=== PATIENT | male | born 1945 ===

== ENCOUNTER 2021-06-03 17:28 | Inpatient (IN) | payer OTHER, MEDICARE ==
[2021-06-03] MEDS ORDERED: dexAMETHasone 4 MG/ML VIAL IV ONE (17:34)
--- NOTE | 2021-06-03 17:35 | Event Note ---
ED Screening Note ED Screening Note: COVID + 3-4 days ago states received two doses of vaccine SOB two weeks no fever +diarrhea no n/v +CP +cough PMhx DM increased work of breathing 80% on RA placed on non rebreater and satting 94% discussed with Dr. Delong and denia pt needs room JETHRO charge nurse eugenia advised This initial assessment/diagnostic orders/clinical plan/treatment(s) is/are subject to change based on patients health status, clinical progression and re- assessment by fellow clinical providers in the ED. Further treatment and workup at subsequent clinical providers discretion. Patient/guardian urged not to elope from the ED as their condition may be serious if not clinically assessed and managed. Initial orders include: labs, xr, ekg, non rebreather MAIN ED NOW for MD fitzgerald
--- NOTE | 2021-06-03 18:34 | XRay Report ---
XR chest 1V ap INDICATION / CLINICAL INFORMATION: SOB. COMPARISON: None available. FINDINGS: SUPPORT DEVICES: None. HEART /PULMONARY VASCULATURE: The heart is accentuated by low lung volumes. Mild pulmonary vasculatur e congestion is present. LUNGS / PLEURA: Mild interstitial opacities are present within the mid and lower lungs bilaterally. N o focal airspace consolidation. No sizable pleural effusion. No pneumothorax. ADDITIONAL FINDINGS: No significant additional findings. IMPRESSION: Findings suggestive of mild CHF with interstitial edema. Signer Name: Jim Babin MD Signed: 06/03/2021 6:30 PM Workstation Name: [id number]
[2021-06-03 18:57] LABS: Basophils % (Auto) 0.3 % (0.0-1.8); Hematocrit 54.7 % (35.5-45.6); Lymphocytes # (Auto) 0.5 K/mm3 (1.2-5.4); Lymphocytes % (Auto) 8.4 % (13.4-35.0); Mean Corpuscular HGB Conc 31 % (32-34); Mean Corpuscular Volume 74 fl (84-94); Monocytes # (Auto) 0.7 K/mm3 (0.0-0.8); Monocytes % (Auto) 12.6 % (0.0-7.3); Platelet Count 225 K/mm3 (140-440); Red Blood Count 7.38 M/mm3 (3.65-5.03); Red Cell Distribution Width 15.9 % (13.2-15.2)
[2021-06-03 19:14] LABS: Albumin 3.1 g/dL (3.9-5); C-Reactive Protein 6.2 mg/dL (0.00-1.30); Calcium 8.6 mg/dL (8.4-10.2)
--- NOTE | 2021-06-03 20:34 | Emergency Department Report ---
<VIRGEN WHITFIELD - Last Filed: 06/03/21 20:30> ED Shortness of Breath HPI - General Chief Complaint: Dyspnea/Respdistress Stated Complaint: DYSPNEA/COVID + Time Seen by Provider: 06/03/21 17:33 Source: patient, family Mode of arrival: Wheelchair Limitations: No Limitations - History of Present Illness Initial Comments: cough shortness of breath , fever vince for the last few days MD Complaint: shortness of breath, cough -: days(s) Improves With: oxygen Worsens With: exertion - Related Data Home Medications Medication Instructions Recorded Confirmed Last Taken atenoloL [Tenormin] 50 mg PO DAILY 06/03/21 06/03/21 Unknown metFORMIN [Glucophage] 500 mg PO DAILY 06/03/21 06/03/21 Unknown Allergies Allergy/AdvReac Type Severity Reaction Status Date / Time shellfish derived AdvReac Hives Verified 06/03/21 18:34 ED Review of Systems Constitutional: denies: chills, fever Eyes: denies: eye pain, eye discharge, vision change ENT: denies: ear pain, throat pain Respiratory: denies: cough, shortness of breath, wheezing Cardiovascular: denies: chest pain, palpitations Endocrine: no symptoms reported Gastrointestinal: denies: abdominal pain, nausea, diarrhea Genitourinary: denies: urgency, dysuria Musculoskeletal: denies: back pain, joint swelling, arthralgia Skin: denies: rash, lesions Neurological: denies: headache, weakness, paresthesias Psychiatric: denies: anxiety, depression Hematological/Lymphatic: denies: easy bleeding, easy bruising ED Past Medical Hx - Past Medical History Hx Hypertension: Yes Hx Diabetes: Yes - Surgical History Past Surgical History?: No - Social History Smoking Status: Never Smoker Substance Use Type: None - Medications Home Medications: Home Medications Medication Instructions Recorded Confirmed Last Taken Type atenoloL [Tenormin] 50 mg PO DAILY 06/03/21 06/03/21 Unknown History metFORMIN [Glucophage] 500 mg PO DAILY 06/03/21 06/03/21 Unknown History ED Physical Exam - General Limitations: No Limitations General appearance: alert - Head Head exam: Present: atraumatic, normocephalic - Eye Eye exam: Present: normal appearance - ENT ENT exam: Present: mucous membranes moist - Neck Neck exam: Present: normal inspection - Respiratory Respiratory exam: Present: normal lung sounds bilaterally. Absent: respiratory distress - Cardiovascular Cardiovascular Exam: Present: regular rate, normal rhythm. Absent: systolic murmur, diastolic murmur, rubs, gallop - GI/Abdominal GI/Abdominal exam: Present: soft, normal bowel sounds - Rectal Rectal exam: Present: deferred - Extremities Exam Extremities exam: Present: normal inspection - Back Exam Back exam: Present: normal inspection - Neurological Exam Neurological exam: Present: alert, oriented X3 - Psychiatric Psychiatric exam: Present: normal affect, normal mood - Skin Skin exam: Present: warm, dry, intact, normal color. Absent: rash ED Medical Decision Making - Lab Data Result diagrams: 06/03/21 18:37 06/03/21 18:37 ED Disposition Clinical Impression: Acute respiratory failure with hypoxia, Bilateral pneumonia, Suspected COVID-19 virus infection Disposition: 09 ADMITTED INPATIENT Is pt being admited?: Yes Does the pt Need Aspirin: No Condition: Stable Instructions: Bacterial Pneumonia (ED) Referrals: PRIMARY CARE, [Primary Care Provider] - 3-5 Days <FERCHO MCKAY - Last Filed: 06/03/21 21:26> ED Review of Systems ROS: Stated complaint: DYSPNEA/COVID + Other details as noted in HPI ED Course Vital Signs 06/03/21 06/03/21 17:30 18:37 Pulse Rate 117 H 105 H Respiratory 30 H 24 Rate Blood Pressure 114/76 122/88 [Left] O2 Sat by Pulse 83 L 97 Oximetry - Consultations Consultation #1: 06/03/21 21:22 I discussed the patient with Dr. Armendariz, he agreed to admit the patient to medical service for further management. ED Medical Decision Making - Lab Data Result diagrams: 06/03/21 18:37 06/03/21 18:37 - Radiology Data Radiology results: report reviewed - Medical Decision Making Patient is 75 years old female with recent diagnosis of COVID-19. Patient signed out to me by my colleague Dr. Whitfield, patient presented to the ER complaining of shortness of breath, cough and fever. Patient found to be hypoxic with an oxygen saturation of 80% on room air improved to 95% on 3 L. Chest x-ray showed bilateral lower infiltrate. Patient received Decadron and Levaquin. I discussed the patient with Dr. Nabi, he agreed to admit the patient to medical service for further management. Critical Care Time: Yes Critical care time in (mins) excluding proc time.: 35 Critical care attestation.: If time is entered above; I have spent that time in minutes in the direct care of this critically ill patient, excluding procedure time.
[2021-06-03] MEDS ORDERED: ACETAMINOPHEN 325 MG TAB PO PRN (21:46)
[2021-06-03] MEDS ORDERED: ONDANSETRON 4 MG/2 ML INJ IV PRN (21:46)
[2021-06-03] MEDS ORDERED: ALBUTEROL 2.5 MG/3 ML NEBU IH PRN (21:46)
[2021-06-03] MEDS ORDERED: DEXTROSE 50% IN WATER (25GM) 50 ML SYRINGE IV PRN (21:46)
[2021-06-03] MEDS ORDERED: hydrALAZINE 20 MG/1 ML INJ IV PRN (21:50)
--- NOTE | 2021-06-03 21:55 | History and Physical Report ---
History of Present Illness Date of examination: 06/03/21 Date of admission: 06/03/21 21:26 Chief complaint: Shortness of breath and cough History of present illness: 75 years old male with history of diabetes. Received 2 doses of COVID-vaccine was brought to the hospital because patient complained of shortness of breath for the 2 weeks associated with cough patient also complained of chest pain no nausea vomiting complain of diarrhea patient was positive for COVID 3 to 4 days ago subsequently patient is brought to the emergency room. In the ER patient is found to have increased work of breathing. O2 sat 80% on room air subsequently patient was put on nonrebreather and satting 94%. In the emergency room chest x-ray shows mild CHF with interstitial edema. Surgery to admit the patient with a diagnosis of acute respiratory failure suspected COVID-pneumonia. We will consult infectious disease for evaluation Past History Past Medical History: diabetes, hypertension Medications and Allergies Allergies Allergy/AdvReac Type Severity Reaction Status Date / Time shellfish derived AdvReac Hives Verified 06/03/21 18:34 Home Medications Medication Instructions Recorded Confirmed Last Taken Type atenoloL [Tenormin] 50 mg PO DAILY 06/03/21 06/03/21 Unknown History metFORMIN [Glucophage] 500 mg PO DAILY 06/03/21 06/03/21 Unknown History Active Meds: Active Medications Levofloxacin/Dextrose (Levaquin 500mg/100ml) 500 mg in 100 mls @ 100 mls/hr IV ONCE ONE; Protocol Stop: 06/03/21 22:23 Review of Systems All systems: negative Cardiovascular: chest pain, shortness of breath, dyspnea on exertion Respiratory: cough, shortness of breath, dyspnea on exertion Gastrointestinal: diarrhea Exam - Constitutional Vitals: Temp Pulse Resp BP Pulse Ox 105 H 24 122/88 97 06/03/21 18:37 06/03/21 18:37 06/03/21 18:37 06/03/21 18:37 General appearance: Present: no acute distress, well-nourished - EENT Eyes: Present: PERRL ENT: hearing intact, clear oral mucosa - Neck Neck: Present: supple, normal ROM - Respiratory Respiratory effort: normal Respiratory: bilateral: diminished - Cardiovascular Heart Sounds: Present: S1 & S2. Absent: rub, click - Extremities Extremities: pulses symmetrical, No edema Peripheral Pulses: within normal limits - Abdominal General gastrointestinal: Present: soft, non-tender, non-distended, normal bowel sounds Male genitourinary: Present: normal - Integumentary Integumentary: Present: clear, warm, dry - Musculoskeletal Musculoskeletal: gait normal, strength equal bilaterally - Psychiatric Psychiatric: appropriate mood/affect, intact judgment & insight - Neurologic Neurologic: CNII-XII intact, moves all extremities Results - Labs CBC & Chem 7: 06/03/21 18:37 06/03/21 18:37 Labs: Laboratory Last Values WBC 5.4 K/mm3 (4.5-11.0) 06/03/21 18:37 RBC 7.38 M/mm3 (3.65-5.03) H 06/03/21 18:37 Hgb 17.0 gm/dl (11.8-15.2) H 06/03/21 18:37 Hct 54.7 % (35.5-45.6) H 06/03/21 18:37 MCV 74 fl (84-94) L 06/03/21 18:37 MCH 23 pg (28-32) L 06/03/21 18:37 MCHC 31 % (32-34) L 06/03/21 18:37 RDW 15.9 % (13.2-15.2) H 06/03/21 18:37 Plt Count 225 K/mm3 (140-440) 06/03/21 18:37 Lymph % (Auto) 8.4 % (13.4-35.0) L 06/03/21 18:37 Eaton % (Auto) 12.6 % (0.0-7.3) H 06/03/21 18:37 Eos % (Auto) 0.0 % (0.0-4.3) 06/03/21 18:37 Baso % (Auto) 0.3 % (0.0-1.8) 06/03/21 18:37 Lymph # (Auto) 0.5 K/mm3 (1.2-5.4) L 06/03/21 18:37 Eaton # (Auto) 0.7 K/mm3 (0.0-0.8) 06/03/21 18:37 Eos # (Auto) 0.0 K/mm3 (0.0-0.4) 06/03/21 18:37 Baso # (Auto) 0.0 K/mm3 (0.0-0.1) 06/03/21 18:37 Seg Neutrophils % 78.7 % (40.0-70.0) H 06/03/21 18:37 Seg Neutrophils # 4.3 K/mm3 (1.8-7.7) 06/03/21 18:37 D-Dimer 634.36 ng/mlDDU (0-234) H 06/03/21 18:37 Sodium 138 mmol/L (137-145) 06/03/21 18:37 Potassium 5.4 mmol/L (3.6-5.0) H 06/03/21 18:37 Chloride 103.1 mmol/L (98-107) 06/03/21 18:37 Carbon Dioxide 19 mmol/L (22-30) L 06/03/21 18:37 Anion Gap 21 mmol/L 06/03/21 18:37 BUN 40 mg/dL (9-20) H 06/03/21 18:37 Creatinine 2.6 mg/dL (0.8-1.3) H 06/03/21 18:37 Estimated GFR 24 ml/min 06/03/21 18:37 BUN/Creatinine Ratio 15 % 06/03/21 18:37 Glucose 179 mg/dL (75-100) H 06/03/21 18:37 Lactic Acid 1.60 mmol/L (0.7-2.0) 06/03/21 20:37 Calcium 8.6 mg/dL (8.4-10.2) 06/03/21 18:37 Ferritin 823.7 ng/mL (30.0-300.0) H 06/03/21 18:37 Total Bilirubin 0.50 mg/dL (0.1-1.2) 06/03/21 18:37 AST 28 units/L (5-40) 06/03/21 18:37 ALT 22 units/L (7-56) 06/03/21 18:37 Alkaline Phosphatase 71 units/L (35-129) 06/03/21 18:37 Lactate Dehydrogenase 308 units/L (91-180) H 06/03/21 18:37 C-Reactive Protein 6.20 mg/dL (0.00-1.30) H 06/03/21 18:37 NT-Pro-B Natriuret Pep 246.5 pg/mL (0-900) 06/03/21 20:48 Total Protein 6.5 g/dL (6.3-8.2) 06/03/21 18:37 Albumin 3.1 g/dL (3.9-5) L 06/03/21 18:37 Albumin/Globulin Ratio 0.9 % 06/03/21 18:37 - Imaging and Cardiology Chest x-ray: report reviewed Assessment and Plan VTE prophylaxis?: Chemical Plan of care discussed with patient/family: Yes - Patient Problems (1) Acute respiratory failure with hypoxia Current Visit: Yes Status: Acute Plan to address problem: Admit the patient to the medical floor. Patient is on nonrebreather. DuoNeb nebulizer every 4 hours. Rocephin 1 g IV daily. Zithromax 500 mg IV daily. De cadron 6 mg IV daily. We will do the blood cultures and sputum culture. We will send a COVID PCR. Follow COVID inflammatory marker. Infectious disease as well as pulmonary evaluation (2) Bilateral pneumonia Current Visit: Yes Status: Acute Plan to address problem: Patient is on nonrebreather. DuoNeb nebulizer every 4 hours. Rocephin 1 g IV daily. Zithromax 500 mg IV daily. We will do the blood cultures and sputum culture. (3) Suspected COVID-19 virus infection Current Visit: Yes Status: Acute Plan to address problem: Patient is on nonrebreather. DuoNeb nebulizer every 4 hours. Rocephin 1 g IV daily. Zithromax 500 mg IV daily. Decadron 6 mg IV daily. We will do the blood cultures and sputum culture. We will send a COVID PCR. Follow COVID inflammatory marker. Infectious disease as well as pulmonary evaluation (4) Diabetes Current Visit: Yes Status: Acute Plan to address problem: 1800 kcal ADA diet. Humalog sliding scale with moderate dose coverage Accu-Chek before meals and at bedtime. Metformin 500 mg p.o. daily. Diabetic education (5) Hypertension Current Visit: Yes Status: Acute Plan to address problem: Atenolol 50 mg p.o. daily. Hydralazine 10 mg IV every 6 hours as needed (6) Acute kidney injury superimposed on CKD Current Visit: Yes Status: Acute Plan to address problem: Avoid nephrotoxic drugs. Renally dose medication. Reconsult nephrology for evaluation. Recheck BMP in the morning (7) DVT prophylaxis Current Visit: Yes Status: Acute Plan to address problem: Heparin 5000 units subcu every 8 hours for DVT prophylaxis. Pepcid 20 mg p.o. twice daily for GI prophylaxis. Patient is a full code
[2021-06-03] MEDS ORDERED: AZITHROMYCIN/NS 500 MG/250 ML 500 MG/250 ML BAG IV SCH (22:00)
[2021-06-03] MEDS ORDERED: cefTRIAXone/NS 2 GM/100 ML 2 GM/100 ML BAG IV SCH (22:00)
[2021-06-03] MEDS: HEPARIN 5,000 UNIT/1 ML VIAL SUB-Q SCH (23:18)
[2021-06-04] MEDS: FAMOTIDINE 20 MG TAB PO SCH ×2 (00:21→11:04)
[2021-06-04] MEDS: INSULIN LISPRO 100 UNIT/ML SUB-Q SCH ×5 (00:34→23:21)
[2021-06-04] MEDS ORDERED: SODIUM POLYSTYRENE 15 GM/60 ML ORAL LIQD PO ONE (01:17)
[2021-06-04] MEDS: IPRATROPIUM/ALBUTEROL SULFATE 3 ML AMPUL.NEB IH SCH ×2 (05:24→17:04)
[2021-06-04] MEDS: HEPARIN 5,000 UNIT/1 ML VIAL SUB-Q SCH ×3 (06:57→23:21)
[2021-06-04 06:59] LABS: Basophils % (Auto) 0.4 % (0.0-1.8); Eosinophils % (Auto) 0.2 % (0.0-4.3); Hematocrit 50.7 % (35.5-45.6); Hemoglobin 15.9 gm/dl (11.8-15.2); Lymphocytes # (Auto) 0.8 K/mm3 (1.2-5.4); Lymphocytes % (Auto) 17.7 % (13.4-35.0); Mean Corpuscular HGB Conc 31 % (32-34); Mean Corpuscular Volume 74 fl (84-94); Monocytes # (Auto) 0.7 K/mm3 (0.0-0.8); Monocytes % (Auto) 15.6 % (0.0-7.3); Platelet Count 220 K/mm3 (140-440); Red Blood Count 6.82 M/mm3 (3.65-5.03); Red Cell Distribution Width 16.1 % (13.2-15.2)
[2021-06-04] MEDS ORDERED: metFORMIN 500 MG TAB PO SCH (08:00)
--- NOTE | 2021-06-04 10:41 | Consultation ---
History of Present Illness - Reason for Consult Consult date: 06/04/21 acute renal failure - History of Present Illness HPI: 75 year old M admitted with Cough and SHOB along with some chest pain. Pt was recently dx with Covid outpatient. He was found to have hypoxia in the ER along with renal failure and hyperkalemia. He N/V,diarrhea. CXR was somewhat congested. ROS: As in HPI otherwise 12 point review of systems -ve Past History Past Medical History: diabetes, hypertension Medications and Allergies Allergies Allergy/AdvReac Type Severity Reaction Status Date / Time shellfish derived AdvReac Hives Verified 06/03/21 18:34 Home Medications Medication Instructions Recorded Confirmed Last Taken Type atenoloL [Tenormin] 50 mg PO DAILY 06/03/21 06/03/21 Unknown History metFORMIN [Glucophage] 500 mg PO DAILY 06/03/21 06/03/21 Unknown History Active Meds: Active Medications Acetaminophen (Acetaminophen 325 Mg Tab) 650 mg PO Q4H PRN PRN Reason: Pain MILD(1-3)/Fever >100.5/LISA Albuterol (Albuterol 2.5 Mg/3 Ml Nebu) 2.5 mg IH Q4HRT PRN PRN Reason: Shortness Of Breath Albuterol/Ipratropium (Ipratropium/Albuterol Sulfate 3 Ml Ampul.Neb) 1 ampul IH Q6HRT [facility] Last Admin: 06/04/21 05:24 Dose: Not Given Atenolol (Atenolol 50 Mg Tab) 50 mg PO DAILY [facility] Azithromycin (Azithromycin 250 Mg Tab) 500 mg PO QHS [facility] Stop: 06/07/21 22:01 Dexamethasone (Dexamethasone 4 Mg/Ml Vial) 6 mg IV DAILY [facility] Stop: 06/13/21 10:01 Dextrose (Dextrose 50% In Water (25gm) 50 Ml Syringe) 0 ml IV Q30MIN PRN; Protocol PRN Reason: Hypoglycemia Famotidine (Famotidine 20 Mg Tab) 20 mg PO QAM [facility] Last Admin: 06/04/21 00:21 Dose: Not Given Heparin Sodium (Porcine) (Heparin 5,000 Unit/1 Ml Vial) 5,000 unit SUB-Q Q8HR [facility] Last Admin: 06/04/21 06:57 Dose: 5,000 unit Hydralazine HCl (Hydralazine 20 Mg/1 Ml Inj) 10 mg IV Q6H PRN PRN Reason: Blood Pressure Hydromorphone HCl (Hydromorphone 1 Mg/1 Ml Inj) 0.5 mg IV Q3H PRN PRN Reason: Pain , Severe (7-10) Ceftriaxone Sodium (Rocephin/Ns 2 Gm/100 Ml) 2 gm in 100 mls @ 200 mls/hr IV Q24H [facility]; Protocol Stop: 06/07/21 22:29 Last Admin: 06/04/21 00:22 Dose: 200 mls/hr Insulin Human Lispro (Insulin Lispro 100 Unit/Ml) 0 unit SUB-Q ACHS [facility]; Protocol Last Admin: 06/04/21 00:34 Dose: Not Given Morphine Sulfate (Morphine 2 Mg/1 Ml Inj) 2 mg IV Q4H PRN PRN Reason: Pain, Moderate (4-6) Ondansetron HCl (Ondansetron 4 Mg/2 Ml Inj) 4 mg IV Q8H PRN PRN Reason: Nausea And Vomiting Sodium Chloride (Sodium Chloride 0.9% 10 Ml Flush Syringe) 10 ml IV BID [facility] Last Admin: 06/03/21 23:33 Dose: 10 ml Sodium Chloride (Sodium Chloride 0.9% 10 Ml Flush Syringe) 10 ml IV PRN PRN PRN Reason: LINE FLUSH Exam - Vital Signs Vital signs: Vital Signs Pulse Resp BP Pulse Ox 117 H 30 H 114/76 83 L 06/03/21 17:30 06/03/21 17:30 06/03/21 17:30 06/03/21 17:30 - Physical Exam Narrative exam: General appearance: Present: no acute distress, well-nourished - EENT Eyes: Present: PERRL ENT: hearing intact, clear oral mucosa - Neck Neck: Present: supple, normal ROM - Respiratory Respiratory effort: normal Respiratory: bilateral: diminished - Cardiovascular Heart Sounds: Present: S1 & S2. Absent: rub, click - Extremities Extremities: pulses symmetrical, No edema Peripheral Pulses: within normal limits - Abdominal General gastrointestinal: Present: soft, non-tender, non-distended, normal bowel sounds Male genitourinary: Present: normal - Integumentary Integumentary: Present: clear, warm, dry - Musculoskeletal Musculoskeletal: gait normal, strength equal bilaterally - Psychiatric Psychiatric: appropriate mood/affect, intact judgment & insight - Neurologic Neurologic: CNII-XII intact, moves all extremities Results - Lab Results 06/04/21 05:40 06/04/21 05:40 Most recent lab results Calcium 8.0 mg/dL (8.4-10.2) L 06/04/21 05:40 Assessment and Plan Acute Kidney injury, Possible CKD: Covid 19 Pneumonia: Acute Hypoxic respiratory failure: Hyperkalemia: Metabolic acidosis: DM2: HTN: -Check Urine studies, CK level -K improving after Kayxelate, Low K diet -Monitor acidosis -Check Renal US -CXR congested, start lasix 40 mg BID IV, check TTE for CHF. -Renally dose all meds -Avoid Nephrotoxic meds -Strict I/Os Go Moreau MD [phone]
[2021-06-04] MEDS: dexAMETHasone 4 MG/ML VIAL IV SCH (11:04)
[2021-06-04] MEDS: FUROSEMIDE 40 MG/4 ML INJ IV SCH ×2 (12:05→17:59)
[2021-06-04] MEDS ORDERED: REMDESIVIR 200 MG in SODIUM CHLORIDE 0.9% 250ML 250 ML IV ONE (14:26)
--- NOTE | 2021-06-04 14:26 | Consultation ---
History of Present Illness - Reason for Consult Consult date: 06/04/21 COVID-19 Requesting physician: REJI GEORGES - History of Present Illness The patient is a 73-year-old male with diabetes, hypertension admitted to the hospital with worsening shortness of breath over the last 2 weeks. Patient tested positive for COVID-19 as an outpatient. Upon evaluation in the ER, noted to be hypoxic on room air. Chest x-ray showed mild CHF and interstitial edema. Afebrile on admission. Oxygen has been weaned to aerosol mask. Labs showed mild leukopenia of 4.3, D-dimer 634, proBNP 246, ferritin 823, CRP 6.2, procalcitonin 0.12 Review of Systems: reviewed in the chart, unable to obtain, minimize risk of transmission Past History Past Medical History: diabetes, hypertension Medications and Allergies Allergies Allergy/AdvReac Type Severity Reaction Status Date / Time shellfish derived AdvReac Hives Verified 06/03/21 18:34 Home Medications Medication Instructions Recorded Confirmed Last Taken Type atenoloL [Tenormin] 50 mg PO DAILY 06/03/21 06/03/21 Unknown History metFORMIN [Glucophage] 500 mg PO DAILY 06/03/21 06/03/21 Unknown History Active Meds: Active Medications Acetaminophen (Acetaminophen 325 Mg Tab) 650 mg PO Q4H PRN PRN Reason: Pain MILD(1-3)/Fever >100.5/LISA Albuterol (Albuterol 2.5 Mg/3 Ml Nebu) 2.5 mg IH Q4HRT PRN PRN Reason: Shortness Of Breath Albuterol/Ipratropium (Ipratropium/Albuterol Sulfate 3 Ml Ampul.Neb) 1 ampul IH Q6HRT [facility] Last Admin: 06/04/21 05:24 Dose: Not Given Atenolol (Atenolol 50 Mg Tab) 50 mg PO DAILY [facility] Dexamethasone (Dexamethasone 4 Mg/Ml Vial) 6 mg IV DAILY [facility] Stop: 06/13/21 10:01 Dextrose (Dextrose 50% In Water (25gm) 50 Ml Syringe) 0 ml IV Q30MIN PRN; Protocol PRN Reason: Hypoglycemia Famotidine (Famotidine 20 Mg Tab) 20 mg PO QAM [facility] Last Admin: 06/04/21 00:21 Dose: Not Given Furosemide (Furosemide 40 Mg/4 Ml Inj) 40 mg IV 0600,1800 [facility] Heparin Sodium (Porcine) (Heparin 5,000 Unit/1 Ml Vial) 5,000 unit SUB-Q Q8HR [facility] Last Admin: 06/04/21 06:57 Dose: 5,000 unit Hydralazine HCl (Hydralazine 20 Mg/1 Ml Inj) 10 mg IV Q6H PRN PRN Reason: Blood Pressure Hydromorphone HCl (Hydromorphone 1 Mg/1 Ml Inj) 0.5 mg IV Q3H PRN PRN Reason: Pain , Severe (7-10) Insulin Human Lispro (Insulin Lispro 100 Unit/Ml) 0 unit SUB-Q ACHS [facility]; Protocol Last Admin: 06/04/21 00:34 Dose: Not Given Morphine Sulfate (Morphine 2 Mg/1 Ml Inj) 2 mg IV Q4H PRN PRN Reason: Pain, Moderate (4-6) Ondansetron HCl (Ondansetron 4 Mg/2 Ml Inj) 4 mg IV Q8H PRN PRN Reason: Nausea And Vomiting Sodium Chloride (Sodium Chloride 0.9% 10 Ml Flush Syringe) 10 ml IV BID [facility] Last Admin: 06/03/21 23:33 Dose: 10 ml Sodium Chloride (Sodium Chloride 0.9% 10 Ml Flush Syringe) 10 ml IV PRN PRN PRN Reason: LINE FLUSH Physical Examination - Physical Exam Narrative exam: Physical Exam (reviewed in chart to minimize risk of transmission) Constitutional: deferred Head, Ears, Nose: deferred Eyes: deferred Neck: deferred Oral: deferred Cardiovascular: deferred Respiratory: deferred GI: deferred Musculoskeletal: deferred Skin: deferred Hem/Lymphatic: deferred Psych: deferred Neurological: deferred - Constitutional Vitals: Vital Signs Temp Pulse Resp BP Pulse Ox 98.5 F 73 24 114/80 95 06/04/21 01:53 06/04/21 09:22 06/04/21 09:22 06/04/21 09:22 06/04/21 09:22 Temperature -Last 24 Hours Temperature 98.5 F Temperature 98.2 F Results - Labs CBC & Chem 7: 06/04/21 05:40 06/04/21 05:40 Labs: Abnormal lab results 06/03/21 06/03/21 06/03/21 Range/Units 18:37 18:37 18:37 WBC (4.5-11.0) K/mm3 RBC 7.38 H (3.65-5.03) M/mm3 Hgb 17.0 H (11.8-15.2) gm/dl Hct 54.7 H (35.5-45.6) % MCV 74 L (84-94) fl MCH 23 L (28-32) pg MCHC 31 L (32-34) % RDW 15.9 H (13.2-15.2) % Lymph % (Auto) 8.4 L (13.4-35.0) % [place] % (Auto) 12.6 H (0.0-7.3) % Lymph # (Auto) 0.5 L (1.2-5.4) K/mm3 Seg Neutrophils % 78.7 H (40.0-70.0) % D-Dimer (0-234) ng/mlDDU Potassium 5.4 H (3.6-5.0) mmol/L Carbon Dioxide 19 L (22-30) mmol/L BUN 40 H (9-20) mg/dL Creatinine 2.6 H (0.8-1.3) mg/dL Glucose 179 H (75-100) mg/dL POC Glucose (70-105) mg/dL Lactic Acid 2.40 H* (0.7-2.0) mmol/L Calcium (8.4-10.2) mg/dL Ferritin (30.0-300.0) ng/mL Lactate Dehydrogenase 308 H (91-180) units/L C-Reactive Protein 6.20 H (0.00-1.30) mg/dL Albumin 3.1 L (3.9-5) g/dL 06/03/21 06/03/21 06/04/21 Range/Units 18:37 18:37 00:30 WBC (4.5-11.0) K/mm3 RBC (3.65-5.03) M/mm3 Hgb (11.8-15.2) gm/dl Hct (35.5-45.6) % MCV (84-94) fl MCH (28-32) pg MCHC (32-34) % RDW (13.2-15.2) % Lymph % (Auto) (13.4-35.0) % [place] % (Auto) (0.0-7.3) % Lymph # (Auto) (1.2-5.4) K/mm3 Seg Neutrophils % (40.0-70.0) % D-Dimer 634.36 H (0-234) ng/mlDDU Potassium (3.6-5.0) mmol/L Carbon Dioxide (22-30) mmol/L BUN (9-20) mg/dL Creatinine (0.8-1.3) mg/dL Glucose (75-100) mg/dL POC Glucose 115 H (70-105) mg/dL Lactic Acid (0.7-2.0) mmol/L Calcium (8.4-10.2) mg/dL Ferritin 823.7 H (30.0-300.0) ng/mL Lactate Dehydrogenase (91-180) units/L C-Reactive Protein (0.00-1.30) mg/dL Albumin (3.9-5) g/dL 06/04/21 06/04/21 Range/Units 05:40 05:40 WBC 4.3 L (4.5-11.0) K/mm3 RBC 6.82 H (3.65-5.03) M/mm3 Hgb 15.9 H (11.8-15.2) gm/dl Hct 50.7 H (35.5-45.6) % MCV 74 L (84-94) fl MCH 23 L (28-32) pg MCHC 31 L (32-34) % RDW 16.1 H (13.2-15.2) % Lymph % (Auto) (13.4-35.0) % [place] % (Auto) 15.6 H (0.0-7.3) % Lymph # (Auto) 0.8 L (1.2-5.4) K/mm3 Seg Neutrophils % (40.0-70.0) % D-Dimer (0-234) ng/mlDDU Potassium (3.6-5.0) mmol/L Carbon Dioxide 21 L (22-30) mmol/L BUN 46 H (9-20) mg/dL Creatinine 2.2 H (0.8-1.3) mg/dL Glucose 101 H (75-100) mg/dL POC Glucose (70-105) mg/dL Lactic Acid (0.7-2.0) mmol/L Calcium 8.0 L (8.4-10.2) mg/dL Ferritin (30.0-300.0) ng/mL Lactate Dehydrogenase (91-180) units/L C-Reactive Protein (0.00-1.30) mg/dL Albumin (3.9-5) g/dL - Imaging and Cardiology Chest x-ray: report reviewed, image reviewed (mild b/l pna) Assessment and Plan Cultures: SARS CoV2 PCR: Positive as outpatient 06/03/2021 blood culture: In process A/P: 73-year-old male with diabetes, hypertension admitted to the hospital with worsening shortness of breath. Patient tested positive for COVID-19 as an outpatient: #Bilateral pneumonia: Secondary to COVID-19. Hypoxic, elevated inflammatory markers. Procalcitonin 0.12. #Acute hypoxic respiratory failure: Secondary to above #ANGIE: Renally adjust antibiotic #Leukopenia: Likely related to viral illness Recs: -IV/PO Dexamethasone x 10 days -Creatinine improving, GFR is borderline, considering risk and benefit, would start IV remdesivir x 5 days -prophylactic anticoagulation based on d-dimer per hospital protocol -procalcitonin is low, abx not needed -trend ferritin, d-dimer, CRP every 2-3 days Tiffanie Rene MD, FACP, [facility] ([facility] O: [phone] F: [phone]
--- NOTE | 2021-06-04 14:51 | Progress Note ---
Assessment and Plan Assessment and plan: Patient is a 75-year-old male with past medical history of [id number] type 2 diabetes and hypertension who presented with 2 weeks of worsening shortness of breath with productive cough. The patient was found to be hypoxic to 80% on room air in the ED requiring supplemental oxygen. #Acute hypoxic respiratory failure #Possible community-acquired pneumonia #Possible COVID-19 pneumonia - etiology: Infectious (community-acquired pneumonia or COVID-19) versus CHF exacerbation - baseline oxygen requirements: None - supplemental oxygen: Nonrebreather on 7 L Continue Rocephin 1 g daily and azithromycin 500 mg daily. Starting IV Decadron 6 mg daily. Pending coronavirus PCR, sputum cultures, and blood cultures. If coronavirus PCR is positive, antibiotics can be discontinued. Infectious disease consulted; appreciate recs. - Continue protocol: continue pulse oximetry, wean oxygen as tolerated, ordered incentive spirometry and educated patient on how to use it and its importance. - continue to monitor #Possible CHF exacerbation Pending TTE to evaluate EF. Starting IV Lasix 40 mg daily (per nephrology). Based on TTE, patient can be placed on fluid restriction with strict I's and O's. Continue to monitor. #Non-insulin dependent type II diabetes mellitus - hemoglobin A1c: Pending - home regimen: Metformin - current regimen: Moderate SSI. Holding metformin; can be restarted prior to discharge. - blood glucose goal 140-180 while inpatient - continue to monitor #ANGIE on CKD (stage unknown) Current creatinine 2.4 (baseline 1.3) Nephrology consulted; appreciate recs Renally dose medications and avoid nephrotoxic meds. Pending renal ultrasound. Continue to monitor. #Advanced care planning -Disease education conducted, care plan discussed, diagnoses discussed, prognosis discussed, and patient acknowledges understanding with care plan -Time: +30 min Disposition Plan: Continue medical management Total Time Spent with Patient (Minutes): 45 minutes History Interval history: No acute events overnight. Hospitalist Physical - Constitutional Vitals: Temp Pulse Resp BP Pulse Ox 98.5 F 73 24 114/80 95 06/04/21 01:53 06/04/21 09:22 06/04/21 09:22 06/04/21 09:22 06/04/21 09:22 General appearance: Present: no acute distress, well-nourished - EENT Eyes: Present: PERRL, EOM intact ENT: hearing intact, clear oral mucosa - Neck Neck: Present: supple, normal ROM - Respiratory Respiratory effort: labored Respiratory: bilateral: diminished (On 7 L nonrebreather) - Cardiovascular Rhythm: regular Heart Sounds: Present: S1 & S2 - Extremities Extremities: no ischemia, pulses intact, pulses symmetrical, No edema, normal temperature, normal color, Full ROM Peripheral Pulses: within normal limits - Abdominal General gastrointestinal: soft, non-tender, non-distended, normal bowel sounds - Integumentary Integumentary: Present: clear, warm, dry - Psychiatric Psychiatric: appropriate mood/affect, cooperative - Neurologic Neurologic: CNII-XII intact, moves all extremities - Allied Health Allied health notes reviewed: nursing Results - Labs CBC & Chem 7: 06/04/21 05:40 06/04/21 05:40 Labs: Laboratory Last Values WBC 4.3 K/mm3 (4.5-11.0) L 06/04/21 05:40 RBC 6.82 M/mm3 (3.65-5.03) H 06/04/21 05:40 Hgb 15.9 gm/dl (11.8-15.2) H 06/04/21 05:40 Hct 50.7 % (35.5-45.6) H 06/04/21 05:40 MCV 74 fl (84-94) L 06/04/21 05:40 MCH 23 pg (28-32) L 06/04/21 05:40 MCHC 31 % (32-34) L 06/04/21 05:40 RDW 16.1 % (13.2-15.2) H 06/04/21 05:40 Plt Count 220 K/mm3 (140-440) 06/04/21 05:40 Lymph % (Auto) 17.7 % (13.4-35.0) 06/04/21 05:40 [facility] % (Auto) 15.6 % (0.0-7.3) H 06/04/21 05:40 Eos % (Auto) 0.2 % (0.0-4.3) 06/04/21 05:40 Baso % (Auto) 0.4 % (0.0-1.8) 06/04/21 05:40 Lymph # (Auto) 0.8 K/mm3 (1.2-5.4) L 06/04/21 05:40 [facility] # (Auto) 0.7 K/mm3 (0.0-0.8) 06/04/21 05:40 Eos # (Auto) 0.0 K/mm3 (0.0-0.4) 06/04/21 05:40 Baso # (Auto) 0.0 K/mm3 (0.0-0.1) 06/04/21 05:40 Seg Neutrophils % 66.1 % (40.0-70.0) 06/04/21 05:40 Seg Neutrophils # 2.9 K/mm3 (1.8-7.7) 06/04/21 05:40 D-Dimer 634.36 ng/mlDDU (0-234) H 06/03/21 18:37 Sodium 142 mmol/L (137-145) 06/04/21 05:40 Potassium 4.8 mmol/L (3.6-5.0) 06/04/21 05:40 Chloride 105.6 mmol/L (98-107) 06/04/21 05:40 Carbon Dioxide 21 mmol/L (22-30) L 06/04/21 05:40 Anion Gap 20 mmol/L 06/04/21 05:40 BUN 46 mg/dL (9-20) H 06/04/21 05:40 Creatinine 2.2 mg/dL (0.8-1.3) H 06/04/21 05:40 Estimated GFR 29 ml/min 06/04/21 05:40 BUN/Creatinine Ratio 21 % 06/04/21 05:40 Glucose 101 mg/dL (75-100) H 06/04/21 05:40 POC Glucose 115 mg/dL (70-105) H 06/04/21 00:30 Lactic Acid 1.60 mmol/L (0.7-2.0) 06/03/21 20:37 Calcium 8.0 mg/dL (8.4-10.2) L 06/04/21 05:40 Ferritin 823.7 ng/mL (30.0-300.0) H 06/03/21 18:37 Total Bilirubin 0.50 mg/dL (0.1-1.2) 06/03/21 18:37 AST 28 units/L (5-40) 06/03/21 18:37 ALT 22 units/L (7-56) 06/03/21 18:37 Alkaline Phosphatase 71 units/L (35-129) 06/03/21 18:37 Lactate Dehydrogenase 308 units/L (91-180) H 06/03/21 18:37 Total Creatine Kinase 67 units/L (55-170) 06/04/21 05:40 C-Reactive Protein 6.20 mg/dL (0.00-1.30) H 06/03/21 18:37 NT-Pro-B Natriuret Pep 246.5 pg/mL (0-900) 06/03/21 20:48 Total Protein 6.5 g/dL (6.3-8.2) 06/03/21 18:37 Albumin 3.1 g/dL (3.9-5) L 06/03/21 18:37 Albumin/Globulin Ratio 0.9 % 06/03/21 18:37 Procalcitonin 0.12 ng/mL (<0.15) 06/03/21 18:37 Microbiology: Microbiology 06/03/21 21:30 Peripheral/Venous Blood Culture - Preliminary Culture in Progress 06/03/21 21:40 Peripheral/Venous Blood Culture - Preliminary Culture in Progress Active Medications - Current Medications Current Medications: Generic Name Dose Route Start Last Admin Trade Name Freq PRN Reason Stop Dose Admin Acetaminophen 650 mg 06/03/21 21:46 Acetaminophen 325 Mg Tab PO Q4H PRN Pain MILD(1-3)/Fever >100.5/LISA Albuterol 2.5 mg 06/03/21 21:46 Albuterol 2.5 Mg/3 Ml Nebu IH Q4HRT PRN Shortness Of Breath Albuterol/Ipratropium 1 ampul 06/04/21 02:00 06/04/21 05:24 Ipratropium/Albuterol Sulfate 3 Ml Ampul.Neb IH Not Given Q6HRT [facility] Atenolol 50 mg 06/04/21 10:00 Atenolol 50 Mg Tab PO DAILY [facility] Dexamethasone 6 mg 06/04/21 10:00 Dexamethasone 4 Mg/Ml Vial IV 06/13/21 10:01 DAILY [facility] Dextrose 0 ml 06/03/21 21:46 Dextrose 50% In Water (25gm) 50 Ml Syringe IV Q30MIN PRN Hypoglycemia Protocol Famotidine 20 mg 06/03/21 22:00 06/04/21 00:21 Famotidine 20 Mg Tab PO Not Given QAM [facility] Furosemide 40 mg 06/04/21 11:30 Furosemide 40 Mg/4 Ml Inj IV 0600,1800 [facility] Heparin Sodium (Porcine) 5,000 unit 06/03/21 22:00 06/04/21 06:57 Heparin 5,000 Unit/1 Ml Vial SUB-Q 5,000 unit Q8HR [facility] Administration Hydralazine HCl 10 mg 06/03/21 21:50 Hydralazine 20 Mg/1 Ml Inj IV Q6H PRN Blood Pressure Hydromorphone HCl 0.5 mg 06/03/21 21:46 Hydromorphone 1 Mg/1 Ml Inj IV Q3H PRN Pain , Severe (7-10) REMDESIVIR 200 mg/ Sodium 250 mls @ 500 mls/hr 06/04/21 14:26 Chloride IV 06/04/21 14:55 ONCE ONE REMDESIVIR 100 mg/ Sodium 250 mls @ 500 mls/hr 06/05/21 21:00 Chloride IV 06/08/21 21:29 Q24HR@2100 [facility] Insulin Human Lispro 0 unit 06/03/21 22:00 06/04/21 00:34 Insulin Lispro 100 Unit/Ml SUB-Q Not Given ACHS [facility] Protocol Morphine Sulfate 2 mg 06/03/21 21:46 Morphine 2 Mg/1 Ml Inj IV Q4H PRN Pain, Moderate (4-6) Ondansetron HCl 4 mg 06/03/21 21:46 Ondansetron 4 Mg/2 Ml Inj IV Q8H PRN Nausea And Vomiting Sodium Chloride 10 ml 06/03/21 22:00 06/03/21 23:33 Sodium Chloride 0.9% 10 Ml Flush Syringe IV 10 ml BID [facility] Administration Sodium Chloride 10 ml 06/03/21 21:46 Sodium Chloride 0.9% 10 Ml Flush Syringe IV PRN PRN LINE FLUSH Sodium Chloride 50 ml 06/04/21 21:00 Sodium Chloride 0.9% 50 Ml Ivpb IV 06/08/21 21:01 Q24HR@2100 [facility] Nutrition/Malnutrition Assess - Dietary Evaluation Nutrition/Malnutrition Findings: Nutrition Notes Start: 06/04/21 10:44 Freq: Status: Active Protocol: Document 06/04/21 10:44 DENISE (Rec: 06/04/21 10:48 DENISE [id number]) Nutrition Notes Need for Assessment generated from: MD Order,Education Initial or Follow up Brief Note Current Diet Cardiac/Consistent Carbohydrates (since B 06/03). Height 5 ft 8 in Weight 84.623 kg [place] Body Weight (kg) 70.00 BMI 28.3 Weight change and time frame None reported at admission. Weight Status Overweight Subjective/Other Information RD consulrt for Nutrition Education. Pt still on ED, not a candidate for Nutrition Education at the time, will assess feasibility on F/U. No report available on PO intake of meals at the time. Percent of energy/protein needs met: Prescribed Cardiac/Consistent Carbohydrates Diet provides for energy/protein needs (1, 977 Kcal/86 g) during LOS. Nutrition Intervention Follow-Up By: 06/11/21 Additional Comments Nutrition education will be provided on F/U if feasible. Continue monitoring food tolerance, %PO intake of meals , and BM.
[2021-06-04 15:39] LABS: Albumin 3.4 g/dL (3.9-5); Calcium 8.9 mg/dL (8.4-10.2)
[2021-06-04] MEDS: atenoloL 50 MG TAB PO SCH (17:58)
--- NOTE | 2021-06-04 18:43 | Event Note ---
Date: 06/04/21 Cardiology: Echocardiogram done on the patient today reviewed, shows a possible small valvular vegetation associated with the anterior leaflet of the mitral valve. Patient is admitted with sepsis and pneumonia, currently on intravenous levofloxacin. I will report the findings to the infectious disease contact center consultant, and if clinically indicated, consideration should be given to [facility] imaging for optimal visualization of the mitral valve apparatus.
[2021-06-04] MEDS ORDERED: AZITHROMYCIN 250 MG TAB PO SCH (22:00)
[2021-06-05] MEDS: IPRATROPIUM/ALBUTEROL SULFATE 3 ML AMPUL.NEB IH SCH ×5 (00:10→20:20)
[2021-06-05 06:15] LABS: Basophils % (Auto) 0.2 % (0.0-1.8); Lymphocytes # (Auto) 0.4 K/mm3 (1.2-5.4); Lymphocytes % (Auto) 11.1 % (13.4-35.0); Mean Corpuscular HGB Conc 31 % (32-34); Mean Corpuscular Volume 74 fl (84-94); Monocytes # (Auto) 0.5 K/mm3 (0.0-0.8); Monocytes % (Auto) 15.4 % (0.0-7.3); Platelet Count 303 K/mm3 (140-440); Red Blood Count 7.39 M/mm3 (3.65-5.03); Red Cell Distribution Width 16.2 % (13.2-15.2)
[2021-06-05 06:23] LABS: Hematocrit 54.9 % (35.5-45.6); Hemoglobin 17.2 gm/dl (11.8-15.2)
[2021-06-05 06:37] LABS: Albumin 3.2 g/dL (3.9-5); Calcium 8.4 mg/dL (8.4-10.2)
[2021-06-05] MEDS: FUROSEMIDE 40 MG/4 ML INJ IV SCH ×2 (06:42→17:32)
[2021-06-05] MEDS: HEPARIN 5,000 UNIT/1 ML VIAL SUB-Q SCH ×3 (06:42→23:30)
[2021-06-05] MEDS ORDERED: VANCOMYCIN 1,250 MG in SODIUM CHLORIDE 0.9% 500 ML 500 ML IV ONE (07:53)
[2021-06-05] MEDS ORDERED: VANCOMYCIN PHARMACY TO DOSE IV SCH (08:00)
[2021-06-05] MEDS ORDERED: CEFEPIME/NS 1 GM/100 ML 1 GM/100 ML BAG IV SCH ×2 (08:00→09:00)
--- NOTE | 2021-06-05 08:25 | Progress Note ---
Assessment and Plan Acute Kidney injury, Possible CKD: Covid 19 Pneumonia: Acute Hypoxic respiratory failure: Hyperkalemia: Metabolic acidosis: DM2: HTN: -Stable Cr, BUN is rising, no UOP recorded -will start sodium bicarb tabs 1300 mg TIOD -Check Renal US-pending -CXR congested, on lasix 40 mg BID IV -Renally dose all meds -Avoid Nephrotoxic meds -Strict I/Os Subjective Date of service: 06/05/21 Principal diagnosis: ANGIE Interval history: On isolation for COVID-19. Echocardiogram done on the patient today reviewed, shows a possible small valvular vegetation associated with the anterior leaflet of the mitral valve. Objective - Vital Signs Vital signs: Vital Signs - 12hr 06/04/21 06/05/21 06/05/21 23:17 01:54 06:56 Pulse Rate 74 82 80 Respiratory 21 31 H 29 H Rate Blood Pressure 113/85 102/70 140/95 [Left] O2 Sat by Pulse 9 L 94 95 Oximetry - Lab 06/05/21 05:54 06/05/21 05:54 Most recent lab results Calcium 8.4 mg/dL (8.4-10.2) 06/05/21 05:54 Medications & Allergies - Medications Allergies/Adverse Reactions: Allergies shellfish derived Adverse Reaction (Verified 06/03/21 18:34) Hives Home Medications: Home Medications Medication Instructions Recorded Confirmed Last Taken Type atenoloL [Tenormin] 50 mg PO DAILY 06/03/21 06/03/21 Unknown History metFORMIN [Glucophage] 500 mg PO DAILY 06/03/21 06/03/21 Unknown History Active Medications: Generic Name Dose Route Start Last Admin Trade Name Mohinder PRN Reason Stop Dose Admin Acetaminophen 650 mg 06/03/21 21:46 Acetaminophen 325 Mg Tab PO Q4H PRN Pain MILD(1-3)/Fever >100.5/LISA Albuterol 2.5 mg 06/03/21 21:46 Albuterol 2.5 Mg/3 Ml Nebu IH Q4HRT PRN Shortness Of Breath Albuterol/Ipratropium 1 ampul 06/04/21 02:00 06/05/21 03:46 Ipratropium/Albuterol Sulfate 3 Ml Ampul.Neb IH Not Given Q6HRT [facility] Atenolol 50 mg 06/04/21 10:00 06/04/21 17:58 Atenolol 50 Mg Tab PO Not Given DAILY [facility] Dexamethasone 6 mg 06/04/21 10:00 06/04/21 11:04 Dexamethasone 4 Mg/Ml Vial IV 06/13/21 10:01 6 mg DAILY [facility] Administration Dextrose 0 ml 06/03/21 21:46 Dextrose 50% In Water (25gm) 50 Ml Syringe IV Q30MIN PRN Hypoglycemia Protocol Famotidine 20 mg 06/03/21 22:00 06/04/21 11:04 Famotidine 20 Mg Tab PO 20 mg QAM [facility] Administration Furosemide 40 mg 06/04/21 11:30 06/05/21 06:42 Furosemide 40 Mg/4 Ml Inj IV 40 mg 0600,1800 [facility] Administration Heparin Sodium (Porcine) 5,000 unit 06/03/21 22:00 06/05/21 06:42 Heparin 5,000 Unit/1 Ml Vial SUB-Q 5,000 unit Q8HR [facility] Administration Hydralazine HCl 10 mg 06/03/21 21:50 Hydralazine 20 Mg/1 Ml Inj IV Q6H PRN Blood Pressure Hydromorphone HCl 0.5 mg 06/03/21 21:46 Hydromorphone 1 Mg/1 Ml Inj IV Q3H PRN Pain , Severe (7-10) REMDESIVIR 100 mg/ Sodium 250 mls @ 500 mls/hr 06/05/21 21:00 Chloride IV 06/08/21 21:29 Q24HR@2100 [facility] Vancomycin HCl 1,500 mg/ 530 mls @ 333.333 mls/hr 06/05/21 09:00 Sodium Chloride IV 06/05/21 10:35 ONCE ONE Vancomycin HCl 1,250 mg/ 275 mls @ 166.667 mls/hr 06/06/21 10:00 Sodium Chloride IV Q24H [facility] Cefepime HCl 1 gm in 100 mls @ 200 mls/hr 06/05/21 09:00 Cefepime/Ns 1 Gm/100 Ml IV Q24H [facility] Insulin Human Lispro 0 unit 06/03/21 22:00 06/04/21 23:21 Insulin Lispro 100 Unit/Ml SUB-Q Not Given ACHS [facility] Protocol Morphine Sulfate 2 mg 06/03/21 21:46 Morphine 2 Mg/1 Ml Inj IV Q4H PRN Pain, Moderate (4-6) Ondansetron HCl 4 mg 06/03/21 21:46 Ondansetron 4 Mg/2 Ml Inj IV Q8H PRN Nausea And Vomiting Sodium Chloride 10 ml 06/03/21 22:00 06/04/21 23:21 Sodium Chloride 0.9% 10 Ml Flush Syringe IV 10 ml BID [facility] Administration Sodium Chloride 10 ml 06/03/21 21:46 Sodium Chloride 0.9% 10 Ml Flush Syringe IV PRN PRN LINE FLUSH Sodium Chloride 50 ml 06/04/21 21:00 Sodium Chloride 0.9% 50 Ml Ivpb IV 06/08/21 21:01 Q24HR@2100 [facility]
[2021-06-05] MEDS: INSULIN LISPRO 100 UNIT/ML SUB-Q SCH ×4 (08:31→23:31)
[2021-06-05] MEDS ORDERED: VANCOMYCIN 1,500 MG in SODIUM CHLORIDE 0.9% 500 ML 500 ML IV ONE (09:00)
[2021-06-05] MEDS: dexAMETHasone 4 MG/ML VIAL IV SCH (10:11)
[2021-06-05] MEDS: FAMOTIDINE 20 MG TAB PO SCH (10:11)
[2021-06-05] MEDS: atenoloL 50 MG TAB PO SCH (10:35)
--- NOTE | 2021-06-05 11:29 | Event Note ---
Date: 06/05/21 Due to the patient's active COVID status, and negative blood cultures, the [facility] imaging service recommends holding off on CARRILLO at this time. Recommend repeat blood cultures, and if positive or other clinical indicators of endocarditis, you may reconsult for reassessment of CARRILLO indication.
--- NOTE | 2021-06-05 13:57 | Progress Note ---
Assessment and Plan Cultures: SARS CoV2 PCR: Positive as outpatient and here 06/03/2021 blood culture: no growth. A/P: 73-year-old male with diabetes, hypertension admitted to the hospital with worsening shortness of breath. Patient tested positive for COVID-19 as an outpatient: #Bilateral pneumonia: Secondary to COVID-19. Hypoxic, elevated inflammatory markers. Procalcitonin 0.12. #Acute hypoxic respiratory failure: Secondary to above. #?Endocarditis/NBTE in the setting of COVID-19: Incidental finding of possible small valvular vegetation on mitral valve anterior leaflet. No fever, no leucocytosis. Pre-test probability for endocarditis was low to begin with. Very low suspicion for acute infective endocarditis. We will follow-up blood culture results. Currently not a candidate for CARRILLO due to COVID-19 and hypoxia per cardiology. Hold off on abx. #ANGIE: Renally adjust antibiotic #Leukopenia: Likely related to viral illness Recs: -IV/PO Dexamethasone x 10 days -Creatinine improving, GFR is borderline, considering risk and benefit, would continue IV remdesivir x 5 days -prophylactic anticoagulation based on d-dimer per hospital protocol -procalcitonin is low, abx not needed -trend ferritin, d-dimer, CRP every 2-3 days -?Endocarditis/NBTE in the setting of COVID-19: Incidental finding of possible small valvular vegetation on mitral valve anterior leaflet. No fever, no leucocytosis. Pre-test probability for endocarditis was low to begin with. Very low suspicion for acute infective endocarditis. We will follow-up blood culture results. Currently not a candidate for CARRILLO due to COVID-19 and hypoxia per cardiology. Antibiotics discontinued. Start ceftriaxone + vancomycin if blood cultures turn positive. Tiffanie Rene MD, FACP, [facility] O: [phone] F: [phone] Subjective Date of service: 06/05/21 Principal diagnosis: ANGIE Interval history: No fever, remains on nonrebreather mask. CRP 6.2, procalcitonin 0.12. Objective - Exam Narrative Exam: Physical Exam (reviewed in chart to minimize risk of transmission) Constitutional: deferred Head, Ears, Nose: deferred Eyes: deferred Neck: deferred Oral: deferred Cardiovascular: deferred Respiratory: deferred GI: deferred Musculoskeletal: deferred Skin: deferred Hem/Lymphatic: deferred Psych: deferred Neurological: deferred - Constitutional Vitals: Vital Signs Temp Pulse Resp BP Pulse Ox 98.5 F 80 29 H 140/95 95 06/04/21 01:53 06/05/21 06:56 06/05/21 06:56 06/05/21 06:56 06/05/21 06:56 - Labs CBC & Chem 7: 06/05/21 05:54 06/05/21 05:54 Labs: Abnormal lab results 06/04/21 06/04/21 06/05/21 Range/Units 14:51 Unknown 05:54 WBC (4.5-11.0) K/mm3 RBC (3.65-5.03) M/mm3 Hgb (11.8-15.2) gm/dl Hct (35.5-45.6) % MCV (84-94) fl MCH (28-32) pg MCHC (32-34) % RDW (13.2-15.2) % Lymph % (Auto) (13.4-35.0) % [place] % (Auto) (0.0-7.3) % Lymph # (Auto) (1.2-5.4) K/mm3 Seg Neutrophils % (40.0-70.0) % Carbon Dioxide 19 L 17 L (22-30) mmol/L BUN 49 H 61 H (9-20) mg/dL Creatinine 2.5 H 2.5 H (0.8-1.3) mg/dL Glucose 131 H 150 H (75-100) mg/dL POC Glucose (70-105) mg/dL Albumin 3.4 L 3.2 L (3.9-5) g/dL Coronavirus (PCR) Positive A (Negative) 06/05/21 06/05/21 06/05/21 Range/Units 05:54 08:23 12:30 WBC 3.6 L (4.5-11.0) K/mm3 RBC 7.39 H (3.65-5.03) M/mm3 Hgb 17.2 H (11.8-15.2) gm/dl Hct 54.9 H (35.5-45.6) % MCV 74 L (84-94) fl MCH 23 L (28-32) pg MCHC 31 L (32-34) % RDW 16.2 H (13.2-15.2) % Lymph % (Auto) 11.1 L (13.4-35.0) % [place] % (Auto) 15.4 H (0.0-7.3) % Lymph # (Auto) 0.4 L (1.2-5.4) K/mm3 Seg Neutrophils % 73.3 H (40.0-70.0) % Carbon Dioxide (22-30) mmol/L BUN (9-20) mg/dL Creatinine (0.8-1.3) mg/dL Glucose (75-100) mg/dL POC Glucose 163 H 146 H (70-105) mg/dL Albumin (3.9-5) g/dL Coronavirus (PCR) (Negative)
[2021-06-05] MEDS: SODIUM BICARBONATE 650 MG TAB PO SCH ×2 (14:21→23:30)
--- NOTE | 2021-06-05 16:01 | Progress Note ---
Assessment and Plan Assessment and plan: Patient is a 75-year-old male with past medical history of [id number] type 2 diabetes and hypertension who presented with 2 weeks of worsening shortness of breath with productive cough. The patient was found to be hypoxic to 80% on room air in the ED requiring supplemental oxygen. #Acute hypoxic respiratory failure #COVID-19 pneumonia - etiology: Infectious (community-acquired pneumonia or COVID-19) versus CHF exacerbation - baseline oxygen requirements: None - supplemental oxygen: Nonrebreather on 15 L Discontinue Rocephin 1 g daily and azithromycin 500 mg daily. Continue Decadron x10 days and Remdesivir x5 days. Infectious disease consulted; appreciate recs. - Continue protocol: continue pulse oximetry, wean oxygen as tolerated, ordered incentive spirometry and educated patient on how to use it and its importance. - continue to monitor #Possible CHF exacerbation TTE revealing EF 50-55% with vegetation. Continue IV Lasix 40 mg daily (per nephrology). Holding on antibiotics in the setting of patient being afebrile, normal WBC, and vitals wnl. Pending repeat blood culture. Continue to monitor. #Non-insulin dependent type II diabetes mellitus - hemoglobin A1c: Pending - home regimen: Metformin - current regimen: Moderate SSI. Holding metformin; can be restarted prior to discharge. - blood glucose goal 140-180 while inpatient - continue to monitor #ANGIE on CKD (stage unknown) Current creatinine 2.4 (baseline 1.3) Nephrology consulted; appreciate recs Renally dose medications and avoid nephrotoxic meds. Pending renal ultrasound. Continue to monitor. #Advanced care planning -Disease education conducted, care plan discussed, diagnoses discussed, prognosis discussed, and patient acknowledges understanding with care plan -Time: +30 min Disposition Plan: Continue medical management Total Time Spent with Patient (Minutes): 45 min History Interval history: No overnight events. Hospitalist Physical - Constitutional Vitals: Temp Pulse Resp BP Pulse Ox 98.5 F 80 29 H 140/95 92 06/04/21 01:53 06/05/21 06:56 06/05/21 06:56 06/05/21 06:56 06/05/21 15:30 General appearance: Present: no acute distress, well-nourished - EENT Eyes: Present: PERRL, EOM intact ENT: hearing intact, clear oral mucosa, dentition normal - Neck Neck: Present: supple, normal ROM - Respiratory Respiratory effort: normal Respiratory: bilateral: diminished (on nonrebreather 15L) - Cardiovascular Rhythm: regular Heart Sounds: Present: S1 & S2 - Extremities Extremities: no ischemia, pulses intact, pulses symmetrical, No edema, normal temperature, normal color, Full ROM Peripheral Pulses: within normal limits - Abdominal General gastrointestinal: soft, non-tender, non-distended, normal bowel sounds - Integumentary Integumentary: Present: clear, warm, dry - Psychiatric Psychiatric: appropriate mood/affect, cooperative - Neurologic Neurologic: CNII-XII intact, moves all extremities - Allied Health Allied health notes reviewed: nursing Results - Labs CBC & Chem 7: 06/05/21 05:54 06/05/21 05:54 Labs: Laboratory Last Values WBC 3.6 K/mm3 (4.5-11.0) L 06/05/21 05:54 RBC 7.39 M/mm3 (3.65-5.03) H 06/05/21 05:54 Hgb 17.2 gm/dl (11.8-15.2) H 06/05/21 05:54 Hct 54.9 % (35.5-45.6) H 06/05/21 05:54 MCV 74 fl (84-94) L 06/05/21 05:54 MCH 23 pg (28-32) L 06/05/21 05:54 MCHC 31 % (32-34) L 06/05/21 05:54 RDW 16.2 % (13.2-15.2) H 06/05/21 05:54 Plt Count 303 K/mm3 (140-440) 06/05/21 05:54 Lymph % (Auto) 11.1 % (13.4-35.0) L 06/05/21 05:54 [place] % (Auto) 15.4 % (0.0-7.3) H 06/05/21 05:54 Eos % (Auto) 0.0 % (0.0-4.3) 06/05/21 05:54 Baso % (Auto) 0.2 % (0.0-1.8) 06/05/21 05:54 Lymph # (Auto) 0.4 K/mm3 (1.2-5.4) L 06/05/21 05:54 [place] # (Auto) 0.5 K/mm3 (0.0-0.8) 06/05/21 05:54 Eos # (Auto) 0.0 K/mm3 (0.0-0.4) 06/05/21 05:54 Baso # (Auto) 0.0 K/mm3 (0.0-0.1) 06/05/21 05:54 Seg Neutrophils % 73.3 % (40.0-70.0) H 06/05/21 05:54 Seg Neutrophils # 2.6 K/mm3 (1.8-7.7) 06/05/21 05:54 D-Dimer 634.36 ng/mlDDU (0-234) H 06/03/21 18:37 Sodium 144 mmol/L (137-145) 06/05/21 05:54 Potassium 4.9 mmol/L (3.6-5.0) 06/05/21 05:54 Chloride 105.8 mmol/L (98-107) 06/05/21 05:54 Carbon Dioxide 17 mmol/L (22-30) L 06/05/21 05:54 Anion Gap 26 mmol/L 06/05/21 05:54 BUN 61 mg/dL (9-20) H 06/05/21 05:54 Creatinine 2.5 mg/dL (0.8-1.3) H 06/05/21 05:54 Estimated GFR 25 ml/min 06/05/21 05:54 BUN/Creatinine Ratio 24 % 06/05/21 05:54 Glucose 150 mg/dL (75-100) H 06/05/21 05:54 POC Glucose 146 mg/dL (70-105) H 06/05/21 12:30 Lactic Acid 1.60 mmol/L (0.7-2.0) 06/03/21 20:37 Calcium 8.4 mg/dL (8.4-10.2) 06/05/21 05:54 Ferritin 823.7 ng/mL (30.0-300.0) H 06/03/21 18:37 Total Bilirubin 0.30 mg/dL (0.1-1.2) 06/05/21 05:54 AST 26 units/L (5-40) 06/05/21 05:54 ALT 19 units/L (7-56) 06/05/21 05:54 Alkaline Phosphatase 80 units/L (35-129) 06/05/21 05:54 Lactate Dehydrogenase 308 units/L (91-180) H 06/03/21 18:37 Total Creatine Kinase 67 units/L (55-170) 06/04/21 05:40 C-Reactive Protein 6.20 mg/dL (0.00-1.30) H 06/03/21 18:37 NT-Pro-B Natriuret Pep 246.5 pg/mL (0-900) 06/03/21 20:48 Total Protein 7.1 g/dL (6.3-8.2) 06/05/21 05:54 Albumin 3.2 g/dL (3.9-5) L 06/05/21 05:54 Albumin/Globulin Ratio 0.8 % 06/05/21 05:54 Procalcitonin 0.12 ng/mL (<0.15) 06/03/21 18:37 Coronavirus (PCR) Positive (Negative) A 06/04/21 Unknown Microbiology: Microbiology 06/03/21 21:40 Peripheral/Venous Blood Culture - Preliminary NO GROWTH AFTER 24 HOURS 06/03/21 21:30 Peripheral/Venous Blood Culture - Preliminary NO GROWTH AFTER 24 HOURS Active Medications - Current Medications Current Medications: Generic Name Dose Route Start Last Admin Trade Name Freq PRN Reason Stop Dose Admin Acetaminophen 650 mg 06/03/21 21:46 Acetaminophen 325 Mg Tab PO Q4H PRN Pain MILD(1-3)/Fever >100.5/LISA Albuterol 2.5 mg 06/03/21 21:46 Albuterol 2.5 Mg/3 Ml Nebu IH Q4HRT PRN Shortness Of Breath Albuterol/Ipratropium 1 ampul 06/04/21 02:00 06/05/21 15:29 Ipratropium/Albuterol Sulfate 3 Ml Ampul.Neb IH Not Given Q6HRT COOPER Atenolol 50 mg 06/04/21 10:00 06/05/21 10:35 Atenolol 50 Mg Tab PO 50 mg DAILY [facility]OPER Administration Dexamethasone 6 mg 06/04/21 10:00 06/05/21 10:11 Dexamethasone 4 Mg/Ml Vial IV 06/13/21 10:01 6 mg DAILY [facility]OPER Administration Dextrose 0 ml 06/03/21 21:46 Dextrose 50% In Water (25gm) 50 Ml Syringe IV Q30MIN PRN Hypoglycemia Protocol Famotidine 20 mg 06/03/21 22:00 06/05/21 10:11 Famotidine 20 Mg Tab PO 20 mg QAM [facility] Administration Furosemide 40 mg 06/04/21 11:30 06/05/21 06:42 Furosemide 40 Mg/4 Ml Inj IV 40 mg 0600,1800 [facility] Administration Heparin Sodium (Porcine) 5,000 unit 06/03/21 22:00 06/05/21 15:36 Heparin 5,000 Unit/1 Ml Vial SUB-Q 5,000 unit Q8HR COOPER Administration Hydralazine HCl 10 mg 06/03/21 21:50 Hydralazine 20 Mg/1 Ml Inj IV Q6H PRN Blood Pressure Hydromorphone HCl 0.5 mg 06/03/21 21:46 Hydromorphone 1 Mg/1 Ml Inj IV Q3H PRN Pain , Severe (7-10) REMDESIVIR 100 mg/ Sodium 250 mls @ 500 mls/hr 06/05/21 21:00 Chloride IV 06/08/21 21:29 Q24HR@2100 [facility] Insulin Human Lispro 0 unit 06/03/21 22:00 06/05/21 12:31 Insulin Lispro 100 Unit/Ml SUB-Q Not Given ACHS [facility] Protocol Morphine Sulfate 2 mg 06/03/21 21:46 Morphine 2 Mg/1 Ml Inj IV Q4H PRN Pain, Moderate (4-6) Ondansetron HCl 4 mg 06/03/21 21:46 Ondansetron 4 Mg/2 Ml Inj IV Q8H PRN Nausea And Vomiting Sodium Bicarbonate 1,300 mg 06/05/21 14:00 06/05/21 14:21 Sodium Bicarbonate 650 Mg Tab PO 1,300 mg TID [facility] Administration Sodium Chloride 10 ml 06/03/21 22:00 06/05/21 10:11 Sodium Chloride 0.9% 10 Ml Flush Syringe IV 10 ml BID [facility] Administration Sodium Chloride 10 ml 06/03/21 21:46 Sodium Chloride 0.9% 10 Ml Flush Syringe IV PRN PRN LINE FLUSH Sodium Chloride 50 ml 06/04/21 21:00 Sodium Chloride 0.9% 50 Ml Ivpb IV 06/08/21 21:01 Q24HR@2100 [facility] Nutrition/Malnutrition Assess - Dietary Evaluation Nutrition/Malnutrition Findings: Nutrition Notes Start: 06/04/21 10:44 Freq: Status: Active Protocol: Document 06/04/21 10:44 DENISE (Rec: 06/04/21 10:48 DENISE [id number]) Nutrition Notes Need for Assessment generated from: MD Order,Education Initial or Follow up Brief Note Current Diet Cardiac/Consistent Carbohydrates (since B 06/03). Height 5 ft 8 in Weight 84.623 kg [place] Body Weight (kg) 70.00 BMI 28.3 Weight change and time frame None reported at admission. Weight Status Overweight Subjective/Other Information RD consulrt for Nutrition Education. Pt still on ED, not a candidate for Nutrition Education at the time, will assess feasibility on F/U. No report available on PO intake of meals at the time. Percent of energy/protein needs met: Prescribed Cardiac/Consistent Carbohydrates Diet provides for energy/protein needs (1, 977 Kcal/86 g) during LOS. Nutrition Intervention Follow-Up By: 06/11/21 Additional Comments Nutrition education will be provided on F/U if feasible. Continue monitoring food tolerance, %PO intake of meals , and BM.
[2021-06-05] MEDS: SODIUM CHLORIDE 0.9% 50 ML IVPB IV SCH ×2 (23:22→23:30)
[2021-06-05] MEDS: REMDESIVIR 100 MG in SODIUM CHLORIDE 0.9% 250ML 250 ML IV SCH (23:31)
[2021-06-06 04:20] LABS: Creatinine,Urine 117.6 mg/dL (0.1-20.0)
[2021-06-06 04:22] LABS: Bilirubin,Urine NEG (Negative); Blood,Urine MOD (Negative); Color,Urine Yellow (Yellow); Mucus,Urine FEW /HPF; Urobilinogen,Urine < 2.0 mg/dL (<2.0)
[2021-06-06] MEDS: FUROSEMIDE 40 MG/4 ML INJ IV SCH (05:06)
[2021-06-06] MEDS: HEPARIN 5,000 UNIT/1 ML VIAL SUB-Q SCH ×3 (05:06→23:33)
[2021-06-06 06:37] LABS: Basophils % (Auto) 0.3 % (0.0-1.8); Hematocrit 53.7 % (35.5-45.6); Hemoglobin 16.9 gm/dl (11.8-15.2); Lymphocytes # (Auto) 0.5 K/mm3 (1.2-5.4); Lymphocytes % (Auto) 6.3 % (13.4-35.0); Mean Corpuscular HGB Conc 32 % (32-34); Mean Corpuscular Volume 75 fl (84-94); Monocytes # (Auto) 1.1 K/mm3 (0.0-0.8); Monocytes % (Auto) 13.1 % (0.0-7.3); Platelet Count 352 K/mm3 (140-440); Red Cell Distribution Width 16.3 % (13.2-15.2)
[2021-06-06 07:00] LABS: Albumin 3.3 g/dL (3.9-5); Calcium 8.8 mg/dL (8.4-10.2)
[2021-06-06] MEDS ORDERED: ALBUTEROL 8.5 GM MDI INHALATION IH PRN (07:53)
[2021-06-06] MEDS ORDERED: IPRATROPIUM/ALBUTEROL SULFATE 3 ML AMPUL.NEB IH SCH (08:00)
--- NOTE | 2021-06-06 09:04 | Ultrasound Report ---
ULTRASOUND RENAL INDICATION / CLINICAL INFORMATION: bello. COMPARISON: None available. FINDINGS: RIGHT KIDNEY: Length = 10.9 cm. [normal > 9 cm] - Parenchymal Thickness = 1.2 cm. [normal > 1.5 cm] - Echogenicity: Slightly increased - Hydronephrosis: None. - Cyst or mass: No significant abnormality. - Stones: None seen. LEFT KIDNEY: Length = 11.8 cm. [normal > 9 cm] - Parenchymal Thickness = 1.3 cm. [normal > 1.5 cm] - Echogenicity: Slightly increased - Hydronephrosis: Mild pyelocaliectasis is suggested in the left renal sinus. - Cyst or mass: No significant abnormality. - Stones: 7 mm stone is suggested near mid pole URINARY BLADDER: No significant abnormality. FREE FLUID: None. ADDITIONAL FINDINGS: None. IMPRESSION: Slightly echogenic kidneys consistent with medical renal disease. 7 mm stone is suggested in the mid left kidney. Mild left hydronephrosis is also appreciated. Conside r further evaluation with CT stone protocol. Signer Name: Nawaf Hathaway Jr, MD Signed: 06/06/2021 9:00 AM Workstation Name: [id number]
--- NOTE | 2021-06-06 09:18 | Progress Note ---
Assessment and Plan Acute Kidney injury, Possible CKD: Covid 19 Pneumonia: Acute Hypoxic respiratory failure: Hyperkalemia: Metabolic acidosis: DM2: HTN: -Stable Cr,BUN cont to rise, will hold lasix and check CXR -cont sodium bicarb tabs 1300 mg TID -Check Renal US-noted mild L hydro, urology consult requested -CXR congested, on lasix 40 mg BID IV -Renally dose all meds -Avoid Nephrotoxic meds -Strict I/Os Subjective Date of service: 06/06/21 Principal diagnosis: ANGIE Interval history: On isolation for COVID-19. no overnight events Objective - Vital Signs Vital signs: Vital Signs - 12hr 06/05/21 06/05/21 06/05/21 22:43 22:50 23:03 Temperature 97.3 F L 97.3 F L Pulse Rate 60 60 Pulse Rate [ 63 Apical] Respiratory 22 22 22 Rate Blood Pressure Blood Pressure 127/80 127/80 [Left] O2 Sat by Pulse 93 93 93 Oximetry 06/06/21 06/06/21 05:10 08:56 Temperature 98.1 F Pulse Rate 60 Pulse Rate [ Apical] Respiratory 22 Rate Blood Pressure 129/58 Blood Pressure [Left] O2 Sat by Pulse 94 93 Oximetry - Lab 06/06/21 06:09 06/06/21 06:09 Most recent lab results Calcium 8.8 mg/dL (8.4-10.2) 06/06/21 06:09 Urine Creatinine 117.6 mg/dL (0.1-20.0) H 06/06/21 03:30 Urine Sodium 41 mmol/L 06/06/21 03:30 Medications & Allergies - Medications Allergies/Adverse Reactions: Allergies shellfish derived Adverse Reaction (Verified 06/03/21 18:34) Hives Home Medications: Home Medications Medication Instructions Recorded Confirmed Last Taken Type atenoloL [Tenormin] 50 mg PO DAILY 06/03/21 06/03/21 Unknown History metFORMIN [Glucophage] 500 mg PO DAILY 06/03/21 06/03/21 Unknown History Active Medications: Generic Name Dose Route Start Last Admin Trade Name Freq PRN Reason Stop Dose Admin Acetaminophen 650 mg 06/03/21 21:46 Acetaminophen 325 Mg Tab PO Q4H PRN Pain MILD(1-3)/Fever >100.5/LISA Albuterol 2 puff 06/06/21 07:53 Albuterol 8.5 Gm Mdi Inhalation IH Q6HRT PRN Shortness Of Breath Atenolol 50 mg 06/04/21 10:00 06/05/21 10:35 Atenolol 50 Mg Tab PO 50 mg DAILY [facility] Administration Dexamethasone 6 mg 06/04/21 10:00 06/05/21 10:11 Dexamethasone 4 Mg/Ml Vial IV 06/13/21 10:01 6 mg DAILY [facility] Administration Dextrose 0 ml 06/03/21 21:46 Dextrose 50% In Water (25gm) 50 Ml Syringe IV Q30MIN PRN Hypoglycemia Protocol Famotidine 20 mg 06/03/21 22:00 06/05/21 10:11 Famotidine 20 Mg Tab PO 20 mg QAM [facility] Administration Heparin Sodium (Porcine) 5,000 unit 06/03/21 22:00 06/06/21 05:06 Heparin 5,000 Unit/1 Ml Vial SUB-Q 5,000 unit Q8HR [facility] Administration Hydralazine HCl 10 mg 06/03/21 21:50 Hydralazine 20 Mg/1 Ml Inj IV Q6H PRN Blood Pressure Hydromorphone HCl 0.5 mg 06/03/21 21:46 Hydromorphone 1 Mg/1 Ml Inj IV Q3H PRN Pain , Severe (7-10) REMDESIVIR 100 mg/ Sodium 250 mls @ 500 mls/hr 06/05/21 21:00 06/05/21 23:31 Chloride IV 06/08/21 21:29 500 mls/hr Q24HR@2100 [facility] Administration Insulin Human Lispro 0 unit 06/03/21 22:00 06/05/21 23:31 Insulin Lispro 100 Unit/Ml SUB-Q 3 unit ACHS [facility] Administration Protocol Morphine Sulfate 2 mg 06/03/21 21:46 Morphine 2 Mg/1 Ml Inj IV Q4H PRN Pain, Moderate (4-6) Ondansetron HCl 4 mg 06/03/21 21:46 Ondansetron 4 Mg/2 Ml Inj IV Q8H PRN Nausea And Vomiting Sodium Bicarbonate 1,300 mg 06/05/21 14:00 06/05/21 23:30 Sodium Bicarbonate 650 Mg Tab PO 1,300 mg TID [facility] Administration Sodium Chloride 10 ml 06/03/21 22:00 06/05/21 23:41 Sodium Chloride 0.9% 10 Ml Flush Syringe IV 10 ml BID [facility] Administration Sodium Chloride 10 ml 06/03/21 21:46 Sodium Chloride 0.9% 10 Ml Flush Syringe IV PRN PRN LINE FLUSH Sodium Chloride 50 ml 06/04/21 21:00 06/05/21 23:30 Sodium Chloride 0.9% 50 Ml Ivpb IV 06/08/21 21:01 50 ml Q24HR@2100 [facility] Administration
--- NOTE | 2021-06-06 09:46 | XRay Report ---
CHEST 1 VIEW 06/06/2021 8:37 AM INDICATION / CLINICAL INFORMATION: SOB. COMPARISON: June 03, 2021 FINDINGS: SUPPORT DEVICES: None. HEART / MEDIASTINUM: No significant abnormality. LUNGS / PLEURA: Suboptimal inspiration with mild increased interstitial prominence in the lungs No pn eumothorax. Signer Name: Thuan Boone MD Signed: 06/06/2021 9:41 AM Workstation Name: [id number]
[2021-06-06] MEDS: INSULIN LISPRO 100 UNIT/ML SUB-Q SCH ×5 (09:49→23:35)
[2021-06-06] MEDS: dexAMETHasone 4 MG/ML VIAL IV SCH (10:00)
[2021-06-06] MEDS: FAMOTIDINE 20 MG TAB PO SCH (10:00)
[2021-06-06] MEDS: SODIUM BICARBONATE 650 MG TAB PO SCH ×3 (10:00→23:36)
[2021-06-06] MEDS ORDERED: VANCOMYCIN 1,250 MG in SODIUM CHLORIDE 0.9% 250ML 250 ML IV SCH (10:00)
[2021-06-06] MEDS: atenoloL 50 MG TAB PO SCH (10:01)
[2021-06-06 14:50] LABS: ABG Base Excess -4.3 mmol/L (-2.0-3.0); ABG HCO3 19.7 mmol/L (20.0-26.0); ABG Methemoglobin 0.6 % (0.0-1.5); ABG PCO2 33.9 mm Hg; ABG PH 7.382 pH Units (7.350-7.450); ABG PO2 81.4 mm Hg (80.0-90.0)
--- NOTE | 2021-06-06 15:26 | Progress Note ---
Assessment and Plan Cultures: SARS CoV2 PCR: Positive as outpatient and here 06/03/2021 blood culture: no growth 06/05/2021 blood culture: In process 06/06/2021 blood culture: In process A/P: 73-year-old male with diabetes, hypertension admitted to the hospital with worsening shortness of breath. Patient tested positive for COVID-19 as an outpatient: #Bilateral pneumonia: Secondary to COVID-19. Hypoxic, elevated inflammatory m arkers. Procalcitonin 0.12. #Acute hypoxic respiratory failure: Secondary to above. #?Endocarditis/NBTE in the setting of COVID-19: Incidental finding of possible small valvular vegetation on mitral valve anterior leaflet. No fever, no leucocytosis. Pre-test probability for endocarditis was low to begin with. Very low suspicion for acute infective endocarditis. We will follow-up blood culture results. Currently not a candidate for CARRILLO due to COVID-19 and hypoxia per cardiology. Hold off on abx. #ANGIE: Renally adjust antibiotics #Leukopenia: Likely related to viral illness Recs: -IV/PO Dexamethasone x 10 days -Creatinine improving, GFR is borderline, considering risk and benefit, would continue IV remdesivir x 5 days -prophylactic anticoagulation based on d-dimer per hospital protocol -trend ferritin, d-dimer, CRP every 2-3 days -?Endocarditis/NBTE in the setting of COVID-19: Incidental finding of possible small valvular vegetation on mitral valve anterior leaflet. No fever, no leucocytosis. Pre-test probability for endocarditis was low to begin with. Very low suspicion for acute infective endocarditis. Blood culture negative so far. Currently not a candidate for CARRILLO due to COVID-19 and hypoxia per cardiology. Monitor off abx for now. Start ceftriaxone + vancomycin if blood cultures turn positive. Tiffanie Rene MD, FACP, [facility] O: [phone] F: [phone] Subjective Date of service: 06/06/21 Principal diagnosis: ANGIE Interval history: No fever. On Venturi mask at 15 L/min. Objective - Exam Narrative Exam: Physical Exam (reviewed in chart to minimize risk of transmission) Constitutional: deferred Head, Ears, Nose: deferred Eyes: deferred Neck: deferred Oral: deferred Cardiovascular: deferred Respiratory: deferred GI: deferred Musculoskeletal: deferred Skin: deferred Hem/Lymphatic: deferred Psych: deferred Neurological: deferred - Constitutional Vitals: Vital Signs Temp Pulse Resp BP Pulse Ox 98.3 F 61 24 103/54 95 06/06/21 12:48 06/06/21 12:48 06/06/21 12:48 06/06/21 12:48 06/06/21 12:48 Temperature -Last 24 Hours Temperature 98.3 F Temperature 98.1 F Temperature 97.3 F Temperature 97.3 F - Labs CBC & Chem 7: 06/06/21 06:09 06/06/21 06:09 Labs: Abnormal lab results 06/04/21 06/05/21 06/05/21 Range/Units 22:06 16:04 20:49 RBC (3.65-5.03) M/mm3 Hgb (11.8-15.2) gm/dl Hct (35.5-45.6) % MCV (84-94) fl MCH (28-32) pg RDW (13.2-15.2) % Lymph % (Auto) (13.4-35.0) % [place] % (Auto) (0.0-7.3) % Lymph # (Auto) (1.2-5.4) K/mm3 [place] # (Auto) (0.0-0.8) K/mm3 Seg Neutrophils % (40.0-70.0) % ABG HCO3 (20.0-26.0) mmol/L ABG Base Excess (-2.0-3.0) mmol/L Oxyhemoglobin (95.0-99.0) % Carbon Dioxide (22-30) mmol/L BUN (9-20) mg/dL Creatinine (0.8-1.3) mg/dL Glucose (75-100) mg/dL POC Glucose 134 H 140 H 208 H (70-105) mg/dL Albumin (3.9-5) g/dL Urine Creatinine (0.1-20.0) mg/dL 06/06/21 06/06/21 06/06/21 Range/Units 03:30 06:09 06:09 RBC 7.20 H (3.65-5.03) M/mm3 Hgb 16.9 H (11.8-15.2) gm/dl Hct 53.7 H (35.5-45.6) % MCV 75 L (84-94) fl MCH 24 L (28-32) pg RDW 16.3 H (13.2-15.2) % Lymph % (Auto) 6.3 L (13.4-35.0) % [place] % (Auto) 13.1 H (0.0-7.3) % Lymph # (Auto) 0.5 L (1.2-5.4) K/mm3 [place] # (Auto) 1.1 H (0.0-0.8) K/mm3 Seg Neutrophils % 80.3 H (40.0-70.0) % ABG HCO3 (20.0-26.0) mmol/L ABG Base Excess (-2.0-3.0) mmol/L Oxyhemoglobin (95.0-99.0) % Carbon Dioxide 18 L (22-30) mmol/L BUN 73 H (9-20) mg/dL Creatinine 2.5 H (0.8-1.3) mg/dL Glucose 152 H (75-100) mg/dL POC Glucose (70-105) mg/dL Albumin 3.3 L (3.9-5) g/dL Urine Creatinine 117.6 H (0.1-20.0) mg/dL 06/06/21 06/06/21 06/06/21 Range/Units 08:16 12:45 14:13 RBC (3.65-5.03) M/mm3 Hgb (11.8-15.2) gm/dl Hct (35.5-45.6) % MCV (84-94) fl MCH (28-32) pg RDW (13.2-15.2) % Lymph % (Auto) (13.4-35.0) % [place] % (Auto) (0.0-7.3) % Lymph # (Auto) (1.2-5.4) K/mm3 [place] # (Auto) (0.0-0.8) K/mm3 Seg Neutrophils % (40.0-70.0) % ABG HCO3 19.7 L (20.0-26.0) mmol/L ABG Base Excess -4.3 L (-2.0-3.0) mmol/L Oxyhemoglobin 94.6 L (95.0-99.0) % Carbon Dioxide (22-30) mmol/L BUN (9-20) mg/dL Creatinine (0.8-1.3) mg/dL Glucose (75-100) mg/dL POC Glucose 146 H 225 H (70-105) mg/dL Albumin (3.9-5) g/dL Urine Creatinine (0.1-20.0) mg/dL
--- NOTE | 2021-06-06 16:21 | Progress Note ---
Assessment and Plan Assessment and plan: Patient is a 75-year-old male with past medical history of ncp-gqttzfe-pltebyfys type 2 diabetes and hypertension who presented with 2 weeks of worsening shortness of breath with productive cough. The patient was found to be hypoxic to 80% on room air in the ED requiring supplemental oxygen. #Acute hypoxic respiratory failure #COVID-19 pneumonia - etiology: Infectious (community-acquired pneumonia or COVID-19) versus CHF exacerbation - baseline oxygen requirements: None - supplemental oxygen: Nonrebreather on 15 L Continue steroids x10 days and Remdesivir x5 days. Infectious disease consulted; appreciate recs. - Continue protocol: continue pulse oximetry, wean oxygen as tolerated, ordered incentive spirometry and educated patient on how to use it and its importance. - continue to monitor #Possible CHF exacerbation TTE revealing EF 50-55% with vegetation. Continue IV Lasix 40 mg daily (per nephrology). Holding on antibiotics in the setting of patient being afebrile, normal WBC, and vitals wnl. Pending repeat blood culture. Continue to monitor. #Non-insulin dependent type II diabetes mellitus - hemoglobin A1c: Pending - home regimen: Metformin - current regimen: Moderate SSI. Holding metformin; can be restarted prior to discharge. - blood glucose goal 140-180 while inpatient - continue to monitor #ANGIE on CKD (stage unknown) Current creatinine 2.4 (baseline 1.3) Nephrology consulted; appreciate recs Renally dose medications and avoid nephrotoxic meds. Pending renal ultrasound. Continue to monitor. #Advanced care planning -Disease education conducted, care plan discussed, diagnoses discussed, prognosis discussed, and patient acknowledges understanding with care plan -Time: +30 min Disposition Plan: Continue medical management Total Time Spent with Patient (Minutes): 45 min History Interval history: No overnight events. Hospitalist Physical - Constitutional Vitals: Temp Pulse Resp BP Pulse Ox 98.3 F 61 24 103/54 95 06/06/21 12:48 06/06/21 12:48 06/06/21 12:48 06/06/21 12:48 06/06/21 12:48 General appearance: Present: no acute distress, well-nourished - EENT Eyes: Present: PERRL, EOM intact ENT: hearing intact, clear oral mucosa, dentition normal - Neck Neck: Present: supple, normal ROM - Respiratory Respiratory effort: labored Respiratory: bilateral: diminished (on nonrebreather 15L) - Cardiovascular Rhythm: regular Heart Sounds: Present: S1 & S2 - Extremities Extremities: no ischemia, pulses intact, pulses symmetrical, No edema, normal temperature, normal color, Full ROM Peripheral Pulses: within normal limits - Abdominal General gastrointestinal: soft, non-tender, non-distended, normal bowel sounds - Integumentary Integumentary: Present: clear, warm, dry - Psychiatric Psychiatric: appropriate mood/affect, cooperative - Neurologic Neurologic: CNII-XII intact, moves all extremities - Allied Health Allied health notes reviewed: nursing Results - Labs CBC & Chem 7: 06/06/21 06:09 06/06/21 06:09 Labs: Laboratory Last Values WBC 8.2 K/mm3 (4.5-11.0) 06/06/21 06:09 RBC 7.20 M/mm3 (3.65-5.03) H 06/06/21 06:09 Hgb 16.9 gm/dl (11.8-15.2) H 06/06/21 06:09 Hct 53.7 % (35.5-45.6) H 06/06/21 06:09 MCV 75 fl (84-94) L 06/06/21 06:09 MCH 24 pg (28-32) L 06/06/21 06:09 MCHC 32 % (32-34) 06/06/21 06:09 RDW 16.3 % (13.2-15.2) H 06/06/21 06:09 Plt Count 352 K/mm3 (140-440) 06/06/21 06:09 Lymph % (Auto) 6.3 % (13.4-35.0) L 06/06/21 06:09 [place] % (Auto) 13.1 % (0.0-7.3) H 06/06/21 06:09 Eos % (Auto) 0.0 % (0.0-4.3) 06/06/21 06:09 Baso % (Auto) 0.3 % (0.0-1.8) 06/06/21 06:09 Lymph # (Auto) 0.5 K/mm3 (1.2-5.4) L 06/06/21 06:09 [place] # (Auto) 1.1 K/mm3 (0.0-0.8) H 06/06/21 06:09 Eos # (Auto) 0.0 K/mm3 (0.0-0.4) 06/06/21 06:09 Baso # (Auto) 0.0 K/mm3 (0.0-0.1) 06/06/21 06:09 Seg Neutrophils % 80.3 % (40.0-70.0) H 06/06/21 06:09 Seg Neutrophils # 6.6 K/mm3 (1.8-7.7) 06/06/21 06:09 D-Dimer 634.36 ng/mlDDU (0-234) H 06/03/21 18:37 ABG pH 7.382 pH Units (7.350-7.450) 06/06/21 14:13 ABG pCO2 33.9 mm Hg 06/06/21 14:13 ABG pO2 81.4 mm Hg (80.0-90.0) 06/06/21 14:13 ABG HCO3 19.7 mmol/L (20.0-26.0) L 06/06/21 14:13 ABG O2 Saturation 96.0 % (95.0-99.0) 06/06/21 14:13 ABG O2 Content 22.7 (0.0-44) 06/06/21 14:13 ABG Base Excess -4.3 mmol/L (-2.0-3.0) L 06/06/21 14:13 ABG Hemoglobin 17.1 gm/dl (14.0-18.0) 06/06/21 14:13 ABG Carboxyhemoglobin 0.8 % (0.0-5.0) 06/06/21 14:13 ABG Methemoglobin 0.6 % (0.0-1.5) 06/06/21 14:13 Oxyhemoglobin 94.6 % (95.0-99.0) L 06/06/21 14:13 FiO2 50 % 06/06/21 14:13 Sodium 142 mmol/L (137-145) 06/06/21 06:09 Potassium 4.7 mmol/L (3.6-5.0) 06/06/21 06:09 Chloride 105.3 mmol/L (98-107) 06/06/21 06:09 Carbon Dioxide 18 mmol/L (22-30) L 06/06/21 06:09 Anion Gap 23 mmol/L 06/06/21 06:09 BUN 73 mg/dL (9-20) H 06/06/21 06:09 Creatinine 2.5 mg/dL (0.8-1.3) H 06/06/21 06:09 Estimated GFR 25 ml/min 06/06/21 06:09 BUN/Creatinine Ratio 29 % 06/06/21 06:09 Glucose 152 mg/dL (75-100) H 06/06/21 06:09 POC Glucose 225 mg/dL (70-105) H 06/06/21 12:45 Lactic Acid 1.60 mmol/L (0.7-2.0) 06/03/21 20:37 Calcium 8.8 mg/dL (8.4-10.2) 06/06/21 06:09 Ferritin 823.7 ng/mL (30.0-300.0) H 06/03/21 18:37 Total Bilirubin 0.30 mg/dL (0.1-1.2) 06/06/21 06:09 AST 20 units/L (5-40) 06/06/21 06:09 ALT 17 units/L (7-56) 06/06/21 06:09 Alkaline Phosphatase 72 units/L (35-129) 06/06/21 06:09 Lactate Dehydrogenase 308 units/L (91-180) H 06/03/21 18:37 Total Creatine Kinase 67 units/L (55-170) 06/04/21 05:40 C-Reactive Protein 6.20 mg/dL (0.00-1.30) H 06/03/21 18:37 NT-Pro-B Natriuret Pep 246.5 pg/mL (0-900) 06/03/21 20:48 Total Protein 6.4 g/dL (6.3-8.2) 06/06/21 06:09 Albumin 3.3 g/dL (3.9-5) L 06/06/21 06:09 Albumin/Globulin Ratio 1.1 % 06/06/21 06:09 Procalcitonin 0.12 ng/mL (<0.15) 06/03/21 18:37 Urine Color Yellow (Yellow) 06/06/21 03:30 Urine Turbidity Clear (Clear) 06/06/21 03:30 Urine pH 5.0 (5.0-7.0) 06/06/21 03:30 Ur Specific [place] 1.014 (1.003-1.030) 06/06/21 03:30 Urine Protein 30 mg/dl mg/dL (Negative) 06/06/21 03:30 Urine Glucose (UA) Neg mg/dL (Negative) 06/06/21 03:30 Urine Ketones Neg mg/dL (Negative) 06/06/21 03:30 Urine Blood Mod (Negative) 06/06/21 03:30 Urine Nitrite Neg (Negative) 06/06/21 03:30 Urine Bilirubin Neg (Negative) 06/06/21 03:30 Urine Urobilinogen < 2.0 mg/dL (<2.0) 06/06/21 03:30 Ur Leukocyte Esterase Neg (Negative) 06/06/21 03:30 Urine WBC (Auto) 1.0 /HPF (0.0-6.0) 06/06/21 03:30 Urine RBC (Auto) 36.0 /HPF (0.0-6.0) 06/06/21 03:30 U Epithel Cells (Auto) 1.0 /HPF (0-13.0) 06/06/21 03:30 Urine Mucus Few /HPF 06/06/21 03:30 Urine Yeast (Budding) Few /HPF 06/06/21 03:30 Urine Eosinophils Rare (None Seen) 06/06/21 03:30 Urine Creatinine 117.6 mg/dL (0.1-20.0) H 06/06/21 03:30 Urine Sodium 41 mmol/L 06/06/21 03:30 Coronavirus (PCR) Positive (Negative) A 06/04/21 Unknown Microbiology: Microbiology 06/06/21 06:09 Peripheral/Venous Blood Culture - Preliminary Culture in Progress 06/03/21 21:30 Peripheral/Venous Blood Culture - Preliminary NO GROWTH AFTER 48 HOURS 06/03/21 21:40 Peripheral/Venous Blood Culture - Preliminary NO GROWTH AFTER 48 HOURS 06/05/21 18:11 Peripheral/Venous Blood Culture - Preliminary Culture in Progress Byrd/IV: Voiding Method Urinal Active Medications - Current Medications Current Medications: Generic Name Dose Route Start Last Admin Trade Name Freq PRN Reason Stop Dose Admin Acetaminophen 650 mg 06/03/21 21:46 Acetaminophen 325 Mg Tab PO Q4H PRN Pain MILD(1-3)/Fever >100.5/LISA Albuterol 2 puff 06/06/21 07:53 Albuterol 8.5 Gm Mdi Inhalation IH Q6HRT PRN Shortness Of Breath Atenolol 50 mg 06/04/21 10:00 06/06/21 10:01 Atenolol 50 Mg Tab PO 50 mg DAILY COOPER Administration Dexamethasone 6 mg 06/04/21 10:00 06/06/21 10:00 Dexamethasone 4 Mg/Ml Vial IV 06/13/21 10:01 6 mg DAILY COOPER Administration Dextrose 0 ml 06/03/21 21:46 Dextrose 50% In Water (25gm) 50 Ml Syringe IV Q30MIN PRN Hypoglycemia Protocol Famotidine 20 mg 06/03/21 22:00 06/06/21 10:00 Famotidine 20 Mg Tab PO 20 mg QAM COOPER Administration Heparin Sodium (Porcine) 5,000 unit 06/03/21 22:00 06/06/21 13:18 Heparin 5,000 Unit/1 Ml Vial SUB-Q 5,000 unit Q8HR COOPER Administration Hydralazine HCl 10 mg 06/03/21 21:50 Hydralazine 20 Mg/1 Ml Inj IV Q6H PRN Blood Pressure Hydromorphone HCl 0.5 mg 06/03/21 21:46 Hydromorphone 1 Mg/1 Ml Inj IV Q3H PRN Pain , Severe (7-10) REMDESIVIR 100 mg/ Sodium 250 mls @ 500 mls/hr 06/05/21 21:00 06/05/21 23:31 Chloride IV 06/08/21 21:29 500 mls/hr Q24HR@2100 [facility] Administration Insulin Human Lispro 0 unit 06/03/21 22:00 06/06/21 13:36 Insulin Lispro 100 Unit/Ml SUB-Q Not Given ACHS [facility] Protocol Morphine Sulfate 2 mg 06/03/21 21:46 Morphine 2 Mg/1 Ml Inj IV Q4H PRN Pain, Moderate (4-6) Ondansetron HCl 4 mg 06/03/21 21:46 Ondansetron 4 Mg/2 Ml Inj IV Q8H PRN Nausea And Vomiting Sodium Bicarbonate 1,300 mg 06/05/21 14:00 06/06/21 13:18 Sodium Bicarbonate 650 Mg Tab PO 1,300 mg TID COOPER Administration Sodium Chloride 10 ml 06/03/21 22:00 06/06/21 10:00 Sodium Chloride 0.9% 10 Ml Flush Syringe IV 10 ml BID COOPER Administration Sodium Chloride 10 ml 06/03/21 21:46 Sodium Chloride 0.9% 10 Ml Flush Syringe IV PRN PRN LINE FLUSH Sodium Chloride 50 ml 06/04/21 21:00 06/05/21 23:30 Sodium Chloride 0.9% 50 Ml Ivpb IV 06/08/21 21:01 50 ml Q24HR@2100 COOPER Administration Nutrition/Malnutrition Assess - Dietary Evaluation Nutrition/Malnutrition Findings: Nutrition Notes Start: 06/04/21 10:44 Freq: Status: Active Protocol: Document 06/06/21 11:07 MICHELE (Rec: 06/06/21 11:15 MICHELE [id number]) Nutrition Notes Need for Assessment generated from: MD Order,strike operations officer,MST Initial or Follow up Assessment Current Diagnosis Acute Kidney Injury,Diabetes, Heart Failure,Respiratory Failure Other Pertinent Diagnosis COVID-19 pneu Current Diet Cardiac/Consistent CHO, Low K + Ensure Enlive (per MD order) Labs/Tests BUN 73 Cr 2.5 BG 152 Pertinent Medications Decadron Height 5 ft 8 in Weight 86.6 kg [place] Body Weight (kg) 70.00 BMI 29.0 Weight Status Overweight Subjective/Other Information RD consulted for ONS; pt also screened for skin risk (Darius score: 17) and malnutrition risk (poor appetite). Burn Absent Trauma Absent Skin Integrity/Comment No skin breakdown reported Minimum of two criteria No #1 Nutrition Diagnosis Predicted suboptimal energy intake Etiology advanced age, COVID-19 As Evidenced by Signs and Symptoms pt slightly confused upon admission, MD ordered ONS, pt screened for poor appetite upon admission Is patient on ventilator? No Is Patient Ambulatory and/or Out of Bed Yes REE-([place] Jeor-ambulatory/OOB) [ 2053.650 [id number]] Calculation [facility] Additional Notes Pro needs 0.8-1.2g/k-104g /day Fluid needs per MD. Nutrition Intervention Change Diet Order: Continue current diet order Add Supplement/Snack (indicate name/kcal Change ONS to Nepro once daily /protein ) Provides kCal: 425 Provides Protein (gm) 19 Goal #1 PO intake of meals plus ONS to meet at least 75% energy and pro needs Anticipated Discharge Needs: None identified at this time Follow-Up By: 06/09/21 Additional Comments F/U: intakes (meals, ONS)
[2021-06-06] MEDS: SODIUM CHLORIDE 0.9% 50 ML IVPB IV SCH (23:33)
[2021-06-06] MEDS: REMDESIVIR 100 MG in SODIUM CHLORIDE 0.9% 250ML 250 ML IV SCH (23:33)
[2021-06-07] MEDS: HEPARIN 5,000 UNIT/1 ML VIAL SUB-Q SCH ×3 (05:02→23:03)
[2021-06-07] MEDS: MORPHINE 2 MG/1 ML INJ IV PRN ×3 (05:02→18:15)
[2021-06-07 06:52] LABS: Albumin 3.3 g/dL (3.9-5); Calcium 8.9 mg/dL (8.4-10.2)
[2021-06-07] MEDS: atenoloL 50 MG TAB PO SCH (11:02)
[2021-06-07] MEDS: SODIUM BICARBONATE 650 MG TAB PO SCH ×3 (11:02→23:04)
[2021-06-07] MEDS: INSULIN LISPRO 100 UNIT/ML SUB-Q SCH ×4 (11:03→23:48)
[2021-06-07] MEDS: FAMOTIDINE 20 MG TAB PO SCH (11:03)
[2021-06-07] MEDS: dexAMETHasone 4 MG/ML VIAL IV SCH (11:03)
--- NOTE | 2021-06-07 11:47 | Progress Note ---
Assessment and Plan Assessment and plan: Patient is a 75-year-old male with past medical history of nkr-qcjncpr-lomhzzhat type 2 diabetes and hypertension who presented with 2 weeks of worsening shortness of breath with productive cough. The patient was found to be hypoxic to 80% on room air in the ED requiring supplemental oxygen. #Acute hypoxic respiratory failure #COVID-19 pneumonia - etiology: Infectious (community-acquired pneumonia or COVID-19) versus CHF exacerbation - baseline oxygen requirements: None - supplemental oxygen: Nonrebreather on 15 L Continue Remdesivir x5 days. Switched from Decadron 6 g daily to IV methylprednisolone 40 mg every 12 hours Infectious disease consulted; appreciate recs. - Continue protocol: continue pulse oximetry, wean oxygen as tolerated, ordered incentive spirometry and educated patient on how to use it and its importance. - continue to monitor #Possible CHF exacerbation TTE revealing EF 50-55% with vegetation. Continue IV Lasix 40 mg daily (per nephrology). Holding on antibiotics in the setting of patient being afebrile, normal WBC, and vitals wnl. Pending repeat blood culture. Continue to monitor. #Non-insulin dependent type II diabetes mellitus - hemoglobin A1c: Pending - home regimen: Metformin - current regimen: Moderate SSI. Holding metformin; can be restarted prior to discharge. - blood glucose goal 140-180 while inpatient - continue to monitor #ANGIE on CKD (stage unknown) Current creatinine 2.4 (baseline 1.3) Nephrology consulted; appreciate recs Renally dose medications and avoid nephrotoxic meds. Pending renal ultrasound. Continue to monitor. #Advanced care planning -Disease education conducted, care plan discussed, diagnoses discussed, prognosis discussed, and patient acknowledges understanding with care plan -Time: +30 min Disposition Plan: Continue medical management Total Time Spent with Patient (Minutes): 45 minutes History Interval history: No acute events overnight. Hospitalist Physical - Constitutional Vitals: Temp Pulse Resp BP Pulse Ox 98.3 F 59 L 22 151/88 98 06/06/21 22:01 06/06/21 22:01 06/06/21 22:01 06/06/21 22:01 06/06/21 22:01 General appearance: Present: no acute distress, well-nourished, other (Delirious) - EENT Eyes: Present: PERRL, EOM intact ENT: hearing intact, clear oral mucosa - Neck Neck: Present: supple, normal ROM - Respiratory Respiratory effort: labored Respiratory: bilateral: diminished (On nonrebreather 15 L 100% FiO2) - Cardiovascular Rhythm: regular Heart Sounds: Present: S1 & S2 - Extremities Extremities: no ischemia, pulses intact, pulses symmetrical, No edema, normal t emperature, normal color, Full ROM Peripheral Pulses: within normal limits - Abdominal General gastrointestinal: soft, non-tender, non-distended, normal bowel sounds - Integumentary Integumentary: Present: clear, warm, dry - Psychiatric Psychiatric: cooperative, other (Actively delirious) - Neurologic Neurologic: CNII-XII intact, moves all extremities - Allied Health Allied health notes reviewed: nursing Results - Labs CBC & Chem 7: 06/06/21 06:09 06/07/21 06:16 Labs: Laboratory Last Values WBC 8.2 K/mm3 (4.5-11.0) 06/06/21 06:09 RBC 7.20 M/mm3 (3.65-5.03) H 06/06/21 06:09 Hgb 16.9 gm/dl (11.8-15.2) H 06/06/21 06:09 Hct 53.7 % (35.5-45.6) H 06/06/21 06:09 MCV 75 fl (84-94) L 06/06/21 06:09 MCH 24 pg (28-32) L 06/06/21 06:09 MCHC 32 % (32-34) 06/06/21 06:09 RDW 16.3 % (13.2-15.2) H 06/06/21 06:09 Plt Count 352 K/mm3 (140-440) 06/06/21 06:09 Lymph % (Auto) 6.3 % (13.4-35.0) L 06/06/21 06:09 [place] % (Auto) 13.1 % (0.0-7.3) H 06/06/21 06:09 Eos % (Auto) 0.0 % (0.0-4.3) 06/06/21 06:09 Baso % (Auto) 0.3 % (0.0-1.8) 06/06/21 06:09 Lymph # (Auto) 0.5 K/mm3 (1.2-5.4) L 06/06/21 06:09 [place] # (Auto) 1.1 K/mm3 (0.0-0.8) H 06/06/21 06:09 Eos # (Auto) 0.0 K/mm3 (0.0-0.4) 06/06/21 06:09 Baso # (Auto) 0.0 K/mm3 (0.0-0.1) 06/06/21 06:09 Seg Neutrophils % 80.3 % (40.0-70.0) H 06/06/21 06:09 Seg Neutrophils # 6.6 K/mm3 (1.8-7.7) 06/06/21 06:09 D-Dimer 634.36 ng/mlDDU (0-234) H 06/03/21 18:37 ABG pH 7.382 pH Units (7.350-7.450) 06/06/21 14:13 ABG pCO2 33.9 mm Hg 06/06/21 14:13 ABG pO2 81.4 mm Hg (80.0-90.0) 06/06/21 14:13 ABG HCO3 19.7 mmol/L (20.0-26.0) L 06/06/21 14:13 ABG O2 Saturation 96.0 % (95.0-99.0) 06/06/21 14:13 ABG O2 Content 22.7 (0.0-44) 06/06/21 14:13 ABG Base Excess -4.3 mmol/L (-2.0-3.0) L 06/06/21 14:13 ABG Hemoglobin 17.1 gm/dl (14.0-18.0) 06/06/21 14:13 ABG Carboxyhemoglobin 0.8 % (0.0-5.0) 06/06/21 14:13 ABG Methemoglobin 0.6 % (0.0-1.5) 06/06/21 14:13 Oxyhemoglobin 94.6 % (95.0-99.0) L 06/06/21 14:13 FiO2 50 % 06/06/21 14:13 Sodium 149 mmol/L (137-145) H 06/07/21 06:16 Potassium 4.4 mmol/L (3.6-5.0) 06/07/21 06:16 Chloride 114.2 mmol/L (98-107) H 06/07/21 06:16 Carbon Dioxide 21 mmol/L (22-30) L 06/07/21 06:16 Anion Gap 18 mmol/L 06/07/21 06:16 BUN 79 mg/dL (9-20) H 06/07/21 06:16 Creatinine 2.6 mg/dL (0.8-1.3) H 06/07/21 06:16 Estimated GFR 24 ml/min 06/07/21 06:16 BUN/Creatinine Ratio 30 % 06/07/21 06:16 Glucose 88 mg/dL (75-100) 06/07/21 06:16 POC Glucose 100 mg/dL (70-105) 06/07/21 10:44 Lactic Acid 1.60 mmol/L (0.7-2.0) 06/03/21 20:37 Calcium 8.9 mg/dL (8.4-10.2) 06/07/21 06:16 Ferritin 823.7 ng/mL (30.0-300.0) H 06/03/21 18:37 Total Bilirubin 0.30 mg/dL (0.1-1.2) 06/07/21 06:16 AST 20 units/L (5-40) 06/07/21 06:16 ALT 18 units/L (7-56) 06/07/21 06:16 Alkaline Phosphatase 69 units/L (35-129) 06/07/21 06:16 Lactate Dehydrogenase 308 units/L (91-180) H 06/03/21 18:37 Total Creatine Kinase 67 units/L (55-170) 06/04/21 05:40 C-Reactive Protein 6.20 mg/dL (0.00-1.30) H 06/03/21 18:37 NT-Pro-B Natriuret Pep 246.5 pg/mL (0-900) 06/03/21 20:48 Total Protein 5.9 g/dL (6.3-8.2) L 06/07/21 06:16 Albumin 3.3 g/dL (3.9-5) L 06/07/21 06:16 Albumin/Globulin Ratio 1.3 % 06/07/21 06:16 Procalcitonin 0.12 ng/mL (<0.15) 06/03/21 18:37 Urine Color Yellow (Yellow) 06/06/21 03:30 Urine Turbidity Clear (Clear) 06/06/21 03:30 Urine pH 5.0 (5.0-7.0) 06/06/21 03:30 Ur Specific [place] 1.014 (1.003-1.030) 06/06/21 03:30 Urine Protein 30 mg/dl mg/dL (Negative) 06/06/21 03:30 Urine Glucose (UA) Neg mg/dL (Negative) 06/06/21 03:30 Urine Ketones Neg mg/dL (Negative) 06/06/21 03:30 Urine Blood Mod (Negative) 06/06/21 03:30 Urine Nitrite Neg (Negative) 06/06/21 03:30 Urine Bilirubin Neg (Negative) 06/06/21 03:30 Urine Urobilinogen < 2.0 mg/dL (<2.0) 06/06/21 03:30 Ur Leukocyte Esterase Neg (Negative) 06/06/21 03:30 Urine WBC (Auto) 1.0 /HPF (0.0-6.0) 06/06/21 03:30 Urine RBC (Auto) 36.0 /HPF (0.0-6.0) 06/06/21 03:30 U Epithel Cells (Auto) 1.0 /HPF (0-13.0) 06/06/21 03:30 Urine Mucus Few /HPF 06/06/21 03:30 Urine Yeast (Budding) Few /HPF 06/06/21 03:30 Urine Eosinophils Rare (None Seen) 06/06/21 03:30 Urine Creatinine 117.6 mg/dL (0.1-20.0) H 06/06/21 03:30 Urine Sodium 41 mmol/L 06/06/21 03:30 Coronavirus (PCR) Positive (Negative) A 06/04/21 Unknown Microbiology: Microbiology 06/06/21 06:09 Peripheral/Venous Blood Culture - Preliminary NO GROWTH AFTER 24 HOURS 06/03/21 21:40 Peripheral/Venous Blood Culture - Preliminary NO GROWTH AFTER 72 HOURS 06/03/21 21:30 Peripheral/Venous Blood Culture - Preliminary NO GROWTH AFTER 72 HOURS 06/05/21 18:11 Peripheral/Venous Blood Culture - Preliminary NO GROWTH AFTER 24 HOURS Byrd/IV: Voiding Method Urinal Active Medications - Current Medications Current Medications: Generic Name Dose Route Start Last Admin Trade Name Freq PRN Reason Stop Dose Admin Acetaminophen 650 mg 06/03/21 21:46 Acetaminophen 325 Mg Tab PO Q4H PRN Pain MILD(1-3)/Fever >100.5/LISA Albuterol 2 puff 06/06/21 07:53 06/06/21 17:20 Albuterol 8.5 Gm Mdi Inhalation IH 2 puff Q6HRT PRN Administration Shortness Of Breath Atenolol 50 mg 06/04/21 10:00 06/07/21 11:02 Atenolol 50 Mg Tab PO 50 mg DAILY COOPER Administration Dextrose 0 ml 06/03/21 21:46 Dextrose 50% In Water (25gm) 50 Ml Syringe IV Q30MIN PRN Hypoglycemia Protocol Famotidine 20 mg 06/03/21 22:00 06/07/21 11:03 Famotidine 20 Mg Tab PO 20 mg QAM COOPER Administration Heparin Sodium (Porcine) 5,000 unit 06/03/21 22:00 06/07/21 05:02 Heparin 5,000 Unit/1 Ml Vial SUB-Q 5,000 unit Q8HR COOPER Administration Hydralazine HCl 10 mg 06/03/21 21:50 Hydralazine 20 Mg/1 Ml Inj IV Q6H PRN Blood Pressure Hydromorphone HCl 0.5 mg 06/03/21 21:46 Hydromorphone 1 Mg/1 Ml Inj IV Q3H PRN Pain , Severe (7-10) REMDESIVIR 100 mg/ Sodium 250 mls @ 500 mls/hr 06/05/21 21:00 06/06/21 23:33 Chloride IV 06/08/21 21:29 500 mls/hr Q24HR@2100 [facility] Administration Insulin Human Lispro 0 unit 06/03/21 22:00 06/07/21 11:03 Insulin Lispro 100 Unit/Ml SUB-Q Not Given ACHS [facility] Protocol Methylprednisolone Sodium Succinate 40 mg 06/07/21 22:00 Methylprednisolone Sod Succinate 40 Mg/1 Ml Inj IV Q12HR [facility] Morphine Sulfate 2 mg 06/03/21 21:46 06/07/21 11:18 Morphine 2 Mg/1 Ml Inj IV 2 mg Q4H PRN Administration Pain, Moderate (4-6) Ondansetron HCl 4 mg 06/03/21 21:46 Ondansetron 4 Mg/2 Ml Inj IV Q8H PRN Nausea And Vomiting Sodium Bicarbonate 1,300 mg 06/05/21 14:00 06/07/21 11:02 Sodium Bicarbonate 650 Mg Tab PO 1,300 mg TID COOPER Administration Sodium Chloride 10 ml 06/03/21 22:00 06/07/21 11:04 Sodium Chloride 0.9% 10 Ml Flush Syringe IV 10 ml BID COOPER Administration Sodium Chloride 10 ml 06/03/21 21:46 Sodium Chloride 0.9% 10 Ml Flush Syringe IV PRN PRN LINE FLUSH Sodium Chloride 50 ml 06/04/21 21:00 06/06/21 23:33 Sodium Chloride 0.9% 50 Ml Ivpb IV 06/08/21 21:01 50 ml Q24HR@2100 CO[facility] Administration Nutrition/Malnutrition Assess - Dietary Evaluation Nutrition/Malnutrition Findings: Nutrition Notes Start: 06/04/21 10:44 Freq: Status: Active Protocol: Document 06/06/21 11:07 [facility] (Rec: 06/06/21 11:15 [facility] [id number]) Nutrition Notes Need for Assessment generated from: MD Order,dextrine mixer,MST Initial or Follow up Assessment Current Diagnosis Acute Kidney Injury,Diabetes, Heart Failure,Respiratory Failure Other Pertinent Diagnosis COVID-19 pneu Current Diet Cardiac/Consistent CHO, Low K + Ensure Enlive (per MD order) Labs/Tests BUN 73 Cr 2.5 BG 152 Pertinent Medications Decadron Height 5 ft 8 in Weight 86.6 kg [place] Body Weight (kg) 70.00 BMI 29.0 Weight Status Overweight Subjective/Other Information RD consulted for ONS; pt also screened for skin risk (Darius score: 17) and malnutrition risk (poor appetite). Burn Absent Trauma Absent Skin Integrity/Comment No skin breakdown reported Minimum of two criteria No #1 Nutrition Diagnosis Predicted suboptimal energy intake Etiology advanced age, COVID-19 As Evidenced by Signs and Symptoms pt slightly confused upon admission, MD ordered ONS, pt screened for poor appetite upon admission Is patient on ventilator? No Is Patient Ambulatory and/or Out of Bed Yes REE-([place]-St. Jeor-ambulatory/OOB) [ [id number]] Calculation Used for Recommendations [place]-St Jeor Additional Notes Pro needs 0.8-1.2g/k-104g /day Fluid needs per MD. Nutrition Intervention Change Diet Order: Continue current diet order Add Supplement/Snack (indicate name/kcal Change ONS to Nepro once daily /protein ) Provides kCal: 425 Provides Protein (gm) 19 Goal #1 PO intake of meals plus ONS to meet at least 75% energy and pro needs Anticipated Discharge Needs: None identified at this time Follow-Up By: 06/09/21 Additional Comments F/U: intakes (meals, ONS)
--- NOTE | 2021-06-07 12:07 | Progress Note ---
Assessment and Plan Acute Kidney injury, Possible CKD: Covid 19 Pneumonia: Acute Hypoxic respiratory failure: Hyperkalemia: Metabolic acidosis: DM2: HTN: -good UOP, Cr is stable, but with slowly rising BUN, Lasix remains on hold -will start D5W 50 cc/h for slowly rising Na (D5W should not cause significant increased intravascular volume) -cont sodium bicarb tabs 1300 mg TID -Renal US-noted mild L hydro, urology consult requested, recs are pending -Renally dose all meds -Avoid Nephrotoxic meds -Strict I/Os Subjective Date of service: 06/07/21 Principal diagnosis: ANGIE Interval history: no overnight events, remains on the NRB Objective - Vital Signs Vital signs: Vital Signs - 12hr 06/07/21 11:35 Temperature 98.9 F Pulse Rate 68 Respiratory 20 Rate Blood Pressure 122/89 O2 Sat by Pulse 95 Oximetry - Lab 06/06/21 06:09 06/07/21 06:16 Most recent lab results ABG pH 7.382 pH Units (7.350-7.450) 06/06/21 14:13 ABG pCO2 33.9 mm Hg 06/06/21 14:13 ABG pO2 81.4 mm Hg (80.0-90.0) 06/06/21 14:13 ABG HCO3 19.7 mmol/L (20.0-26.0) L 06/06/21 14:13 ABG O2 Saturation 96.0 % (95.0-99.0) 06/06/21 14:13 Calcium 8.9 mg/dL (8.4-10.2) 06/07/21 06:16 Urine Creatinine 117.6 mg/dL (0.1-20.0) H 06/06/21 03:30 Urine Sodium 41 mmol/L 06/06/21 03:30 Medications & Allergies - Medications Allergies/Adverse Reactions: Allergies shellfish derived Adverse Reaction (Verified 06/03/21 18:34) Hives Home Medications: Home Medications Medication Instructions Recorded Confirmed Last Taken Type atenoloL [Tenormin] 50 mg PO DAILY 06/03/21 06/03/21 Unknown History metFORMIN [Glucophage] 500 mg PO DAILY 06/03/21 06/03/21 Unknown History Active Medications: Generic Name Dose Route Start Last Admin Trade Name Freq PRN Reason Stop Dose Admin Acetaminophen 650 mg 06/03/21 21:46 Acetaminophen 325 Mg Tab PO Q4H PRN Pain MILD(1-3)/Fever >100.5/LISA Albuterol 2 puff 06/06/21 07:53 06/06/21 17:20 Albuterol 8.5 Gm Mdi Inhalation IH 2 puff Q6HRT PRN Administration Shortness Of Breath Atenolol 50 mg 06/04/21 10:00 06/07/21 11:02 Atenolol 50 Mg Tab PO 50 mg DAILY [facility] Administration Dextrose 0 ml 06/03/21 21:46 Dextrose 50% In Water (25gm) 50 Ml Syringe IV Q30MIN PRN Hypoglycemia Protocol Famotidine 20 mg 06/03/21 22:00 06/07/21 11:03 Famotidine 20 Mg Tab PO 20 mg QAM [facility] Administration Heparin Sodium (Porcine) 5,000 unit 06/03/21 22:00 06/07/21 05:02 Heparin 5,000 Unit/1 Ml Vial SUB-Q 5,000 unit Q8HR [facility] Administration Hydralazine HCl 10 mg 06/03/21 21:50 Hydralazine 20 Mg/1 Ml Inj IV Q6H PRN Blood Pressure Hydromorphone HCl 0.5 mg 06/03/21 21:46 Hydromorphone 1 Mg/1 Ml Inj IV Q3H PRN Pain , Severe (7-10) REMDESIVIR 100 mg/ Sodium 250 mls @ 500 mls/hr 06/05/21 21:00 06/06/21 23:33 Chloride IV 06/08/21 21:29 500 mls/hr Q24HR@2100 [facility] Administration Insulin Human Lispro 0 unit 06/03/21 22:00 06/07/21 11:03 Insulin Lispro 100 Unit/Ml SUB-Q Not Given ACHS [facility] Protocol Methylprednisolone Sodium Succinate 40 mg 06/07/21 22:00 Methylprednisolone Sod Succinate 40 Mg/1 Ml Inj IV Q12HR [facility] Morphine Sulfate 2 mg 06/03/21 21:46 06/07/21 11:18 Morphine 2 Mg/1 Ml Inj IV 2 mg Q4H PRN Administration Pain, Moderate (4-6) Ondansetron HCl 4 mg 06/03/21 21:46 Ondansetron 4 Mg/2 Ml Inj IV Q8H PRN Nausea And Vomiting Sodium Bicarbonate 1,300 mg 06/05/21 14:00 06/07/21 11:02 Sodium Bicarbonate 650 Mg Tab PO 1,300 mg TID [facility] Administration Sodium Chloride 10 ml 06/03/21 22:00 06/07/21 11:04 Sodium Chloride 0.9% 10 Ml Flush Syringe IV 10 ml BID [facility] Administration Sodium Chloride 10 ml 06/03/21 21:46 Sodium Chloride 0.9% 10 Ml Flush Syringe IV PRN PRN LINE FLUSH Sodium Chloride 50 ml 06/04/21 21:00 06/06/21 23:33 Sodium Chloride 0.9% 50 Ml Ivpb IV 06/08/21 21:01 50 ml Q24HR@2100 [facility] Administration
[2021-06-07] MEDS: HYDROmorphone 1 MG/1 ML INJ IV PRN (15:20)
[2021-06-07] MEDS ORDERED: HALOPERIDOL LACTATE 5 MG/1 ML INJ IM ONE (15:59)
[2021-06-07] MEDS ORDERED: QUEtiapine 25 MG TAB PO SCH (22:00)
[2021-06-07] MEDS: methylPREDNISolone Sod Succinate 40 MG/1 ML INJ IV SCH (23:03)
[2021-06-07] MEDS: SODIUM CHLORIDE 0.9% 50 ML IVPB IV SCH (23:05)
[2021-06-07] MEDS: REMDESIVIR 100 MG in SODIUM CHLORIDE 0.9% 250ML 250 ML IV SCH (23:05)
[2021-06-08] MEDS: HYDROmorphone 1 MG/1 ML INJ IV PRN (01:08)
[2021-06-08] MEDS: HEPARIN 5,000 UNIT/1 ML VIAL SUB-Q SCH ×3 (05:36→21:25)
[2021-06-08] MEDS: MORPHINE 2 MG/1 ML INJ IV PRN ×2 (06:59→13:34)
[2021-06-08] MEDS ORDERED: DEXTROSE 5% IN WATER 1,000 ML IV SCH (07:00)
[2021-06-08] MEDS: methylPREDNISolone Sod Succinate 40 MG/1 ML INJ IV SCH ×3 (08:32→21:25)
[2021-06-08] MEDS: atenoloL 50 MG TAB PO SCH ×2 (08:34→10:00)
[2021-06-08] MEDS: FAMOTIDINE 20 MG TAB PO SCH ×2 (08:34→10:00)
[2021-06-08] MEDS: SODIUM BICARBONATE 650 MG TAB PO SCH (08:34)
[2021-06-08] MEDS: INSULIN LISPRO 100 UNIT/ML SUB-Q SCH ×4 (08:35→22:48)
[2021-06-08 08:46] LABS: Calcium 9.5 mg/dL (8.4-10.2)
--- NOTE | 2021-06-08 09:30 | Progress Note ---
Assessment and Plan Acute Kidney injury, Possible CKD: Covid 19 Pneumonia: Acute Hypoxic respiratory failure: Hyperkalemia: Metabolic acidosis: DM2: HTN: -stable Cr and BUN from yesterday -will change sodium bicarb to bicitra 30 CC TID for worsening acidosis -D5W was increased to 150 cc/h for worsening hypernatremia by IMS -Renal US-noted mild L hydro, urology consult requested, recs are pending -Renally dose all meds -Avoid Nephrotoxic meds -Strict I/Os Subjective Date of service: 06/08/21 Principal diagnosis: ANGIE Interval history: no overnight events, chart reviewed Objective - Vital Signs Vital signs: Vital Signs - 12hr 06/07/21 06/07/21 06/08/21 21:36 22:00 05:12 Temperature 98.0 F Respiratory 20 Rate Blood Pressure 156/90 O2 Sat by Pulse 90 93 Oximetry - Lab 06/06/21 06:09 06/08/21 07:42 Most recent lab results ABG pH 7.382 pH Units (7.350-7.450) 06/06/21 14:13 ABG pCO2 33.9 mm Hg 06/06/21 14:13 ABG pO2 81.4 mm Hg (80.0-90.0) 06/06/21 14:13 ABG HCO3 19.7 mmol/L (20.0-26.0) L 06/06/21 14:13 ABG O2 Saturation 96.0 % (95.0-99.0) 06/06/21 14:13 Calcium 9.5 mg/dL (8.4-10.2) 06/08/21 07:42 Urine Creatinine 117.6 mg/dL (0.1-20.0) H 06/06/21 03:30 Urine Sodium 41 mmol/L 06/06/21 03:30 Medications & Allergies - Medications Allergies/Adverse Reactions: Allergies shellfish derived Adverse Reaction (Verified 06/03/21 18:34) Hives Home Medications: Home Medications Medication Instructions Recorded Confirmed Last Taken Type atenoloL [Tenormin] 50 mg PO DAILY 06/03/21 06/03/21 Unknown History metFORMIN [Glucophage] 500 mg PO DAILY 06/03/21 06/03/21 Unknown History Active Medications: Generic Name Dose Route Start Last Admin Trade Name Freq PRN Reason Stop Dose Admin Acetaminophen 650 mg 06/03/21 21:46 Acetaminophen 325 Mg Tab PO Q4H PRN Pain MILD(1-3)/Fever >100.5/LISA Albuterol 2 puff 06/06/21 07:53 06/06/21 17:20 Albuterol 8.5 Gm Mdi Inhalation IH 2 puff Q6HRT PRN Administration Shortness Of Breath Atenolol 50 mg 06/04/21 10:00 06/08/21 08:34 Atenolol 50 Mg Tab PO 50 mg DAILY [facility] Administration Dextrose 0 ml 06/03/21 21:46 Dextrose 50% In Water (25gm) 50 Ml Syringe IV Q30MIN PRN Hypoglycemia Protocol Famotidine 20 mg 06/03/21 22:00 06/08/21 08:34 Famotidine 20 Mg Tab PO 20 mg QAM [facility] Administration Heparin Sodium (Porcine) 5,000 unit 06/03/21 22:00 06/08/21 05:36 Heparin 5,000 Unit/1 Ml Vial SUB-Q 5,000 unit Q8HR [facility] Administration Hydralazine HCl 10 mg 06/03/21 21:50 Hydralazine 20 Mg/1 Ml Inj IV Q6H PRN Blood Pressure Hydromorphone HCl 0.5 mg 06/03/21 21:46 06/08/21 01:08 Hydromorphone 1 Mg/1 Ml Inj IV 0.5 mg Q3H PRN Administration Pain , Severe (7-10) REMDESIVIR 100 mg/ Sodium 250 mls @ 500 mls/hr 06/05/21 21:00 06/07/21 23:05 Chloride IV 06/08/21 21:29 500 mls/hr Q24HR@2100 [facility] Administration Dextrose 1,000 mls @ 150 mls/hr 06/08/21 07:00 06/08/21 08:25 D5w IV 06/08/21 13:39 150 mls/hr DIRECT [facility] Administration Insulin Human Lispro 0 unit 06/03/21 22:00 06/07/21 23:48 Insulin Lispro 100 Unit/Ml SUB-Q 2 unit ACHS [facility] Administration Protocol Methylprednisolone Sodium Succinate 40 mg 06/07/21 22:00 06/08/21 08:32 Methylprednisolone Sod Succinate 40 Mg/1 Ml Inj IV 40 mg Q12HR [facility] Administration Morphine Sulfate 2 mg 06/03/21 21:46 06/08/21 06:59 Morphine 2 Mg/1 Ml Inj IV 2 mg Q4H PRN Administration Pain, Moderate (4-6) Ondansetron HCl 4 mg 06/03/21 21:46 Ondansetron 4 Mg/2 Ml Inj IV Q8H PRN Nausea And Vomiting Quetiapine Fumarate 25 mg 06/08/21 10:00 Quetiapine 25 Mg Tab PO BID [facility] Sodium Chloride 10 ml 06/03/21 22:00 06/07/21 23:05 Sodium Chloride 0.9% 10 Ml Flush Syringe IV 10 ml BID [facility] Administration Sodium Chloride 10 ml 06/03/21 21:46 Sodium Chloride 0.9% 10 Ml Flush Syringe IV PRN PRN LINE FLUSH Sodium Chloride 50 ml 06/04/21 21:00 06/07/21 23:05 Sodium Chloride 0.9% 50 Ml Ivpb IV 06/08/21 21:01 50 ml Q24HR@2100 [facility] Administration
[2021-06-08] MEDS ORDERED: HALOPERIDOL LACTATE 5 MG/1 ML INJ IM ONE ×2 (10:06→13:00)
--- NOTE | 2021-06-08 10:14 | Progress Note ---
Assessment and Plan Assessment and plan: Patient is a 75-year-old male with past medical history of [id number] type 2 diabetes and hypertension who presented with 2 weeks of worsening shortness of breath with productive cough. The patient was found to be hypoxic to 80% on room air in the ED requiring supplemental oxygen. #Acute hypoxic respiratory failure #COVID-19 pneumonia - etiology: Infectious (community-acquired pneumonia or COVID-19) versus CHF exacerbation - baseline oxygen requirements: None - supplemental oxygen: Nonrebreather on 15 L Continue Remdesivir x5 days. Continue IV methylprednisolone 40 mg every 12 hours Infectious disease consulted; appreciate recs. Pulmonology consulted; pending recs - Continue protocol: continue pulse oximetry, wean oxygen as tolerated, ordered incentive spirometry and educated patient on how to use it and its importance. - continue to monitor #Hyponatremia #Hyperkalemia Sodium 154, potassium 5.1 Likely secondary to decreased p.o. intake in the setting of acute delirium. Starting D5W at 125 cc/hour. Monitor with repeat BMP. #Acute metabolic encephalopathy #Acute delirium Likely secondary to COVID-19 pneumonia. Low clinical suspicion for IV antibiotics due to the patient being afebrile, not having tachycardia, and negative blood cultures. Pending urinalysis to rule out UTI. Pending CT head noncontrast Scheduling Seroquel 25 mg twice daily. Encourage constant redirection, keep blinds open, keep TV off after 10 PM, and reorient patient to diminish other sources of acute delirium. Continue to monitor #Possible CHF exacerbation TTE revealing EF 50-55% with vegetation. Continue IV Lasix 40 mg daily (per nephrology). Holding on antibiotics in the setting of patient being afebrile, normal WBC, and vitals wnl. Pending repeat blood culture. Continue to monitor. #Non-insulin dependent type II diabetes mellitus - hemoglobin A1c: Pending - home regimen: Metformin - current regimen: Moderate SSI. Holding metformin; can be restarted prior to discharge. - blood glucose goal 140-180 while inpatient - continue to monitor #ANGIE on CKD (stage unknown) Current creatinine 2.4 (baseline 1.3) Nephrology consulted; appreciate recs Renally dose medications and avoid nephrotoxic meds. Pending renal ultrasound. Continue to monitor. #Advanced care planning -Disease education conducted, care plan discussed, diagnoses discussed, prognosis discussed, and patient acknowledges understanding with care plan -Time: +30 min Disposition Plan: Continue medical management Total Time Spent with Patient (Minutes): 45 minutes History Interval history: No acute events overnight. Hospitalist Physical - Constitutional Vitals: Temp Pulse Resp BP Pulse Ox 98.0 F 68 20 156/90 93 06/08/21 05:12 06/07/21 21:27 06/08/21 05:12 06/08/21 05:12 06/08/21 09:31 General appearance: Present: no acute distress, well-nourished, other (Actively delirious) - EENT Eyes: Present: PERRL, EOM intact ENT: hearing intact, clear oral mucosa - Neck Neck: Present: supple, normal ROM - Respiratory Respiratory effort: labored Respiratory: bilateral: diminished (Nonrebreather 15 L) - Cardiovascular Rhythm: regular Heart Sounds: Present: S1 & S2 - Extremities Extremities: no ischemia, pulses intact, pulses symmetrical, No edema, normal temperature, normal color, Full ROM Peripheral Pulses: within normal limits - Abdominal General gastrointestinal: soft, non-tender, non-distended, normal bowel sounds - Integumentary Integumentary: Present: clear, warm, dry - Psychiatric Psychiatric: agitated, other (Actively delirious) - Neurologic Neurologic: CNII-XII intact, moves all extremities - Allied Health Allied health notes reviewed: nursing Results - Labs CBC & Chem 7: 06/06/21 06:09 06/08/21 07:42 Labs: Laboratory Last Values WBC 8.2 K/mm3 (4.5-11.0) 06/06/21 06:09 RBC 7.20 M/mm3 (3.65-5.03) H 06/06/21 06:09 Hgb 16.9 gm/dl (11.8-15.2) H 06/06/21 06:09 Hct 53.7 % (35.5-45.6) H 06/06/21 06:09 MCV 75 fl (84-94) L 06/06/21 06:09 MCH 24 pg (28-32) L 06/06/21 06:09 MCHC 32 % (32-34) 06/06/21 06:09 RDW 16.3 % (13.2-15.2) H 06/06/21 06:09 Plt Count 352 K/mm3 (140-440) 06/06/21 06:09 Lymph % (Auto) 6.3 % (13.4-35.0) L 06/06/21 06:09 [place] % (Auto) 13.1 % (0.0-7.3) H 06/06/21 06:09 Eos % (Auto) 0.0 % (0.0-4.3) 06/06/21 06:09 Baso % (Auto) 0.3 % (0.0-1.8) 06/06/21 06:09 Lymph # (Auto) 0.5 K/mm3 (1.2-5.4) L 06/06/21 06:09 [place] # (Auto) 1.1 K/mm3 (0.0-0.8) H 06/06/21 06:09 Eos # (Auto) 0.0 K/mm3 (0.0-0.4) 06/06/21 06:09 Baso # (Auto) 0.0 K/mm3 (0.0-0.1) 06/06/21 06:09 Seg Neutrophils % 80.3 % (40.0-70.0) H 06/06/21 06:09 Seg Neutrophils # 6.6 K/mm3 (1.8-7.7) 06/06/21 06:09 D-Dimer 634.36 ng/mlDDU (0-234) H 06/03/21 18:37 ABG pH 7.382 pH Units (7.350-7.450) 06/06/21 14:13 ABG pCO2 33.9 mm Hg 06/06/21 14:13 ABG pO2 81.4 mm Hg (80.0-90.0) 06/06/21 14:13 ABG HCO3 19.7 mmol/L (20.0-26.0) L 06/06/21 14:13 ABG O2 Saturation 96.0 % (95.0-99.0) 06/06/21 14:13 ABG O2 Content 22.7 (0.0-44) 06/06/21 14:13 ABG Base Excess -4.3 mmol/L (-2.0-3.0) L 06/06/21 14:13 ABG Hemoglobin 17.1 gm/dl (14.0-18.0) 06/06/21 14:13 ABG Carboxyhemoglobin 0.8 % (0.0-5.0) 06/06/21 14:13 ABG Methemoglobin 0.6 % (0.0-1.5) 06/06/21 14:13 Oxyhemoglobin 94.6 % (95.0-99.0) L 06/06/21 14:13 FiO2 50 % 06/06/21 14:13 Sodium 154 mmol/L (137-145) H 06/08/21 07:42 Potassium 5.1 mmol/L (3.6-5.0) H 06/08/21 07:42 Chloride 117.3 mmol/L (98-107) H 06/08/21 07:42 Carbon Dioxide 17 mmol/L (22-30) L 06/08/21 07:42 Anion Gap 25 mmol/L 06/08/21 07:42 BUN 76 mg/dL (9-20) H 06/08/21 07:42 Creatinine 2.5 mg/dL (0.8-1.3) H 06/08/21 07:42 Estimated GFR 25 ml/min 06/08/21 07:42 BUN/Creatinine Ratio 30 % 06/08/21 07:42 Glucose 180 mg/dL (75-100) H 06/08/21 07:42 POC Glucose 186 mg/dL (70-105) H 06/08/21 07:33 Lactic Acid 1.60 mmol/L (0.7-2.0) 06/03/21 20:37 Calcium 9.5 mg/dL (8.4-10.2) 06/08/21 07:42 Ferritin 823.7 ng/mL (30.0-300.0) H 06/03/21 18:37 Total Bilirubin 0.30 mg/dL (0.1-1.2) 06/07/21 06:16 AST 20 units/L (5-40) 06/07/21 06:16 ALT 18 units/L (7-56) 06/07/21 06:16 Alkaline Phosphatase 69 units/L (35-129) 06/07/21 06:16 Lactate Dehydrogenase 308 units/L (91-180) H 06/03/21 18:37 Total Creatine Kinase 67 units/L (55-170) 06/04/21 05:40 C-Reactive Protein 6.20 mg/dL (0.00-1.30) H 06/03/21 18:37 NT-Pro-B Natriuret Pep 246.5 pg/mL (0-900) 06/03/21 20:48 Total Protein 5.9 g/dL (6.3-8.2) L 06/07/21 06:16 Albumin 3.3 g/dL (3.9-5) L 06/07/21 06:16 Albumin/Globulin Ratio 1.3 % 06/07/21 06:16 Procalcitonin 0.12 ng/mL (<0.15) 06/03/21 18:37 Urine Color Yellow (Yellow) 06/06/21 03:30 Urine Turbidity Clear (Clear) 06/06/21 03:30 Urine pH 5.0 (5.0-7.0) 06/06/21 03:30 Ur Specific [place] 1.014 (1.003-1.030) 06/06/21 03:30 Urine Protein 30 mg/dl mg/dL (Negative) 06/06/21 03:30 Urine Glucose (UA) Neg mg/dL (Negative) 06/06/21 03:30 Urine Ketones Neg mg/dL (Negative) 06/06/21 03:30 Urine Blood Mod (Negative) 06/06/21 03:30 Urine Nitrite Neg (Negative) 06/06/21 03:30 Urine Bilirubin Neg (Negative) 06/06/21 03:30 Urine Urobilinogen < 2.0 mg/dL (<2.0) 06/06/21 03:30 Ur Leukocyte Esterase Neg (Negative) 06/06/21 03:30 Urine WBC (Auto) 1.0 /HPF (0.0-6.0) 06/06/21 03:30 Urine RBC (Auto) 36.0 /HPF (0.0-6.0) 06/06/21 03:30 U Epithel Cells (Auto) 1.0 /HPF (0-13.0) 06/06/21 03:30 Urine Mucus Few /HPF 06/06/21 03:30 Urine Yeast (Budding) Few /HPF 06/06/21 03:30 Urine Eosinophils Rare (None Seen) 06/06/21 03:30 Urine Creatinine 117.6 mg/dL (0.1-20.0) H 06/06/21 03:30 Urine Sodium 41 mmol/L 06/06/21 03:30 Coronavirus (PCR) Positive (Negative) A 06/04/21 Unknown Microbiology: Microbiology 06/06/21 06:09 Peripheral/Venous Blood Culture - Preliminary NO GROWTH AFTER 48 HOURS 06/03/21 21:30 Peripheral/Venous Blood Culture - Preliminary NO GROWTH AFTER 4 DAYS 06/03/21 21:40 Peripheral/Venous Blood Culture - Preliminary NO GROWTH AFTER 4 DAYS 06/05/21 18:11 Peripheral/Venous Blood Culture - Preliminary NO GROWTH AFTER 48 HOURS Byrd/IV: Voiding Method Condom Catheter Active Medications - Current Medications Current Medications: Generic Name Dose Route Start Last Admin Trade Name Freq PRN Reason Stop Dose Admin Acetaminophen 650 mg 06/03/21 21:46 Acetaminophen 325 Mg Tab PO Q4H PRN Pain MILD(1-3)/Fever >100.5/LISA Albuterol 2 puff 06/06/21 07:53 06/06/21 17:20 Albuterol 8.5 Gm Mdi Inhalation IH 2 puff Q6HRT PRN Administration Shortness Of Breath Atenolol 50 mg 06/04/21 10:00 06/08/21 08:34 Atenolol 50 Mg Tab PO 50 mg DAILY [facility] Administration Citric Acid/Sodium Citrate 30 ml 06/08/21 14:00 Bicitra Oral Liqd 30ml PO TID [facility] Dextrose 0 ml 06/03/21 21:46 Dextrose 50% In Water (25gm) 50 Ml Syringe IV Q30MIN PRN Hypoglycemia Protocol Famotidine 20 mg 06/03/21 22:00 06/08/21 08:34 Famotidine 20 Mg Tab PO 20 mg QAM [facility] Administration Haloperidol Lactate 5 mg 06/08/21 10:06 Haloperidol Lactate 5 Mg/1 Ml Inj IM 06/08/21 10:07 ONCE ONE Heparin Sodium (Porcine) 5,000 unit 06/03/21 22:00 06/08/21 05:36 Heparin 5,000 Unit/1 Ml Vial SUB-Q 5,000 unit Q8HR [facility] Administration Hydralazine HCl 10 mg 06/03/21 21:50 Hydralazine 20 Mg/1 Ml Inj IV Q6H PRN Blood Pressure Hydromorphone HCl 0.5 mg 06/03/21 21:46 06/08/21 01:08 Hydromorphone 1 Mg/1 Ml Inj IV 0.5 mg Q3H PRN Administration Pain , Severe (7-10) REMDESIVIR 100 mg/ Sodium 250 mls @ 500 mls/hr 06/05/21 21:00 06/07/21 23:05 Chloride IV 06/08/21 21:29 500 mls/hr Q24HR@2100 [facility] Administration Dextrose 1,000 mls @ 150 mls/hr 06/08/21 07:00 06/08/21 08:25 D5w IV 06/08/21 13:39 150 mls/hr DIRECT [facility] Administration Insulin Human Lispro 0 unit 06/03/21 22:00 06/08/21 08:35 Insulin Lispro 100 Unit/Ml SUB-Q 2 unit ACHS [facility] Administration Protocol Methylprednisolone Sodium Succinate 40 mg 06/07/21 22:00 06/08/21 08:32 Methylprednisolone Sod Succinate 40 Mg/1 Ml Inj IV 40 mg Q12HR [facility] Administration Morphine Sulfate 2 mg 06/03/21 21:46 06/08/21 06:59 Morphine 2 Mg/1 Ml Inj IV 2 mg Q4H PRN Administration Pain, Moderate (4-6) Ondansetron HCl 4 mg 06/03/21 21:46 Ondansetron 4 Mg/2 Ml Inj IV Q8H PRN Nausea And Vomiting Quetiapine Fumarate 25 mg 06/08/21 10:00 Quetiapine 25 Mg Tab PO BID [facility] Sodium Chloride 10 ml 06/03/21 22:00 06/07/21 23:05 Sodium Chloride 0.9% 10 Ml Flush Syringe IV 10 ml BID [facility] Administration Sodium Chloride 10 ml 06/03/21 21:46 Sodium Chloride 0.9% 10 Ml Flush Syringe IV PRN PRN LINE FLUSH Sodium Chloride 50 ml 06/04/21 21:00 06/07/21 23:05 Sodium Chloride 0.9% 50 Ml Ivpb IV 06/08/21 21:01 50 ml Q24HR@2100 [facility] Administration Nutrition/Malnutrition Assess - Dietary Evaluation Nutrition/Malnutrition Findings: Nutrition Notes Start: 06/04/21 10:44 Freq: Status: Active Protocol: Document 06/06/21 11:07 MICHELE (Rec: 06/06/21 11:15 MICHELE [id number]) Nutrition Notes Need for Assessment generated from: MD Order,supervisor bridges and buildings,MST Initial or Follow up Assessment Current Diagnosis Acute Kidney Injury,Diabetes, Heart Failure,Respiratory Failure Other Pertinent Diagnosis COVID-19 pneu Current Diet Cardiac/Consistent CHO, Low K + Ensure Enlive (per MD order) Labs/Tests BUN 73 Cr 2.5 BG 152 Pertinent Medications Decadron Height 5 ft 8 in Weight 86.6 kg [place] Body Weight (kg) 70.00 BMI 29.0 Weight Status Overweight Subjective/Other Information RD consulted for ONS; pt also screened for skin risk (Darius score: 17) and malnutrition risk (poor appetite). Burn Absent Trauma Absent Skin Integrity/Comment No skin breakdown reported Minimum of two criteria No #1 Nutrition Diagnosis Predicted suboptimal energy intake Etiology advanced age, COVID-19 As Evidenced by Signs and Symptoms pt slightly confused upon admission, MD ordered ONS, pt screened for poor appetite upon admission Is patient on ventilator? No Is Patient Ambulatory and/or Out of Bed Yes REE-([place]-ambulatory/OOB) [ 2053.650 [id number]] Calculation [facility] for [facility]ations [facility] Additional Notes Pro needs 0.8-1.2g/k-104g /day Fluid needs per MD. Nutrition Intervention Change Diet Order: Continue current diet order Add Supplement/Snack (indicate name/kcal Change ONS to Nepro once daily /protein ) Provides kCal: 425 Provides Protein (gm) 19 Goal #1 PO intake of meals plus ONS to meet at least 75% energy and pro needs Anticipated Discharge Needs: None identified at this time Follow-Up By: 06/09/21 Additional Comments F/U: intakes (meals, ONS)
--- NOTE | 2021-06-08 10:55 | Consultation ---
History of Present Illness Consult date: 06/08/21 Requesting physician: RANJANA BENZ Reason for consult: hypoxemia, other (COVID) History of present illness: 75 y/o male with acute respiratory failure secondary to COVID 19 and renal failure. Oxygen requirement has increased over the last several days and pulmonary consulted for this. Currently on venturi mask at 15 and 50% with marginal sats. On steroids. Finished Remdesivir. Renal function has remained stable but Na is worse. Past History Past Medical History: diabetes, hypertension Medications and Allergies Allergies Allergy/AdvReac Type Severity Reaction Status Date / Time shellfish derived AdvReac Hives Verified 06/03/21 18:34 Home Medications Medication Instructions Recorded Confirmed Last Taken Type atenoloL [Tenormin] 50 mg PO DAILY 06/03/21 06/03/21 Unknown History metFORMIN [Glucophage] 500 mg PO DAILY 06/03/21 06/03/21 Unknown History Active Meds: Active Medications Acetaminophen (Acetaminophen 325 Mg Tab) 650 mg PO Q4H PRN PRN Reason: Pain MILD(1-3)/Fever >100.5/LISA Albuterol (Albuterol 8.5 Gm Mdi Inhalation) 2 puff IH Q6HRT PRN PRN Reason: Shortness Of Breath Last Admin: 06/06/21 17:20 Dose: 2 puff Atenolol (Atenolol 50 Mg Tab) 50 mg PO DAILY [facility] Last Admin: 06/08/21 08:34 Dose: 50 mg Citric Acid/Sodium Citrate (Bicitra Oral Liqd 30ml) 30 ml PO TID [facility] Dextrose (Dextrose 50% In Water (25gm) 50 Ml Syringe) 0 ml IV Q30MIN PRN; Protocol PRN Reason: Hypoglycemia Famotidine (Famotidine 20 Mg Tab) 20 mg PO QAM [facility] Last Admin: 06/08/21 08:34 Dose: 20 mg Furosemide (Furosemide 40 Mg/4 Ml Inj) 40 mg IV ONCE ONE Stop: 06/08/21 10:56 Heparin Sodium (Porcine) (Heparin 5,000 Unit/1 Ml Vial) 5,000 unit SUB-Q Q8HR [facility] Last Admin: 06/08/21 05:36 Dose: 5,000 unit Hydralazine HCl (Hydralazine 20 Mg/1 Ml Inj) 10 mg IV Q6H PRN PRN Reason: Blood Pressure Hydromorphone HCl (Hydromorphone 1 Mg/1 Ml Inj) 0.5 mg IV Q3H PRN PRN Reason: Pain , Severe (7-10) Last Admin: 06/08/21 01:08 Dose: 0.5 mg REMDESIVIR 100 mg/ Sodium (Chloride) 250 mls @ 500 mls/hr IV Q24HR@2100 [facility] Stop: 06/08/21 21:29 Last Admin: 06/07/21 23:05 Dose: 500 mls/hr Dextrose (D5w) 1,000 mls @ 150 mls/hr IV DIRECT [facility] Stop: 06/08/21 13:39 Last Admin: 06/08/21 08:25 Dose: 150 mls/hr Insulin Human Lispro (Insulin Lispro 100 Unit/Ml) 0 unit SUB-Q ACHS [facility]; Protocol Last Admin: 06/08/21 08:35 Dose: 2 unit Methylprednisolone Sodium Succinate (Methylprednisolone Sod Succinate 40 Mg/1 Ml Inj) 40 mg IV Q12HR [facility] Last Admin: 06/08/21 08:32 Dose: 40 mg Morphine Sulfate (Morphine 2 Mg/1 Ml Inj) 2 mg IV Q4H PRN PRN Reason: Pain, Moderate (4-6) Last Admin: 06/08/21 06:59 Dose: 2 mg Ondansetron HCl (Ondansetron 4 Mg/2 Ml Inj) 4 mg IV Q8H PRN PRN Reason: Nausea And Vomiting Quetiapine Fumarate (Quetiapine 25 Mg Tab) 25 mg PO BID [facility] Sodium Chloride (Sodium Chloride 0.9% 10 Ml Flush Syringe) 10 ml IV BID [facility] Last Admin: 06/07/21 23:05 Dose: 10 ml Sodium Chloride (Sodium Chloride 0.9% 10 Ml Flush Syringe) 10 ml IV PRN PRN PRN Reason: LINE FLUSH Sodium Chloride (Sodium Chloride 0.9% 50 Ml Ivpb) 50 ml IV Q24HR@2100 [facility] Stop: 06/08/21 21:01 Last Admin: 06/07/21 23:05 Dose: 50 ml Physical Examination Vital signs: Vital Signs Pulse Resp BP Pulse Ox 117 H 30 H 114/76 83 L 06/03/21 17:30 06/03/21 17:30 06/03/21 17:30 06/03/21 17:30 Results - Laboratory Findings CBC and BMP: 06/09/21 09:08 06/09/21 09:08 ABG ABG pH 7.382 pH Units (7.350-7.450) 06/06/21 14:13 ABG pCO2 33.9 mm Hg 06/06/21 14:13 ABG pO2 81.4 mm Hg (80.0-90.0) 06/06/21 14:13 ABG O2 Saturation 96.0 % (95.0-99.0) 06/06/21 14:13 PT/INR, D-dimer D-Dimer 634.36 ng/mlDDU (0-234) H 06/03/21 18:37 Abnormal lab findings: Abnormal Labs 06/03/21 06/03/21 06/03/21 18:37 18:37 18:37 WBC RBC 7.38 H Hgb 17.0 H Hct 54.7 H MCV 74 L MCH 23 L MCHC 31 L RDW 15.9 H Lymph % (Auto) 8.[address] [place] % (Auto) 12.6 H Lymph # (Auto) 0.[address] [place] # (Auto) Seg Neutrophils % 78.7 H D-Dimer ABG HCO3 ABG Base Excess Oxyhemoglobin Sodium Potassium 5.4 H Chloride Carbon Dioxide 19 L BUN 40 H Creatinine 2.6 H Glucose 179 H POC Glucose Lactic Acid 2.40 H* Calcium Ferritin Lactate Dehydrogenase 308 H C-Reactive Protein 6.20 H Total Protein Albumin 3.1 L Urine Creatinine Coronavirus (PCR) 06/03/21 06/03/21 06/04/21 18:37 18:37 00:30 WBC RBC Hgb Hct MCV MCH MCHC RDW Lymph % (Auto) [place] % (Auto) Lymph # (Auto) [place] # (Auto) Seg Neutrophils % D-Dimer 634.36 H ABG HCO3 ABG Base Excess Oxyhemoglobin Sodium Potassium Chloride Carbon Dioxide BUN Creatinine Glucose POC Glucose 115 H Lactic Acid Calcium Ferritin 823.7 H Lactate Dehydrogenase C-Reactive Protein Total Protein Albumin Urine Creatinine Coronavirus (PCR) 06/04/21 06/04/21 06/04/21 05:40 05:40 14:51 WBC 4.3 L RBC 6.82 H Hgb 15.9 H Hct 50.7 H MCV 74 L MCH 23 L MCHC 31 L RDW 16.1 H Lymph % (Auto) [place] % (Auto) 15.6 H Lymph # (Auto) 0.[address] [place] # (Auto) Seg Neutrophils % D-Dimer ABG HCO3 ABG Base Excess Oxyhemoglobin Sodium Potassium Chloride Carbon Dioxide 21 L 19 L BUN 46 H 49 H Creatinine 2.2 H 2.5 H Glucose 101 H 131 H POC Glucose Lactic Acid Calcium 8.0 L Ferritin Lactate Dehydrogenase C-Reactive Protein Total Protein Albumin 3.4 L Urine Creatinine Coronavirus (PCR) 06/04/21 06/04/21 06/05/21 22:06 Unknown 05:54 WBC RBC Hgb Hct MCV MCH MCHC RDW Lymph % (Auto) [place] % (Auto) Lymph # (Auto) [place] # (Auto) Seg Neutrophils % D-Dimer ABG HCO3 ABG Base Excess Oxyhemoglobin Sodium Potassium Chloride Carbon Dioxide 17 L BUN 61 H Creatinine 2.5 H Glucose 150 H POC Glucose 134 H Lactic Acid Calcium Ferritin Lactate Dehydrogenase C-Reactive Protein Total Protein Albumin 3.2 L Urine Creatinine Coronavirus (PCR) Positive A 06/05/21 06/05/21 06/05/21 05:54 08:23 12:30 WBC 3.6 L RBC 7.39 H Hgb 17.2 H Hct 54.9 H MCV 74 L MCH 23 L MCHC 31 L RDW 16.2 H Lymph % (Auto) 11.[address] [place] % (Auto) 15.4 H Lymph # (Auto) 0.[address] [place] # (Auto) Seg Neutrophils % 73.3 H D-Dimer ABG HCO3 ABG Base Excess Oxyhemoglobin Sodium Potassium Chloride Carbon Dioxide BUN Creatinine Glucose POC Glucose 163 H 146 H Lactic Acid Calcium Ferritin Lactate Dehydrogenase C-Reactive Protein Total Protein Albumin Urine Creatinine Coronavirus (PCR) 06/05/21 06/05/21 06/06/21 16:04 20:49 03:30 WBC RBC Hgb Hct MCV MCH MCHC RDW Lymph % (Auto) [place] % (Auto) Lymph # (Auto) [place] # (Auto) Seg Neutrophils % D-Dimer ABG HCO3 ABG Base Excess Oxyhemoglobin Sodium Potassium Chloride Carbon Dioxide BUN Creatinine Glucose POC Glucose 140 H 208 H Lactic Acid Calcium Ferritin Lactate Dehydrogenase C-Reactive Protein Total Protein Albumin Urine Creatinine 117.6 H Coronavirus (PCR) 06/06/21 06/06/21 06/06/21 06:09 06:09 08:16 WBC RBC 7.20 H Hgb 16.9 H Hct 53.7 H MCV 75 L MCH 24 L MCHC RDW 16.3 H Lymph % (Auto) 6.[address] [place] % (Auto) 13.1 H Lymph # (Auto) 0.[address] [place] # (Auto) 1.1 H Seg Neutrophils % 80.3 H D-Dimer ABG HCO3 ABG Base Excess Oxyhemoglobin Sodium Potassium Chloride Carbon Dioxide 18 L BUN 73 H Creatinine 2.5 H Glucose 152 H POC Glucose 146 H Lactic Acid Calcium Ferritin Lactate Dehydrogenase C-Reactive Protein Total Protein Albumin 3.3 L Urine Creatinine Coronavirus (PCR) 06/06/21 06/06/21 06/06/21 12:45 14:13 17:39 WBC RBC Hgb Hct MCV MCH MCHC RDW Lymph % (Auto) [place] % (Auto) Lymph # (Auto) [place] # (Auto) Seg Neutrophils % D-Dimer ABG HCO3 19.7 L ABG Base Excess -4.3 L Oxyhemoglobin 94.6 L Sodium Potassium Chloride Carbon Dioxide BUN Creatinine Glucose POC Glucose 225 H 154 H Lactic Acid Calcium Ferritin Lactate Dehydrogenase C-Reactive Protein Total Protein Albumin Urine Creatinine Coronavirus (PCR) 06/06/21 06/07/21 06/07/21 21:46 06:16 15:54 WBC RBC Hgb Hct MCV MCH MCHC RDW Lymph % (Auto) [place] % (Auto) Lymph # (Auto) [place] # (Auto) Seg Neutrophils % D-Dimer ABG HCO3 ABG Base Excess Oxyhemoglobin Sodium 149 H Potassium Chloride 114.2 H Carbon Dioxide 21 L BUN 79 H Creatinine 2.6 H Glucose POC Glucose 187 H 195 H Lactic Acid Calcium Ferritin Lactate Dehydrogenase C-Reactive Protein Total Protein 5.9 L Albumin 3.3 L Urine Creatinine Coronavirus (PCR) 06/07/21 06/08/21 06/08/21 21:27 07:33 07:42 WBC RBC Hgb Hct MCV MCH MCHC RDW Lymph % (Auto) [place] % (Auto) Lymph # (Auto) [place] # (Auto) Seg Neutrophils % D-Dimer ABG HCO3 ABG Base Excess Oxyhemoglobin Sodium 154 H Potassium 5.1 H Chloride 117.3 H Carbon Dioxide 17 L BUN 76 H Creatinine 2.5 H Glucose 180 H POC Glucose 190 H 186 H Lactic Acid Calcium Ferritin Lactate Dehydrogenase C-Reactive Protein Total Protein Albumin Urine Creatinine Coronavirus (PCR) - Diagnostic Findings Chest x-ray: image reviewed (low lung volumes with atelectasis. Not a good film) Assessment and Plan 75 y/o with acute respiratory failure secondary to COVID 19, renal failure (acute vs chronic) 1. Steroids, ordered at q12 dosing, assuming secondary to diabetes and renal function. If using solumedrol, would consider changing to at least q8 2. Prone if able 3. Follow up renal recs, does not appear to be a candidate for diuresis 4. Wean FiO2 for sats > 88%
[2021-06-08] MEDS ORDERED: FUROSEMIDE 40 MG/4 ML INJ IV ONE (12:00)
[2021-06-08] MEDS: QUEtiapine 25 MG TAB PO SCH ×2 (12:32→21:24)
[2021-06-08] MEDS: BICITRA ORAL LIQD 30ML PO SCH ×3 (16:02→22:45)
[2021-06-08 16:59] LABS: Bilirubin,Urine NEG (Negative); Blood,Urine MOD (Negative); Color,Urine Yellow (Yellow); Mucus,Urine FEW /HPF; Urobilinogen,Urine < 2.0 mg/dL (<2.0)
[2021-06-08] MEDS: HALOPERIDOL LACTATE 5 MG/1 ML INJ IM PRN (20:00)
[2021-06-08] MEDS: REMDESIVIR 100 MG in SODIUM CHLORIDE 0.9% 250ML 250 ML IV SCH (21:24)
[2021-06-08] MEDS: SODIUM CHLORIDE 0.9% 50 ML IVPB IV SCH (21:25)
[2021-06-09] MEDS: HALOPERIDOL LACTATE 5 MG/1 ML INJ IM PRN ×4 (04:02→21:55)
[2021-06-09] MEDS ORDERED: cloNIDine 0.1 MG TAB PO ONE (05:20)
[2021-06-09] MEDS: HEPARIN 5,000 UNIT/1 ML VIAL SUB-Q SCH ×3 (05:55→21:55)
[2021-06-09 09:37] LABS: Hematocrit 56.8 % (35.5-45.6); Lymphocytes # (Auto) 0.4 K/mm3 (1.2-5.4); Lymphocytes % (Auto) 2.9 % (13.4-35.0); Mean Corpuscular HGB Conc 32 % (32-34); Mean Corpuscular Volume 74 fl (84-94); Monocytes # (Auto) 1.6 K/mm3 (0.0-0.8); Monocytes % (Auto) 12.8 % (0.0-7.3); Platelet Count 423 K/mm3 (140-440); Red Blood Count 7.64 M/mm3 (3.65-5.03); Red Cell Distribution Width 16.2 % (13.2-15.2)
[2021-06-09 09:51] LABS: Calcium 9.9 mg/dL (8.4-10.2)
[2021-06-09 09:58] LABS: Albumin 3.5 g/dL (3.9-5); Bilirubin,Direct 0.3 mg/dL (0-0.2)
[2021-06-09] MEDS: INSULIN LISPRO 100 UNIT/ML SUB-Q SCH ×4 (10:04→23:46)
[2021-06-09] MEDS: methylPREDNISolone Sod Succinate 40 MG/1 ML INJ IV SCH ×2 (10:05→21:55)
[2021-06-09 10:30] LABS: ABG Base Excess -3.7 mmol/L (-2.0-3.0); ABG HCO3 18.8 mmol/L (20.0-26.0); ABG Methemoglobin 0.6 % (0.0-1.5); ABG PCO2 28.9 mm Hg; ABG PH 7.43 pH Units (7.350-7.450)
--- NOTE | 2021-06-09 11:53 | Progress Note ---
Assessment and Plan Acute Kidney injury, Possible CKD: Covid 19 Pneumonia: Acute Hypoxic respiratory failure: Hyperkalemia: Metabolic acidosis: DM2: HTN: -stable Cr and BUN from yesterday -cont sodium bicarb to bicitra 30 CC TID for worsening acidosis -remains to have worsening sodium even after was started on D5W 150 cc/h but it is the patient was receiving becuase it was not charted, I discussed wit treating RN. will cont D5W and check BMP Q12H and adjust -Renal US-noted mild L hydro, urology consult was requested. -Renally dose all meds -Avoid Nephrotoxic meds -Strict I/Os Subjective Date of service: 06/09/21 Principal diagnosis: ANGIE Interval history: required Haldol this AM because he was combative Objective - Vital Signs Vital signs: Vital Signs - 12hr 06/09/21 06/09/21 06/09/21 03:49 05:54 10:00 Temperature 99.0 F Pulse Rate 88 88 Respiratory 28 H Rate Blood Pressure 184/116 184/116 O2 Sat by Pulse 86 92 Oximetry 06/09/21 10:45 Temperature Pulse Rate Respiratory Rate Blood Pressure O2 Sat by Pulse 93 Oximetry - Lab 06/09/21 09:08 06/09/21 09:08 Most recent lab results ABG pH 7.430 pH Units (7.350-7.450) 06/09/21 10:15 ABG pCO2 28.9 mm Hg 06/09/21 10:15 ABG pO2 57.0 mm Hg (80.0-90.0) L 06/09/21 10:15 ABG HCO3 18.8 mmol/L (20.0-26.0) L 06/09/21 10:15 ABG O2 Saturation 90.0 % (95.0-99.0) L 06/09/21 10:15 Calcium 9.9 mg/dL (8.4-10.2) 06/09/21 09:08 Urine Creatinine 117.6 mg/dL (0.1-20.0) H 06/06/21 03:30 Urine Sodium 41 mmol/L 06/06/21 03:30 Medications & Allergies - Medications Allergies/Adverse Reactions: Allergies shellfish derived Adverse Reaction (Verified 06/03/21 18:34) Hives Home Medications: Home Medications Medication Instructions Recorded Confirmed Last Taken Type atenoloL [Tenormin] 50 mg PO DAILY 06/03/21 06/03/21 Unknown History metFORMIN [Glucophage] 500 mg PO DAILY 06/03/21 06/03/21 Unknown History Active Medications: Generic Name Dose Route Start Last Admin Trade Name Freq PRN Reason Stop Dose Admin Acetaminophen 650 mg 06/03/21 21:46 Acetaminophen 325 Mg Tab PO Q4H PRN Pain MILD(1-3)/Fever >100.5/LISA Albuterol 2 puff 06/06/21 07:53 06/06/21 17:20 Albuterol 8.5 Gm Mdi Inhalation IH 2 puff Q6HRT PRN Administration Shortness Of Breath Atenolol 50 mg 06/04/21 10:00 06/08/21 10:00 Atenolol 50 Mg Tab PO Not Given DAILY [facility] Citric Acid/Sodium Citrate 30 ml 06/08/21 14:00 06/08/21 22:45 Bicitra Oral Liqd 30ml PO 30 ml TID [facility] Administration Dextrose 0 ml 06/03/21 21:46 Dextrose 50% In Water (25gm) 50 Ml Syringe IV Q30MIN PRN Hypoglycemia Protocol Famotidine 20 mg 06/03/21 22:00 06/08/21 10:00 Famotidine 20 Mg Tab PO Not Given QAM [facility] Haloperidol Lactate 5 mg 06/08/21 14:00 06/09/21 10:05 Haloperidol Lactate 5 Mg/1 Ml Inj IM 5 mg Q6H PRN Administration Agitation Heparin Sodium (Porcine) 5,000 unit 06/03/21 22:00 06/09/21 05:55 Heparin 5,000 Unit/1 Ml Vial SUB-Q 5,000 unit Q8HR [facility] Administration Hydralazine HCl 10 mg 06/03/21 21:50 Hydralazine 20 Mg/1 Ml Inj IV Q6H PRN Blood Pressure Hydromorphone HCl 0.5 mg 06/03/21 21:46 06/08/21 01:08 Hydromorphone 1 Mg/1 Ml Inj IV 0.5 mg Q3H PRN Administration Pain , Severe (7-10) Dextrose 1,000 mls @ 150 mls/hr 06/09/21 12:00 D5w IV DIRECT [facility] Insulin Human Lispro 0 unit 06/03/21 22:00 06/09/21 10:04 Insulin Lispro 100 Unit/Ml SUB-Q Not Given ACHS [facility] Protocol Methylprednisolone Sodium Succinate 40 mg 06/07/21 22:00 06/09/21 10:05 Methylprednisolone Sod Succinate 40 Mg/1 Ml Inj IV 40 mg Q12HR [facility] Administration Morphine Sulfate 2 mg 06/03/21 21:46 06/08/21 13:34 Morphine 2 Mg/1 Ml Inj IV 2 mg Q4H PRN Administration Pain, Moderate (4-6) Ondansetron HCl 4 mg 06/03/21 21:46 Ondansetron 4 Mg/2 Ml Inj IV Q8H PRN Nausea And Vomiting Quetiapine Fumarate 25 mg 06/08/21 10:00 06/08/21 21:24 Quetiapine 25 Mg Tab PO 25 mg BID [facility] Administration Sodium Chloride 10 ml 06/03/21 22:00 06/08/21 21:27 Sodium Chloride 0.9% 10 Ml Flush Syringe IV 10 ml BID [facility] Administration Sodium Chloride 10 ml 06/03/21 21:46 Sodium Chloride 0.9% 10 Ml Flush Syringe IV PRN PRN LINE FLUSH
[2021-06-09] MEDS: DEXTROSE 5% IN WATER 1,000 ML IV SCH ×2 (12:00→18:30)
--- NOTE | 2021-06-09 12:38 | Progress Note ---
Assessment and Plan 75 y/o with acute respiratory failure secondary to COVID 19, renal failure (acute vs chronic) 06/09/21: Steroids, prone if able. Will repeat CXR. ABG is consistent with respiratory alkalosis with hypoxemia, compensated as patient has a metabolic acidosis as well. Most likely low CO2 is a reaction to metabolic acidosis. On bicarb drip. Worsening oxygenation could be from volume. Follow up film 1. Steroids, ordered at q12 dosing, assuming secondary to diabetes and renal function. If using solumedrol, would consider changing to at least q8 2. Prone if able 3. Follow up renal recs, does not appear to be a candidate for diuresis 4. Wean FiO2 for sats > 88% Subjective Date of service: 06/09/21 Principal diagnosis: ANGIE Interval history: Worsening oxygenation today. No HFNC with NRB. Last sat documented at 93 Objective Vital Signs - 12hr 06/09/21 06/09/21 06/09/21 03:49 05:54 10:00 Temperature 99.0 F Pulse Rate 88 88 Respiratory 28 H Rate Blood Pressure 184/116 184/116 O2 Sat by Pulse 86 92 Oximetry 06/09/21 10:45 Temperature Pulse Rate Respiratory Rate Blood Pressure O2 Sat by Pulse 93 Oximetry CBC and BMP: 06/09/21 09:08 06/09/21 09:08 ABG, PT/INR, D-dimer: ABG ABG pH 7.430 pH Units (7.350-7.450) 06/09/21 10:15 ABG pCO2 28.9 mm Hg 06/09/21 10:15 ABG pO2 57.0 mm Hg (80.0-90.0) L 06/09/21 10:15 ABG O2 Saturation 90.0 % (95.0-99.0) L 06/09/21 10:15 PT/INR, D-dimer D-Dimer 634.36 ng/mlDDU (0-234) H 06/03/21 18:37 Abnormal lab findings: Abnormal Labs 06/03/21 06/03/21 06/03/21 18:37 18:37 18:37 WBC RBC 7.38 H Hgb 17.0 H Hct 54.7 H MCV 74 L MCH 23 L MCHC 31 L RDW 15.9 H Lymph % (Auto) 8.4 L [place] % (Auto) 12.6 H Lymph # (Auto) 0.5 L [place] # (Auto) Seg Neutrophils % 78.7 H Seg Neutrophils # D-Dimer ABG pO2 ABG HCO3 ABG O2 Saturation ABG Base Excess ABG Hemoglobin Oxyhemoglobin Sodium Potassium 5.4 H Chloride Carbon Dioxide 19 L BUN 40 H Creatinine 2.6 H Glucose 179 H POC Glucose Lactic Acid 2.40 H* Calcium Ferritin Direct Bilirubin AST Lactate Dehydrogenase 308 H C-Reactive Protein 6.20 H Total Protein Albumin 3.1 L Urine Creatinine Coronavirus (PCR) 06/03/21 06/03/21 06/04/21 18:37 18:37 00:30 WBC RBC Hgb Hct MCV MCH MCHC RDW Lymph % (Auto) [place] % (Auto) Lymph # (Auto) [place] # (Auto) Seg Neutrophils % Seg Neutrophils # D-Dimer 634.36 H ABG pO2 ABG HCO3 ABG O2 Saturation ABG Base Excess ABG Hemoglobin Oxyhemoglobin Sodium Potassium Chloride Carbon Dioxide BUN Creatinine Glucose POC Glucose 115 H Lactic Acid Calcium Ferritin 823.7 H Direct Bilirubin AST Lactate Dehydrogenase C-Reactive Protein Total Protein Albumin Urine Creatinine Coronavirus (PCR) 06/04/21 06/04/21 06/04/21 05:40 05:40 14:51 WBC 4.3 L RBC 6.82 H Hgb 15.9 H Hct 50.7 H MCV 74 L MCH 23 L MCHC 31 L RDW 16.1 H Lymph % (Auto) [place] % (Auto) 15.6 H Lymph # (Auto) 0.8 L [place] # (Auto) Seg Neutrophils % Seg Neutrophils # D-Dimer ABG pO2 ABG HCO3 ABG O2 Saturation ABG Base Excess ABG Hemoglobin Oxyhemoglobin Sodium Potassium Chloride Carbon Dioxide 21 L 19 L BUN 46 H 49 H Creatinine 2.2 H 2.5 H Glucose 101 H 131 H POC Glucose Lactic Acid Calcium 8.0 L Ferritin Direct Bilirubin AST Lactate Dehydrogenase C-Reactive Protein Total Protein Albumin 3.4 L Urine Creatinine Coronavirus (PCR) 06/04/21 06/04/21 06/05/21 22:06 Unknown 05:54 WBC RBC Hgb Hct MCV MCH MCHC RDW Lymph % (Auto) [place] % (Auto) Lymph # (Auto) [place] # (Auto) Seg Neutrophils % Seg Neutrophils # D-Dimer ABG pO2 ABG HCO3 ABG O2 Saturation ABG Base Excess ABG Hemoglobin Oxyhemoglobin Sodium Potassium Chloride Carbon Dioxide 17 L BUN 61 H Creatinine 2.5 H Glucose 150 H POC Glucose 134 H Lactic Acid Calcium Ferritin Direct Bilirubin AST Lactate Dehydrogenase C-Reactive Protein Total Protein Albumin 3.2 L Urine Creatinine Coronavirus (PCR) Positive A 06/05/21 06/05/21 06/05/21 05:54 08:23 12:30 WBC 3.6 L RBC 7.39 H Hgb 17.2 H Hct 54.9 H MCV 74 L MCH 23 L MCHC 31 L RDW 16.2 H Lymph % (Auto) 11.1 L [place] % (Auto) 15.4 H Lymph # (Auto) 0.4 L [place] # (Auto) Seg Neutrophils % 73.3 H Seg Neutrophils # D-Dimer ABG pO2 ABG HCO3 ABG O2 Saturation ABG Base Excess ABG Hemoglobin Oxyhemoglobin Sodium Potassium Chloride Carbon Dioxide BUN Creatinine Glucose POC Glucose 163 H 146 H Lactic Acid Calcium Ferritin Direct Bilirubin AST Lactate Dehydrogenase C-Reactive Protein Total Protein Albumin Urine Creatinine Coronavirus (PCR) 06/05/21 06/05/21 06/06/21 16:04 20:49 03:30 WBC RBC Hgb Hct MCV MCH MCHC RDW Lymph % (Auto) [place] % (Auto) Lymph # (Auto) [place] # (Auto) Seg Neutrophils % Seg Neutrophils # D-Dimer ABG pO2 ABG HCO3 ABG O2 Saturation ABG Base Excess ABG Hemoglobin Oxyhemoglobin Sodium Potassium Chloride Carbon Dioxide BUN Creatinine Glucose POC Glucose 140 H 208 H Lactic Acid Calcium Ferritin Direct Bilirubin AST Lactate Dehydrogenase C-Reactive Protein Total Protein Albumin Urine Creatinine 117.6 H Coronavirus (PCR) 06/06/21 06/06/21 06/06/21 06:09 06:09 08:16 WBC RBC 7.20 H Hgb 16.9 H Hct 53.7 H MCV 75 L MCH 24 L MCHC RDW 16.3 H Lymph % (Auto) 6.3 L [place] % (Auto) 13.1 H Lymph # (Auto) 0.5 L [place] # (Auto) 1.1 H Seg Neutrophils % 80.3 H Seg Neutrophils # D-Dimer ABG pO2 ABG HCO3 ABG O2 Saturation ABG Base Excess ABG Hemoglobin Oxyhemoglobin Sodium Potassium Chloride Carbon Dioxide 18 L BUN 73 H Creatinine 2.5 H Glucose 152 H POC Glucose 146 H Lactic Acid Calcium Ferritin Direct Bilirubin AST Lactate Dehydrogenase C-Reactive Protein Total Protein Albumin 3.3 L Urine Creatinine Coronavirus (PCR) 06/06/21 06/06/21 06/06/21 12:45 14:13 17:39 WBC RBC Hgb Hct MCV MCH MCHC RDW Lymph % (Auto) [place] % (Auto) Lymph # (Auto) [place] # (Auto) Seg Neutrophils % Seg Neutrophils # D-Dimer ABG pO2 ABG HCO3 19.7 L ABG O2 Saturation ABG Base Excess -4.3 L ABG Hemoglobin Oxyhemoglobin 94.6 L Sodium Potassium Chloride Carbon Dioxide BUN Creatinine Glucose POC Glucose 225 H 154 H Lactic Acid Calcium Ferritin Direct Bilirubin AST Lactate Dehydrogenase C-Reactive Protein Total Protein Albumin Urine Creatinine Coronavirus (PCR) 06/06/21 06/07/21 06/07/21 21:46 06:16 15:54 WBC RBC Hgb Hct MCV MCH MCHC RDW Lymph % (Auto) [place] % (Auto) Lymph # (Auto) [place] # (Auto) Seg Neutrophils % Seg Neutrophils # D-Dimer ABG pO2 ABG HCO3 ABG O2 Saturation ABG Base Excess ABG Hemoglobin Oxyhemoglobin Sodium 149 H Potassium Chloride 114.2 H Carbon Dioxide 21 L BUN 79 H Creatinine 2.6 H Glucose POC Glucose 187 H 195 H Lactic Acid Calcium Ferritin Direct Bilirubin AST Lactate Dehydrogenase C-Reactive Protein Total Protein 5.9 L Albumin 3.3 L Urine Creatinine Coronavirus (PCR) 06/07/21 06/08/21 06/08/21 21:27 07:33 07:42 WBC RBC Hgb Hct MCV MCH MCHC RDW Lymph % (Auto) [place] % (Auto) Lymph # (Auto) [place] # (Auto) Seg Neutrophils % Seg Neutrophils # D-Dimer ABG pO2 ABG HCO3 ABG O2 Saturation ABG Base Excess ABG Hemoglobin Oxyhemoglobin Sodium 154 H Potassium 5.1 H Chloride 117.3 H Carbon Dioxide 17 L BUN 76 H Creatinine 2.5 H Glucose 180 H POC Glucose 190 H 186 H Lactic Acid Calcium Ferritin Direct Bilirubin AST Lactate Dehydrogenase C-Reactive Protein Total Protein Albumin Urine Creatinine Coronavirus (PCR) 06/08/21 06/08/21 06/08/21 10:56 15:42 22:34 WBC RBC Hgb Hct MCV MCH MCHC RDW Lymph % (Auto) [place] % (Auto) Lymph # (Auto) [place] # (Auto) Seg Neutrophils % Seg Neutrophils # D-Dimer ABG pO2 ABG HCO3 ABG O2 Saturation ABG Base Excess ABG Hemoglobin Oxyhemoglobin Sodium Potassium Chloride Carbon Dioxide BUN Creatinine Glucose POC Glucose 206 H 175 H 146 H Lactic Acid Calcium Ferritin Direct Bilirubin AST Lactate Dehydrogenase C-Reactive Protein Total Protein Albumin Urine Creatinine Coronavirus (PCR) 06/09/21 06/09/21 06/09/21 07:39 09:08 09:08 WBC 12.6 H RBC 7.64 H Hgb 18.0 H Hct 56.8 H MCV 74 L MCH 24 L MCHC RDW 16.2 H Lymph % (Auto) 2.9 L [place] % (Auto) 12.8 H Lymph # (Auto) 0.4 L [place] # (Auto) 1.6 H Seg Neutrophils % 84.3 H Seg Neutrophils # 10.6 H D-Dimer ABG pO2 ABG HCO3 ABG O2 Saturation ABG Base Excess ABG Hemoglobin Oxyhemoglobin Sodium 159 H Potassium 5.2 H Chloride 120.0 H Carbon Dioxide 17 L BUN 81 H Creatinine 2.7 H Glucose 161 H POC Glucose 154 H Lactic Acid Calcium Ferritin Direct Bilirubin AST Lactate Dehydrogenase C-Reactive Protein Total Protein Albumin Urine Creatinine Coronavirus (PCR) 06/09/21 06/09/21 06/09/21 09:08 10:15 11:07 WBC RBC Hgb Hct MCV MCH MCHC RDW Lymph % (Auto) [place] % (Auto) Lymph # (Auto) [place] # (Auto) Seg Neutrophils % Seg Neutrophils # D-Dimer ABG pO2 57.0 L ABG HCO3 18.8 L ABG O2 Saturation 90.0 L ABG Base Excess -3.7 L ABG Hemoglobin 18.5 H Oxyhemoglobin 88.6 L Sodium Potassium Chloride Carbon Dioxide BUN Creatinine Glucose POC Glucose 149 H Lactic Acid Calcium Ferritin Direct Bilirubin 0.3 H AST 56 H Lactate Dehydrogenase C-Reactive Protein Total Protein Albumin 3.5 L Urine Creatinine Coronavirus (PCR)
--- NOTE | 2021-06-09 12:41 | Progress Note ---
Assessment and Plan Assessment and plan: Patient is a 75-year-old male with past medical history of [id number] type 2 diabetes and hypertension who presented with 2 weeks of worsening shortness of breath with productive cough. The patient was found to be hypoxic to 80% on room air in the ED requiring supplemental oxygen. #Acute hypoxic respiratory failureworsening #COVID-19 pneumonia - etiology: COVID-19 infection - baseline oxygen requirements: None - supplemental oxygen: High flow nasal cannula 40 L / 100% FiO2 + nonrebreather. Continue Remdesivir x5 days. Continue IV methylprednisolone 40 mg every 12 hours Infectious disease consulted; appreciate recs. Pulmonology consulted; appreciate recs - Continue protocol: continue pulse oximetry, wean oxygen as tolerated, ordered incentive spirometry and educated patient on how to use it and its importance. - continue to monitor #Hyponatremia #Hyperkalemia Sodium 159, potassium 5.2 Likely secondary to decreased p.o. intake in the setting of acute delirium. Starting D5W at 125 cc/hour. Monitor with repeat BMP. #Acute metabolic encephalopathy #Acute delirium Likely secondary to COVID-19 pneumonia. Low clinical suspicion for IV antibiotics due to the patient being afebrile, not having tachycardia, and negative blood cultures. Urinalysis negative for infection. Pending CT head noncontrast but unable to be performed due to patient being so agitated/uncooperative Continue Seroquel 25 mg twice daily. Encourage constant redirection, keep blinds open, keep TV off after 10 PM, and reorient patient to diminish other sources of acute delirium. Continue to monitor #Possible CHF exacerbation TTE revealing EF 50-55% with vegetation. Discontinue IV Lasix 40 mg daily (per nephrology). Holding on antibiotics in the setting of patient being afebrile, normal WBC, and vitals wnl. Pending repeat blood culture. Continue to monitor. #Non-insulin dependent type II diabetes mellitus - hemoglobin A1c: Pending - home regimen: Metformin - current regimen: Moderate SSI. Holding metformin; can be restarted prior to discharge. - blood glucose goal 140-180 while inpatient - continue to monitor #ANGIE on CKD (stage unknown) Current creatinine 2.7 (baseline 1.3) Nephrology consulted; appreciate recs Renally dose medications and avoid nephrotoxic meds. Pending renal ultrasound. Continue to monitor. #Advanced care planning -Disease education conducted, care plan discussed, diagnoses discussed, prognosis discussed, and patient acknowledges understanding with care plan -Time: +30 min Disposition Plan: Continue medical management Total Time Spent with Patient (Minutes): 60 minutes History Interval history: No acute events overnight. Hospitalist Physical - Constitutional Vitals: Temp Pulse Resp BP Pulse Ox 99.0 F 88 28 H 184/116 93 06/09/21 03:49 06/09/21 05:54 06/09/21 03:49 06/09/21 05:54 06/09/21 10:45 General appearance: Present: mild distress, well-nourished, other (Encephalopathic and confused) - EENT Eyes: Present: PERRL, EOM intact ENT: hearing intact, clear oral mucosa - Neck Neck: Present: supple, normal ROM - Respiratory Respiratory effort: labored Respiratory: bilateral: diminished (On high flow nasal cannula 40 L / 100% FiO2 + nonrebreather) - Cardiovascular Rhythm: regular Heart Sounds: Present: S1 & S2 - Extremities Extremities: no ischemia, pulses intact, pulses symmetrical, No edema, normal temperature, normal color, Full ROM Peripheral Pulses: within normal limits - Abdominal General gastrointestinal: soft, non-tender, non-distended, normal bowel sounds - Integumentary Integumentary: Present: clear, warm, dry - Psychiatric Psychiatric: agitated, other (Uncooperative; nonsensical) - Neurologic Neurologic: CNII-XII intact, moves all extremities, other (Alert and oriented x0) - Allied Health Allied health notes reviewed: nursing Results - Labs CBC & Chem 7: 06/09/21 09:08 06/09/21 09:08 Labs: Laboratory Last Values WBC 12.6 K/mm3 (4.5-11.0) H 06/09/21 09:08 RBC 7.64 M/mm3 (3.65-5.03) H 06/09/21 09:08 Hgb 18.0 gm/dl (11.8-15.2) H 06/09/21 09:08 Hct 56.8 % (35.5-45.6) H 06/09/21 09:08 MCV 74 fl (84-94) L 06/09/21 09:08 MCH 24 pg (28-32) L 06/09/21 09:08 MCHC 32 % (32-34) 06/09/21 09:08 RDW 16.2 % (13.2-15.2) H 06/09/21 09:08 Plt Count 423 K/mm3 (140-440) 06/09/21 09:08 Lymph % (Auto) 2.9 % (13.4-35.0) L 06/09/21 09:08 [place] % (Auto) 12.8 % (0.0-7.3) H 06/09/21 09:08 Eos % (Auto) 0.0 % (0.0-4.3) 06/09/21 09:08 Baso % (Auto) 0.0 % (0.0-1.8) 06/09/21 09:08 Lymph # (Auto) 0.4 K/mm3 (1.2-5.4) L 06/09/21 09:08 [place] # (Auto) 1.6 K/mm3 (0.0-0.8) H 06/09/21 09:08 Eos # (Auto) 0.0 K/mm3 (0.0-0.4) 06/09/21 09:08 Baso # (Auto) 0.0 K/mm3 (0.0-0.1) 06/09/21 09:08 Seg Neutrophils % 84.3 % (40.0-70.0) H 06/09/21 09:08 Seg Neutrophils # 10.6 K/mm3 (1.8-7.7) H 06/09/21 09:08 D-Dimer 634.36 ng/mlDDU (0-234) H 06/03/21 18:37 ABG pH 7.430 pH Units (7.350-7.450) 06/09/21 10:15 ABG pCO2 28.9 mm Hg 06/09/21 10:15 ABG pO2 57.0 mm Hg (80.0-90.0) L 06/09/21 10:15 ABG HCO3 18.8 mmol/L (20.0-26.0) L 06/09/21 10:15 ABG O2 Saturation 90.0 % (95.0-99.0) L 06/09/21 10:15 ABG O2 Content 22.9 (0.0-44) 06/09/21 10:15 ABG Base Excess -3.7 mmol/L (-2.0-3.0) L 06/09/21 10:15 ABG Hemoglobin 18.5 gm/dl (14.0-18.0) H 06/09/21 10:15 ABG Carboxyhemoglobin 0.9 % (0.0-5.0) 06/09/21 10:15 ABG Methemoglobin 0.6 % (0.0-1.5) 06/09/21 10:15 Oxyhemoglobin 88.6 % (95.0-99.0) L 06/09/21 10:15 FiO2 100 % 06/09/21 10:15 Sodium 159 mmol/L (137-145) H 06/09/21 09:08 Potassium 5.2 mmol/L (3.6-5.0) H 06/09/21 09:08 Chloride 120.0 mmol/L (98-107) H 06/09/21 09:08 Carbon Dioxide 17 mmol/L (22-30) L 06/09/21 09:08 Anion Gap 27 mmol/L 06/09/21 09:08 BUN 81 mg/dL (9-20) H 06/09/21 09:08 Creatinine 2.7 mg/dL (0.8-1.3) H 06/09/21 09:08 Estimated GFR 23 ml/min 06/09/21 09:08 BUN/Creatinine Ratio 30 % 06/09/21 09:08 Glucose 161 mg/dL (75-100) H 06/09/21 09:08 POC Glucose 149 mg/dL (70-105) H 06/09/21 11:07 Lactic Acid 1.60 mmol/L (0.7-2.0) 06/03/21 20:37 Calcium 9.9 mg/dL (8.4-10.2) 06/09/21 09:08 Ferritin 823.7 ng/mL (30.0-300.0) H 06/03/21 18:37 Total Bilirubin 0.70 mg/dL (0.1-1.2) 06/09/21 09:08 Direct Bilirubin 0.3 mg/dL (0-0.2) H 06/09/21 09:08 Indirect Bilirubin 0.4 mg/dL 06/09/21 09:08 AST 56 units/L (5-40) H 06/09/21 09:08 ALT 34 units/L (7-56) 06/09/21 09:08 Alkaline Phosphatase 75 units/L (35-129) 06/09/21 09:08 Lactate Dehydrogenase 308 units/L (91-180) H 06/03/21 18:37 Total Creatine Kinase 67 units/L (55-170) 06/04/21 05:40 C-Reactive Protein 6.20 mg/dL (0.00-1.30) H 06/03/21 18:37 NT-Pro-B Natriuret Pep 246.5 pg/mL (0-900) 06/03/21 20:48 Total Protein 6.7 g/dL (6.3-8.2) 06/09/21 09:08 Albumin 3.5 g/dL (3.9-5) L 06/09/21 09:08 Albumin/Globulin Ratio 1.1 % 06/09/21 09:08 Procalcitonin 0.12 ng/mL (<0.15) 06/03/21 18:37 Urine Color Yellow (Yellow) 06/08/21 16:00 Urine Turbidity Clear (Clear) 06/08/21 16:00 Urine pH 5.0 (5.0-7.0) 06/08/21 16:00 Ur Specific [place] 1.016 (1.003-1.030) 06/08/21 16:00 Urine Protein 100 mg/dl mg/dL (Negative) 06/08/21 16:00 Urine Glucose (UA) Neg mg/dL (Negative) 06/08/21 16:00 Urine Ketones Neg mg/dL (Negative) 06/08/21 16:00 Urine Blood Mod (Negative) 06/08/21 16:00 Urine Nitrite Neg (Negative) 06/08/21 16:00 Urine Bilirubin Neg (Negative) 06/08/21 16:00 Urine Urobilinogen < 2.0 mg/dL (<2.0) 06/08/21 16:00 Ur Leukocyte Esterase Neg (Negative) 06/08/21 16:00 Urine WBC (Auto) 1.0 /HPF (0.0-6.0) 06/08/21 16:00 Urine RBC (Auto) 2.0 /HPF (0.0-6.0) 06/08/21 16:00 U Epithel Cells (Auto) 1.0 /HPF (0-13.0) 06/08/21 16:00 Urine Mucus Few /HPF 06/08/21 16:00 Urine Yeast (Budding) Few /HPF 06/06/21 03:30 Urine Eosinophils Rare (None Seen) 06/06/21 03:30 Urine Creatinine 117.6 mg/dL (0.1-20.0) H 06/06/21 03:30 Urine Sodium 41 mmol/L 06/06/21 03:30 Coronavirus (PCR) Positive (Negative) A 06/04/21 Unknown Microbiology: Microbiology 06/06/21 06:09 Peripheral/Venous Blood Culture - Preliminary NO GROWTH AFTER 72 HOURS 06/03/21 21:30 Peripheral/Venous Blood Culture - Final NO GROWTH AFTER 5 DAYS 06/03/21 21:40 Peripheral/Venous Blood Culture - Final NO GROWTH AFTER 5 DAYS 06/05/21 18:11 Peripheral/Venous Blood Culture - Preliminary NO GROWTH AFTER 72 HOURS Byrd/IV: Voiding Method Incontinent Active Medications - Current Medications Current Medications: Generic Name Dose Route Start Last Admin Trade Name Freq PRN Reason Stop Dose Admin Acetaminophen 650 mg 06/03/21 21:46 Acetaminophen 325 Mg Tab PO Q4H PRN Pain MILD(1-3)/Fever >100.5/LISA Albuterol 2 puff 06/06/21 07:53 06/06/21 17:20 Albuterol 8.5 Gm Mdi Inhalation IH 2 puff Q6HRT PRN Administration Shortness Of Breath Atenolol 50 mg 06/04/21 10:00 06/08/21 10:00 Atenolol 50 Mg Tab PO Not Given DAILY COOPER Citric Acid/Sodium Citrate 30 ml 06/08/21 14:00 06/08/21 22:45 Bicitra Oral Liqd 30ml PO 30 ml TID COOPER Administration Dextrose 0 ml 06/03/21 21:46 Dextrose 50% In Water (25gm) 50 Ml Syringe IV Q30MIN PRN Hypoglycemia Protocol Famotidine 20 mg 06/03/21 22:00 06/08/21 10:00 Famotidine 20 Mg Tab PO Not Given QAM COOPER Haloperidol Lactate 5 mg 06/08/21 14:00 06/09/21 10:05 Haloperidol Lactate 5 Mg/1 Ml Inj IM 5 mg Q6H PRN Administration Agitation Heparin Sodium (Porcine) 5,000 unit 06/03/21 22:00 06/09/21 05:55 Heparin 5,000 Unit/1 Ml Vial SUB-Q 5,000 unit Q8HR COOPER Administration Hydralazine HCl 10 mg 06/03/21 21:50 Hydralazine 20 Mg/1 Ml Inj IV Q6H PRN Blood Pressure Hydromorphone HCl 0.5 mg 06/03/21 21:46 06/08/21 01:08 Hydromorphone 1 Mg/1 Ml Inj IV 0.5 mg Q3H PRN Administration Pain , Severe (7-10) Dextrose 1,000 mls @ 150 mls/hr 06/09/21 12:00 06/09/21 12:00 D5w IV 150 mls/hr DIRECT COOPER Administration Insulin Human Lispro 0 unit 06/03/21 22:00 06/09/21 10:04 Insulin Lispro 100 Unit/Ml SUB-Q Not Given ACHS [facility] Protocol Methylprednisolone Sodium Succinate 40 mg 06/07/21 22:00 06/09/21 10:05 Methylprednisolone Sod Succinate 40 Mg/1 Ml Inj IV 40 mg Q12HR COOPER Administration Morphine Sulfate 2 mg 06/03/21 21:46 06/08/21 13:34 Morphine 2 Mg/1 Ml Inj IV 2 mg Q4H PRN Administration Pain, Moderate (4-6) Ondansetron HCl 4 mg 06/03/21 21:46 Ondansetron 4 Mg/2 Ml Inj IV Q8H PRN Nausea And Vomiting Quetiapine Fumarate 25 mg 06/08/21 10:00 06/08/21 21:24 Quetiapine 25 Mg Tab PO 25 mg BID COOPER Administration Sodium Chloride 10 ml 06/03/21 22:00 06/08/21 21:27 Sodium Chloride 0.9% 10 Ml Flush Syringe IV 10 ml BID COOPER Administration Sodium Chloride 10 ml 06/03/21 21:46 Sodium Chloride 0.9% 10 Ml Flush Syringe IV PRN PRN LINE FLUSH Nutrition/Malnutrition Assess - Dietary Evaluation Nutrition/Malnutrition Findings: Nutrition Notes Start: 06/04/21 10:44 Freq: Status: Active Protocol: Document 06/09/21 10:42 DENISE (Rec: 06/09/21 10:57 DENISE [id number]) Nutrition Notes Initial or Follow up Brief Note Current Diet Cardiac/Consistent Carbohydrates Diet, Low K + Nepro (since B 06/07) Height 5 ft 8 in Weight 86.5 kg [place] Body Weight (kg) 70.00 BMI 29.0 Weight change and time frame 0.1 Kg body weight change in 3 days reported. Weight Status Overweight Subjective/Other Information RD consult for routinr F/U on Dietary intake assessment. Pt's PO intake of meals has been Good (100%), according to ADL notes. Pt has COVID-19, not a candidate for Nutrition Education. Percent of energy/protein needs met: Prescribed Cardiac/Consistent Carbohydrates Diet provides for energy/protein needs (1, 977 Kcal/86 g) during LOS; additionally, Dietary Supplements will compensate for possible Poor PO intake of meals with 425 Kcal and 19 g of protein. Current % PO Good (75-100%) Minimum of two criteria No #1 Nutrition Diagnosis Predicted suboptimal energy intake Comments: Pt's PO intake of meals has been Good (100%), according to ADL notes. Diagnosis Progress(for reassessment Improved documentation) Is patient on ventilator? No Is Patient Ambulatory and/or Out of Bed Yes REE-([place]. Jeor-ambulatory/OOB) [ 2052.350 [id number]] Kcal/Kg value to use for calculation 20 Approximate Energy Requirements Using 1730 kcal/Kg Additional Notes 15-20 Kcal/Kg ABW (70-80% of EEN). Protein: 1.2-2 g/Kg; 104-174 g /day. Fluids: 1 ml/Kcal, or as per MD. Nutrition Intervention Change Diet Order: Continue Cardiac/Consistent Carbohydrates Diet. Add Supplement/Snack (indicate name/kcal Continue 8fl oz Nepro w/ /protein ) CARBSTEADY; Once daily. Provides kCal: 425 Provides Protein (gm) 19 Goal #1 Provide at least 75% of energy /protein needs through Enteral Feeding during LOS. Goal #2 Compensate, through dietary supplementation, for possible poor or insufficient PO intake of meals during LOS. Follow-Up By: 06/16/21 Additional Comments Continue monitoring food tolerance, %PO intake of meals , and BM.
--- NOTE | 2021-06-09 13:43 | XRay Report ---
CHEST 1 VIEW INDICATION / CLINICAL INFORMATION: Worsening hypoxemia, COVID. COMPARISON: 06/06/2021 FINDINGS: SUPPORT DEVICES: None. HEART / MEDIASTINUM: Stable. LUNGS / PLEURA: Peripheral pulmonary opacities are seen in the right mid and lower lung, slightly mor e prominent than on the prior exam. The left lung base is difficult to evaluate due to the enlarged c ardiac silhouette/left ventricle, and I suspect are similar pulmonary opacities in the left lower juan ramon g. No pneumothorax. ADDITIONAL FINDINGS: No significant additional findings. IMPRESSION: 1. Bilateral pulmonary opacities which appear slightly worse compared with 06/06/2021. The appearance is most suggestive for Covid pneumonia. Signer Name: Karen Craig MD Signed: 06/09/2021 1:38 PM Workstation Name: [id number]
[2021-06-09] MEDS: HYDROmorphone 1 MG/1 ML INJ IV PRN (13:48)
--- NOTE | 2021-06-09 14:05 | Progress Note ---
Assessment and Plan Cultures: SARS CoV2 PCR: Positive as outpatient and here 06/03/2021 blood culture: no growth 06/05/2021 blood culture: no growth 06/06/2021 blood culture: no growth A/P: 73-year-old male with diabetes, hypertension admitted to the hospital with worsening shortness of breath. Patient tested positive for COVID-19 as an outpatient: #Bilateral pneumonia: Secondary to COVID-19. Hypoxic, elevated inflammatory mar kers. Procalcitonin 0.12. #Acute hypoxic respiratory failure: Secondary to above. on NRB/HFNC. #?Endocarditis/NBTE in the setting of COVID-19: Incidental finding of possible small valvular vegetation on mitral valve anterior leaflet. No fever, no leucocytosis. Pre-test probability for endocarditis was low to begin with. Very low suspicion for acute infective endocarditis. Multiple blood cultures negative. Currently not a candidate for CARRILLO due to COVID-19 and hypoxia per cardiology. Hold off on abx. #ANGIE: Renally adjust antibiotics #Leukopenia: Likely related to viral illness Recs: -continue steroids per pulm -completed remdesivir -prophylactic anticoagulation based on d-dimer per hospital protocol -consideration for CARRILLO in the future, once hypoxia better -guarded prognosis Tiffanie Rene MD, FACP, [facility] O: [phone] F: [phone] Subjective Date of service: 06/09/21 Principal diagnosis: ANGIE Interval history: No fever. Hypoxia worsened to HFNC/NRB. Objective - Exam Narrative Exam: Physical Exam (reviewed in chart to minimize risk of transmission) Constitutional: deferred Head, Ears, Nose: deferred Eyes: deferred Neck: deferred Oral: deferred Cardiovascular: deferred Respiratory: deferred GI: deferred Musculoskeletal: deferred Skin: deferred Hem/Lymphatic: deferred Psych: deferred Neurological: deferred - Constitutional Vitals: Vital Signs Temp Pulse Resp BP Pulse Ox 99.0 F 88 28 H 184/116 93 06/09/21 03:49 06/09/21 05:54 06/09/21 03:49 06/09/21 05:54 06/09/21 10:45 Temperature -Last 24 Hours Temperature 99.0 F Temperature 98.2 F Temperature 99.3 F - Labs CBC & Chem 7: 06/09/21 09:08 06/09/21 09:08 Labs: Abnormal lab results 06/08/21 06/08/21 06/09/21 Range/Units 15:42 22:34 07:39 WBC (4.5-11.0) K/mm3 RBC (3.65-5.03) M/mm3 Hgb (11.8-15.2) gm/dl Hct (35.5-45.6) % MCV (84-94) fl MCH (28-32) pg RDW (13.2-15.2) % Lymph % (Auto) (13.4-35.0) % [place] % (Auto) (0.0-7.3) % Lymph # (Auto) (1.2-5.4) K/mm3 [place] # (Auto) (0.0-0.8) K/mm3 Seg Neutrophils % (40.0-70.0) % Seg Neutrophils # (1.8-7.7) K/mm3 ABG pO2 (80.0-90.0) mm Hg ABG HCO3 (20.0-26.0) mmol/L ABG O2 Saturation (95.0-99.0) % ABG Base Excess (-2.0-3.0) mmol/L ABG Hemoglobin (14.0-18.0) gm/dl Oxyhemoglobin (95.0-99.0) % Sodium (137-145) mmol/L Potassium (3.6-5.0) mmol/L Chloride (98-107) mmol/L Carbon Dioxide (22-30) mmol/L BUN (9-20) mg/dL Creatinine (0.8-1.3) mg/dL Glucose (75-100) mg/dL POC Glucose 175 H 146 H 154 H (70-105) mg/dL Direct Bilirubin (0-0.2) mg/dL AST (5-40) units/L Albumin (3.9-5) g/dL 06/09/21 06/09/21 06/09/21 Range/Units 09:08 09:08 09:08 WBC 12.6 H (4.5-11.0) K/mm3 RBC 7.64 H (3.65-5.03) M/mm3 Hgb 18.0 H (11.8-15.2) gm/dl Hct 56.8 H (35.5-45.6) % MCV 74 L (84-94) fl MCH 24 L (28-32) pg RDW 16.2 H (13.2-15.2) % Lymph % (Auto) 2.9 L (13.4-35.0) % [place] % (Auto) 12.8 H (0.0-7.3) % Lymph # (Auto) 0.4 L (1.2-5.4) K/mm3 [place] # (Auto) 1.6 H (0.0-0.8) K/mm3 Seg Neutrophils % 84.3 H (40.0-70.0) % Seg Neutrophils # 10.6 H (1.8-7.7) K/mm3 ABG pO2 (80.0-90.0) mm Hg ABG HCO3 (20.0-26.0) mmol/L ABG O2 Saturation (95.0-99.0) % ABG Base Excess (-2.0-3.0) mmol/L ABG Hemoglobin (14.0-18.0) gm/dl Oxyhemoglobin (95.0-99.0) % Sodium 159 H (137-145) mmol/L Potassium 5.2 H (3.6-5.0) mmol/L Chloride 120.0 H (98-107) mmol/L Carbon Dioxide 17 L (22-30) mmol/L BUN 81 H (9-20) mg/dL Creatinine 2.7 H (0.8-1.3) mg/dL Glucose 161 H (75-100) mg/dL POC Glucose (70-105) mg/dL Direct Bilirubin 0.3 H (0-0.2) mg/dL AST 56 H (5-40) units/L Albumin 3.5 L (3.9-5) g/dL 06/09/21 06/09/21 Range/Units 10:15 11:07 WBC (4.5-11.0) K/mm3 RBC (3.65-5.03) M/mm3 Hgb (11.8-15.2) gm/dl Hct (35.5-45.6) % MCV (84-94) fl MCH (28-32) pg RDW (13.2-15.2) % Lymph % (Auto) (13.4-35.0) % [place] % (Auto) (0.0-7.3) % Lymph # (Auto) (1.2-5.4) K/mm3 [place] # (Auto) (0.0-0.8) K/mm3 Seg Neutrophils % (40.0-70.0) % Seg Neutrophils # (1.8-7.7) K/mm3 ABG pO2 57.0 L (80.0-90.0) mm Hg ABG HCO3 18.8 L (20.0-26.0) mmol/L ABG O2 Saturation 90.0 L (95.0-99.0) % ABG Base Excess -3.7 L (-2.0-3.0) mmol/L ABG Hemoglobin 18.5 H (14.0-18.0) gm/dl Oxyhemoglobin 88.6 L (95.0-99.0) % Sodium (137-145) mmol/L Potassium (3.6-5.0) mmol/L Chloride (98-107) mmol/L Carbon Dioxide (22-30) mmol/L BUN (9-20) mg/dL Creatinine (0.8-1.3) mg/dL Glucose (75-100) mg/dL POC Glucose 149 H (70-105) mg/dL Direct Bilirubin (0-0.2) mg/dL AST (5-40) units/L Albumin (3.9-5) g/dL
--- NOTE | 2021-06-09 14:25 | XRay Report ---
ABDOMEN 1 VIEW(S) INDICATION / CLINICAL INFORMATION: verify NGT FOR FEEDING. COMPARISON: None available. FINDINGS: TUBES / LINES: NG tube tip is in the distal stomach. BOWEL GAS PATTERN: No significant abnormality. FREE AIR / EXTRALUMINAL GAS: None seen. ADDITIONAL FINDINGS: No significant additional findings. IMPRESSION: 1. NG tube tip is in the distal stomach. Signer Name: Lukasz Caceres MD Signed: 06/09/2021 2:20 PM [facility]station Name: [email or web address]
[2021-06-09 14:49] LABS: Calcium 9.7 mg/dL (8.4-10.2)
[2021-06-09] MEDS: BICITRA ORAL LIQD 30ML PO SCH ×3 (15:15→21:55)
[2021-06-09] MEDS: QUEtiapine 25 MG TAB PO SCH ×2 (15:16→21:54)
[2021-06-09] MEDS: FAMOTIDINE 20 MG TAB PO SCH (15:16)
[2021-06-09] MEDS: atenoloL 50 MG TAB PO SCH (15:17)
[2021-06-09] MEDS: MORPHINE 2 MG/1 ML INJ IV PRN (18:30)
[2021-06-10 00:26] LABS: Calcium 8.9 mg/dL (8.4-10.2)
[2021-06-10] MEDS: HEPARIN 5,000 UNIT/1 ML VIAL SUB-Q SCH ×3 (05:35→23:35)
[2021-06-10] MEDS: INSULIN LISPRO 100 UNIT/ML SUB-Q SCH ×4 (06:43→23:35)
[2021-06-10 06:48] LABS: C-Reactive Protein 2.2 mg/dL (0.00-1.30); Calcium 9.5 mg/dL (8.4-10.2)
--- NOTE | 2021-06-10 08:37 | Progress Note ---
Assessment and Plan Assessment and plan: #Acute hypoxic respiratory failure #COVID-19 pneumonia -PCR +06/04 -Currently on high flow nasal cannula 40/100% FiO2 + nonrebreather -s/p remdesivir -Continue steroids -Infectious Disease and Pulmonology following, assistance appreciated #ANGIE on CKD-improved -Creatinine 2.2 -Renal ultrasound shows medical renal disease and mild left hydronephrosis with 7mm stone in mid left kidney -Urology consulted for hydronephrosis -Renally dose medications and avoid nephrotoxic agents #Hypernatremia #Hyperkalemia -D5W infusion -will continue to monitor #Acute metabolic encephalopathy -improved, likely secondary to COVID-pneumonia -CT head not performed due to agitation -Continue Seroquel, delirium precautions #Noninsulin-dependent type 2 diabetes -Continue sliding scale insulin, will monitor for need to add basal insulin #Mitral valve vegetation -Seen on echocardiogram, less than 1 cm -CARRILLO held due to patient's respiratory status at this time -Blood cultures 06/03, 06/05, 06/06 no growth to date x5 days -Patient afebrile, currently low clinical suspicion for endocarditis #Hyperviscosity -Patient with elevated hemoglobin hematocrit -will monitor at this time #Advance care planning -Disease education, care plan, diagnosis, prognosis discussed with caregiver. She understands and acknowledges current plan. -Time: +30 minutes Disposition Plan: Continue medical management History Interval history: Patient opens eyes to name. Denies discomfort at this time. Hospitalist Physical - Physical exam Narrative exam: GENERAL: Well-developed well-nourished. Lying in bed, in no acute distress. HEENT: High flow nasal cannula in place with nonrebreather CHEST/LUNGS: Coarse breath sounds bilaterally. HEART/CARDIOVASCULAR: RRR. No murmur, rubs or gallops appreciated. ABDOMEN: +BS. NT/ND. NEURO: No focal motor deficit. MUSCULOSKELETAL: No joint effusion EXTREMITIES: No cyanosis, clubbing or edema. PSYCH: Alert to person. - Constitutional Vitals: Temp Pulse Resp BP Pulse Ox 97.2 F L 81 18 132/92 91 06/09/21 23:18 06/09/21 23:18 06/09/21 23:18 06/09/21 23:18 06/09/21 23:18 General appearance: Present: mild distress, well-nourished, other (Encephalopathic and confused) Results - Labs CBC & Chem 7: 06/09/21 09:08 06/12/21 05:31 Labs: Laboratory Last Values WBC 12.6 K/mm3 (4.5-11.0) H 06/09/21 09:08 RBC 7.64 M/mm3 (3.65-5.03) H 06/09/21 09:08 Hgb 18.0 gm/dl (11.8-15.2) H 06/09/21 09:08 Hct 56.8 % (35.5-45.6) H 06/09/21 09:08 MCV 74 fl (84-94) L 06/09/21 09:08 MCH 24 pg (28-32) L 06/09/21 09:08 MCHC 32 % (32-34) 06/09/21 09:08 RDW 16.2 % (13.2-15.2) H 06/09/21 09:08 Plt Count 423 K/mm3 (140-440) 06/09/21 09:08 Lymph % (Auto) 2.9 % (13.4-35.0) L 06/09/21 09:08 Williamson % (Auto) 12.8 % (0.0-7.3) H 06/09/21 09:08 Eos % (Auto) 0.0 % (0.0-4.3) 06/09/21 09:08 Baso % (Auto) 0.0 % (0.0-1.8) 06/09/21 09:08 Lymph # (Auto) 0.4 K/mm3 (1.2-5.4) L 06/09/21 09:08 Williamson # (Auto) 1.6 K/mm3 (0.0-0.8) H 06/09/21 09:08 Eos # (Auto) 0.0 K/mm3 (0.0-0.4) 06/09/21 09:08 Baso # (Auto) 0.0 K/mm3 (0.0-0.1) 06/09/21 09:08 Seg Neutrophils % 84.3 % (40.0-70.0) H 06/09/21 09:08 Seg Neutrophils # 10.6 K/mm3 (1.8-7.7) H 06/09/21 09:08 D-Dimer 526.33 ng/mlDDU (0-234) H 06/10/21 05:38 ABG pH 7.430 pH Units (7.350-7.450) 06/09/21 10:15 ABG pCO2 28.9 mm Hg 06/09/21 10:15 ABG pO2 57.0 mm Hg (80.0-90.0) L 06/09/21 10:15 ABG HCO3 18.8 mmol/L (20.0-26.0) L 06/09/21 10:15 ABG O2 Saturation 90.0 % (95.0-99.0) L 06/09/21 10:15 ABG O2 Content 22.9 (0.0-44) 06/09/21 10:15 ABG Base Excess -3.7 mmol/L (-2.0-3.0) L 06/09/21 10:15 ABG Hemoglobin 18.5 gm/dl (14.0-18.0) H 06/09/21 10:15 ABG Carboxyhemoglobin 0.9 % (0.0-5.0) 06/09/21 10:15 ABG Methemoglobin 0.6 % (0.0-1.5) 06/09/21 10:15 Oxyhemoglobin 88.6 % (95.0-99.0) L 06/09/21 10:15 FiO2 100 % 06/09/21 10:15 Sodium 153 mmol/L (137-145) H 06/10/21 05:38 Potassium 5.3 mmol/L (3.6-5.0) H 06/10/21 05:38 Chloride 112.6 mmol/L (98-107) H 06/10/21 05:38 Carbon Dioxide 25 mmol/L (22-30) 06/10/21 05:38 Anion Gap 21 mmol/L 06/10/21 05:38 BUN 82 mg/dL (9-20) H 06/10/21 05:38 Creatinine 2.5 mg/dL (0.8-1.3) H 06/10/21 05:38 Estimated GFR 25 ml/min 06/10/21 05:38 BUN/Creatinine Ratio 33 % 06/10/21 05:38 Glucose 297 mg/dL (75-100) H 06/10/21 05:38 POC Glucose 256 mg/dL (70-105) H 06/10/21 08:09 Lactic Acid 1.60 mmol/L (0.7-2.0) 06/03/21 20:37 Calcium 9.5 mg/dL (8.4-10.2) 06/10/21 05:38 Ferritin 823.7 ng/mL (30.0-300.0) H 06/03/21 18:37 Total Bilirubin 0.70 mg/dL (0.1-1.2) 06/09/21 09:08 Direct Bilirubin 0.3 mg/dL (0-0.2) H 06/09/21 09:08 Indirect Bilirubin 0.4 mg/dL 06/09/21 09:08 AST 56 units/L (5-40) H 06/09/21 09:08 ALT 34 units/L (7-56) 06/09/21 09:08 Alkaline Phosphatase 75 units/L (35-129) 06/09/21 09:08 Lactate Dehydrogenase 308 units/L (91-180) H 06/03/21 18:37 Total Creatine Kinase 67 units/L (55-170) 06/04/21 05:40 C-Reactive Protein 2.20 mg/dL (0.00-1.30) H 06/10/21 05:38 NT-Pro-B Natriuret Pep 246.5 pg/mL (0-900) 06/03/21 20:48 Total Protein 6.7 g/dL (6.3-8.2) 06/09/21 09:08 Albumin 3.5 g/dL (3.9-5) L 06/09/21 09:08 Albumin/Globulin Ratio 1.1 % 06/09/21 09:08 Procalcitonin 0.12 ng/mL (<0.15) 06/03/21 18:37 Urine Color Yellow (Yellow) 06/08/21 16:00 Urine Turbidity Clear (Clear) 06/08/21 16:00 Urine pH 5.0 (5.0-7.0) 06/08/21 16:00 Ur Specific Robert Lee 1.016 (1.003-1.030) 06/08/21 16:00 Urine Protein 100 mg/dl mg/dL (Negative) 06/08/21 16:00 Urine Glucose (UA) Neg mg/dL (Negative) 06/08/21 16:00 Urine Ketones Neg mg/dL (Negative) 06/08/21 16:00 Urine Blood Mod (Negative) 06/08/21 16:00 Urine Nitrite Neg (Negative) 06/08/21 16:00 Urine Bilirubin Neg (Negative) 06/08/21 16:00 Urine Urobilinogen < 2.0 mg/dL (<2.0) 06/08/21 16:00 Ur Leukocyte Esterase Neg (Negative) 06/08/21 16:00 Urine WBC (Auto) 1.0 /HPF (0.0-6.0) 06/08/21 16:00 Urine RBC (Auto) 2.0 /HPF (0.0-6.0) 06/08/21 16:00 U Epithel Cells (Auto) 1.0 /HPF (0-13.0) 06/08/21 16:00 Urine Mucus Few /HPF 06/08/21 16:00 Urine Yeast (Budding) Few /HPF 06/06/21 03:30 Urine Eosinophils Rare (None Seen) 06/06/21 03:30 Urine Creatinine 117.6 mg/dL (0.1-20.0) H 06/06/21 03:30 Urine Sodium 41 mmol/L 06/06/21 03:30 Coronavirus (PCR) Positive (Negative) A 06/04/21 Unknown Microbiology: Microbiology 06/05/21 18:11 Peripheral/Venous Blood Culture - Preliminary NO GROWTH AFTER 4 DAYS 06/06/21 06:09 Peripheral/Venous Blood Culture - Preliminary NO GROWTH AFTER 72 HOURS Byrd/IV: Voiding Method Indwelling Catheter Active Medications - Current Medications Current Medications: Generic Name Dose Route Start Last Admin Trade Name Freq PRN Reason Stop Dose Admin Acetaminophen 650 mg 06/03/21 21:46 Acetaminophen 325 Mg Tab PO Q4H PRN Pain MILD(1-3)/Fever >100.5/LISA Albuterol 2 puff 06/06/21 07:53 06/06/21 17:20 Albuterol 8.5 Gm Mdi Inhalation IH 2 puff Q6HRT PRN Administration Shortness Of Breath Atenolol 50 mg 06/04/21 10:00 06/09/21 15:17 Atenolol 50 Mg Tab PO 50 mg DAILY COOPER Administration Citric Acid/Sodium Citrate 30 ml 01/16/22 14:00 06/09/21 21:55 Bicitra Oral Liqd 30ml PO 30 ml TID COOPER Administration Dextrose 0 ml 06/03/21 21:46 Dextrose 50% In Water (25gm) 50 Ml Syringe IV Q30MIN PRN Hypoglycemia Protocol Famotidine 20 mg 06/03/21 22:00 06/09/21 15:16 Famotidine 20 Mg Tab PO 20 mg QAM COOPER Administration Haloperidol Lactate 5 mg 06/08/21 14:00 06/09/21 21:55 Haloperidol Lactate 5 Mg/1 Ml Inj IM 5 mg Q6H PRN Administration Agitation Heparin Sodium (Porcine) 5,000 unit 06/03/21 22:00 06/10/21 05:35 Heparin 5,000 Unit/1 Ml Vial SUB-Q 5,000 unit Q8HR COOPER Administration Hydralazine HCl 10 mg 06/03/21 21:50 Hydralazine 20 Mg/1 Ml Inj IV Q6H PRN Blood Pressure Hydromorphone HCl 0.5 mg 06/03/21 21:46 06/09/21 13:48 Hydromorphone 1 Mg/1 Ml Inj IV 0.5 mg Q3H PRN Administration Pain , Severe (7-10) Dextrose 1,000 mls @ 150 mls/hr 06/09/21 12:00 06/09/21 18:30 D5w IV 150 mls/hr DIRECT COOPER Administration Insulin Human Lispro 0 unit 06/09/21 18:00 06/10/21 06:43 Insulin Lispro 100 Unit/Ml SUB-Q 2 unit Q6HR COOPER Administration Protocol Methylprednisolone Sodium Succinate 40 mg 06/07/21 22:00 06/09/21 21:55 Methylprednisolone Sod Succinate 40 Mg/1 Ml Inj IV 40 mg Q12HR COOPER Administration Morphine Sulfate 2 mg 06/03/21 21:46 06/09/21 18:30 Morphine 2 Mg/1 Ml Inj IV 2 mg Q4H PRN Administration Pain, Moderate (4-6) Ondansetron HCl 4 mg 06/03/21 21:46 Ondansetron 4 Mg/2 Ml Inj IV Q8H PRN Nausea And Vomiting Quetiapine Fumarate 25 mg 06/08/21 10:00 06/09/21 21:54 Quetiapine 25 Mg Tab PO 25 mg BID COOPER Administration Sodium Chloride 10 ml 06/03/21 22:00 06/09/21 21:55 Sodium Chloride 0.9% 10 Ml Flush Syringe IV 10 ml BID COOPER Administration Sodium Chloride 10 ml 06/03/21 21:46 Sodium Chloride 0.9% 10 Ml Flush Syringe IV PRN PRN LINE FLUSH Nutrition/Malnutrition Assess - Dietary Evaluation Nutrition/Malnutrition Findings: Nutrition Notes Start: 06/04/21 10:44 Freq: Status: Active Protocol: Document 06/09/21 18:01 DENISE (Rec: 06/09/21 18:36 DENISE [id number]) Nutrition Notes Initial or Follow up Reassessment Current Diagnosis Acute Kidney Injury,Diabetes, Heart Failure,Respiratory Failure Other Pertinent Diagnosis COVID-19, Bilateral pneumonia, Endocarditis/NBTE, Leukopenia . Current Diet TF-Nepro w/CARBSTEADY @ 32 ml/ hr (since D 06/09). Labs/Tests 06/09: Na 157, K 5.2, Cl 117.4 , CO2 18, BUN 86, Crea 2.9, Glu 228. Pertinent Medications 06/09: D5w 1000 ml @ 150 ml/hr , others nutritionally unremarkable. Height 5 ft 8 in Weight 86.5 kg [place] Body Weight (kg) 70.00 BMI 29.0 Weight Status Overweight Subjective/Other Information RD consult for MD request write/manage TF. NGT was placed on 06/09. Pt overall condition is suddenly worsening. Hyponatremia and hyperkalemia possibly associated to Poor PO intake of meals, as per MD on Progress notes; this statement contradicts ADL notes. TF ordered. Percent of energy/protein needs met: Prescribed Nepro w/CARBSTEADY @ 32 ml/hr provides for energy /protein needs (1,384 Kcal/62 g) during LOS; 80% Kcal; 60% AA. Burn Absent Trauma Absent GI Symptoms None Food Allergy Yes Skin Integrity/Comment Clear, warm, dry. Current % PO Other Minimum of two criteria No #1 Nutrition Diagnosis Inadequate oral intake Comments: CHANGED NGT was placed on 06/09. MD request write/manage TF. Pt overall condition is suddenly worsening. As Evidenced by Signs and Symptoms PT currently on NPO. Diagnosis Progress(for reassessment Worsened documentation) Is patient on ventilator? No Is Patient Ambulatory and/or Out of Bed Yes [facility] [ 2053.350 [id number]] Kcal/Kg value to use for calculation 20 Approximate Energy Requirements Using 1730 kcal/Kg Calculation Used for Recommendations Kcal/kg Additional Notes 15-20 Kcal/Kg ABW (70-80% of EEN). Protein: 1.2-2 g/Kg; 104-174 g /day. Fluids: 1 ml/Kcal, or as per MD. Nutrition Intervention Change Diet Order: d/c. Nutrition Support: Start Nepro w/CARBSTEADY @ 32 ml/hr. Flush 200 ml water Q 4 hr, or as per MD. Kcal 1,384 Protein (gm) 62 Carbohydrates (gm) 124 Fat (gm) 74 Fluid (mL) 559 Fiber (gm) 10 % RDI: 80% Kcal; 60% AA. Add Supplement/Snack (indicate name/kcal d/c. /protein ) Goal #1 Provide at least 75% of energy /protein needs through Enteral Feeding during LOS. Follow-Up By: 06/12/21 Additional Comments Continue monitoring TF tolerance and BM.
[2021-06-10] MEDS: DEXTROSE 5% IN WATER 1,000 ML IV SCH ×2 (08:52→18:33)
[2021-06-10] MEDS: BICITRA ORAL LIQD 30ML PO SCH ×3 (08:53→23:35)
[2021-06-10] MEDS: atenoloL 50 MG TAB PO SCH (08:59)
[2021-06-10] MEDS: methylPREDNISolone Sod Succinate 40 MG/1 ML INJ IV SCH ×2 (08:59→18:05)
[2021-06-10] MEDS: QUEtiapine 25 MG TAB PO SCH ×2 (08:59→23:34)
[2021-06-10] MEDS: FAMOTIDINE 20 MG TAB PO SCH (09:03)
--- NOTE | 2021-06-10 09:05 | Progress Note ---
Assessment and Plan Acute Kidney injury, Possible CKD: Covid 19 Pneumonia: Acute Hypoxic respiratory failure: Hyperkalemia: Metabolic acidosis: DM2: HTN: -stable kidney function -cont sodium bicarb to bicitra 30 CC TID for worsening acidosis -imporving Na. will cont D5W and check BMP Q12H and adjust -Renal US-noted mild L hydro, urology consult was requested. -Renally dose all meds -Avoid Nephrotoxic meds -Strict I/Os Subjective Date of service: 06/10/21 Principal diagnosis: ANGIE Interval history: tolerating TF Objective - Vital Signs Vital signs: Vital Signs - 12hr 06/09/21 06/09/21 06/09/21 21:30 22:00 23:18 Temperature 97.2 F L Pulse Rate 81 Respiratory 18 Rate Blood Pressure 132/92 O2 Sat by Pulse 92 93 91 Oximetry 06/10/21 06/10/21 06:03 08:59 Temperature 98.2 F Pulse Rate 68 68 Respiratory 18 Rate Blood Pressure 146/96 146/96 O2 Sat by Pulse 86 Oximetry - Lab 06/09/21 09:08 06/10/21 05:38 Most recent lab results ABG pH 7.430 pH Units (7.350-7.450) 06/09/21 10:15 ABG pCO2 28.9 mm Hg 06/09/21 10:15 ABG pO2 57.0 mm Hg (80.0-90.0) L 06/09/21 10:15 ABG HCO3 18.8 mmol/L (20.0-26.0) L 06/09/21 10:15 ABG O2 Saturation 90.0 % (95.0-99.0) L 06/09/21 10:15 Calcium 9.5 mg/dL (8.4-10.2) 06/10/21 05:38 Urine Creatinine 117.6 mg/dL (0.1-20.0) H 06/06/21 03:30 Urine Sodium 41 mmol/L 06/06/21 03:30 Medications & Allergies - Medications Allergies/Adverse Reactions: Allergies shellfish derived Adverse Reaction (Verified 06/03/21 18:34) Hives Home Medications: Home Medications Medication Instructions Recorded Confirmed Last Taken Type atenoloL [Tenormin] 50 mg PO DAILY 06/03/21 06/03/21 Unknown History metFORMIN [Glucophage] 500 mg PO DAILY 06/03/21 06/03/21 Unknown History Active Medications: Generic Name Dose Route Start Last Admin Trade Name Freq PRN Reason Stop Dose Admin Acetaminophen 650 mg 06/03/21 21:46 Acetaminophen 325 Mg Tab PO Q4H PRN Pain MILD(1-3)/Fever >100.5/LISA Albuterol 2 puff 06/06/21 07:53 06/06/21 17:20 Albuterol 8.5 Gm Mdi Inhalation IH 2 puff Q6HRT PRN Administration Shortness Of Breath Atenolol 50 mg 06/04/21 10:00 06/10/21 08:59 Atenolol 50 Mg Tab PO 50 mg DAILY COOPER Administration Citric Acid/Sodium Citrate 30 ml 06/08/21 14:00 06/10/21 08:53 Bicitra Oral Liqd 30ml PO 30 ml TID COOPER Administration Dextrose 0 ml 06/03/21 21:46 Dextrose 50% In Water (25gm) 50 Ml Syringe IV Q30MIN PRN Hypoglycemia Protocol Famotidine 20 mg 06/03/21 22:00 06/10/21 09:03 Famotidine 20 Mg Tab PO 20 mg QAM COOPER Administration Haloperidol Lactate 5 mg 06/08/21 14:00 06/09/21 21:55 Haloperidol Lactate 5 Mg/1 Ml Inj IM 5 mg Q6H PRN Administration Agitation Heparin Sodium (Porcine) 5,000 unit 06/03/21 22:00 06/10/21 05:35 Heparin 5,000 Unit/1 Ml Vial SUB-Q 5,000 unit Q8HR COOPER Administration Hydralazine HCl 10 mg 06/03/21 21:50 Hydralazine 20 Mg/1 Ml Inj IV Q6H PRN Blood Pressure Hydromorphone HCl 0.5 mg 06/03/21 21:46 06/09/21 13:48 Hydromorphone 1 Mg/1 Ml Inj IV 0.5 mg Q3H PRN Administration Pain , Severe (7-10) Dextrose 1,000 mls @ 150 mls/hr 06/09/21 12:00 06/10/21 08:52 D5w IV 150 mls/hr DIRECT COOPER Administration Insulin Human Lispro 0 unit 06/09/21 18:00 06/10/21 06:43 Insulin Lispro 100 Unit/Ml SUB-Q 2 unit Q6HR COOPER Administration Protocol Methylprednisolone Sodium Succinate 40 mg 06/07/21 22:00 06/10/21 08:59 Methylprednisolone Sod Succinate 40 Mg/1 Ml Inj IV 40 mg Q12HR COOPER Administration Morphine Sulfate 2 mg 06/03/21 21:46 06/09/21 18:30 Morphine 2 Mg/1 Ml Inj IV 2 mg Q4H PRN Administration Pain, Moderate (4-6) Ondansetron HCl 4 mg 06/03/21 21:46 Ondansetron 4 Mg/2 Ml Inj IV Q8H PRN Nausea And Vomiting Quetiapine Fumarate 25 mg 06/08/21 10:00 06/10/21 08:59 Quetiapine 25 Mg Tab PO 25 mg BID COOPER Administration Sodium Chloride 10 ml 06/03/21 22:00 06/10/21 09:00 Sodium Chloride 0.9% 10 Ml Flush Syringe IV 10 ml BID COOPER Administration Sodium Chloride 10 ml 06/03/21 21:46 Sodium Chloride 0.9% 10 Ml Flush Syringe IV PRN PRN LINE FLUSH
[2021-06-10 15:30] LABS: Calcium 9.1 mg/dL (8.4-10.2)
--- NOTE | 2021-06-10 15:47 | Progress Note ---
Assessment and Plan Cultures: SARS CoV2 PCR: Positive as outpatient and here 06/03/2021 blood culture: no growth 06/05/2021 blood culture: no growth 06/06/2021 blood culture: no growth A/P: 73-year-old male with diabetes, hypertension admitted to the hospital with worsening shortness of breath. Patient tested positive for COVID-19 as an outpatient: #Bilateral pneumonia: Secondary to COVID-19. Hypoxic, elevated inflammatory mar kers. Procalcitonin 0.12. #Acute hypoxic respiratory failure: Secondary to above. on NRB/HFNC. #?Endocarditis/NBTE in the setting of COVID-19: Incidental finding of possible small valvular vegetation on mitral valve anterior leaflet. No fever, no leucocytosis. Pre-test probability for endocarditis was low to begin with. Very low suspicion for acute infective endocarditis. Multiple blood cultures negative. Currently not a candidate for CARRILLO due to COVID-19 and hypoxia per cardiology. Hold off on abx. #ANGIE: Renally adjust antibiotics #Leukopenia: Likely related to viral illness, resolved. Recs: -continue steroids per pulm -completed remdesivir -prophylactic anticoagulation based on d-dimer per hospital protocol -consideration for CARRILLO in the future, once hypoxia better -CRP 2.2, D-dimer 526 -guarded prognosis Tiffanie Rene MD, FACP, [facility] O: [phone] F: [phone] Subjective Date of service: 06/10/21 Principal diagnosis: ANGIE Interval history: No fever. Remains on HFNC. CRP 2.2, D-dimer 526. Objective - Exam Narrative Exam: Physical Exam (reviewed in chart to minimize risk of transmission) Constitutional: deferred Head, Ears, Nose: deferred Eyes: deferred Neck: deferred Oral: deferred Cardiovascular: deferred Respiratory: deferred GI: deferred Musculoskeletal: deferred Skin: deferred Hem/Lymphatic: deferred Psych: deferred Neurological: deferred - Constitutional Vitals: Vital Signs Temp Pulse Resp BP Pulse Ox 98.2 F 68 18 146/96 92 06/10/21 06:03 06/10/21 08:59 06/10/21 06:03 06/10/21 08:59 06/10/21 15:20 Temperature -Last 24 Hours Temperature 98.2 F Temperature 97.2 F Temperature 97.9 F - Labs CBC & Chem 7: 06/09/21 09:08 06/10/21 14:10 Labs: Abnormal lab results 06/09/21 06/09/21 06/10/21 Range/Units 23:15 23:45 05:38 D-Dimer (0-234) ng/mlDDU Sodium 153 H 153 H (137-145) mmol/L Potassium 5.3 H (3.6-5.0) mmol/L Chloride 117.1 H 112.6 H (98-107) mmol/L Carbon Dioxide 21 L (22-30) mmol/L BUN 86 H 82 H (9-20) mg/dL Creatinine 2.6 H 2.5 H (0.8-1.3) mg/dL Glucose 239 H 297 H (75-100) mg/dL POC Glucose 221 H (70-105) mg/dL C-Reactive Protein 2.20 H (0.00-1.30) mg/dL 06/10/21 06/10/21 06/10/21 Range/Units 05:38 08:09 12:08 D-Dimer 526.33 H (0-234) ng/mlDDU Sodium (137-145) mmol/L Potassium (3.6-5.0) mmol/L Chloride (98-107) mmol/L Carbon Dioxide (22-30) mmol/L BUN (9-20) mg/dL Creatinine (0.8-1.3) mg/dL Glucose (75-100) mg/dL POC Glucose 256 H 245 H (70-105) mg/dL C-Reactive Protein (0.00-1.30) mg/dL 06/10/21 Range/Units 14:10 D-Dimer (0-234) ng/mlDDU Sodium 152 H (137-145) mmol/L Potassium (3.6-5.0) mmol/L Chloride 112.9 H (98-107) mmol/L Carbon Dioxide (22-30) mmol/L BUN 81 H (9-20) mg/dL Creatinine 2.4 H (0.8-1.3) mg/dL Glucose 321 H (75-100) mg/dL POC Glucose (70-105) mg/dL C-Reactive Protein (0.00-1.30) mg/dL
--- NOTE | 2021-06-10 17:18 | Progress Note ---
Assessment and Plan 75 y/o with acute respiratory failure secondary to COVID 19, renal failure (acute vs chronic) 06/10/21: Will ask renal if diuresis is possible given CXR results. Continue supplemental oxygen but may progress to bipap therapy. Will increase steroids to TID. Guarded prognosis. 06/09/21: Steroids, prone if able. Will repeat CXR. ABG is consistent with respiratory alkalosis with hypoxemia, compensated as patient has a metabolic acidosis as well. Most likely low CO2 is a reaction to metabolic acidosis. On bicarb drip. Worsening oxygenation could be from volume. Follow up film 1. Steroids, ordered at q12 dosing, assuming secondary to diabetes and renal function. If using solumedrol, would consider changing to at least q8 2. Prone if able 3. Follow up renal recs, does not appear to be a candidate for diuresis 4. Wean FiO2 for sats > 88% Subjective Date of service: 06/10/21 Principal diagnosis: ANGIE Interval history: CXR shows worsening of infiltrates compared to before. Positive fluid status since admit. Objective Vital Signs - 12hr 06/10/21 06/10/21 06/10/21 06:03 08:59 09:46 Temperature 98.2 F Pulse Rate 68 68 Respiratory 18 Rate Blood Pressure 146/96 146/96 O2 Sat by Pulse 86 90 Oximetry 06/10/21 15:20 Temperature Pulse Rate Respiratory Rate Blood Pressure O2 Sat by Pulse 92 Oximetry CBC and BMP: 06/09/21 09:08 06/10/21 14:10 ABG, PT/INR, D-dimer: ABG ABG pH 7.430 pH Units (7.350-7.450) 06/09/21 10:15 ABG pCO2 28.9 mm Hg 06/09/21 10:15 ABG pO2 57.0 mm Hg (80.0-90.0) L 06/09/21 10:15 ABG O2 Saturation 90.0 % (95.0-99.0) L 06/09/21 10:15 PT/INR, D-dimer D-Dimer 526.33 ng/mlDDU (0-234) H 06/10/21 05:38 Abnormal lab findings: Abnormal Labs 06/03/21 06/03/21 06/03/21 18:37 18:37 18:37 WBC RBC 7.38 H Hgb 17.0 H Hct 54.7 H MCV 74 L MCH 23 L MCHC 31 L RDW 15.9 H Lymph % (Auto) 8.4 L Colbert % (Auto) 12.6 H Lymph # (Auto) 0.5 L Colbert # (Auto) Seg Neutrophils % 78.7 H Seg Neutrophils # D-Dimer ABG pO2 ABG HCO3 ABG O2 Saturation ABG Base Excess ABG Hemoglobin Oxyhemoglobin Sodium Potassium 5.4 H Chloride Carbon Dioxide 19 L BUN 40 H Creatinine 2.6 H Glucose 179 H POC Glucose Lactic Acid 2.40 H* Calcium Ferritin Direct Bilirubin AST Lactate Dehydrogenase 308 H C-Reactive Protein 6.20 H Total Protein Albumin 3.1 L Urine Creatinine Coronavirus (PCR) 06/03/21 06/03/21 06/04/21 18:37 18:37 00:30 WBC RBC Hgb Hct MCV MCH MCHC RDW Lymph % (Auto) Colbert % (Auto) Lymph # (Auto) Colbert # (Auto) Seg Neutrophils % Seg Neutrophils # D-Dimer 634.36 H ABG pO2 ABG HCO3 ABG O2 Saturation ABG Base Excess ABG Hemoglobin Oxyhemoglobin Sodium Potassium Chloride Carbon Dioxide BUN Creatinine Glucose POC Glucose 115 H Lactic Acid Calcium Ferritin 823.7 H Direct Bilirubin AST Lactate Dehydrogenase C-Reactive Protein Total Protein Albumin Urine Creatinine Coronavirus (PCR) 06/04/21 06/04/21 06/04/21 05:40 05:40 14:51 WBC 4.3 L RBC 6.82 H Hgb 15.9 H Hct 50.7 H MCV 74 L MCH 23 L MCHC 31 L RDW 16.1 H Lymph % (Auto) Colbert % (Auto) 15.6 H Lymph # (Auto) 0.8 L Colbert # (Auto) Seg Neutrophils % Seg Neutrophils # D-Dimer ABG pO2 ABG HCO3 ABG O2 Saturation ABG Base Excess ABG Hemoglobin Oxyhemoglobin Sodium Potassium Chloride Carbon Dioxide 21 L 19 L BUN 46 H 49 H Creatinine 2.2 H 2.5 H Glucose 101 H 131 H POC Glucose Lactic Acid Calcium 8.0 L Ferritin Direct Bilirubin AST Lactate Dehydrogenase C-Reactive Protein Total Protein Albumin 3.4 L Urine Creatinine Coronavirus (PCR) 06/04/21 06/04/21 06/05/21 22:06 Unknown 05:54 WBC RBC Hgb Hct MCV MCH MCHC RDW Lymph % (Auto) Colbert % (Auto) Lymph # (Auto) Colbert # (Auto) Seg Neutrophils % Seg Neutrophils # D-Dimer ABG pO2 ABG HCO3 ABG O2 Saturation ABG Base Excess ABG Hemoglobin Oxyhemoglobin Sodium Potassium Chloride Carbon Dioxide 17 L BUN 61 H Creatinine 2.5 H Glucose 150 H POC Glucose 134 H Lactic Acid Calcium Ferritin Direct Bilirubin AST Lactate Dehydrogenase C-Reactive Protein Total Protein Albumin 3.2 L Urine Creatinine Coronavirus (PCR) Positive A 06/05/21 06/05/21 06/05/21 05:54 08:23 12:30 WBC 3.6 L RBC 7.39 H Hgb 17.2 H Hct 54.9 H MCV 74 L MCH 23 L MCHC 31 L RDW 16.2 H Lymph % (Auto) 11.1 L Colbert % (Auto) 15.4 H Lymph # (Auto) 0.4 L Colbert # (Auto) Seg Neutrophils % 73.3 H Seg Neutrophils # D-Dimer ABG pO2 ABG HCO3 ABG O2 Saturation ABG Base Excess ABG Hemoglobin Oxyhemoglobin Sodium Potassium Chloride Carbon Dioxide BUN Creatinine Glucose POC Glucose 163 H 146 H Lactic Acid Calcium Ferritin Direct Bilirubin AST Lactate Dehydrogenase C-Reactive Protein Total Protein Albumin Urine Creatinine Coronavirus (PCR) 06/05/21 06/05/21 06/06/21 16:04 20:49 03:30 WBC RBC Hgb Hct MCV MCH MCHC RDW Lymph % (Auto) Colbert % (Auto) Lymph # (Auto) Colbert # (Auto) Seg Neutrophils % Seg Neutrophils # D-Dimer ABG pO2 ABG HCO3 ABG O2 Saturation ABG Base Excess ABG Hemoglobin Oxyhemoglobin Sodium Potassium Chloride Carbon Dioxide BUN Creatinine Glucose POC Glucose 140 H 208 H Lactic Acid Calcium Ferritin Direct Bilirubin AST Lactate Dehydrogenase C-Reactive Protein Total Protein Albumin Urine Creatinine 117.6 H Coronavirus (PCR) 06/06/21 06/06/21 06/06/21 06:09 06:09 08:16 WBC RBC 7.20 H Hgb 16.9 H Hct 53.7 H MCV 75 L MCH 24 L MCHC RDW 16.3 H Lymph % (Auto) 6.3 L Colbert % (Auto) 13.1 H Lymph # (Auto) 0.5 L Colbert # (Auto) 1.1 H Seg Neutrophils % 80.3 H Seg Neutrophils # D-Dimer ABG pO2 ABG HCO3 ABG O2 Saturation ABG Base Excess ABG Hemoglobin Oxyhemoglobin Sodium Potassium Chloride Carbon Dioxide 18 L BUN 73 H Creatinine 2.5 H Glucose 152 H POC Glucose 146 H Lactic Acid Calcium Ferritin Direct Bilirubin AST Lactate Dehydrogenase C-Reactive Protein Total Protein Albumin 3.3 L Urine Creatinine Coronavirus (PCR) 06/06/21 06/06/21 06/06/21 12:45 14:13 17:39 WBC RBC Hgb Hct MCV MCH MCHC RDW Lymph % (Auto) Colbert % (Auto) Lymph # (Auto) Colbert # (Auto) Seg Neutrophils % Seg Neutrophils # D-Dimer ABG pO2 ABG HCO3 19.7 L ABG O2 Saturation ABG Base Excess -4.3 L ABG Hemoglobin Oxyhemoglobin 94.6 L Sodium Potassium Chloride Carbon Dioxide BUN Creatinine Glucose POC Glucose 225 H 154 H Lactic Acid Calcium Ferritin Direct Bilirubin AST Lactate Dehydrogenase C-Reactive Protein Total Protein Albumin Urine Creatinine Coronavirus (PCR) 06/06/21 06/07/21 06/07/21 21:46 06:16 15:54 WBC RBC Hgb Hct MCV MCH MCHC RDW Lymph % (Auto) Colbert % (Auto) Lymph # (Auto) Colbert # (Auto) Seg Neutrophils % Seg Neutrophils # D-Dimer ABG pO2 ABG HCO3 ABG O2 Saturation ABG Base Excess ABG Hemoglobin Oxyhemoglobin Sodium 149 H Potassium Chloride 114.2 H Carbon Dioxide 21 L BUN 79 H Creatinine 2.6 H Glucose POC Glucose 187 H 195 H Lactic Acid Calcium Ferritin Direct Bilirubin AST Lactate Dehydrogenase C-Reactive Protein Total Protein 5.9 L Albumin 3.3 L Urine Creatinine Coronavirus (PCR) 06/07/21 06/08/21 06/08/21 21:27 07:33 07:42 WBC RBC Hgb Hct MCV MCH MCHC RDW Lymph % (Auto) Colbert % (Auto) Lymph # (Auto) Colbert # (Auto) Seg Neutrophils % Seg Neutrophils # D-Dimer ABG pO2 ABG HCO3 ABG O2 Saturation ABG Base Excess ABG Hemoglobin Oxyhemoglobin Sodium 154 H Potassium 5.1 H Chloride 117.3 H Carbon Dioxide 17 L BUN 76 H Creatinine 2.5 H Glucose 180 H POC Glucose 190 H 186 H Lactic Acid Calcium Ferritin Direct Bilirubin AST Lactate Dehydrogenase C-Reactive Protein Total Protein Albumin Urine Creatinine Coronavirus (PCR) 06/08/21 06/08/21 06/08/21 10:56 15:42 22:34 WBC RBC Hgb Hct MCV MCH MCHC RDW Lymph % (Auto) Colbert % (Auto) Lymph # (Auto) Colbert # (Auto) Seg Neutrophils % Seg Neutrophils # D-Dimer ABG pO2 ABG HCO3 ABG O2 Saturation ABG Base Excess ABG Hemoglobin Oxyhemoglobin Sodium Potassium Chloride Carbon Dioxide BUN Creatinine Glucose POC Glucose 206 H 175 H 146 H Lactic Acid Calcium Ferritin Direct Bilirubin AST Lactate Dehydrogenase C-Reactive Protein Total Protein Albumin Urine Creatinine Coronavirus (PCR) 06/09/21 06/09/21 06/09/21 07:39 09:08 09:08 WBC 12.6 H RBC 7.64 H Hgb 18.0 H Hct 56.8 H MCV 74 L MCH 24 L MCHC RDW 16.2 H Lymph % (Auto) 2.9 L Colbert % (Auto) 12.8 H Lymph # (Auto) 0.4 L Colbert # (Auto) 1.6 H Seg Neutrophils % 84.3 H Seg Neutrophils # 10.6 H D-Dimer ABG pO2 ABG HCO3 ABG O2 Saturation ABG Base Excess ABG Hemoglobin Oxyhemoglobin Sodium 159 H Potassium 5.2 H Chloride 120.0 H Carbon Dioxide 17 L BUN 81 H Creatinine 2.7 H Glucose 161 H POC Glucose 154 H Lactic Acid Calcium Ferritin Direct Bilirubin AST Lactate Dehydrogenase C-Reactive Protein Total Protein Albumin Urine Creatinine Coronavirus (PCR) 06/09/21 06/09/21 06/09/21 09:08 10:15 11:07 WBC RBC Hgb Hct MCV MCH MCHC RDW Lymph % (Auto) Colbert % (Auto) Lymph # (Auto) [place]bert # (Auto) Seg Neutrophils % Seg Neutrophils # D-Dimer ABG pO2 57.0 L ABG HCO3 18.8 L ABG O2 Saturation 90.0 L ABG Base Excess -3.7 L ABG Hemoglobin 18.5 H Oxyhemoglobin 88.6 L Sodium Potassium Chloride Carbon Dioxide BUN Creatinine Glucose POC Glucose 149 H Lactic Acid Calcium Ferritin Direct Bilirubin 0.3 H AST 56 H Lactate Dehydrogenase C-Reactive Protein Total Protein Albumin 3.5 L Urine Creatinine Coronavirus (PCR) 06/09/21 06/09/21 06/09/21 14:08 15:30 23:15 WBC RBC Hgb Hct MCV MCH MCHC RDW Lymph % (Auto) Colbert % (Auto) Lymph # (Auto) Colbert # (Auto) Seg Neutrophils % Seg Neutrophils # D-Dimer ABG pO2 ABG HCO3 ABG O2 Saturation ABG Base Excess ABG Hemoglobin Oxyhemoglobin Sodium 157 H Potassium 5.2 H Chloride 117.4 H Carbon Dioxide 18 L BUN 86 H Creatinine 2.9 H Glucose 228 H POC Glucose 237 H 221 H Lactic Acid Calcium Ferritin Direct Bilirubin AST Lactate Dehydrogenase C-Reactive Protein Total Protein Albumin Urine Creatinine Coronavirus (PCR) 06/09/21 06/10/21 06/10/21 23:45 05:38 05:38 WBC RBC Hgb Hct MCV MCH MCHC RDW Lymph % (Auto) Colbert % (Auto) Lymph # (Auto) Colbert # (Auto) Seg Neutrophils % Seg Neutrophils # D-Dimer 526.33 H ABG pO2 ABG HCO3 ABG O2 Saturation ABG Base Excess ABG Hemoglobin Oxyhemoglobin Sodium 153 H 153 H Potassium 5.3 H Chloride 117.1 H 112.6 H Carbon Dioxide 21 L BUN 86 H 82 H Creatinine 2.6 H 2.5 H Glucose 239 H 297 H POC Glucose Lactic Acid Calcium Ferritin Direct Bilirubin AST Lactate Dehydrogenase C-Reactive Protein 2.20 H Total Protein Albumin Urine Creatinine Coronavirus (PCR) 06/10/21 06/10/21 06/10/21 08:09 12:08 14:10 WBC RBC Hgb Hct MCV MCH MCHC RDW Lymph % (Auto) Colbert % (Auto) Lymph # (Auto) Colbert # (Auto) Seg Neutrophils % Seg Neutrophils # D-Dimer ABG pO2 ABG HCO3 ABG O2 Saturation ABG Base Excess ABG Hemoglobin Oxyhemoglobin Sodium 152 H Potassium Chloride 112.9 H Carbon Dioxide BUN 81 H Creatinine 2.4 H Glucose 321 H POC Glucose 256 H 245 H Lactic Acid Calcium Ferritin Direct Bilirubin AST Lactate Dehydrogenase C-Reactive Protein Total Protein Albumin Urine Creatinine Coronavirus (PCR) 06/10/21 16:38 WBC RBC Hgb Hct MCV MCH MCHC RDW Lymph % (Auto) Colbert % (Auto) Lymph # (Auto) Colbert # (Auto) Seg Neutrophils % Seg Neutrophils # D-Dimer ABG pO2 ABG HCO3 ABG O2 Saturation ABG Base Excess ABG Hemoglobin Oxyhemoglobin Sodium Potassium Chloride Carbon Dioxide BUN Creatinine Glucose POC Glucose 232 H Lactic Acid Calcium Ferritin Direct Bilirubin AST Lactate Dehydrogenase C-Reactive Protein Total Protein Albumin Urine Creatinine Coronavirus (PCR)
[2021-06-11] MEDS: HYDROmorphone 1 MG/1 ML INJ IV PRN (00:42)
[2021-06-11] MEDS: methylPREDNISolone Sod Succinate 40 MG/1 ML INJ IV SCH ×2 (03:27→16:25)
[2021-06-11] MEDS: DEXTROSE 5% IN WATER 1,000 ML IV SCH ×2 (03:29→23:26)
[2021-06-11 03:40] LABS: Calcium 8.9 mg/dL (8.4-10.2)
[2021-06-11] MEDS: HEPARIN 5,000 UNIT/1 ML VIAL SUB-Q SCH ×3 (06:29→22:45)
[2021-06-11] MEDS: INSULIN LISPRO 100 UNIT/ML SUB-Q SCH ×4 (06:30→23:13)
--- NOTE | 2021-06-11 08:59 | Progress Note ---
Assessment and Plan Assessment and plan: #Acute hypoxic respiratory failure #COVID-19 pneumonia -PCR +06/04 -Currently on high flow nasal cannula 40/100% FiO2 + nonrebreather -s/p remdesivir -Continue steroids -Infectious Disease and Pulmonology following, assistance appreciated #ANGIE on CKD-improved -Creatinine stable at 2.2 -Renal ultrasound shows medical renal disease and mild left hydronephrosis with 7mm stone in mid left kidney -Urology consulted for hydronephrosis; CT of pelvis ordered -Renally dose medications and avoid nephrotoxic agents #Hypernatremia #Hyperkalemia -D5W infusion -will continue to monitor #Acute metabolic encephalopathy -improved, likely secondary to COVID-pneumonia -CT head not performed due to agitation -Continue Seroquel, delirium precautions #Noninsulin-dependent type 2 diabetes -Continue sliding scale insulin, will monitor for need to add basal insulin #Mitral valve vegetation -Seen on echocardiogram, less than 1 cm -CARRILLO held due to patient's respiratory status at this time -Blood cultures 06/03, 06/05, 06/06 no growth to date x5 days -Patient afebrile, currently low clinical suspicion for endocarditis #Hyperviscosity -Patient with elevated hemoglobin hematocrit -will monitor at this time #Advance care planning -Disease education, discussed updated care plan, diagnosis, prognosis discussed with caregiver. She understands and acknowledges current plan. -Time: +30 minutes Disposition Plan: Continue medical management History Interval history: Patient opens eyes to name. Denies chest pain and discomfort. No complaints at this time. Hospitalist Physical - Physical exam Narrative exam: GENERAL: Well-developed well-nourished. Lying in bed, in no acute distress. HEENT: High flow nasal cannula in place with nonrebreather CHEST/LUNGS: Coarse breath sounds bilaterally. HEART/CARDIOVASCULAR: RRR. No murmur, rubs or gallops appreciated. ABDOMEN: +BS. NT/ND. NEURO: No focal motor deficit. MUSCULOSKELETAL: No joint effusion EXTREMITIES: No cyanosis, clubbing or edema. PSYCH: Alert to person. - Constitutional Vitals: Temp Pulse Resp BP Pulse Ox 98.2 F 72 18 112/79 88 06/11/21 05:15 06/11/21 05:15 06/11/21 05:15 06/11/21 05:15 06/11/21 05:15 General appearance: Present: mild distress, well-nourished, other (Encephalopathic and confused) Results - Labs CBC & Chem 7: 06/09/21 09:08 06/12/21 05:31 Labs: Laboratory Last Values WBC 12.6 K/mm3 (4.5-11.0) H 06/09/21 09:08 RBC 7.64 M/mm3 (3.65-5.03) H 06/09/21 09:08 Hgb 18.0 gm/dl (11.8-15.2) H 06/09/21 09:08 Hct 56.8 % (35.5-45.6) H 06/09/21 09:08 MCV 74 fl (84-94) L 06/09/21 09:08 MCH 24 pg (28-32) L 06/09/21 09:08 MCHC 32 % (32-34) 06/09/21 09:08 RDW 16.2 % (13.2-15.2) H 06/09/21 09:08 Plt Count 423 K/mm3 (140-440) 06/09/21 09:08 Lymph % (Auto) 2.9 % (13.4-35.0) L 06/09/21 09:08 Norman % (Auto) 12.8 % (0.0-7.3) H 06/09/21 09:08 Eos % (Auto) 0.0 % (0.0-4.3) 06/09/21 09:08 Baso % (Auto) 0.0 % (0.0-1.8) 06/09/21 09:08 Lymph # (Auto) 0.4 K/mm3 (1.2-5.4) L 06/09/21 09:08 Norman # (Auto) 1.6 K/mm3 (0.0-0.8) H 06/09/21 09:08 Eos # (Auto) 0.0 K/mm3 (0.0-0.4) 06/09/21 09:08 Baso # (Auto) 0.0 K/mm3 (0.0-0.1) 06/09/21 09:08 Seg Neutrophils % 84.3 % (40.0-70.0) H 06/09/21 09:08 Seg Neutrophils # 10.6 K/mm3 (1.8-7.7) H 06/09/21 09:08 D-Dimer 526.33 ng/mlDDU (0-234) H 06/10/21 05:38 ABG pH 7.430 pH Units (7.350-7.450) 06/09/21 10:15 ABG pCO2 28.9 mm Hg 06/09/21 10:15 ABG pO2 57.0 mm Hg (80.0-90.0) L 06/09/21 10:15 ABG HCO3 18.8 mmol/L (20.0-26.0) L 06/09/21 10:15 ABG O2 Saturation 90.0 % (95.0-99.0) L 06/09/21 10:15 ABG O2 Content 22.9 (0.0-44) 06/09/21 10:15 ABG Base Excess -3.7 mmol/L (-2.0-3.0) L 06/09/21 10:15 ABG Hemoglobin 18.5 gm/dl (14.0-18.0) H 06/09/21 10:15 ABG Carboxyhemoglobin 0.9 % (0.0-5.0) 06/09/21 10:15 ABG Methemoglobin 0.6 % (0.0-1.5) 06/09/21 10:15 Oxyhemoglobin 88.6 % (95.0-99.0) L 06/09/21 10:15 FiO2 100 % 06/09/21 10:15 Sodium 149 mmol/L (137-145) H 06/11/21 02:34 Potassium 5.1 mmol/L (3.6-5.0) H 06/11/21 02:34 Chloride 111.5 mmol/L (98-107) H 06/11/21 02:34 Carbon Dioxide 25 mmol/L (22-30) 06/11/21 02:34 Anion Gap 18 mmol/L 06/11/21 02:34 BUN 78 mg/dL (9-20) H 06/11/21 02:34 Creatinine 2.3 mg/dL (0.8-1.3) H 06/11/21 02:34 Estimated GFR 28 ml/min 06/11/21 02:34 BUN/Creatinine Ratio 34 % 06/11/21 02:34 Glucose 308 mg/dL (75-100) H 06/11/21 02:34 POC Glucose 291 mg/dL (70-105) H 06/11/21 04:52 Lactic Acid 1.60 mmol/L (0.7-2.0) 06/03/21 20:37 Calcium 8.9 mg/dL (8.4-10.2) 06/11/21 02:34 Ferritin 823.7 ng/mL (30.0-300.0) H 06/03/21 18:37 Total Bilirubin 0.70 mg/dL (0.1-1.2) 06/09/21 09:08 Direct Bilirubin 0.3 mg/dL (0-0.2) H 06/09/21 09:08 Indirect Bilirubin 0.4 mg/dL 06/09/21 09:08 AST 56 units/L (5-40) H 06/09/21 09:08 ALT 34 units/L (7-56) 06/09/21 09:08 Alkaline Phosphatase 75 units/L (35-129) 06/09/21 09:08 Lactate Dehydrogenase 308 units/L (91-180) H 06/03/21 18:37 Total Creatine Kinase 67 units/L (55-170) 06/04/21 05:40 C-Reactive Protein 2.20 mg/dL (0.00-1.30) H 06/10/21 05:38 NT-Pro-B Natriuret Pep 246.5 pg/mL (0-900) 06/03/21 20:48 Total Protein 6.7 g/dL (6.3-8.2) 06/09/21 09:08 Albumin 3.5 g/dL (3.9-5) L 06/09/21 09:08 Albumin/Globulin Ratio 1.1 % 06/09/21 09:08 Procalcitonin 0.12 ng/mL (<0.15) 06/03/21 18:37 Urine Color Yellow (Yellow) 06/08/21 16:00 Urine Turbidity Clear (Clear) 06/08/21 16:00 Urine pH 5.0 (5.0-7.0) 06/08/21 16:00 Ur Specific [place] 1.016 (1.003-1.030) 06/08/21 16:00 Urine Protein 100 mg/dl mg/dL (Negative) 06/08/21 16:00 Urine Glucose (UA) Neg mg/dL (Negative) 06/08/21 16:00 Urine Ketones Neg mg/dL (Negative) 06/08/21 16:00 Urine Blood Mod (Negative) 06/08/21 16:00 Urine Nitrite Neg (Negative) 06/08/21 16:00 Urine Bilirubin Neg (Negative) 06/08/21 16:00 Urine Urobilinogen < 2.0 mg/dL (<2.0) 06/08/21 16:00 Ur Leukocyte Esterase Neg (Negative) 06/08/21 16:00 Urine WBC (Auto) 1.0 /HPF (0.0-6.0) 06/08/21 16:00 Urine RBC (Auto) 2.0 /HPF (0.0-6.0) 06/08/21 16:00 U Epithel Cells (Auto) 1.0 /HPF (0-13.0) 06/08/21 16:00 Urine Mucus Few /HPF 06/08/21 16:00 Urine Yeast (Budding) Few /HPF 06/06/21 03:30 Urine Eosinophils Rare (None Seen) 06/06/21 03:30 Urine Creatinine 117.6 mg/dL (0.1-20.0) H 06/06/21 03:30 Urine Sodium 41 mmol/L 06/06/21 03:30 Coronavirus (PCR) Positive (Negative) A 06/04/21 Unknown Microbiology: Microbiology 06/06/21 06:09 Peripheral/Venous Blood Culture - Final NO GROWTH AFTER 5 DAYS 06/05/21 18:11 Peripheral/Venous Blood Culture - Final NO GROWTH AFTER 5 DAYS Byrd/IV: Voiding Method Indwelling Catheter Active Medications - Current Medications Current Medications: Generic Name Dose Route Start Last Admin Trade Name Freq PRN Reason Stop Dose Admin Acetaminophen 650 mg 06/03/21 21:46 Acetaminophen 325 Mg Tab PO Q4H PRN Pain MILD(1-3)/Fever >100.5/LISA Albuterol 2 puff 06/06/21 07:53 06/06/21 17:20 Albuterol 8.5 Gm Mdi Inhalation IH 2 puff Q6HRT PRN Administration Shortness Of Breath Atenolol 50 mg 06/04/21 10:00 06/10/21 08:59 Atenolol 50 Mg Tab PO 50 mg DAILY COOPER Administration Citric Acid/Sodium Citrate 30 ml 06/08/21 14:00 06/10/21 23:35 Bicitra Oral Liqd 30ml PO 30 ml TID COOPER Administration Dextrose 0 ml 06/03/21 21:46 Dextrose 50% In Water (25gm) 50 Ml Syringe IV Q30MIN PRN Hypoglycemia Protocol Famotidine 20 mg 06/03/21 22:00 06/10/21 09:03 Famotidine 20 Mg Tab PO 20 mg QAM COOPER Administration Haloperidol Lactate 5 mg 06/08/21 14:00 06/09/21 21:55 Haloperidol Lactate 5 Mg/1 Ml Inj IM 5 mg Q6H PRN Administration Agitation Heparin Sodium (Porcine) 5,000 unit 06/03/21 22:00 06/11/21 06:29 Heparin 5,000 Unit/1 Ml Vial SUB-Q 5,000 unit Q8HR COOPER Administration Hydralazine HCl 10 mg 06/03/21 21:50 Hydralazine 20 Mg/1 Ml Inj IV Q6H PRN Blood Pressure Hydromorphone HCl 0.5 mg 06/03/21 21:46 06/11/21 00:42 Hydromorphone 1 Mg/1 Ml Inj IV 0.5 mg Q3H PRN Administration Pain , Severe (7-10) Dextrose 1,000 mls @ 150 mls/hr 06/10/21 10:00 06/11/21 03:29 D5w IV 150 mls/hr DIRECT COOPER Administration Insulin Human Lispro 0 unit 06/09/21 18:00 06/11/21 06:30 Insulin Lispro 100 Unit/Ml SUB-Q 4 unit Q6HR COOPER Administration Protocol Methylprednisolone Sodium Succinate 40 mg 06/10/21 18:30 06/11/21 03:27 Methylprednisolone Sod Succinate 40 Mg/1 Ml Inj IV 40 mg Q8H OCOPER Administration Morphine Sulfate 2 mg 06/03/21 21:46 06/09/21 18:30 Morphine 2 Mg/1 Ml Inj IV 2 mg Q4H PRN Administration Pain, Moderate (4-6) Ondansetron HCl 4 mg 06/03/21 21:46 Ondansetron 4 Mg/2 Ml Inj IV Q8H PRN Nausea And Vomiting Quetiapine Fumarate 25 mg 06/08/21 10:00 06/10/21 23:34 Quetiapine 25 Mg Tab PO 25 mg BID COOPER Administration Sodium Chloride 10 ml 06/03/21 22:00 06/10/21 23:37 Sodium Chloride 0.9% 10 Ml Flush Syringe IV 10 ml BID COOPER Administration Sodium Chloride 10 ml 06/03/21 21:46 Sodium Chloride 0.9% 10 Ml Flush Syringe IV PRN PRN LINE FLUSH Nutrition/Malnutrition Assess - Dietary Evaluation Nutrition/Malnutrition Findings: Nutrition Notes Start: 06/04/21 10:44 Freq: Status: Active Protocol: Document 06/09/21 18:01 DENISE (Rec: 06/09/21 18:36 DENISE [id number]) Nutrition Notes Initial or Follow up Reassessment Current Diagnosis Acute Kidney Injury,Diabetes, Heart Failure,Respiratory Failure Other Pertinent Diagnosis COVID-19, Bilateral pneumonia, Endocarditis/NBTE, Leukopenia . Current Diet TF-Nepro w/CARBSTEADY @ 32 ml/ hr (since D 06/09). Labs/Tests 06/09: Na 157, K 5.2, Cl 117.4 , CO2 18, BUN 86, Crea 2.9, Glu 228. Pertinent Medications 06/09: D5w 1000 ml @ 150 ml/hr , others nutritionally unremarkable. Height 5 ft 8 in Weight 86.5 kg [place] Body Weight (kg) 70.00 BMI 29.0 Weight Status Overweight Subjective/Other Information RD consult for MD request write/manage TF. NGT was placed on 06/09. Pt overall condition is suddenly worsening. Hyponatremia and hyperkalemia possibly associated to Poor PO intake of meals, as per MD on Progress notes; this statement contradicts ADL notes. TF ordered. Percent of energy/protein needs met: Prescribed Nepro w/CARBSTEADY @ 32 ml/hr provides for energy /protein needs (1,384 Kcal/62 g) during LOS; 80% Kcal; 60% AA. Burn Absent Trauma Absent GI Symptoms None Food Allergy Yes Skin Integrity/Comment Clear, warm, dry. Current % PO Other Minimum of two criteria No #1 Nutrition Diagnosis Inadequate oral intake Comments: CHANGED NGT was placed on 06/09. MD request write/manage TF. Pt overall condition is suddenly worsening. As Evidenced by Signs and Symptoms PT currently on NPO. Diagnosis Progress(for reassessment Worsened documentation) Is patient on ventilator? No Is Patient Ambulatory and/or Out of Bed Yes REE-([place]-St. Jeor-ambulatory/OOB) [ 2052.350 [id number]] Kcal/Kg value to use for calculation 20 Approximate Energy Requirements Using 1730 kcal/Kg Calculation Used for Recommendations Kcal/kg Additional Notes 15-20 Kcal/Kg ABW (70-80% of EEN). Protein: 1.2-2 g/Kg; 104-174 g /day. Fluids: 1 ml/Kcal, or as per MD. Nutrition Intervention Change Diet Order: d/c. Nutrition Support: Start Nepro w/CARBSTEADY @ 32 ml/hr. Flush 200 ml water Q 4 hr, or as per MD. Kcal 1,384 Protein (gm) 62 Carbohydrates (gm) 124 Fat (gm) 74 Fluid (mL) 559 Fiber (gm) 10 % RDI: 80% Kcal; 60% AA. Add Supplement/Snack (indicate name/kcal d/c. /protein ) Goal #1 Provide at least 75% of energy /protein needs through Enteral Feeding during LOS. Follow-Up By: 06/12/21 Additional Comments Continue monitoring TF tolerance and BM.
--- NOTE | 2021-06-11 09:29 | Consultation ---
History of Present Illness - Reason for Consult Consult date: 06/11/21 - History of Present Illness + covid 75 years old male with history of diabetes. Received 2 doses of COVID-vaccine was brought to the hospital because patient complained of shortness of breath for the 2 weeks associated with cough patient also complained of chest pain no nausea vomiting complain of diarrhea patient was positive for COVID 3 to 4 days ago subsequently patient is brought to the emergency room. In the ER patient is found to have increased work of breathing. Renal US-- mild hydronephrosis abd soft arce -- clear urine A/P hydronephrosis continue arce as needed creatinine improving---2.7---now 2.3 recommend CTAP for better eval of gu tract Past History Past Medical History: diabetes, hypertension Medications and Allergies Allergies Allergy/AdvReac Type Severity Reaction Status Date / Time shellfish derived AdvReac Hives Verified 06/03/21 18:34 Home Medications Medication Instructions Recorded Confirmed Last Taken Type atenoloL [Tenormin] 50 mg PO DAILY 06/03/21 06/03/21 Unknown History metFORMIN [Glucophage] 500 mg PO DAILY 06/03/21 06/03/21 Unknown History Active Meds: Active Medications Acetaminophen (Acetaminophen 325 Mg Tab) 650 mg PO Q4H PRN PRN Reason: Pain MILD(1-3)/Fever >100.5/LISA Albuterol (Albuterol 8.5 Gm Mdi Inhalation) 2 puff IH Q6HRT PRN PRN Reason: Shortness Of Breath Last Admin: 06/06/21 17:20 Dose: 2 puff Atenolol (Atenolol 50 Mg Tab) 50 mg PO DAILY [facility] Last Admin: 06/10/21 08:59 Dose: 50 mg Citric Acid/Sodium Citrate (Bicitra Oral Liqd 30ml) 30 ml PO TID [facility] Last Admin: 06/10/21 23:35 Dose: 30 ml Dextrose (Dextrose 50% In Water (25gm) 50 Ml Syringe) 0 ml IV Q30MIN PRN; Prot ocol PRN Reason: Hypoglycemia Famotidine (Famotidine 20 Mg Tab) 20 mg PO QAM [facility] Last Admin: 06/10/21 09:03 Dose: 20 mg Haloperidol Lactate (Haloperidol Lactate 5 Mg/1 Ml Inj) 5 mg IM Q6H PRN PRN Reason: Agitation Last Admin: 06/09/21 21:55 Dose: 5 mg Heparin Sodium (Porcine) (Heparin 5,000 Unit/1 Ml Vial) 5,000 unit SUB-Q Q8HR [facility] Last Admin: 06/11/21 06:29 Dose: 5,000 unit Hydralazine HCl (Hydralazine 20 Mg/1 Ml Inj) 10 mg IV Q6H PRN PRN Reason: Blood Pressure Hydromorphone HCl (Hydromorphone 1 Mg/1 Ml Inj) 0.5 mg IV Q3H PRN PRN Reason: Pain , Severe (7-10) Last Admin: 06/11/21 00:42 Dose: 0.5 mg Dextrose (D5w) 1,000 mls @ 150 mls/hr IV DIRECT [facility] Last Admin: 06/11/21 03:29 Dose: 150 mls/hr Insulin Human Lispro (Insulin Lispro 100 Unit/Ml) 0 unit SUB-Q Q6HR [facility]; Protocol Last Admin: 06/11/21 06:30 Dose: 4 unit Methylprednisolone Sodium Succinate (Methylprednisolone Sod Succinate 40 Mg/1 Ml Inj) 40 mg IV Q8H [facility] Last Admin: 06/11/21 03:27 Dose: 40 mg Morphine Sulfate (Morphine 2 Mg/1 Ml Inj) 2 mg IV Q4H PRN PRN Reason: Pain, Moderate (4-6) Last Admin: 06/09/21 18:30 Dose: 2 mg Ondansetron HCl (Ondansetron 4 Mg/2 Ml Inj) 4 mg IV Q8H PRN PRN Reason: Nausea And Vomiting Quetiapine Fumarate (Quetiapine 25 Mg Tab) 25 mg PO BID [facility] Last Admin: 06/10/21 23:34 Dose: 25 mg Sodium Chloride (Sodium Chloride 0.9% 10 Ml Flush Syringe) 10 ml IV BID [facility] Last Admin: 06/10/21 23:37 Dose: 10 ml Sodium Chloride (Sodium Chloride 0.9% 10 Ml Flush Syringe) 10 ml IV PRN PRN PRN Reason: LINE FLUSH Exam - Constitutional Vitals: Temp Pulse Resp BP Pulse Ox 98.2 F 72 18 112/79 88 06/11/21 05:15 06/11/21 05:15 06/11/21 05:15 06/11/21 05:15 06/11/21 05:15 Results - Labs CBC & Chem 7: 06/09/21 09:08 06/11/21 09:24 Labs: Abnormal lab results 06/10/21 06/10/21 06/10/21 Range/Units 12:08 14:10 16:38 Sodium 152 H (137-145) mmol/L Potassium (3.6-5.0) mmol/L Chloride 112.9 H (98-107) mmol/L BUN 81 H (9-20) mg/dL Creatinine 2.4 H (0.8-1.3) mg/dL Glucose 321 H (75-100) mg/dL POC Glucose 245 H 232 H (70-105) mg/dL 06/10/21 06/11/21 06/11/21 Range/Units 23:19 02:34 04:52 Sodium 149 H (137-145) mmol/L Potassium 5.1 H (3.6-5.0) mmol/L Chloride 111.5 H (98-107) mmol/L BUN 78 H (9-20) mg/dL Creatinine 2.3 H (0.8-1.3) mg/dL Glucose 308 H (75-100) mg/dL POC Glucose 277 H 291 H (70-105) mg/dL
[2021-06-11] MEDS: BICITRA ORAL LIQD 30ML PO SCH ×3 (09:55→23:13)
[2021-06-11] MEDS: QUEtiapine 25 MG TAB PO SCH ×2 (09:55→22:45)
[2021-06-11] MEDS: FAMOTIDINE 20 MG TAB PO SCH (09:55)
[2021-06-11] MEDS: atenoloL 50 MG TAB PO SCH (09:56)
[2021-06-11 10:14] LABS: Calcium 9.8 mg/dL (8.4-10.2)
[2021-06-11] MEDS ORDERED: DEXTROSE 50% IN WATER (25GM) 50 ML SYRINGE IV ONE (12:30)
[2021-06-11] MEDS ORDERED: INSULIN REGULAR, HUMAN 100 UNITS/1 ML IV ONE (12:30)
[2021-06-11] MEDS ORDERED: CALCIUM GLUCONATE 1,000 MG in SODIUM CHLORIDE 0.9% 100 ML IV ONE (12:30)
--- NOTE | 2021-06-11 14:12 | Progress Note ---
Assessment and Plan Assessment: Acute Kidney injury, Possible CKD: Covid 19 Pneumonia: Acute Hypoxic respiratory failure: Hyperkalemia: Metabolic acidosis: DM2: Hypertension: Plan: -Renal labs reviewed. Serum creatinine 2.2 today, yesterday's was 2.4, UOP 1450 ml -Renal ultrasound showed-mild left hydronephrosis, Urology recommend arce as needed and ordered Ct of Abdomen and Pelvis without contrast -Hyperkalemia- received insulin/D50 and Calcium Gluconate -On Bicitra 30 ml po TID -Recent sodium level was 146, prior was 149 and 152-on D5W@ 150 ml/hr -Goal correction no more than 8-10 mmol in 24 hours -BMP every 12 hours -Renally dose all medications -Avoid Nephrotoxic agents -Strict I/O's daily -Obtain daily weights -Continue to monitor renal function and electrolytes -Plan of care reviewed by Dr. Colón Subjective Date of service: 06/11/21 Principal diagnosis: ANGIE Interval history: Patient has active COVID-19 infection, chart reviewed. Physical contact limited to reduce risk of exposure and or transmission of the disease Objective - Vital Signs Vital signs: Vital Signs - 12hr 06/11/21 06/11/21 06/11/21 02:45 05:15 09:56 Temperature 98.2 F Pulse Rate 72 70 Respiratory 18 Rate Blood Pressure 112/79 O2 Sat by Pulse 91 88 Oximetry 06/11/21 06/11/21 10:00 11:59 Temperature 98.8 F Pulse Rate 74 Respiratory 24 Rate Blood Pressure 148/122 O2 Sat by Pulse 91 83 L Oximetry - Lab 06/09/21 09:08 06/11/21 09:24 Most recent lab results ABG pH 7.430 pH Units (7.350-7.450) 06/09/21 10:15 ABG pCO2 28.9 mm Hg 06/09/21 10:15 ABG pO2 57.0 mm Hg (80.0-90.0) L 06/09/21 10:15 ABG HCO3 18.8 mmol/L (20.0-26.0) L 06/09/21 10:15 ABG O2 Saturation 90.0 % (95.0-99.0) L 06/09/21 10:15 Calcium 9.8 mg/dL (8.4-10.2) 06/11/21 09:24 Urine Creatinine 117.6 mg/dL (0.1-20.0) H 06/06/21 03:30 Urine Sodium 41 mmol/L 06/06/21 03:30 Medications & Allergies - Medications Allergies/Adverse Reactions: Allergies shellfish derived Adverse Reaction (Verified 06/03/21 18:34) Hives Home Medications: Home Medications Medication Instructions Recorded Confirmed Last Taken Type atenoloL [Tenormin] 50 mg PO DAILY 06/03/21 06/03/21 Unknown History metFORMIN [Glucophage] 500 mg PO DAILY 06/03/21 06/03/21 Unknown History Active Medications: Generic Name Dose Route Start Last Admin Trade Name Freq PRN Reason Stop Dose Admin Acetaminophen 650 mg 06/03/21 21:46 Acetaminophen 325 Mg Tab PO Q4H PRN Pain MILD(1-3)/Fever >100.5/LISA Albuterol 2 puff 06/06/21 07:53 06/06/21 17:20 Albuterol 8.5 Gm Mdi Inhalation IH 2 puff Q6HRT PRN Administration Shortness Of Breath Atenolol 50 mg 06/04/21 10:00 06/11/21 09:56 Atenolol 50 Mg Tab PO 50 mg DAILY [facility] Administration Citric Acid/Sodium Citrate 30 ml 06/08/21 14:00 06/11/21 13:50 Bicitra Oral Liqd 30ml PO 30 ml TID [facility] Administration Dextrose 0 ml 06/03/21 21:46 Dextrose 50% In Water (25gm) 50 Ml Syringe IV Q30MIN PRN Hypoglycemia Protocol Famotidine 20 mg 06/03/21 22:00 06/11/21 09:55 Famotidine 20 Mg Tab PO 20 mg QAM [facility] Administration Haloperidol Lactate 5 mg 06/08/21 14:00 06/09/21 21:55 Haloperidol Lactate 5 Mg/1 Ml Inj IM 5 mg Q6H PRN Administration Agitation Heparin Sodium (Porcine) 5,000 unit 06/03/21 22:00 06/11/21 06:29 Heparin 5,000 Unit/1 Ml Vial SUB-Q 5,000 unit Q8HR [facility] Administration Hydralazine HCl 10 mg 06/03/21 21:50 Hydralazine 20 Mg/1 Ml Inj IV Q6H PRN Blood Pressure Hydromorphone HCl 0.5 mg 06/03/21 21:46 06/11/21 00:42 Hydromorphone 1 Mg/1 Ml Inj IV 0.5 mg Q3H PRN Administration Pain , Severe (7-10) Dextrose 1,000 mls @ 150 mls/hr 06/10/21 10:00 06/11/21 03:29 D5w IV 150 mls/hr DIRECT [facility] Administration Insulin Human Lispro 0 unit 06/09/21 18:00 06/11/21 13:28 Insulin Lispro 100 Unit/Ml SUB-Q 4 unit Q6HR [facility] Administration Protocol Methylprednisolone Sodium Succinate 40 mg 06/10/21 18:30 06/11/21 03:27 Methylprednisolone Sod Succinate 40 Mg/1 Ml Inj IV 40 mg Q8H [facility] Administration Morphine Sulfate 2 mg 06/03/21 21:46 06/09/21 18:30 Morphine 2 Mg/1 Ml Inj IV 2 mg Q4H PRN Administration Pain, Moderate (4-6) Ondansetron HCl 4 mg 06/03/21 21:46 Ondansetron 4 Mg/2 Ml Inj IV Q8H PRN Nausea And Vomiting Quetiapine Fumarate 25 mg 06/08/21 10:00 06/11/21 09:55 Quetiapine 25 Mg Tab PO 25 mg BID [facility] Administration Sodium Chloride 10 ml 06/03/21 22:00 06/11/21 13:46 Sodium Chloride 0.9% 10 Ml Flush Syringe IV 10 ml BID [facility] Administration Sodium Chloride 10 ml 06/03/21 21:46 Sodium Chloride 0.9% 10 Ml Flush Syringe IV PRN PRN LINE FLUSH
--- NOTE | 2021-06-11 14:18 | Progress Note ---
Assessment and Plan Cultures: SARS CoV2 PCR: Positive as outpatient and here 06/03/2021 blood culture: no growth 06/05/2021 blood culture: no growth 06/06/2021 blood culture: no growth A/P: 73-year-old male with diabetes, hypertension admitted to the hospital with worsening shortness of breath. Patient tested positive for COVID-19 as an outpatient: #Bilateral pneumonia: Secondary to COVID-19. Hypoxic, elevated inflammatory mar kers. Procalcitonin 0.12. #Acute hypoxic respiratory failure: Secondary to above. on NRB/HFNC. #?Endocarditis/NBTE in the setting of COVID-19: Incidental finding of possible small valvular vegetation on mitral valve anterior leaflet. No fever, no leucocytosis. Pre-test probability for endocarditis was low to begin with. Very low suspicion for acute infective endocarditis. Multiple blood cultures negative. Currently not a candidate for CARRILLO due to COVID-19 and hypoxia per cardiology. Hold off on abx. #ANGIE: Renally adjust antibiotics #Leukopenia: Likely related to viral illness, resolved. #Mild hydronephrosis: urology evaluated Recs: -continue steroids per pulm -completed remdesivir -prophylactic anticoagulation based on d-dimer per hospital protocol -consideration for CARRILLO in the future, once hypoxia better -CRP 2.2, D-dimer 526 -guarded prognosis Tiffanie Rene MD, FACP, [facility] O: [phone] F: [phone] Subjective Date of service: 06/11/21 Principal diagnosis: ANGIE Interval history: No fever. Remains on HFNC. Objective - Exam Narrative Exam: Physical Exam (reviewed in chart to minimize risk of transmission) Constitutional: deferred Head, Ears, Nose: deferred Eyes: deferred Neck: deferred Oral: deferred Cardiovascular: deferred Respiratory: deferred GI: deferred Musculoskeletal: deferred Skin: deferred Hem/Lymphatic: deferred Psych: deferred Neurological: deferred - Constitutional Vitals: Vital Signs Temp Pulse Resp BP Pulse Ox 98.8 F 74 24 148/122 83 L 06/11/21 11:59 06/11/21 11:59 06/11/21 11:59 06/11/21 11:59 06/11/21 11:59 Temperature -Last 24 Hours Temperature 98.8 F Temperature 98.2 F Temperature 97.3 F Temperature 98.6 F - Labs CBC & Chem 7: 06/09/21 09:08 06/11/21 09:24 Labs: Abnormal lab results 06/10/21 06/10/21 06/10/21 Range/Units 14:10 16:38 23:19 Sodium 152 H (137-145) mmol/L Potassium (3.6-5.0) mmol/L Chloride 112.9 H (98-107) mmol/L BUN 81 H (9-20) mg/dL Creatinine 2.4 H (0.8-1.3) mg/dL Glucose 321 H (75-100) mg/dL POC Glucose 232 H 277 H (70-105) mg/dL 06/11/21 06/11/21 06/11/21 Range/Units 02:34 04:52 09:24 Sodium 149 H 146 H (137-145) mmol/L Potassium 5.1 H 5.4 H (3.6-5.0) mmol/L Chloride 111.5 H 112.8 H (98-107) mmol/L BUN 78 H 75 H (9-20) mg/dL Creatinine 2.3 H 2.2 H (0.8-1.3) mg/dL Glucose 308 H 267 H (75-100) mg/dL POC Glucose 291 H (70-105) mg/dL 06/11/21 Range/Units 11:58 Sodium (137-145) mmol/L Potassium (3.6-5.0) mmol/L Chloride (98-107) mmol/L BUN (9-20) mg/dL Creatinine (0.8-1.3) mg/dL Glucose (75-100) mg/dL POC Glucose 275 H (70-105) mg/dL
--- NOTE | 2021-06-11 14:40 | Progress Note ---
Assessment and Plan 75 y/o with acute respiratory failure secondary to COVID 19, renal failure (acute vs chronic) 06/11/21: REnal with no mention of diuresis. WIll ask again tomorrow. COntinue TID steroids. 06/10/21: Will ask renal if diuresis is possible given CXR results. Continue supplemental oxygen but may progress to bipap therapy. Will increase steroids to TID. Guarded prognosis. 06/09/21: Steroids, prone if able. Will repeat CXR. ABG is consistent with respiratory alkalosis with hypoxemia, compensated as patient has a metabolic acidosis as well. Most likely low CO2 is a reaction to metabolic acidosis. On bicarb drip. Worsening oxygenation could be from volume. Follow up film 1. Steroids, ordered at q12 dosing, assuming secondary to diabetes and renal function. If using solumedrol, would consider changing to at least q8 2. Prone if able 3. Follow up renal recs, does not appear to be a candidate for diuresis 4. Wean FiO2 for sats > 88% Subjective Date of service: 06/11/21 Principal diagnosis: ANGIE Interval history: Still on HFNC and NRB combo Objective Vital Signs - 12hr 06/11/21 06/11/21 06/11/21 02:45 05:15 09:56 Temperature 98.2 F Pulse Rate 72 70 Respiratory 18 Rate Blood Pressure 112/79 O2 Sat by Pulse 91 88 Oximetry 06/11/21 06/11/21 10:00 11:59 Temperature 98.8 F Pulse Rate 74 Respiratory 24 Rate Blood Pressure 148/122 O2 Sat by Pulse 91 83 L Oximetry CBC and BMP: 06/09/21 09:08 06/12/21 05:31 ABG, PT/INR, D-dimer: ABG ABG pH 7.430 pH Units (7.350-7.450) 06/09/21 10:15 ABG pCO2 28.9 mm Hg 06/09/21 10:15 ABG pO2 57.0 mm Hg (80.0-90.0) L 06/09/21 10:15 ABG O2 Saturation 90.0 % (95.0-99.0) L 06/09/21 10:15 PT/INR, D-dimer D-Dimer 526.33 ng/mlDDU (0-234) H 06/10/21 05:38 Abnormal lab findings: Abnormal Labs 06/03/21 06/03/21 06/03/21 18:37 18:37 18:37 WBC RBC 7.38 H Hgb 17.0 H Hct 54.7 H MCV 74 L MCH 23 L MCHC 31 L RDW 15.9 H Lymph % (Auto) 8.4 L Meade % (Auto) 12.6 H Lymph # (Auto) 0.5 L Meade # (Auto) Seg Neutrophils % 78.7 H Seg Neutrophils # D-Dimer ABG pO2 ABG HCO3 ABG O2 Saturation ABG Base Excess ABG Hemoglobin Oxyhemoglobin Sodium Potassium 5.4 H Chloride Carbon Dioxide 19 L BUN 40 H Creatinine 2.6 H Glucose 179 H POC Glucose Lactic Acid 2.40 H* Calcium Ferritin Direct Bilirubin AST Lactate Dehydrogenase 308 H C-Reactive Protein 6.20 H Total Protein Albumin 3.1 L Urine Creatinine Coronavirus (PCR) 06/03/21 06/03/21 06/04/21 18:37 18:37 00:30 WBC RBC Hgb Hct MCV MCH MCHC RDW Lymph % (Auto) Meade % (Auto) Lymph # (Auto) Meade # (Auto) Seg Neutrophils % Seg Neutrophils # D-Dimer 634.36 H ABG pO2 ABG HCO3 ABG O2 Saturation ABG Base Excess ABG Hemoglobin Oxyhemoglobin Sodium Potassium Chloride Carbon Dioxide BUN Creatinine Glucose POC Glucose 115 H Lactic Acid Calcium Ferritin 823.7 H Direct Bilirubin AST Lactate Dehydrogenase C-Reactive Protein Total Protein Albumin Urine Creatinine Coronavirus (PCR) 06/04/21 06/04/21 06/04/21 05:40 05:40 14:51 WBC 4.3 L RBC 6.82 H Hgb 15.9 H Hct 50.7 H MCV 74 L MCH 23 L MCHC 31 L RDW 16.1 H Lymph % (Auto) Meade % (Auto) 15.6 H Lymph # (Auto) 0.8 L Meade # (Auto) Seg Neutrophils % Seg Neutrophils # D-Dimer ABG pO2 ABG HCO3 ABG O2 Saturation ABG Base Excess ABG Hemoglobin Oxyhemoglobin Sodium Potassium Chloride Carbon Dioxide 21 L 19 L BUN 46 H 49 H Creatinine 2.2 H 2.5 H Glucose 101 H 131 H POC Glucose Lactic Acid Calcium 8.0 L Ferritin Direct Bilirubin AST Lactate Dehydrogenase C-Reactive Protein Total Protein Albumin 3.4 L Urine Creatinine Coronavirus (PCR) 06/04/21 06/04/21 06/05/21 22:06 Unknown 05:54 WBC RBC Hgb Hct MCV MCH MCHC RDW Lymph % (Auto) Meade % (Auto) Lymph # (Auto) Meade # (Auto) Seg Neutrophils % Seg Neutrophils # D-Dimer ABG pO2 ABG HCO3 ABG O2 Saturation ABG Base Excess ABG Hemoglobin Oxyhemoglobin Sodium Potassium Chloride Carbon Dioxide 17 L BUN 61 H Creatinine 2.5 H Glucose 150 H POC Glucose 134 H Lactic Acid Calcium Ferritin Direct Bilirubin AST Lactate Dehydrogenase C-Reactive Protein Total Protein Albumin 3.2 L Urine Creatinine Coronavirus (PCR) Positive A 06/05/21 06/05/21 06/05/21 05:54 08:23 12:30 WBC 3.6 L RBC 7.39 H Hgb 17.2 H Hct 54.9 H MCV 74 L MCH 23 L MCHC 31 L RDW 16.2 H Lymph % (Auto) 11.1 L Meade % (Auto) 15.4 H Lymph # (Auto) 0.4 L Meade # (Auto) Seg Neutrophils % 73.3 H Seg Neutrophils # D-Dimer ABG pO2 ABG HCO3 ABG O2 Saturation ABG Base Excess ABG Hemoglobin Oxyhemoglobin Sodium Potassium Chloride Carbon Dioxide BUN Creatinine Glucose POC Glucose 163 H 146 H Lactic Acid Calcium Ferritin Direct Bilirubin AST Lactate Dehydrogenase C-Reactive Protein Total Protein Albumin Urine Creatinine Coronavirus (PCR) 06/05/21 06/05/21 06/06/21 16:04 20:49 03:30 WBC RBC Hgb Hct MCV MCH MCHC RDW Lymph % (Auto) Meade % (Auto) Lymph # (Auto) Meade # (Auto) Seg Neutrophils % Seg Neutrophils # D-Dimer ABG pO2 ABG HCO3 ABG O2 Saturation ABG Base Excess ABG Hemoglobin Oxyhemoglobin Sodium Potassium Chloride Carbon Dioxide BUN Creatinine Glucose POC Glucose 140 H 208 H Lactic Acid Calcium Ferritin Direct Bilirubin AST Lactate Dehydrogenase C-Reactive Protein Total Protein Albumin Urine Creatinine 117.6 H Coronavirus (PCR) 06/06/21 06/06/21 06/06/21 06:09 06:09 08:16 WBC RBC 7.20 H Hgb 16.9 H Hct 53.7 H MCV 75 L MCH 24 L MCHC RDW 16.3 H Lymph % (Auto) 6.3 L Meade % (Auto) 13.1 H Lymph # (Auto) 0.5 L Meade # (Auto) 1.1 H Seg Neutrophils % 80.3 H Seg Neutrophils # D-Dimer ABG pO2 ABG HCO3 ABG O2 Saturation ABG Base Excess ABG Hemoglobin Oxyhemoglobin Sodium Potassium Chloride Carbon Dioxide 18 L BUN 73 H Creatinine 2.5 H Glucose 152 H POC Glucose 146 H Lactic Acid Calcium Ferritin Direct Bilirubin AST Lactate Dehydrogenase C-Reactive Protein Total Protein Albumin 3.3 L Urine Creatinine Coronavirus (PCR) 06/06/21 06/06/21 06/06/21 12:45 14:13 17:39 WBC RBC Hgb Hct MCV MCH MCHC RDW Lymph % (Auto) Meade % (Auto) Lymph # (Auto) Meade # (Auto) Seg Neutrophils % Seg Neutrophils # D-Dimer ABG pO2 ABG HCO3 19.7 L ABG O2 Saturation ABG Base Excess -4.3 L ABG Hemoglobin Oxyhemoglobin 94.6 L Sodium Potassium Chloride Carbon Dioxide BUN Creatinine Glucose POC Glucose 225 H 154 H Lactic Acid Calcium Ferritin Direct Bilirubin AST Lactate Dehydrogenase C-Reactive Protein Total Protein Albumin Urine Creatinine Coronavirus (PCR) 06/06/21 06/07/21 06/07/21 21:46 06:16 15:54 WBC RBC Hgb Hct MCV MCH MCHC RDW Lymph % (Auto) Meade % (Auto) Lymph # (Auto) Meade # (Auto) Seg Neutrophils % Seg Neutrophils # D-Dimer ABG pO2 ABG HCO3 ABG O2 Saturation ABG Base Excess ABG Hemoglobin Oxyhemoglobin Sodium 149 H Potassium Chloride 114.2 H Carbon Dioxide 21 L BUN 79 H Creatinine 2.6 H Glucose POC Glucose 187 H 195 H Lactic Acid Calcium Ferritin Direct Bilirubin AST Lactate Dehydrogenase C-Reactive Protein Total Protein 5.9 L Albumin 3.3 L Urine Creatinine Coronavirus (PCR) 06/07/21 06/08/21 06/08/21 21:27 07:33 07:42 WBC RBC Hgb Hct MCV MCH MCHC RDW Lymph % (Auto) Meade % (Auto) Lymph # (Auto) Meade # (Auto) Seg Neutrophils % Seg Neutrophils # D-Dimer ABG pO2 ABG HCO3 ABG O2 Saturation ABG Base Excess ABG Hemoglobin Oxyhemoglobin Sodium 154 H Potassium 5.1 H Chloride 117.3 H Carbon Dioxide 17 L BUN 76 H Creatinine 2.5 H Glucose 180 H POC Glucose 190 H 186 H Lactic Acid Calcium Ferritin Direct Bilirubin AST Lactate Dehydrogenase C-Reactive Protein Total Protein Albumin Urine Creatinine Coronavirus (PCR) 06/08/21 06/08/21 06/08/21 10:56 15:42 22:34 WBC RBC Hgb Hct MCV MCH MCHC RDW Lymph % (Auto) Meade % (Auto) Lymph # (Auto) Meade # (Auto) Seg Neutrophils % Seg Neutrophils # D-Dimer ABG pO2 ABG HCO3 ABG O2 Saturation ABG Base Excess ABG Hemoglobin Oxyhemoglobin Sodium Potassium Chloride Carbon Dioxide BUN Creatinine Glucose POC Glucose 206 H 175 H 146 H Lactic Acid Calcium Ferritin Direct Bilirubin AST Lactate Dehydrogenase C-Reactive Protein Total Protein Albumin Urine Creatinine Coronavirus (PCR) 06/09/21 06/09/21 06/09/21 07:39 09:08 09:08 WBC 12.6 H RBC 7.64 H Hgb 18.0 H Hct 56.8 H MCV 74 L MCH 24 L MCHC RDW 16.2 H Lymph % (Auto) 2.9 L Meade % (Auto) 12.8 H Lymph # (Auto) 0.4 L Meade # (Auto) 1.6 H Seg Neutrophils % 84.3 H Seg Neutrophils # 10.6 H D-Dimer ABG pO2 ABG HCO3 ABG O2 Saturation ABG Base Excess ABG Hemoglobin Oxyhemoglobin Sodium 159 H Potassium 5.2 H Chloride 120.0 H Carbon Dioxide 17 L BUN 81 H Creatinine 2.7 H Glucose 161 H POC Glucose 154 H Lactic Acid Calcium Ferritin Direct Bilirubin AST Lactate Dehydrogenase C-Reactive Protein Total Protein Albumin Urine Creatinine Coronavirus (PCR) 06/09/21 06/09/21 06/09/21 09:08 10:15 11:07 WBC RBC Hgb Hct MCV MCH MCHC RDW Lymph % (Auto) Meade % (Auto) Lymph # (Auto) Meade # (Auto) Seg Neutrophils % Seg Neutrophils # D-Dimer ABG pO2 57.0 L ABG HCO3 18.8 L ABG O2 Saturation 90.0 L ABG Base Excess -3.7 L ABG Hemoglobin 18.5 H Oxyhemoglobin 88.6 L Sodium Potassium Chloride Carbon Dioxide BUN Creatinine Glucose POC Glucose 149 H Lactic Acid Calcium Ferritin Direct Bilirubin 0.3 H AST 56 H Lactate Dehydrogenase C-Reactive Protein Total Protein Albumin 3.5 L Urine Creatinine Coronavirus (PCR) 06/09/21 06/09/21 06/09/21 14:08 15:30 23:15 WBC RBC Hgb Hct MCV MCH MCHC RDW Lymph % (Auto) Meade % (Auto) Lymph # (Auto) Meade # (Auto) Seg Neutrophils % Seg Neutrophils # D-Dimer ABG pO2 ABG HCO3 ABG O2 Saturation ABG Base Excess ABG Hemoglobin Oxyhemoglobin Sodium 157 H Potassium 5.2 H Chloride 117.4 H Carbon Dioxide 18 L BUN 86 H Creatinine 2.9 H Glucose 228 H POC Glucose 237 H 221 H Lactic Acid Calcium Ferritin Direct Bilirubin AST Lactate Dehydrogenase C-Reactive Protein Total Protein Albumin Urine Creatinine Coronavirus (PCR) 06/09/21 06/10/21 06/10/21 23:45 05:38 05:38 WBC RBC Hgb Hct MCV MCH MCHC RDW Lymph % (Auto) Meade % (Auto) Lymph # (Auto) Meade # (Auto) Seg Neutrophils % Seg Neutrophils # D-Dimer 526.33 H ABG pO2 ABG HCO3 ABG O2 Saturation ABG Base Excess ABG Hemoglobin Oxyhemoglobin Sodium 153 H 153 H Potassium 5.3 H Chloride 117.1 H 112.6 H Carbon Dioxide 21 L BUN 86 H 82 H Creatinine 2.6 H 2.5 H Glucose 239 H 297 H POC Glucose Lactic Acid Calcium Ferritin Direct Bilirubin AST Lactate Dehydrogenase C-Reactive Protein 2.20 H Total Protein Albumin Urine Creatinine Coronavirus (PCR) 06/10/21 06/10/21 06/10/21 08:09 12:08 14:10 WBC RBC Hgb Hct MCV MCH MCHC RDW Lymph % (Auto) Meade % (Auto) Lymph # (Auto) Meade # (Auto) Seg Neutrophils % Seg Neutrophils # D-Dimer ABG pO2 ABG HCO3 ABG O2 Saturation ABG Base Excess ABG Hemoglobin Oxyhemoglobin Sodium 152 H Potassium Chloride 112.9 H Carbon Dioxide BUN 81 H Creatinine 2.4 H Glucose 321 H POC Glucose 256 H 245 H Lactic Acid Calcium Ferritin Direct Bilirubin AST Lactate Dehydrogenase C-Reactive Protein Total Protein Albumin Urine Creatinine Coronavirus (PCR) 06/10/21 06/10/21 06/11/21 16:38 23:19 02:34 WBC RBC Hgb Hct MCV MCH MCHC RDW Lymph % (Auto) Meade % (Auto) Lymph # (Auto) Meade # (Auto) Seg Neutrophils % Seg Neutrophils # D-Dimer ABG pO2 ABG HCO3 ABG O2 Saturation ABG Base Excess ABG Hemoglobin Oxyhemoglobin Sodium 149 H Potassium 5.1 H Chloride 111.5 H Carbon Dioxide BUN 78 H Creatinine 2.3 H Glucose 308 H POC Glucose 232 H 277 H Lactic Acid Calcium Ferritin Direct Bilirubin AST Lactate Dehydrogenase C-Reactive Protein Total Protein Albumin Urine Creatinine Coronavirus (PCR) 06/11/21 06/11/21 06/11/21 04:52 09:24 11:58 WBC RBC Hgb Hct MCV MCH MCHC RDW Lymph % (Auto) Meade % (Auto) Lymph # (Auto) Meade # (Auto) Seg Neutrophils % Seg Neutrophils # D-Dimer ABG pO2 ABG HCO3 ABG O2 Saturation ABG Base Excess ABG Hemoglobin Oxyhemoglobin Sodium 146 H Potassium 5.4 H Chloride 112.8 H Carbon Dioxide BUN 75 H Creatinine 2.2 H Glucose 267 H POC Glucose 291 H 275 H Lactic Acid Calcium Ferritin Direct Bilirubin AST Lactate Dehydrogenase C-Reactive Protein Total Protein Albumin Urine Creatinine Coronavirus (PCR)
[2021-06-11 14:42] LABS: Calcium 9.6 mg/dL (8.4-10.2)
[2021-06-12 00:35] LABS: Calcium 9.5 mg/dL (8.4-10.2)
[2021-06-12] MEDS: methylPREDNISolone Sod Succinate 40 MG/1 ML INJ IV SCH ×4 (02:46→22:07)
[2021-06-12] MEDS: HEPARIN 5,000 UNIT/1 ML VIAL SUB-Q SCH ×3 (05:29→22:06)
[2021-06-12] MEDS: INSULIN LISPRO 100 UNIT/ML SUB-Q SCH ×2 (05:29→22:01)
[2021-06-12 07:57] LABS: Calcium 9.7 mg/dL (8.4-10.2)
[2021-06-12] MEDS: BICITRA ORAL LIQD 30ML PO SCH ×3 (11:21→22:06)
[2021-06-12] MEDS: FAMOTIDINE 20 MG TAB PO SCH (11:21)
--- NOTE | 2021-06-12 13:36 | Progress Note ---
Assessment and Plan 75 y/o with acute respiratory failure secondary to COVID 19, renal failure (acute vs chronic) 06/12/21: Prone if possible. Wean FiO2 for sats >88%. Awaiting CT abdomen Pelvis. Will ask renal about diuresis again after imaging and final urology recs. 06/11/21: REnal with no mention of diuresis. WIll ask again tomorrow. COntinue TID steroids. 06/10/21: Will ask renal if diuresis is possible given CXR results. Continue supplemental oxygen but may progress to bipap therapy. Will increase steroids to TID. Guarded prognosis. 06/09/21: Steroids, prone if able. Will repeat CXR. ABG is consistent with respiratory alkalosis with hypoxemia, compensated as patient has a metabolic acidosis as well. Most likely low CO2 is a reaction to metabolic acidosis. On bicarb drip. Worsening oxygenation could be from volume. Follow up film 1. Steroids, ordered at q12 dosing, assuming secondary to diabetes and renal function. If using solumedrol, would consider changing to at least q8 2. Prone if able 3. Follow up renal recs, does not appear to be a candidate for diuresis 4. Wean FiO2 for sats > 88% Subjective Date of service: 06/12/21 Principal diagnosis: ANGIE Interval history: No acute events. Same combo of oxygen therapy. Renal made no mention of diuresis. Objective Vital Signs - 12hr 06/12/21 06/12/21 06/12/21 02:20 03:46 03:47 Temperature Pulse Rate 81 73 Respiratory Rate Blood Pressure Blood Pressure [Left] O2 Sat by Pulse 91 89 92 Oximetry 06/12/21 06/12/21 06/12/21 04:00 10:30 10:56 Temperature 97.7 F 97.9 F Pulse Rate Respiratory 24 24 Rate Blood Pressure 119/87 Blood Pressure 155/84 [Left] O2 Sat by Pulse 92 90 Oximetry 06/12/21 11:01 Temperature 97.9 F Pulse Rate 59 L Respiratory 24 Rate Blood Pressure Blood Pressure 119/87 [Left] O2 Sat by Pulse 90 Oximetry CBC and BMP: 06/09/21 09:08 06/12/21 05:31 ABG, PT/INR, D-dimer: ABG ABG pH 7.430 pH Units (7.350-7.450) 06/09/21 10:15 ABG pCO2 28.9 mm Hg 06/09/21 10:15 ABG pO2 57.0 mm Hg (80.0-90.0) L 06/09/21 10:15 ABG O2 Saturation 90.0 % (95.0-99.0) L 06/09/21 10:15 PT/INR, D-dimer D-Dimer 526.33 ng/mlDDU (0-234) H 06/10/21 05:38 Abnormal lab findings: Abnormal Labs 06/03/21 06/03/21 06/03/21 18:37 18:37 18:37 WBC RBC 7.38 H Hgb 17.0 H Hct 54.7 H MCV 74 L MCH 23 L MCHC 31 L RDW 15.9 H Lymph % (Auto) 8.4 L [place] % (Auto) 12.6 H Lymph # (Auto) 0.5 L [place] # (Auto) Seg Neutrophils % 78.7 H Seg Neutrophils # D-Dimer ABG pO2 ABG HCO3 ABG O2 Saturation ABG Base Excess ABG Hemoglobin Oxyhemoglobin Sodium Potassium 5.4 H Chloride Carbon Dioxide 19 L BUN 40 H Creatinine 2.6 H Glucose 179 H POC Glucose Lactic Acid 2.40 H* Calcium Ferritin Direct Bilirubin AST Lactate Dehydrogenase 308 H C-Reactive Protein 6.20 H Total Protein Albumin 3.1 L Urine Creatinine Coronavirus (PCR) 06/03/21 06/03/21 06/04/21 18:37 18:37 00:30 WBC RBC Hgb Hct MCV MCH MCHC RDW Lymph % (Auto) [place] % (Auto) Lymph # (Auto) [place] # (Auto) Seg Neutrophils % Seg Neutrophils # D-Dimer 634.36 H ABG pO2 ABG HCO3 ABG O2 Saturation ABG Base Excess ABG Hemoglobin Oxyhemoglobin Sodium Potassium Chloride Carbon Dioxide BUN Creatinine Glucose POC Glucose 115 H Lactic Acid Calcium Ferritin 823.7 H Direct Bilirubin AST Lactate Dehydrogenase C-Reactive Protein Total Protein Albumin Urine Creatinine Coronavirus (PCR) 06/04/21 06/04/21 06/04/21 05:40 05:40 14:51 WBC 4.3 L RBC 6.82 H Hgb 15.9 H Hct 50.7 H MCV 74 L MCH 23 L MCHC 31 L RDW 16.1 H Lymph % (Auto) [place] % (Auto) 15.6 H Lymph # (Auto) 0.8 L [place] # (Auto) Seg Neutrophils % Seg Neutrophils # D-Dimer ABG pO2 ABG HCO3 ABG O2 Saturation ABG Base Excess ABG Hemoglobin Oxyhemoglobin Sodium Potassium Chloride Carbon Dioxide 21 L 19 L BUN 46 H 49 H Creatinine 2.2 H 2.5 H Glucose 101 H 131 H POC Glucose Lactic Acid Calcium 8.0 L Ferritin Direct Bilirubin AST Lactate Dehydrogenase C-Reactive Protein Total Protein Albumin 3.4 L Urine Creatinine Coronavirus (PCR) 06/04/21 06/04/21 06/05/21 22:06 Unknown 05:54 WBC RBC Hgb Hct MCV MCH MCHC RDW Lymph % (Auto) [place] % (Auto) Lymph # (Auto) [place] # (Auto) Seg Neutrophils % Seg Neutrophils # D-Dimer ABG pO2 ABG HCO3 ABG O2 Saturation ABG Base Excess ABG Hemoglobin Oxyhemoglobin Sodium Potassium Chloride Carbon Dioxide 17 L BUN 61 H Creatinine 2.5 H Glucose 150 H POC Glucose 134 H Lactic Acid Calcium Ferritin Direct Bilirubin AST Lactate Dehydrogenase C-Reactive Protein Total Protein Albumin 3.2 L Urine Creatinine Coronavirus (PCR) Positive A 06/05/21 06/05/21 06/05/21 05:54 08:23 12:30 WBC 3.6 L RBC 7.39 H Hgb 17.2 H Hct 54.9 H MCV 74 L MCH 23 L MCHC 31 L RDW 16.2 H Lymph % (Auto) 11.1 L [place] % (Auto) 15.4 H Lymph # (Auto) 0.4 L [place] # (Auto) Seg Neutrophils % 73.3 H Seg Neutrophils # D-Dimer ABG pO2 ABG HCO3 ABG O2 Saturation ABG Base Excess ABG Hemoglobin Oxyhemoglobin Sodium Potassium Chloride Carbon Dioxide BUN Creatinine Glucose POC Glucose 163 H 146 H Lactic Acid Calcium Ferritin Direct Bilirubin AST Lactate Dehydrogenase C-Reactive Protein Total Protein Albumin Urine Creatinine Coronavirus (PCR) 06/05/21 06/05/21 06/06/21 16:04 20:49 03:30 WBC RBC Hgb Hct MCV MCH MCHC RDW Lymph % (Auto) [place] % (Auto) Lymph # (Auto) [place] # (Auto) Seg Neutrophils % Seg Neutrophils # D-Dimer ABG pO2 ABG HCO3 ABG O2 Saturation ABG Base Excess ABG Hemoglobin Oxyhemoglobin Sodium Potassium Chloride Carbon Dioxide BUN Creatinine Glucose POC Glucose 140 H 208 H Lactic Acid Calcium Ferritin Direct Bilirubin AST Lactate Dehydrogenase C-Reactive Protein Total Protein Albumin Urine Creatinine 117.6 H Coronavirus (PCR) 06/06/21 06/06/21 06/06/21 06:09 06:09 08:16 WBC RBC 7.20 H Hgb 16.9 H Hct 53.7 H MCV 75 L MCH 24 L MCHC RDW 16.3 H Lymph % (Auto) 6.3 L [place] % (Auto) 13.1 H Lymph # (Auto) 0.5 L [place] # (Auto) 1.1 H Seg Neutrophils % 80.3 H Seg Neutrophils # D-Dimer ABG pO2 ABG HCO3 ABG O2 Saturation ABG Base Excess ABG Hemoglobin Oxyhemoglobin Sodium Potassium Chloride Carbon Dioxide 18 L BUN 73 H Creatinine 2.5 H Glucose 152 H POC Glucose 146 H Lactic Acid Calcium Ferritin Direct Bilirubin AST Lactate Dehydrogenase C-Reactive Protein Total Protein Albumin 3.3 L Urine Creatinine Coronavirus (PCR) 06/06/21 06/06/21 06/06/21 12:45 14:13 17:39 WBC RBC Hgb Hct MCV MCH MCHC RDW Lymph % (Auto) [place] % (Auto) Lymph # (Auto) [place] # (Auto) Seg Neutrophils % Seg Neutrophils # D-Dimer ABG pO2 ABG HCO3 19.7 L ABG O2 Saturation ABG Base Excess -4.3 L ABG Hemoglobin Oxyhemoglobin 94.6 L Sodium Potassium Chloride Carbon Dioxide BUN Creatinine Glucose POC Glucose 225 H 154 H Lactic Acid Calcium Ferritin Direct Bilirubin AST Lactate Dehydrogenase C-Reactive Protein Total Protein Albumin Urine Creatinine Coronavirus (PCR) 06/06/21 06/07/21 06/07/21 21:46 06:16 15:54 WBC RBC Hgb Hct MCV MCH MCHC RDW Lymph % (Auto) [place] % (Auto) Lymph # (Auto) [place] # (Auto) Seg Neutrophils % Seg Neutrophils # D-Dimer ABG pO2 ABG HCO3 ABG O2 Saturation ABG Base Excess ABG Hemoglobin Oxyhemoglobin Sodium 149 H Potassium Chloride 114.2 H Carbon Dioxide 21 L BUN 79 H Creatinine 2.6 H Glucose POC Glucose 187 H 195 H Lactic Acid Calcium Ferritin Direct Bilirubin AST Lactate Dehydrogenase C-Reactive Protein Total Protein 5.9 L Albumin 3.3 L Urine Creatinine Coronavirus (PCR) 06/07/21 06/08/21 06/08/21 21:27 07:33 07:42 WBC RBC Hgb Hct MCV MCH MCHC RDW Lymph % (Auto) [place] % (Auto) Lymph # (Auto) [place] # (Auto) Seg Neutrophils % Seg Neutrophils # D-Dimer ABG pO2 ABG HCO3 ABG O2 Saturation ABG Base Excess ABG Hemoglobin Oxyhemoglobin Sodium 154 H Potassium 5.1 H Chloride 117.3 H Carbon Dioxide 17 L BUN 76 H Creatinine 2.5 H Glucose 180 H POC Glucose 190 H 186 H Lactic Acid Calcium Ferritin Direct Bilirubin AST Lactate Dehydrogenase C-Reactive Protein Total Protein Albumin Urine Creatinine Coronavirus (PCR) 06/08/21 06/08/21 06/08/21 10:56 15:42 22:34 WBC RBC Hgb Hct MCV MCH MCHC RDW Lymph % (Auto) [place] % (Auto) Lymph # (Auto) [place] # (Auto) Seg Neutrophils % Seg Neutrophils # D-Dimer ABG pO2 ABG HCO3 ABG O2 Saturation ABG Base Excess ABG Hemoglobin Oxyhemoglobin Sodium Potassium Chloride Carbon Dioxide BUN Creatinine Glucose POC Glucose 206 H 175 H 146 H Lactic Acid Calcium Ferritin Direct Bilirubin AST Lactate Dehydrogenase C-Reactive Protein Total Protein Albumin Urine Creatinine Coronavirus (PCR) 06/09/21 06/09/21 06/09/21 07:39 09:08 09:08 WBC 12.6 H RBC 7.64 H Hgb 18.0 H Hct 56.8 H MCV 74 L MCH 24 L MCHC RDW 16.2 H Lymph % (Auto) 2.9 L [place] % (Auto) 12.8 H Lymph # (Auto) 0.4 L [place] # (Auto) 1.6 H Seg Neutrophils % 84.3 H Seg Neutrophils # 10.6 H D-Dimer ABG pO2 ABG HCO3 ABG O2 Saturation ABG Base Excess ABG Hemoglobin Oxyhemoglobin Sodium 159 H Potassium 5.2 H Chloride 120.0 H Carbon Dioxide 17 L BUN 81 H Creatinine 2.7 H Glucose 161 H POC Glucose 154 H Lactic Acid Calcium Ferritin Direct Bilirubin AST Lactate Dehydrogenase C-Reactive Protein Total Protein Albumin Urine Creatinine Coronavirus (PCR) 06/09/21 06/09/21 06/09/21 09:08 10:15 11:07 WBC RBC Hgb Hct MCV MCH MCHC RDW Lymph % (Auto) [place] % (Auto) Lymph # (Auto) [place] # (Auto) Seg Neutrophils % Seg Neutrophils # D-Dimer ABG pO2 57.0 L ABG HCO3 18.8 L ABG O2 Saturation 90.0 L ABG Base Excess -3.7 L ABG Hemoglobin 18.5 H Oxyhemoglobin 88.6 L Sodium Potassium Chloride Carbon Dioxide BUN Creatinine Glucose POC Glucose 149 H Lactic Acid Calcium Ferritin Direct Bilirubin 0.3 H AST 56 H Lactate Dehydrogenase C-Reactive Protein Total Protein Albumin 3.5 L Urine Creatinine Coronavirus (PCR) 06/09/21 06/09/21 06/09/21 14:08 15:30 23:15 WBC RBC Hgb Hct MCV MCH MCHC RDW Lymph % (Auto) [place] % (Auto) Lymph # (Auto) [place] # (Auto) Seg Neutrophils % Seg Neutrophils # D-Dimer ABG pO2 ABG HCO3 ABG O2 Saturation ABG Base Excess ABG Hemoglobin Oxyhemoglobin Sodium 157 H Potassium 5.2 H Chloride 117.4 H Carbon Dioxide 18 L BUN 86 H Creatinine 2.9 H Glucose 228 H POC Glucose 237 H 221 H Lactic Acid Calcium Ferritin Direct Bilirubin AST Lactate Dehydrogenase C-Reactive Protein Total Protein Albumin Urine Creatinine Coronavirus (PCR) 06/09/21 06/10/21 06/10/21 23:45 05:38 05:38 WBC RBC Hgb Hct MCV MCH MCHC RDW Lymph % (Auto) [place] % (Auto) Lymph # (Auto) [place] # (Auto) Seg Neutrophils % Seg Neutrophils # D-Dimer 526.33 H ABG pO2 ABG HCO3 ABG O2 Saturation ABG Base Excess ABG Hemoglobin Oxyhemoglobin Sodium 153 H 153 H Potassium 5.3 H Chloride 117.1 H 112.6 H Carbon Dioxide 21 L BUN 86 H 82 H Creatinine 2.6 H 2.5 H Glucose 239 H 297 H POC Glucose Lactic Acid Calcium Ferritin Direct Bilirubin AST Lactate Dehydrogenase C-Reactive Protein 2.20 H Total Protein Albumin Urine Creatinine Coronavirus (PCR) 06/10/21 06/10/21 06/10/21 08:09 12:08 14:10 WBC RBC Hgb Hct MCV MCH MCHC RDW Lymph % (Auto) [place] % (Auto) Lymph # (Auto) [place] # (Auto) Seg Neutrophils % Seg Neutrophils # D-Dimer ABG pO2 ABG HCO3 ABG O2 Saturation ABG Base Excess ABG Hemoglobin Oxyhemoglobin Sodium 152 H Potassium Chloride 112.9 H Carbon Dioxide BUN 81 H Creatinine 2.4 H Glucose 321 H POC Glucose 256 H 245 H Lactic Acid Calcium Ferritin Direct Bilirubin AST Lactate Dehydrogenase C-Reactive Protein Total Protein Albumin Urine Creatinine Coronavirus (PCR) 06/10/21 06/10/21 06/11/21 16:38 23:19 02:34 WBC RBC Hgb Hct MCV MCH MCHC RDW Lymph % (Auto) [place] % (Auto) Lymph # (Auto) [place] # (Auto) Seg Neutrophils % Seg Neutrophils # D-Dimer ABG pO2 ABG HCO3 ABG O2 Saturation ABG Base Excess ABG Hemoglobin Oxyhemoglobin Sodium 149 H Potassium 5.1 H Chloride 111.5 H Carbon Dioxide BUN 78 H Creatinine 2.3 H Glucose 308 H POC Glucose 232 H 277 H Lactic Acid Calcium Ferritin Direct Bilirubin AST Lactate Dehydrogenase C-Reactive Protein Total Protein Albumin Urine Creatinine Coronavirus (PCR) 06/11/21 06/11/21 06/11/21 04:52 09:24 11:58 WBC RBC Hgb Hct MCV MCH MCHC RDW Lymph % (Auto) [place] % (Auto) Lymph # (Auto) [place] # (Auto) Seg Neutrophils % Seg Neutrophils # D-Dimer ABG pO2 ABG HCO3 ABG O2 Saturation ABG Base Excess ABG Hemoglobin Oxyhemoglobin Sodium 146 H Potassium 5.4 H Chloride 112.8 H Carbon Dioxide BUN 75 H Creatinine 2.2 H Glucose 267 H POC Glucose 291 H 275 H Lactic Acid Calcium Ferritin Direct Bilirubin AST Lactate Dehydrogenase C-Reactive Protein Total Protein Albumin Urine Creatinine Coronavirus (PCR) 06/11/21 06/11/21 06/11/21 14:02 18:50 22:33 WBC RBC Hgb Hct MCV MCH MCHC RDW Lymph % (Auto) [place] % (Auto) Lymph # (Auto) [place] # (Auto) Seg Neutrophils % Seg Neutrophils # D-Dimer ABG pO2 ABG HCO3 ABG O2 Saturation ABG Base Excess ABG Hemoglobin Oxyhemoglobin Sodium 146 H Potassium Chloride 109.6 H Carbon Dioxide BUN 78 H Creatinine 2.2 H Glucose 377 H POC Glucose 171 H 213 H Lactic Acid Calcium Ferritin Direct Bilirubin AST Lactate Dehydrogenase C-Reactive Protein Total Protein Albumin Urine Creatinine Coronavirus (PCR) 06/11/21 06/12/21 06/12/21 23:37 05:23 05:31 WBC RBC Hgb Hct MCV MCH MCHC RDW Lymph % (Auto) [place] % (Auto) Lymph # (Auto) [place] # (Auto) Seg Neutrophils % Seg Neutrophils # D-Dimer ABG pO2 ABG HCO3 ABG O2 Saturation ABG Base Excess ABG Hemoglobin Oxyhemoglobin Sodium 146 H Potassium 5.1 H Chloride 110.8 H 108.2 H Carbon Dioxide 20 L BUN 73 H 69 H Creatinine 1.9 H 1.9 H Glucose 324 H 270 H POC Glucose 225 H Lactic Acid Calcium Ferritin Direct Bilirubin AST Lactate Dehydrogenase C-Reactive Protein Total Protein Albumin Urine Creatinine Coronavirus (PCR) 06/12/21 11:05 WBC RBC Hgb Hct MCV MCH MCHC RDW Lymph % (Auto) [place] % (Auto) Lymph # (Auto) [place] # (Auto) Seg Neutrophils % Seg Neutrophils # D-Dimer ABG pO2 ABG HCO3 ABG O2 Saturation ABG Base Excess ABG Hemoglobin Oxyhemoglobin Sodium Potassium Chloride Carbon Dioxide BUN Creatinine Glucose POC Glucose 237 H Lactic Acid Calcium Ferritin Direct Bilirubin AST Lactate Dehydrogenase C-Reactive Protein Total Protein Albumin Urine Creatinine Coronavirus (PCR)
--- NOTE | 2021-06-12 15:28 | Progress Note ---
Assessment and Plan Cultures: SARS CoV2 PCR: Positive as outpatient and here 06/03/2021 blood culture: no growth 06/05/2021 blood culture: no growth 06/06/2021 blood culture: no growth A/P: 73-year-old male with diabetes, hypertension admitted to the hospital with worsening shortness of breath. Patient tested positive for COVID-19 as an outpatient: #Bilateral pneumonia: Secondary to COVID-19. Hypoxic, elevated inflammatory mar kers. Procalcitonin 0.12. #Acute hypoxic respiratory failure: Secondary to above. on NRB/HFNC. #?Endocarditis/NBTE in the setting of COVID-19: Incidental finding of possible small valvular vegetation on mitral valve anterior leaflet. No fever, no leucocytosis. Pre-test probability for endocarditis was low to begin with. Very low suspicion for acute infective endocarditis. Multiple blood cultures negative. Currently not a candidate for CARRILLO due to COVID-19 and hypoxia per cardiology. Hold off on abx. #ANGIE: Renally adjust antibiotics #Leukopenia: Likely related to viral illness, resolved. #Mild hydronephrosis: urology evaluated Recs: -continue steroids per pulm -completed remdesivir -prophylactic anticoagulation based on d-dimer per hospital protocol -consideration for CARRILLO in the future, once hypoxia better -CRP 2.2, D-dimer 526 -guarded prognosis Tiffanie Rene MD, FACP, [facility] O: [phone] F: [phone] Subjective Date of service: 06/12/21 Principal diagnosis: ANGIE Interval history: No fever. Remains on HFNC. Objective - Exam Narrative Exam: Physical Exam (reviewed in chart to minimize risk of transmission) Constitutional: deferred Head, Ears, Nose: deferred Eyes: deferred Neck: deferred Oral: deferred Cardiovascular: deferred Respiratory: deferred GI: deferred Musculoskeletal: deferred Skin: deferred Hem/Lymphatic: deferred Psych: deferred Neurological: deferred - Constitutional Vitals: Vital Signs Temp Pulse Resp BP Pulse Ox 97.9 F 59 L 24 119/87 90 06/12/21 11:01 06/12/21 11:01 06/12/21 11:01 06/12/21 11:01 06/12/21 11:01 Temperature -Last 24 Hours Temperature 97.9 F Temperature 97.9 F Temperature 97.7 F Temperature 99.5 F - Labs CBC & Chem 7: 06/09/21 09:08 06/12/21 05:31 Labs: Abnormal lab results 06/11/21 06/11/21 06/11/21 Range/Units 18:50 22:33 23:37 Sodium (137-145) mmol/L Potassium 5.1 H (3.6-5.0) mmol/L Chloride 110.8 H (98-107) mmol/L Carbon Dioxide 20 L (22-30) mmol/L BUN 73 H (9-20) mg/dL Creatinine 1.9 H (0.8-1.3) mg/dL Glucose 324 H (75-100) mg/dL POC Glucose 171 H 213 H (70-105) mg/dL 06/12/21 06/12/21 06/12/21 Range/Units 05:23 05:31 11:05 Sodium 146 H (137-145) mmol/L Potassium (3.6-5.0) mmol/L Chloride 108.2 H (98-107) mmol/L Carbon Dioxide (22-30) mmol/L BUN 69 H (9-20) mg/dL Creatinine 1.9 H (0.8-1.3) mg/dL Glucose 270 H (75-100) mg/dL POC Glucose 225 H 237 H (70-105) mg/dL
[2021-06-12] MEDS: QUEtiapine 25 MG TAB PO SCH ×2 (15:59→22:06)
[2021-06-12] MEDS: atenoloL 50 MG TAB PO SCH (16:00)
--- NOTE | 2021-06-12 16:10 | Progress Note ---
Assessment and Plan Acute Kidney injury, Possible CKD: Covid 19 Pneumonia: Acute Hypoxic respiratory failure: Hyperkalemia: Metabolic acidosis: DM2: HTN: -stable kidney function -cont sodium bicarb to bicitra 30 CC TID -Hypernatremia is resolving -Renal US-noted mild L hydro, urology consult was requested. -Renally dose all meds -Avoid Nephrotoxic meds -Strict I/Os Subjective Date of service: 06/12/21 Principal diagnosis: ANGIE Interval history: remains to require HFNC Objective - Vital Signs Vital signs: Vital Signs - 12hr 06/12/21 06/12/21 06/12/21 10:30 10:56 11:01 Temperature 97.9 F 97.9 F Pulse Rate 59 L Respiratory 24 24 Rate Blood Pressure 119/87 Blood Pressure 119/87 [Left] O2 Sat by Pulse 90 90 Oximetry 06/12/21 06/12/21 15:46 15:48 Temperature 99 F Pulse Rate 75 74 Respiratory 24 Rate Blood Pressure Blood Pressure 132/87 [Left] O2 Sat by Pulse 88 90 Oximetry - Lab 06/09/21 09:08 06/12/21 05:31 Most recent lab results ABG pH 7.430 pH Units (7.350-7.450) 06/09/21 10:15 ABG pCO2 28.9 mm Hg 06/09/21 10:15 ABG pO2 57.0 mm Hg (80.0-90.0) L 06/09/21 10:15 ABG HCO3 18.8 mmol/L (20.0-26.0) L 06/09/21 10:15 ABG O2 Saturation 90.0 % (95.0-99.0) L 06/09/21 10:15 Calcium 9.7 mg/dL (8.4-10.2) 06/12/21 05:31 Urine Creatinine 117.6 mg/dL (0.1-20.0) H 06/06/21 03:30 Urine Sodium 41 mmol/L 06/06/21 03:30 Medications & Allergies - Medications Allergies/Adverse Reactions: Allergies shellfish derived Adverse Reaction (Verified 06/03/21 18:34) Hives Home Medications: Home Medications Medication Instructions Recorded Confirmed Last Taken Type atenoloL [Tenormin] 50 mg PO DAILY 06/03/21 06/03/21 Unknown History metFORMIN [Glucophage] 500 mg PO DAILY 06/03/21 06/03/21 Unknown History Active Medications: Generic Name Dose Route Start Last Admin Trade Name Freq PRN Reason Stop Dose Admin Acetaminophen 650 mg 06/03/21 21:46 Acetaminophen 325 Mg Tab PO Q4H PRN Pain MILD(1-3)/Fever >100.5/LISA Albuterol 2 puff 06/06/21 07:53 06/06/21 17:20 Albuterol 8.5 Gm Mdi Inhalation IH 2 puff Q6HRT PRN Administration Shortness Of Breath Atenolol 50 mg 06/04/21 10:00 06/12/21 16:00 Atenolol 50 Mg Tab PO 50 mg DAILY COOPER Administration Citric Acid/Sodium Citrate 30 ml 06/08/21 14:00 06/12/21 11:21 Bicitra Oral Liqd 30ml PO 30 ml TID COOPER Administration Dextrose 0 ml 06/03/21 21:46 Dextrose 50% In Water (25gm) 50 Ml Syringe IV Q30MIN PRN Hypoglycemia Protocol Famotidine 20 mg 06/03/21 22:00 06/12/21 11:21 Famotidine 20 Mg Tab PO 20 mg QAM COOPER Administration Haloperidol Lactate 5 mg 06/08/21 14:00 06/09/21 21:55 Haloperidol Lactate 5 Mg/1 Ml Inj IM 5 mg Q6H PRN Administration Agitation Heparin Sodium (Porcine) 5,000 unit 06/03/21 22:00 06/12/21 05:29 Heparin 5,000 Unit/1 Ml Vial SUB-Q 5,000 unit Q8HR COOPER Administration Hydralazine HCl 10 mg 06/03/21 21:50 Hydralazine 20 Mg/1 Ml Inj IV Q6H PRN Blood Pressure Hydromorphone HCl 0.5 mg 06/03/21 21:46 06/11/21 00:42 Hydromorphone 1 Mg/1 Ml Inj IV 0.5 mg Q3H PRN Administration Pain , Severe (7-10) Dextrose 1,000 mls @ 150 mls/hr 06/10/21 10:00 06/11/21 23:26 D5w IV 150 mls/hr DIRECT COOPER Administration Insulin Human Lispro 0 unit 06/09/21 18:00 06/12/21 05:29 Insulin Lispro 100 Unit/Ml SUB-Q 3 unit Q6HR COOPER Administration Protocol Methylprednisolone Sodium Succinate 40 mg 06/10/21 18:30 06/12/21 15:59 Methylprednisolone Sod Succinate 40 Mg/1 Ml Inj IV 40 mg Q8H COOPER Administration Morphine Sulfate 2 mg 06/03/21 21:46 06/09/21 18:30 Morphine 2 Mg/1 Ml Inj IV 2 mg Q4H PRN Administration Pain, Moderate (4-6) Ondansetron HCl 4 mg 06/03/21 21:46 Ondansetron 4 Mg/2 Ml Inj IV Q8H PRN Nausea And Vomiting Quetiapine Fumarate 25 mg 06/08/21 10:00 06/12/21 15:59 Quetiapine 25 Mg Tab PO 25 mg BID COOPER Administration Sodium Chloride 10 ml 06/03/21 22:00 06/11/21 22:45 Sodium Chloride 0.9% 10 Ml Flush Syringe IV 10 ml BID COOPER Administration Sodium Chloride 10 ml 06/03/21 21:46 Sodium Chloride 0.9% 10 Ml Flush Syringe IV PRN PRN LINE FLUSH
--- NOTE | 2021-06-12 17:14 | Progress Note ---
Assessment and Plan Assessment and plan: #Acute hypoxic respiratory failure #COVID-19 pneumonia -PCR +06/04 -Currently on high flow nasal cannula 40/100% FiO2 + nonrebreather -s/p remdesivir -Continue steroids -Infectious Disease and Pulmonology following, assistance appreciated #ANGIE on CKD-improved -Creatinine 1.9 today -Renal ultrasound shows medical renal disease and mild left hydronephrosis with 7mm stone in mid left kidney -Urology consulted for hydronephrosis; CT of pelvis ordered -Renally dose medications and avoid nephrotoxic agents #Hypernatremia #Hyperkalemia -D5W infusion -will continue to monitor #Acute metabolic encephalopathy -improved, likely secondary to COVID-pneumonia -CT head not performed due to agitation -Continue Seroquel, delirium precautions #Noninsulin-dependent type 2 diabetes -Continue sliding scale insulin, will monitor for need to add basal insulin #Mitral valve vegetation -Seen on echocardiogram, less than 1 cm -CARRILLO held due to patient's respiratory status at this time -Blood cultures 06/03, 06/05, 06/06 no growth to date x5 days -Patient afebrile, currently low clinical suspicion for endocarditis #Hyperviscosity -Patient with elevated hemoglobin hematocrit -will monitor at this time Disposition Plan: Continue medical management History Interval history: Patient sleeping. Denies chest pain and discomfort. No complaints at this time. Hospitalist Physical - Physical exam Narrative exam: GENERAL: Well-developed well-nourished. Lying in bed, in no acute distress. HEENT: High flow nasal cannula in place with nonrebreather CHEST/LUNGS: Coarse breath sounds bilaterally. HEART/CARDIOVASCULAR: RRR. No murmur, rubs or gallops appreciated. ABDOMEN: +BS. NT/ND. NEURO: No focal motor deficit. MUSCULOSKELETAL: No joint effusion EXTREMITIES: No cyanosis, clubbing or edema. PSYCH: Alert to person. - Constitutional Vitals: Temp Pulse Resp BP Pulse Ox 99 F 74 24 132/87 90 06/12/21 15:48 06/12/21 15:48 06/12/21 15:48 06/12/21 15:48 06/12/21 15:48 General appearance: Present: mild distress, well-nourished, other (Encephalopathic and confused) Results - Labs CBC & Chem 7: 06/09/21 09:08 06/12/21 05:31 Labs: Laboratory Last Values WBC 12.6 K/mm3 (4.5-11.0) H 06/09/21 09:08 RBC 7.64 M/mm3 (3.65-5.03) H 06/09/21 09:08 Hgb 18.0 gm/dl (11.8-15.2) H 06/09/21 09:08 Hct 56.8 % (35.5-45.6) H 06/09/21 09:08 MCV 74 fl (84-94) L 06/09/21 09:08 MCH 24 pg (28-32) L 06/09/21 09:08 MCHC 32 % (32-34) 06/09/21 09:08 RDW 16.2 % (13.2-15.2) H 06/09/21 09:08 Plt Count 423 K/mm3 (140-440) 06/09/21 09:08 Lymph % (Auto) 2.9 % (13.4-35.0) L 06/09/21 09:08 [place] % (Auto) 12.8 % (0.0-7.3) H 06/09/21 09:08 Eos % (Auto) 0.0 % (0.0-4.3) 06/09/21 09:08 Baso % (Auto) 0.0 % (0.0-1.8) 06/09/21 09:08 Lymph # (Auto) 0.4 K/mm3 (1.2-5.4) L 06/09/21 09:08 [place] # (Auto) 1.6 K/mm3 (0.0-0.8) H 06/09/21 09:08 Eos # (Auto) 0.0 K/mm3 (0.0-0.4) 06/09/21 09:08 Baso # (Auto) 0.0 K/mm3 (0.0-0.1) 06/09/21 09:08 Seg Neutrophils % 84.3 % (40.0-70.0) H 06/09/21 09:08 Seg Neutrophils # 10.6 K/mm3 (1.8-7.7) H 06/09/21 09:08 D-Dimer 526.33 ng/mlDDU (0-234) H 06/10/21 05:38 ABG pH 7.430 pH Units (7.350-7.450) 06/09/21 10:15 ABG pCO2 28.9 mm Hg 06/09/21 10:15 ABG pO2 57.0 mm Hg (80.0-90.0) L 06/09/21 10:15 ABG HCO3 18.8 mmol/L (20.0-26.0) L 06/09/21 10:15 ABG O2 Saturation 90.0 % (95.0-99.0) L 06/09/21 10:15 ABG O2 Content 22.9 (0.0-44) 06/09/21 10:15 ABG Base Excess -3.7 mmol/L (-2.0-3.0) L 06/09/21 10:15 ABG Hemoglobin 18.5 gm/dl (14.0-18.0) H 06/09/21 10:15 ABG Carboxyhemoglobin 0.9 % (0.0-5.0) 06/09/21 10:15 ABG Methemoglobin 0.6 % (0.0-1.5) 06/09/21 10:15 Oxyhemoglobin 88.6 % (95.0-99.0) L 06/09/21 10:15 FiO2 100 % 06/09/21 10:15 Sodium 146 mmol/L (137-145) H 06/12/21 05:31 Potassium 4.8 mmol/L (3.6-5.0) 06/12/21 05:31 Chloride 108.2 mmol/L (98-107) H 06/12/21 05:31 Carbon Dioxide 24 mmol/L (22-30) 06/12/21 05:31 Anion Gap 19 mmol/L 06/12/21 05:31 BUN 69 mg/dL (9-20) H 06/12/21 05:31 Creatinine 1.9 mg/dL (0.8-1.3) H 06/12/21 05:31 Estimated GFR 35 ml/min 06/12/21 05:31 BUN/Creatinine Ratio 36 % 06/12/21 05:31 Glucose 270 mg/dL (75-100) H 06/12/21 05:31 POC Glucose 237 mg/dL (70-105) H 06/12/21 11:05 Lactic Acid 1.60 mmol/L (0.7-2.0) 06/03/21 20:37 Calcium 9.7 mg/dL (8.4-10.2) 06/12/21 05:31 Ferritin 823.7 ng/mL (30.0-300.0) H 06/03/21 18:37 Total Bilirubin 0.70 mg/dL (0.1-1.2) 06/09/21 09:08 Direct Bilirubin 0.3 mg/dL (0-0.2) H 06/09/21 09:08 Indirect Bilirubin 0.4 mg/dL 06/09/21 09:08 AST 56 units/L (5-40) H 06/09/21 09:08 ALT 34 units/L (7-56) 06/09/21 09:08 Alkaline Phosphatase 75 units/L (35-129) 06/09/21 09:08 Lactate Dehydrogenase 308 units/L (91-180) H 06/03/21 18:37 Total Creatine Kinase 67 units/L (55-170) 06/04/21 05:40 C-Reactive Protein 2.20 mg/dL (0.00-1.30) H 06/10/21 05:38 NT-Pro-B Natriuret Pep 246.5 pg/mL (0-900) 06/03/21 20:48 Total Protein 6.7 g/dL (6.3-8.2) 06/09/21 09:08 Albumin 3.5 g/dL (3.9-5) L 06/09/21 09:08 Albumin/Globulin Ratio 1.1 % 06/09/21 09:08 Procalcitonin 0.12 ng/mL (<0.15) 06/03/21 18:37 Urine Color Yellow (Yellow) 06/08/21 16:00 Urine Turbidity Clear (Clear) 06/08/21 16:00 Urine pH 5.0 (5.0-7.0) 06/08/21 16:00 Ur Specific [place] 1.016 (1.003-1.030) 06/08/21 16:00 Urine Protein 100 mg/dl mg/dL (Negative) 06/08/21 16:00 Urine Glucose (UA) Neg mg/dL (Negative) 06/08/21 16:00 Urine Ketones Neg mg/dL (Negative) 06/08/21 16:00 Urine Blood Mod (Negative) 06/08/21 16:00 Urine Nitrite Neg (Negative) 06/08/21 16:00 Urine Bilirubin Neg (Negative) 06/08/21 16:00 Urine Urobilinogen < 2.0 mg/dL (<2.0) 06/08/21 16:00 Ur Leukocyte Esterase Neg (Negative) 06/08/21 16:00 Urine WBC (Auto) 1.0 /HPF (0.0-6.0) 06/08/21 16:00 Urine RBC (Auto) 2.0 /HPF (0.0-6.0) 06/08/21 16:00 U Epithel Cells (Auto) 1.0 /HPF (0-13.0) 06/08/21 16:00 Urine Mucus Few /HPF 06/08/21 16:00 Urine Yeast (Budding) Few /HPF 06/06/21 03:30 Urine Eosinophils Rare (None Seen) 06/06/21 03:30 Urine Creatinine 117.6 mg/dL (0.1-20.0) H 06/06/21 03:30 Urine Sodium 41 mmol/L 06/06/21 03:30 Coronavirus (PCR) Positive (Negative) A 06/04/21 Unknown Byrd/IV: Voiding Method Indwelling Catheter Active Medications - Current Medications Current Medications: Generic Name Dose Route Start Last Admin Trade Name Freq PRN Reason Stop Dose Admin Acetaminophen 650 mg 06/03/21 21:46 Acetaminophen 325 Mg Tab PO Q4H PRN Pain MILD(1-3)/Fever >100.5/LISA Albuterol 2 puff 06/06/21 07:53 06/06/21 17:20 Albuterol 8.5 Gm Mdi Inhalation IH 2 puff Q6HRT PRN Administration Shortness Of Breath Atenolol 50 mg 06/04/21 10:00 06/12/21 16:00 Atenolol 50 Mg Tab PO 50 mg DAILY COOPER Administration Citric Acid/Sodium Citrate 30 ml 06/08/21 14:00 06/12/21 11:21 Bicitra Oral Liqd 30ml PO 30 ml TID COOPER Administration Dextrose 0 ml 06/03/21 21:46 Dextrose 50% In Water (25gm) 50 Ml Syringe IV Q30MIN PRN Hypoglycemia Protocol Famotidine 20 mg 06/03/21 22:00 06/12/21 11:21 Famotidine 20 Mg Tab PO 20 mg QAM COOPER Administration Haloperidol Lactate 5 mg 06/08/21 14:00 06/09/21 21:55 Haloperidol Lactate 5 Mg/1 Ml Inj IM 5 mg Q6H PRN Administration Agitation Heparin Sodium (Porcine) 5,000 unit 06/03/21 22:00 06/12/21 16:01 Heparin 5,000 Unit/1 Ml Vial SUB-Q 5,000 unit Q8HR COOPER Administration Hydralazine HCl 10 mg 06/03/21 21:50 Hydralazine 20 Mg/1 Ml Inj IV Q6H PRN Blood Pressure Hydromorphone HCl 0.5 mg 06/03/21 21:46 06/11/21 00:42 Hydromorphone 1 Mg/1 Ml Inj IV 0.5 mg Q3H PRN Administration Pain , Severe (7-10) Dextrose 1,000 mls @ 150 mls/hr 06/10/21 10:00 06/11/21 23:26 D5w IV 150 mls/hr DIRECT COOPER Administration Insulin Human Lispro 0 unit 06/09/21 18:00 06/12/21 05:29 Insulin Lispro 100 Unit/Ml SUB-Q 3 unit Q6HR COOPER Administration Protocol Methylprednisolone Sodium Succinate 40 mg 06/10/21 18:30 06/12/21 15:59 Methylprednisolone Sod Succinate 40 Mg/1 Ml Inj IV 40 mg Q8H COOPER Administration Morphine Sulfate 2 mg 06/03/21 21:46 06/09/21 18:30 Morphine 2 Mg/1 Ml Inj IV 2 mg Q4H PRN Administration Pain, Moderate (4-6) Ondansetron HCl 4 mg 06/03/21 21:46 Ondansetron 4 Mg/2 Ml Inj IV Q8H PRN Nausea And Vomiting Quetiapine Fumarate 25 mg 06/08/21 10:00 06/12/21 15:59 Quetiapine 25 Mg Tab PO 25 mg BID COOPER Administration Sodium Chloride 10 ml 06/03/21 22:00 06/11/21 22:45 Sodium Chloride 0.9% 10 Ml Flush Syringe IV 10 ml BID COOPER Administration Sodium Chloride 10 ml 06/03/21 21:46 Sodium Chloride 0.9% 10 Ml Flush Syringe IV PRN PRN LINE FLUSH Nutrition/Malnutrition Assess - Dietary Evaluation Nutrition/Malnutrition Findings: Nutrition Notes Start: 06/04/21 10:44 Freq: Status: Active Protocol: Document 06/12/21 15:12 DENISE (Rec: 06/12/21 15:21 DENISE [id number]) Nutrition Notes Initial or Follow up Brief Note Current Diet TF-Nepro w/CARBSTEADY @ 32 ml/ hr (since D 06/09). Height 5 ft 8 in Weight 86.5 kg [place] Body Weight (kg) 70.00 BMI 29.0 Weight change and time frame No body weight change reported . Weight Status Overweight Subjective/Other Information RD consult for TF tolerance assessment. TF continues as prescribed and well tolerated, according to RN notes. Percent of energy/protein needs met: Prescribed Nepro w/CARBSTEADY @ 32 ml/hr provides for energy /protein needs (1,384 Kcal/62 g) during LOS; 80% Kcal; 60% AA. Current % PO Other #1 Nutrition Diagnosis Inadequate oral intake Diagnosis Progress(for reassessment Continues documentation) Is patient on ventilator? No Is Patient Ambulatory and/or Out of Bed Yes [facility] [ 3.350 NUTR.MSJOOB] Calculation Used for Recommendations 70-80% of EEN Additional Notes 15-20 Kcal/Kg ABW. Protein: 1.2-2 g/Kg; 104-174 g /day. Fluids: 1 ml/Kcal, or as per MD. Nutrition Intervention Nutrition Support: Continue Nepro w/CARBSTEADY @ 32 ml/hr. Flush 200 ml water Q 4 hr, or as per MD. Kcal 1,384 Protein (gm) 62 Carbohydrates (gm) 124 Fat (gm) 74 Fluid (mL) 559 Fiber (gm) 10 % RDI: 80% Kcal; 60% AA. Goal #1 Provide at least 75% of energy /protein needs through Enteral Feeding during LOS. Follow-Up By: 06/19/21 Additional Comments Continue monitoring TF tolerance and BM.
[2021-06-12] MEDS: DEXTROSE 5% IN WATER 1,000 ML IV SCH (22:06)
[2021-06-13] MEDS: INSULIN LISPRO 100 UNIT/ML SUB-Q SCH ×4 (00:25→19:21)
[2021-06-13] MEDS: methylPREDNISolone Sod Succinate 40 MG/1 ML INJ IV SCH (02:05)
[2021-06-13] MEDS: HEPARIN 5,000 UNIT/1 ML VIAL SUB-Q SCH ×2 (05:33→13:37)
[2021-06-13 06:48] LABS: Calcium 10.2 mg/dL (8.4-10.2)
[2021-06-13] MEDS ORDERED: INSULIN NPH/REGULAR 70/30 INJ SUB-Q SCH (08:00)
--- NOTE | 2021-06-13 08:32 | Progress Note ---
Assessment and Plan Assessment and plan: #Acute hypoxic respiratory failure #COVID-19 pneumonia -PCR +06/04 -Currently on high flow nasal cannula 40/100% FiO2 + nonrebreather -s/p remdesivir -Continue steroids -Infectious Disease and Pulmonology following, assistance appreciated #ANGIE on CKD-improved -Creatinine 2.0 today -Renal ultrasound shows medical renal disease and mild left hydronephrosis with 7mm stone in mid left kidney -Urology consulted for hydronephrosis; CT of pelvis showed no evidence of hydronephrosis -Renally dose medications and avoid nephrotoxic agents #Hypernatremia #Hyperkalemia -will start free water flushes -will continue to monitor #Acute metabolic encephalopathy -improved, likely secondary to COVID-pneumonia -CT head not performed due to agitation -Continue Seroquel, delirium precautions #Type 2 diabetes w/ hyperglycemia -Continue sliding scale insulin, started humulin 10U BID #Mitral valve vegetation -Seen on echocardiogram, less than 1 cm -CARRILLO held due to patient's respiratory status at this time -Blood cultures 06/03, 06/05, 06/06 no growth to date x5 days -Patient afebrile, currently low clinical suspicion for endocarditis #Hyperviscosity -Patient with elevated hemoglobin hematocrit -will monitor at this time Disposition Plan: continue medical management History Interval history: Patient alert and attempting to speak. Unable to communicate due to facemask. Hospitalist Physical - Physical exam Narrative exam: GENERAL: Well-developed well-nourished. Lying in bed, in no acute distress. HEENT: High flow nasal cannula in place with nonrebreather CHEST/LUNGS: Coarse breath sounds bilaterally. HEART/CARDIOVASCULAR: RRR. No murmur, rubs or gallops appreciated. ABDOMEN: +BS. NT/ND. NEURO: No focal motor deficit. MUSCULOSKELETAL: No joint effusion EXTREMITIES: No cyanosis, clubbing or edema. PSYCH: Alert to person. - Constitutional Vitals: Temp Pulse Resp BP Pulse Ox 98.0 F 88 20 140/93 87 06/13/21 05:42 06/13/21 05:42 06/13/21 05:42 06/13/21 05:42 06/13/21 05:42 General appearance: Present: mild distress, well-nourished, other (Encephalopathic and confused) Results - Labs CBC & Chem 7: 06/09/21 09:08 06/13/21 05:58 Labs: Laboratory Last Values WBC 12.6 K/mm3 (4.5-11.0) H 06/09/21 09:08 RBC 7.64 M/mm3 (3.65-5.03) H 06/09/21 09:08 Hgb 18.0 gm/dl (11.8-15.2) H 06/09/21 09:08 Hct 56.8 % (35.5-45.6) H 06/09/21 09:08 MCV 74 fl (84-94) L 06/09/21 09:08 MCH 24 pg (28-32) L 06/09/21 09:08 MCHC 32 % (32-34) 06/09/21 09:08 RDW 16.2 % (13.2-15.2) H 06/09/21 09:08 Plt Count 423 K/mm3 (140-440) 06/09/21 09:08 Lymph % (Auto) 2.9 % (13.4-35.0) L 06/09/21 09:08 [place] % (Auto) 12.8 % (0.0-7.3) H 06/09/21 09:08 Eos % (Auto) 0.0 % (0.0-4.3) 06/09/21 09:08 Baso % (Auto) 0.0 % (0.0-1.8) 06/09/21 09:08 Lymph # (Auto) 0.4 K/mm3 (1.2-5.4) L 06/09/21 09:08 [place] # (Auto) 1.6 K/mm3 (0.0-0.8) H 06/09/21 09:08 Eos # (Auto) 0.0 K/mm3 (0.0-0.4) 06/09/21 09:08 Baso # (Auto) 0.0 K/mm3 (0.0-0.1) 06/09/21 09:08 Seg Neutrophils % 84.3 % (40.0-70.0) H 06/09/21 09:08 Seg Neutrophils # 10.6 K/mm3 (1.8-7.7) H 06/09/21 09:08 D-Dimer 526.33 ng/mlDDU (0-234) H 06/10/21 05:38 ABG pH 7.430 pH Units (7.350-7.450) 06/09/21 10:15 ABG pCO2 28.9 mm Hg 06/09/21 10:15 ABG pO2 57.0 mm Hg (80.0-90.0) L 06/09/21 10:15 ABG HCO3 18.8 mmol/L (20.0-26.0) L 06/09/21 10:15 ABG O2 Saturation 90.0 % (95.0-99.0) L 06/09/21 10:15 ABG O2 Content 22.9 (0.0-44) 06/09/21 10:15 ABG Base Excess -3.7 mmol/L (-2.0-3.0) L 06/09/21 10:15 ABG Hemoglobin 18.5 gm/dl (14.0-18.0) H 06/09/21 10:15 ABG Carboxyhemoglobin 0.9 % (0.0-5.0) 06/09/21 10:15 ABG Methemoglobin 0.6 % (0.0-1.5) 06/09/21 10:15 Oxyhemoglobin 88.6 % (95.0-99.0) L 06/09/21 10:15 FiO2 100 % 06/09/21 10:15 Sodium 150 mmol/L (137-145) H 06/13/21 05:58 Potassium 4.7 mmol/L (3.6-5.0) 06/13/21 05:58 Chloride 110.6 mmol/L (98-107) H 06/13/21 05:58 Carbon Dioxide 25 mmol/L (22-30) 06/13/21 05:58 Anion Gap 19 mmol/L 06/13/21 05:58 BUN 72 mg/dL (9-20) H 06/13/21 05:58 Creatinine 2.0 mg/dL (0.8-1.3) H 06/13/21 05:58 Estimated GFR 33 ml/min 06/13/21 05:58 BUN/Creatinine Ratio 36 % 06/13/21 05:58 Glucose 337 mg/dL (75-100) H 06/13/21 05:58 POC Glucose 377 mg/dL (70-105) H 06/13/21 05:43 Lactic Acid 1.60 mmol/L (0.7-2.0) 06/03/21 20:37 Calcium 10.2 mg/dL (8.4-10.2) 06/13/21 05:58 Ferritin 823.7 ng/mL (30.0-300.0) H 06/03/21 18:37 Total Bilirubin 0.70 mg/dL (0.1-1.2) 06/09/21 09:08 Direct Bilirubin 0.3 mg/dL (0-0.2) H 06/09/21 09:08 Indirect Bilirubin 0.4 mg/dL 06/09/21 09:08 AST 56 units/L (5-40) H 06/09/21 09:08 ALT 34 units/L (7-56) 06/09/21 09:08 Alkaline Phosphatase 75 units/L (35-129) 06/09/21 09:08 Lactate Dehydrogenase 308 units/L (91-180) H 06/03/21 18:37 Total Creatine Kinase 67 units/L (55-170) 06/04/21 05:40 C-Reactive Protein 2.20 mg/dL (0.00-1.30) H 06/10/21 05:38 NT-Pro-B Natriuret Pep 246.5 pg/mL (0-900) 06/03/21 20:48 Total Protein 6.7 g/dL (6.3-8.2) 06/09/21 09:08 Albumin 3.5 g/dL (3.9-5) L 06/09/21 09:08 Albumin/Globulin Ratio 1.1 % 06/09/21 09:08 Procalcitonin 0.12 ng/mL (<0.15) 06/03/21 18:37 Urine Color Yellow (Yellow) 06/08/21 16:00 Urine Turbidity Clear (Clear) 06/08/21 16:00 Urine pH 5.0 (5.0-7.0) 06/08/21 16:00 Ur Specific [place] 1.016 (1.003-1.030) 06/08/21 16:00 Urine Protein 100 mg/dl mg/dL (Negative) 06/08/21 16:00 Urine Glucose (UA) Neg mg/dL (Negative) 06/08/21 16:00 Urine Ketones Neg mg/dL (Negative) 06/08/21 16:00 Urine Blood Mod (Negative) 06/08/21 16:00 Urine Nitrite Neg (Negative) 06/08/21 16:00 Urine Bilirubin Neg (Negative) 06/08/21 16:00 Urine Urobilinogen < 2.0 mg/dL (<2.0) 06/08/21 16:00 Ur Leukocyte Esterase Neg (Negative) 06/08/21 16:00 Urine WBC (Auto) 1.0 /HPF (0.0-6.0) 06/08/21 16:00 Urine RBC (Auto) 2.0 /HPF (0.0-6.0) 06/08/21 16:00 U Epithel Cells (Auto) 1.0 /HPF (0-13.0) 06/08/21 16:00 Urine Mucus Few /HPF 06/08/21 16:00 Urine Yeast (Budding) Few /HPF 06/06/21 03:30 Urine Eosinophils Rare (None Seen) 06/06/21 03:30 Urine Creatinine 117.6 mg/dL (0.1-20.0) H 06/06/21 03:30 Urine Sodium 41 mmol/L 06/06/21 03:30 Coronavirus (PCR) Positive (Negative) A 06/04/21 Unknown Byrd/IV: Voiding Method Indwelling Catheter Active Medications - Current Medications Current Medications: Generic Name Dose Route Start Last Admin Trade Name Freq PRN Reason Stop Dose Admin Acetaminophen 650 mg 06/03/21 21:46 Acetaminophen 325 Mg Tab PO Q4H PRN Pain MILD(1-3)/Fever >100.5/LISA Albuterol 2 puff 06/06/21 07:53 06/06/21 17:20 Albuterol 8.5 Gm Mdi Inhalation IH 2 puff Q6HRT PRN Administration Shortness Of Breath Atenolol 50 mg 06/04/21 10:00 06/12/21 16:00 Atenolol 50 Mg Tab PO 50 mg DAILY COOPER Administration Citric Acid/Sodium Citrate 30 ml 06/08/21 14:00 06/12/21 22:06 Bicitra Oral Liqd 30ml PO 30 ml TID COOPER Administration Dextrose 0 ml 06/03/21 21:46 Dextrose 50% In Water (25gm) 50 Ml Syringe IV Q30MIN PRN Hypoglycemia Protocol Famotidine 20 mg 06/03/21 22:00 06/12/21 11:21 Famotidine 20 Mg Tab PO 20 mg QAM COOPER Administration Haloperidol Lactate 5 mg 06/08/21 14:00 06/09/21 21:55 Haloperidol Lactate 5 Mg/1 Ml Inj IM 5 mg Q6H PRN Administration Agitation Heparin Sodium (Porcine) 5,000 unit 06/03/21 22:00 06/13/21 05:33 Heparin 5,000 Unit/1 Ml Vial SUB-Q 5,000 unit Q8HR COOPER Administration Hydralazine HCl 10 mg 06/03/21 21:50 Hydralazine 20 Mg/1 Ml Inj IV Q6H PRN Blood Pressure Hydromorphone HCl 0.5 mg 06/03/21 21:46 06/11/21 00:42 Hydromorphone 1 Mg/1 Ml Inj IV 0.5 mg Q3H PRN Administration Pain , Severe (7-10) Dextrose 1,000 mls @ 42 mls/hr 06/12/21 21:00 06/12/21 22:06 D5w IV 42 mls/hr DIRECT COOPER Administration Insulin Human Isoph/Insulin Regular 5 unit 06/13/21 08:00 Insulin Nph/Regular 70/30 Inj SUB-Q BIDDIAB COOPER Insulin Human Lispro 0 unit 06/09/21 18:00 06/13/21 05:47 Insulin Lispro 100 Unit/Ml SUB-Q 10 unit Q6HR COOPER Administration Protocol Methylprednisolone Sodium Succinate 40 mg 06/10/21 18:30 06/13/21 02:05 Methylprednisolone Sod Succinate 40 Mg/1 Ml Inj IV 40 mg Q8H COOPER Administration Morphine Sulfate 2 mg 06/03/21 21:46 06/09/21 18:30 Morphine 2 Mg/1 Ml Inj IV 2 mg Q4H PRN Administration Pain, Moderate (4-6) Ondansetron HCl 4 mg 06/03/21 21:46 Ondansetron 4 Mg/2 Ml Inj IV Q8H PRN Nausea And Vomiting Quetiapine Fumarate 25 mg 06/08/21 10:00 06/12/21 22:06 Quetiapine 25 Mg Tab PO 25 mg BID COOPER Administration Sodium Chloride 10 ml 06/03/21 22:00 06/12/21 22:07 Sodium Chloride 0.9% 10 Ml Flush Syringe IV 10 ml BID COOPER Administration Sodium Chloride 10 ml 06/03/21 21:46 Sodium Chloride 0.9% 10 Ml Flush Syringe IV PRN PRN LINE FLUSH Nutrition/Malnutrition Assess - Dietary Evaluation Nutrition/Malnutrition Findings: Nutrition Notes Start: 06/04/21 10:44 Freq: Status: Active Protocol: Document 06/12/21 15:12 DENISE (Rec: 06/12/21 15:21 DENISE [id number]) Nutrition Notes Initial or Follow up Brief Note Current Diet TF-Nepro w/CARBSTEADY @ 32 ml/ hr (since D 06/09). Height 5 ft 8 in Weight 86.5 kg [place] Body Weight (kg) 70.00 BMI 29.0 Weight change and time frame No body weight change reported . Weight Status Overweight Subjective/Other Information RD consult for TF tolerance assessment. TF continues as prescribed and well tolerated, according to RN notes. Percent of energy/protein needs met: Prescribed Nepro w/CARBSTEADY @ 32 ml/hr provides for energy /protein needs (1,384 Kcal/62 g) during LOS; 80% Kcal; 60% AA. Current % PO Other #1 Nutrition Diagnosis Inadequate oral intake Diagnosis Progress(for reassessment Continues documentation) Is patient on ventilator? No Is Patient Ambulatory and/or Out of Bed Yes REE-([facility]-ambulatory/OOB) [ 2052.350 NUTR.MSJOOB] Calculation Used for Recommendations 70-80% of EEN Additional Notes 15-20 Kcal/Kg ABW. Protein: 1.2-2 g/Kg; 104-174 g /day. Fluids: 1 ml/Kcal, or as per MD. Nutrition Intervention Nutrition Support: Continue Nepro w/CARBSTEADY @ 32 ml/hr. Flush 200 ml water Q 4 hr, or as per MD. Kcal 1,384 Protein (gm) 62 Carbohydrates (gm) 124 Fat (gm) 74 Fluid (mL) 559 Fiber (gm) 10 % RDI: 80% Kcal; 60% AA. Goal #1 Provide at least 75% of energy /protein needs through Enteral Feeding during LOS. Follow-Up By: 06/19/21 Additional Comments Continue monitoring TF tolerance and BM.
--- NOTE | 2021-06-13 09:05 | Progress Note ---
Assessment and Plan Acute Kidney injury, Possible CKD: Covid 19 Pneumonia: Acute Hypoxic respiratory failure: Hyperkalemia: Metabolic acidosis: DM2: HTN: -no signficiant change in Cr and BUN -Water flushes with TF was increased to 350 cc Q4H -cont sodium bicarb to bicitra 30 CC TID -Renal US-noted mild L hydro, urology consult was requested. Dr Lai recommended CT AP stone protocol, which was ordered this AM -Renally dose all meds -Avoid Nephrotoxic meds -Strict I/Os Subjective Date of service: 06/13/21 Principal diagnosis: ANGIE Interval history: on isolation for COVID-19, remains to have elevated blood sugar Objective - Vital Signs Vital signs: Vital Signs - 12hr 06/12/21 06/13/21 06/13/21 21:56 01:45 02:32 Temperature 98.7 F Pulse Rate 89 Respiratory 20 Rate Blood Pressure 152/98 O2 Sat by Pulse 90 90 96 Oximetry 06/13/21 05:42 Temperature 98.0 F Pulse Rate 88 Respiratory 20 Rate Blood Pressure 140/93 O2 Sat by Pulse 87 Oximetry - Lab 06/09/21 09:08 06/13/21 05:58 Most recent lab results ABG pH 7.430 pH Units (7.350-7.450) 06/09/21 10:15 ABG pCO2 28.9 mm Hg 06/09/21 10:15 ABG pO2 57.0 mm Hg (80.0-90.0) L 06/09/21 10:15 ABG HCO3 18.8 mmol/L (20.0-26.0) L 06/09/21 10:15 ABG O2 Saturation 90.0 % (95.0-99.0) L 06/09/21 10:15 Calcium 10.2 mg/dL (8.4-10.2) 06/13/21 05:58 Urine Creatinine 117.6 mg/dL (0.1-20.0) H 06/06/21 03:30 Urine Sodium 41 mmol/L 06/06/21 03:30 Medications & Allergies - Medications Allergies/Adverse Reactions: Allergies shellfish derived Adverse Reaction (Verified 06/03/21 18:34) Hives Home Medications: Home Medications Medication Instructions Recorded Confirmed Last Taken Type atenoloL [Tenormin] 50 mg PO DAILY 06/03/21 06/03/21 Unknown History metFORMIN [Glucophage] 500 mg PO DAILY 06/03/21 06/03/21 Unknown History Active Medications: Generic Name Dose Route Start Last Admin Trade Name Freq PRN Reason Stop Dose Admin Acetaminophen 650 mg 06/03/21 21:46 Acetaminophen 325 Mg Tab PO Q4H PRN Pain MILD(1-3)/Fever >100.5/LISA Albuterol 2 puff 06/06/21 07:53 06/06/21 17:20 Albuterol 8.5 Gm Mdi Inhalation IH 2 puff Q6HRT PRN Administration Shortness Of Breath Atenolol 50 mg 06/04/21 10:00 06/12/21 16:00 Atenolol 50 Mg Tab PO 50 mg DAILY COOPER Administration Citric Acid/Sodium Citrate 30 ml 06/08/21 14:00 06/12/21 22:06 Bicitra Oral Liqd 30ml PO 30 ml TID COOPER Administration Dextrose 0 ml 06/03/21 21:46 Dextrose 50% In Water (25gm) 50 Ml Syringe IV Q30MIN PRN Hypoglycemia Protocol Famotidine 20 mg 06/03/21 22:00 06/12/21 11:21 Famotidine 20 Mg Tab PO 20 mg QAM COOPER Administration Haloperidol Lactate 5 mg 06/08/21 14:00 06/09/21 21:55 Haloperidol Lactate 5 Mg/1 Ml Inj IM 5 mg Q6H PRN Administration Agitation Heparin Sodium (Porcine) 5,000 unit 06/03/21 22:00 06/13/21 05:33 Heparin 5,000 Unit/1 Ml Vial SUB-Q 5,000 unit Q8HR COOPER Administration Hydralazine HCl 10 mg 06/03/21 21:50 Hydralazine 20 Mg/1 Ml Inj IV Q6H PRN Blood Pressure Hydromorphone HCl 0.5 mg 06/03/21 21:46 06/11/21 00:42 Hydromorphone 1 Mg/1 Ml Inj IV 0.5 mg Q3H PRN Administration Pain , Severe (7-10) Dextrose 1,000 mls @ 42 mls/hr 06/12/21 21:00 06/12/21 22:06 D5w IV 42 mls/hr DIRECT COOPER Administration Insulin Human Isoph/Insulin Regular 5 unit 06/13/21 08:00 Insulin Nph/Regular 70/30 Inj SUB-Q BIDDIAB COOPER Insulin Human Lispro 0 unit 06/09/21 18:00 06/13/21 05:47 Insulin Lispro 100 Unit/Ml SUB-Q 10 unit Q6HR COOPER Administration Protocol Methylprednisolone Sodium Succinate 40 mg 06/10/21 18:30 06/13/21 02:05 Methylprednisolone Sod Succinate 40 Mg/1 Ml Inj IV 40 mg Q8H COOPER Administration Morphine Sulfate 2 mg 06/03/21 21:46 06/09/21 18:30 Morphine 2 Mg/1 Ml Inj IV 2 mg Q4H PRN Administration Pain, Moderate (4-6) Ondansetron HCl 4 mg 06/03/21 21:46 Ondansetron 4 Mg/2 Ml Inj IV Q8H PRN Nausea And Vomiting Quetiapine Fumarate 25 mg 06/08/21 10:00 06/12/21 22:06 Quetiapine 25 Mg Tab PO 25 mg BID COOPER Administration Sodium Chloride 10 ml 06/03/21 22:00 06/12/21 22:07 Sodium Chloride 0.9% 10 Ml Flush Syringe IV 10 ml BID COOPER Administration Sodium Chloride 10 ml 06/03/21 21:46 Sodium Chloride 0.9% 10 Ml Flush Syringe IV PRN PRN LINE FLUSH
--- NOTE | 2021-06-13 11:50 | Progress Note ---
Assessment and Plan 75 y/o with acute respiratory failure secondary to COVID 19, renal failure (acute vs chronic) 06/13/21: Patient not able to prone. Prognosis is very guarded to poor. Given his renal failure, current oxygen requirement. High risk for decompensation and intubation. Will continue to monitor. Steroids. Please consider volume removal over the weekend. 06/12/21: Prone if possible. Wean FiO2 for sats >88%. Awaiting CT abdomen Pelvis. Will ask renal about diuresis again after imaging and final urology recs. 06/11/21: REnal with no mention of diuresis. WIll ask again tomorrow. COntinue TID steroids. 06/10/21: Will ask renal if diuresis is possible given CXR results. Continue supplemental oxygen but may progress to bipap therapy. Will increase steroids to TID. Guarded prognosis. 06/09/21: Steroids, prone if able. Will repeat CXR. ABG is consistent with respiratory alkalosis with hypoxemia, compensated as patient has a metabolic acidosis as well. Most likely low CO2 is a reaction to metabolic acidosis. On bicarb drip. Worsening oxygenation could be from volume. Follow up film 1. Steroids, ordered at q12 dosing, assuming secondary to diabetes and renal function. If using solumedrol, would consider changing to at least q8 2. Prone if able 3. Follow up renal recs, does not appear to be a candidate for diuresis 4. Wean FiO2 for sats > 88% Subjective Date of service: 06/13/21 Principal diagnosis: ANGIE Interval history: Sitting up in bed, on NRB and HFNC Objective Vital Signs - 12hr 06/13/21 06/13/21 06/13/21 01:45 02:32 05:42 Temperature 98.0 F Pulse Rate 88 Respiratory 20 Rate Blood Pressure 140/93 O2 Sat by Pulse 90 96 87 Oximetry 06/13/21 10:57 Temperature 97.0 F L Pulse Rate 86 Respiratory 24 Rate Blood Pressure 153/76 O2 Sat by Pulse 84 Oximetry CBC and BMP: 06/09/21 09:08 06/13/21 05:58 ABG, PT/INR, D-dimer: ABG ABG pH 7.430 pH Units (7.350-7.450) 06/09/21 10:15 ABG pCO2 28.9 mm Hg 06/09/21 10:15 ABG pO2 57.0 mm Hg (80.0-90.0) L 06/09/21 10:15 ABG O2 Saturation 90.0 % (95.0-99.0) L 06/09/21 10:15 PT/INR, D-dimer D-Dimer 526.33 ng/mlDDU (0-234) H 06/10/21 05:38 Abnormal lab findings: Abnormal Labs 06/03/21 06/03/21 06/03/21 18:37 18:37 18:37 WBC RBC 7.38 H Hgb 17.0 H Hct 54.7 H MCV 74 L MCH 23 L MCHC 31 L RDW 15.9 H Lymph % (Auto) 8.4 L Wilcox % (Auto) 12.6 H Lymph # (Auto) 0.5 L Wilcox # (Auto) Seg Neutrophils % 78.7 H Seg Neutrophils # D-Dimer ABG pO2 ABG HCO3 ABG O2 Saturation ABG Base Excess ABG Hemoglobin Oxyhemoglobin Sodium Potassium 5.4 H Chloride Carbon Dioxide 19 L BUN 40 H Creatinine 2.6 H Glucose 179 H POC Glucose Lactic Acid 2.40 H* Calcium Ferritin Direct Bilirubin AST Lactate Dehydrogenase 308 H C-Reactive Protein 6.20 H Total Protein Albumin 3.1 L Urine Creatinine Coronavirus (PCR) 06/03/21 06/03/21 06/04/21 18:37 18:37 00:30 WBC RBC Hgb Hct MCV MCH MCHC RDW Lymph % (Auto) Wilcox % (Auto) Lymph # (Auto) Wilcox # (Auto) Seg Neutrophils % Seg Neutrophils # D-Dimer 634.36 H ABG pO2 ABG HCO3 ABG O2 Saturation ABG Base Excess ABG Hemoglobin Oxyhemoglobin Sodium Potassium Chloride Carbon Dioxide BUN Creatinine Glucose POC Glucose 115 H Lactic Acid Calcium Ferritin 823.7 H Direct Bilirubin AST Lactate Dehydrogenase C-Reactive Protein Total Protein Albumin Urine Creatinine Coronavirus (PCR) 06/04/21 06/04/21 06/04/21 05:40 05:40 14:51 WBC 4.3 L RBC 6.82 H Hgb 15.9 H Hct 50.7 H MCV 74 L MCH 23 L MCHC 31 L RDW 16.1 H Lymph % (Auto) Wilcox % (Auto) 15.6 H Lymph # (Auto) 0.8 L Wilcox # (Auto) Seg Neutrophils % Seg Neutrophils # D-Dimer ABG pO2 ABG HCO3 ABG O2 Saturation ABG Base Excess ABG Hemoglobin Oxyhemoglobin Sodium Potassium Chloride Carbon Dioxide 21 L 19 L BUN 46 H 49 H Creatinine 2.2 H 2.5 H Glucose 101 H 131 H POC Glucose Lactic Acid Calcium 8.0 L Ferritin Direct Bilirubin AST Lactate Dehydrogenase C-Reactive Protein Total Protein Albumin 3.4 L Urine Creatinine Coronavirus (PCR) 06/04/21 06/04/21 06/05/21 22:06 Unknown 05:54 WBC RBC Hgb Hct MCV MCH MCHC RDW Lymph % (Auto) Wilcox % (Auto) Lymph # (Auto) Wilcox # (Auto) Seg Neutrophils % Seg Neutrophils # D-Dimer ABG pO2 ABG HCO3 ABG O2 Saturation ABG Base Excess ABG Hemoglobin Oxyhemoglobin Sodium Potassium Chloride Carbon Dioxide 17 L BUN 61 H Creatinine 2.5 H Glucose 150 H POC Glucose 134 H Lactic Acid Calcium Ferritin Direct Bilirubin AST Lactate Dehydrogenase C-Reactive Protein Total Protein Albumin 3.2 L Urine Creatinine Coronavirus (PCR) Positive A 06/05/21 06/05/21 06/05/21 05:54 08:23 12:30 WBC 3.6 L RBC 7.39 H Hgb 17.2 H Hct 54.9 H MCV 74 L MCH 23 L MCHC 31 L RDW 16.2 H Lymph % (Auto) 11.1 L Wilcox % (Auto) 15.4 H Lymph # (Auto) 0.4 L Wilcox # (Auto) Seg Neutrophils % 73.3 H Seg Neutrophils # D-Dimer ABG pO2 ABG HCO3 ABG O2 Saturation ABG Base Excess ABG Hemoglobin Oxyhemoglobin Sodium Potassium Chloride Carbon Dioxide BUN Creatinine Glucose POC Glucose 163 H 146 H Lactic Acid Calcium Ferritin Direct Bilirubin AST Lactate Dehydrogenase C-Reactive Protein Total Protein Albumin Urine Creatinine Coronavirus (PCR) 06/05/21 06/05/21 06/06/21 16:04 20:49 03:30 WBC RBC Hgb Hct MCV MCH MCHC RDW Lymph % (Auto) Wilcox % (Auto) Lymph # (Auto) Wilcox # (Auto) Seg Neutrophils % Seg Neutrophils # D-Dimer ABG pO2 ABG HCO3 ABG O2 Saturation ABG Base Excess ABG Hemoglobin Oxyhemoglobin Sodium Potassium Chloride Carbon Dioxide BUN Creatinine Glucose POC Glucose 140 H 208 H Lactic Acid Calcium Ferritin Direct Bilirubin AST Lactate Dehydrogenase C-Reactive Protein Total Protein Albumin Urine Creatinine 117.6 H Coronavirus (PCR) 06/06/21 06/06/21 06/06/21 06:09 06:09 08:16 WBC RBC 7.20 H Hgb 16.9 H Hct 53.7 H MCV 75 L MCH 24 L MCHC RDW 16.3 H Lymph % (Auto) 6.3 L Wilcox % (Auto) 13.1 H Lymph # (Auto) 0.5 L Wilcox # (Auto) 1.1 H Seg Neutrophils % 80.3 H Seg Neutrophils # D-Dimer ABG pO2 ABG HCO3 ABG O2 Saturation ABG Base Excess ABG Hemoglobin Oxyhemoglobin Sodium Potassium Chloride Carbon Dioxide 18 L BUN 73 H Creatinine 2.5 H Glucose 152 H POC Glucose 146 H Lactic Acid Calcium Ferritin Direct Bilirubin AST Lactate Dehydrogenase C-Reactive Protein Total Protein Albumin 3.3 L Urine Creatinine Coronavirus (PCR) 06/06/21 06/06/21 06/06/21 12:45 14:13 17:39 WBC RBC Hgb Hct MCV MCH MCHC RDW Lymph % (Auto) Wilcox % (Auto) Lymph # (Auto) Wilcox # (Auto) Seg Neutrophils % Seg Neutrophils # D-Dimer ABG pO2 ABG HCO3 19.7 L ABG O2 Saturation ABG Base Excess -4.3 L ABG Hemoglobin Oxyhemoglobin 94.6 L Sodium Potassium Chloride Carbon Dioxide BUN Creatinine Glucose POC Glucose 225 H 154 H Lactic Acid Calcium Ferritin Direct Bilirubin AST Lactate Dehydrogenase C-Reactive Protein Total Protein Albumin Urine Creatinine Coronavirus (PCR) 06/06/21 06/07/21 06/07/21 21:46 06:16 15:54 WBC RBC Hgb Hct MCV MCH MCHC RDW Lymph % (Auto) Wilcox % (Auto) Lymph # (Auto) Wilcox # (Auto) Seg Neutrophils % Seg Neutrophils # D-Dimer ABG pO2 ABG HCO3 ABG O2 Saturation ABG Base Excess ABG Hemoglobin Oxyhemoglobin Sodium 149 H Potassium Chloride 114.2 H Carbon Dioxide 21 L BUN 79 H Creatinine 2.6 H Glucose POC Glucose 187 H 195 H Lactic Acid Calcium Ferritin Direct Bilirubin AST Lactate Dehydrogenase C-Reactive Protein Total Protein 5.9 L Albumin 3.3 L Urine Creatinine Coronavirus (PCR) 06/07/21 06/08/21 06/08/21 21:27 07:33 07:42 WBC RBC Hgb Hct MCV MCH MCHC RDW Lymph % (Auto) Wilcox % (Auto) Lymph # (Auto) Wilcox # (Auto) Seg Neutrophils % Seg Neutrophils # D-Dimer ABG pO2 ABG HCO3 ABG O2 Saturation ABG Base Excess ABG Hemoglobin Oxyhemoglobin Sodium 154 H Potassium 5.1 H Chloride 117.3 H Carbon Dioxide 17 L BUN 76 H Creatinine 2.5 H Glucose 180 H POC Glucose 190 H 186 H Lactic Acid Calcium Ferritin Direct Bilirubin AST Lactate Dehydrogenase C-Reactive Protein Total Protein Albumin Urine Creatinine Coronavirus (PCR) 06/08/21 06/08/21 06/08/21 10:56 15:42 22:34 WBC RBC Hgb Hct MCV MCH MCHC RDW Lymph % (Auto) Wilcox % (Auto) Lymph # (Auto) Wilcox # (Auto) Seg Neutrophils % Seg Neutrophils # D-Dimer ABG pO2 ABG HCO3 ABG O2 Saturation ABG Base Excess ABG Hemoglobin Oxyhemoglobin Sodium Potassium Chloride Carbon Dioxide BUN Creatinine Glucose POC Glucose 206 H 175 H 146 H Lactic Acid Calcium Ferritin Direct Bilirubin AST Lactate Dehydrogenase C-Reactive Protein Total Protein Albumin Urine Creatinine Coronavirus (PCR) 06/09/21 06/09/21 06/09/21 07:39 09:08 09:08 WBC 12.6 H RBC 7.64 H Hgb 18.0 H Hct 56.8 H MCV 74 L MCH 24 L MCHC RDW 16.2 H Lymph % (Auto) 2.9 L Wilcox % (Auto) 12.8 H Lymph # (Auto) 0.4 L Wilcox # (Auto) 1.6 H Seg Neutrophils % 84.3 H Seg Neutrophils # 10.6 H D-Dimer ABG pO2 ABG HCO3 ABG O2 Saturation ABG Base Excess ABG Hemoglobin Oxyhemoglobin Sodium 159 H Potassium 5.2 H Chloride 120.0 H Carbon Dioxide 17 L BUN 81 H Creatinine 2.7 H Glucose 161 H POC Glucose 154 H Lactic Acid Calcium Ferritin Direct Bilirubin AST Lactate Dehydrogenase C-Reactive Protein Total Protein Albumin Urine Creatinine Coronavirus (PCR) 06/09/21 06/09/21 06/09/21 09:08 10:15 11:07 WBC RBC Hgb Hct MCV MCH MCHC RDW Lymph % (Auto) Wilcox % (Auto) Lymph # (Auto) Wilcox # (Auto) Seg Neutrophils % Seg Neutrophils # D-Dimer ABG pO2 57.0 L ABG HCO3 18.8 L ABG O2 Saturation 90.0 L ABG Base Excess -3.7 L ABG Hemoglobin 18.5 H Oxyhemoglobin 88.6 L Sodium Potassium Chloride Carbon Dioxide BUN Creatinine Glucose POC Glucose 149 H Lactic Acid Calcium Ferritin Direct Bilirubin 0.3 H AST 56 H Lactate Dehydrogenase C-Reactive Protein Total Protein Albumin 3.5 L Urine Creatinine Coronavirus (PCR) 06/09/21 06/09/21 06/09/21 14:08 15:30 23:15 WBC RBC Hgb Hct MCV MCH MCHC RDW Lymph % (Auto) Wilcox % (Auto) Lymph # (Auto) Wilcox # (Auto) Seg Neutrophils % Seg Neutrophils # D-Dimer ABG pO2 ABG HCO3 ABG O2 Saturation ABG Base Excess ABG Hemoglobin Oxyhemoglobin Sodium 157 H Potassium 5.2 H Chloride 117.4 H Carbon Dioxide 18 L BUN 86 H Creatinine 2.9 H Glucose 228 H POC Glucose 237 H 221 H Lactic Acid Calcium Ferritin Direct Bilirubin AST Lactate Dehydrogenase C-Reactive Protein Total Protein Albumin Urine Creatinine Coronavirus (PCR) 06/09/21 06/10/21 06/10/21 23:45 05:38 05:38 WBC RBC Hgb Hct MCV MCH MCHC RDW Lymph % (Auto) Wilcox % (Auto) Lymph # (Auto) Wilcox # (Auto) Seg Neutrophils % Seg Neutrophils # D-Dimer 526.33 H ABG pO2 ABG HCO3 ABG O2 Saturation ABG Base Excess ABG Hemoglobin Oxyhemoglobin Sodium 153 H 153 H Potassium 5.3 H Chloride 117.1 H 112.6 H Carbon Dioxide 21 L BUN 86 H 82 H Creatinine 2.6 H 2.5 H Glucose 239 H 297 H POC Glucose Lactic Acid Calcium Ferritin Direct Bilirubin AST Lactate Dehydrogenase C-Reactive Protein 2.20 H Total Protein Albumin Urine Creatinine Coronavirus (PCR) 06/10/21 06/10/21 06/10/21 08:09 12:08 14:10 WBC RBC Hgb Hct MCV MCH MCHC RDW Lymph % (Auto) Wilcox % (Auto) Lymph # (Auto) Wilcox # (Auto) Seg Neutrophils % Seg Neutrophils # D-Dimer ABG pO2 ABG HCO3 ABG O2 Saturation ABG Base Excess ABG Hemoglobin Oxyhemoglobin Sodium 152 H Potassium Chloride 112.9 H Carbon Dioxide BUN 81 H Creatinine 2.4 H Glucose 321 H POC Glucose 256 H 245 H Lactic Acid Calcium Ferritin Direct Bilirubin AST Lactate Dehydrogenase C-Reactive Protein Total Protein Albumin Urine Creatinine Coronavirus (PCR) 0106/10/21 06/11/21 16:38 23:19 02:34 WBC RBC Hgb Hct MCV MCH MCHC RDW Lymph % (Auto) Wilcox % (Auto) Lymph # (Auto) Wilcox # (Auto) Seg Neutrophils % Seg Neutrophils # D-Dimer ABG pO2 ABG HCO3 ABG O2 Saturation ABG Base Excess ABG Hemoglobin Oxyhemoglobin Sodium 149 H Potassium 5.1 H Chloride 111.5 H Carbon Dioxide BUN 78 H Creatinine 2.3 H Glucose 308 H POC Glucose 232 H 277 H Lactic Acid Calcium Ferritin Direct Bilirubin AST Lactate Dehydrogenase C-Reactive Protein Total Protein Albumin Urine Creatinine Coronavirus (PCR) 06/11/21 06/11/21 06/11/21 04:52 09:24 11:58 WBC RBC Hgb Hct MCV MCH MCHC RDW Lymph % (Auto) Wilcox % (Auto) Lymph # (Auto) Wilcox # (Auto) Seg Neutrophils % Seg Neutrophils # D-Dimer ABG pO2 ABG HCO3 ABG O2 Saturation ABG Base Excess ABG Hemoglobin Oxyhemoglobin Sodium 146 H Potassium 5.4 H Chloride 112.8 H Carbon Dioxide BUN 75 H Creatinine 2.2 H Glucose 267 H POC Glucose 291 H 275 H Lactic Acid Calcium Ferritin Direct Bilirubin AST Lactate Dehydrogenase C-Reactive Protein Total Protein Albumin Urine Creatinine Coronavirus (PCR) 06/11/21 06/11/21 06/11/21 14:02 18:50 22:33 WBC RBC Hgb Hct MCV MCH MCHC RDW Lymph % (Auto) Wilcox % (Auto) Lymph # (Auto) Wilcox # (Auto) Seg Neutrophils % Seg Neutrophils # D-Dimer ABG pO2 ABG HCO3 ABG O2 Saturation ABG Base Excess ABG Hemoglobin Oxyhemoglobin Sodium 146 H Potassium Chloride 109.6 H Carbon Dioxide BUN 78 H Creatinine 2.2 H Glucose 377 H POC Glucose 171 H 213 H Lactic Acid Calcium Ferritin Direct Bilirubin AST Lactate Dehydrogenase C-Reactive Protein Total Protein Albumin Urine Creatinine Coronavirus (PCR) 06/11/21 06/12/21 06/12/21 23:37 05:23 05:31 WBC RBC Hgb Hct MCV MCH MCHC RDW Lymph % (Auto) Wilcox % (Auto) Lymph # (Auto) Wilcox # (Auto) Seg Neutrophils % Seg Neutrophils # D-Dimer ABG pO2 ABG HCO3 ABG O2 Saturation ABG Base Excess ABG Hemoglobin Oxyhemoglobin Sodium 146 H Potassium 5.1 H Chloride 110.8 H 108.2 H Carbon Dioxide 20 L BUN 73 H 69 H Creatinine 1.9 H 1.9 H Glucose 324 H 270 H POC Glucose 225 H Lactic Acid Calcium Ferritin Direct Bilirubin AST Lactate Dehydrogenase C-Reactive Protein Total Protein Albumin Urine Creatinine Coronavirus (PCR) 06/12/21 06/12/21 06/12/21 11:05 17:29 23:08 WBC RBC Hgb Hct MCV MCH MCHC RDW Lymph % (Auto) Wilcox % (Auto) Lymph # (Auto) Wilcox # (Auto) Seg Neutrophils % Seg Neutrophils # D-Dimer ABG pO2 ABG HCO3 ABG O2 Saturation ABG Base Excess ABG Hemoglobin Oxyhemoglobin Sodium 150 H Potassium 5.2 H Chloride 109.9 H Carbon Dioxide BUN 71 H Creatinine 2.1 H Glucose 408 H POC Glucose 237 H 272 H Lactic Acid Calcium Ferritin Direct Bilirubin AST Lactate Dehydrogenase C-Reactive Protein Total Protein Albumin Urine Creatinine Coronavirus (PCR) 06/13/21 06/13/21 06/13/21 00:04 05:43 05:58 WBC RBC Hgb Hct MCV MCH MCHC RDW Lymph % (Auto) Wilcox % (Auto) Lymph # (Auto) Wilcox # (Auto) Seg Neutrophils % Seg Neutrophils # D-Dimer ABG pO2 ABG HCO3 ABG O2 Saturation ABG Base Excess ABG Hemoglobin Oxyhemoglobin Sodium 150 H Potassium Chloride 110.6 H Carbon Dioxide BUN 72 H Creatinine 2.0 H Glucose 337 H POC Glucose 370 H 377 H Lactic Acid Calcium Ferritin Direct Bilirubin AST Lactate Dehydrogenase C-Reactive Protein Total Protein Albumin Urine Creatinine Coronavirus (PCR) 06/13/21 08:22 WBC RBC Hgb Hct MCV MCH MCHC RDW Lymph % (Auto) Wilcox % (Auto) Lymph # (Auto) Wilcox # (Auto) Seg Neutrophils % Seg Neutrophils # D-Dimer ABG pO2 ABG HCO3 ABG O2 Saturation ABG Base Excess ABG Hemoglobin Oxyhemoglobin Sodium Potassium Chloride Carbon Dioxide BUN Creatinine Glucose POC Glucose 313 H Lactic Acid Calcium Ferritin Direct Bilirubin AST Lactate Dehydrogenase C-Reactive Protein Total Protein Albumin Urine Creatinine Coronavirus (PCR)
--- NOTE | 2021-06-13 12:54 | Progress Note ---
Assessment and Plan Cultures: SARS CoV2 PCR: Positive as outpatient and here 06/03/2021 blood culture: no growth 06/05/2021 blood culture: no growth 06/06/2021 blood culture: no growth A/P: 73-year-old male with diabetes, hypertension admitted to the hospital with worsening shortness of breath. Patient tested positive for COVID-19 as an outpatient: #Bilateral pneumonia: Secondary to COVID-19. Hypoxic, elevated inflammatory mar kers. Procalcitonin 0.12. #Acute hypoxic respiratory failure: Secondary to above. on NRB/HFNC. #?Endocarditis/NBTE in the setting of COVID-19: Incidental finding of possible small valvular vegetation on mitral valve anterior leaflet. No fever, no leucocytosis. Pre-test probability for endocarditis was low to begin with. Very low suspicion for acute infective endocarditis. Multiple blood cultures negative. Currently not a candidate for CARRILLO due to COVID-19 and hypoxia per cardiology. Hold off on abx. #ANGIE: Renally adjust antibiotics #Leukopenia: Likely related to viral illness, resolved. #Mild hydronephrosis: urology evaluated Recs: -continue steroids per pulm -completed remdesivir -prophylactic anticoagulation based on d-dimer per hospital protocol -consideration for CARRILLO in the future, once hypoxia better. Monitor off abx, low suspicion for infective endocarditis -guarded prognosis Tiffanie Rene MD, FACP, [facility] ([facility] O: [phone] F: [phone] Subjective Date of service: 06/13/21 Principal diagnosis: ANGIE Interval history: No fever. Remains on HFNC/NRB Objective - Exam Narrative Exam: Physical Exam (reviewed in chart to minimize risk of transmission) Constitutional: deferred Head, Ears, Nose: deferred Eyes: deferred Neck: deferred Oral: deferred Cardiovascular: deferred Respiratory: deferred GI: deferred Musculoskeletal: deferred Skin: deferred Hem/Lymphatic: deferred Psych: deferred Neurological: deferred - Constitutional Vitals: Vital Signs Temp Pulse Resp BP Pulse Ox 97.0 F L 86 24 153/76 84 06/13/21 10:57 06/13/21 10:57 06/13/21 10:57 06/13/21 10:57 06/13/21 10:57 Temperature -Last 24 Hours Temperature 97.0 F Temperature 98.0 F Temperature 98.7 F Temperature 99 F - Labs CBC & Chem 7: 06/09/21 09:08 06/13/21 05:58 Labs: Abnormal lab results 06/12/21 06/12/21 06/13/21 Range/Units 17:29 23:08 00:04 Sodium 150 H (137-145) mmol/L Potassium 5.2 H (3.6-5.0) mmol/L Chloride 109.9 H (98-107) mmol/L BUN 71 H (9-20) mg/dL Creatinine 2.1 H (0.8-1.3) mg/dL Glucose 408 H (75-100) mg/dL POC Glucose 272 H 370 H (70-105) mg/dL 06/13/21 06/13/21 06/13/21 Range/Units 05:43 05:58 08:22 Sodium 150 H (137-145) mmol/L Potassium (3.6-5.0) mmol/L Chloride 110.6 H (98-107) mmol/L BUN 72 H (9-20) mg/dL Creatinine 2.0 H (0.8-1.3) mg/dL Glucose 337 H (75-100) mg/dL POC Glucose 377 H 313 H (70-105) mg/dL
[2021-06-13] MEDS: BICITRA ORAL LIQD 30ML PO SCH (13:33)
--- NOTE | 2021-06-13 13:58 | Cat Scan Report ---
CT ABDOMEN AND PELVIS WITHOUT CONTRAST INDICATION / CLINICAL INFORMATION: stone protocol for left hydronephrosis. TECHNIQUE: Axial CT images were obtained through the abdomen and pelvis without IV contrast. Sagittal and mckeon l reformatted images. All CT scans at this location are performed using CT dose reduction for ALARA b y means of automated exposure control. COMPARISON: None available. FINDINGS: LOWER CHEST: There are patchy groundglass infiltrates at both lung bases concerning for atypical pneu monia such as Covid. LIVER: No significant abnormality. GALLBLADDER: The gallbladder is partially contracted and contains multiple stones. BILE DUCTS: No significant abnormality. PANCREAS: No significant abnormality. SPLEEN: No significant abnormality. ADRENALS: No significant abnormality. RIGHT KIDNEY and URETER: No significant abnormality. LEFT KIDNEY and URETER: No significant abnormality. STOMACH and SMALL BOWEL: The distal tip of a nasogastric tube is folded back upon itself in the proxi mal duodenum. Consider retraction by 5-10 cm. The stomach and small bowel loops are otherwise unremar kable. COLON: Diverticulosis of the distal colon is evident. No obstruction or acute inflammation. APPENDIX: No significant abnormality. PERITONEUM: No free fluid. No free air. No fluid collection. LYMPH NODES: No significant adenopathy. AORTA and ARTERIES: Mild atherosclerotic calcification without acute abnormality. IVC and VEINS: No significant abnormality. URINARY BLADDER: The bladder is decompressed with a Byrd catheter. No gross abnormality. REPRODUCTIVE ORGANS: No significant abnormality. ADDITIONAL FINDINGS: Small left inguinal hernia containing fat. SKELETAL SYSTEM: Mild lumbar spondylosis. No acute osseous findings. IMPRESSION: No evidence for hydronephrosis. Bilateral lower lung opacities concerning for Covid pneumonia. Cholelithiasis. Diverticulosis of the colon. Recommend retraction of the nasogastric tube, see above. Signer Name: Nawaf Hathaway Jr, MD Signed: 06/13/2021 1:54 PM Workstation Name: [id number]
[2021-06-13] MEDS: INSULIN NPH/REGULAR 70/30 INJ SUB-Q SCH (19:16)
[2021-06-14] MEDS: HEPARIN 5,000 UNIT/1 ML VIAL SUB-Q SCH ×4 (01:45→22:30)
[2021-06-14] MEDS: INSULIN LISPRO 100 UNIT/ML SUB-Q SCH ×4 (01:45→20:59)
[2021-06-14] MEDS: FREE WATER PO SCH ×6 (01:47→20:59)
[2021-06-14] MEDS: methylPREDNISolone Sod Succinate 40 MG/1 ML INJ IV SCH ×4 (01:48→23:48)
[2021-06-14] MEDS: BICITRA ORAL LIQD 30ML PO SCH ×5 (01:49→20:30)
[2021-06-14] MEDS: QUEtiapine 25 MG TAB PO SCH ×4 (01:49→23:47)
[2021-06-14 05:39] LABS: Calcium 10.6 mg/dL (8.4-10.2)
--- NOTE | 2021-06-14 08:43 | Progress Note ---
Assessment and Plan Assessment and plan: #Acute hypoxic respiratory failure #COVID-19 pneumonia -PCR +06/04 -Currently on high flow nasal cannula 40/100% FiO2 + nonrebreather -s/p remdesivir -Continue steroids -Infectious Disease and Pulmonology following, assistance appreciated #ANGIE on CKD-improved -Creatinine 2.1 today -Renal ultrasound shows medical renal disease and mild left hydronephrosis with 7mm stone in mid left kidney -Urology consulted for hydronephrosis; CT of pelvis showed no evidence of hydronephrosis -Renally dose medications and avoid nephrotoxic agents #Hypernatremia #Hyperkalemia -will start free water flushes -will continue to monitor #Acute metabolic encephalopathy -improved, likely secondary to COVID-pneumonia -CT head not performed due to agitation -Continue Seroquel, delirium precautions #Type 2 diabetes w/ hyperglycemia -Continue sliding scale insulin, started humulin 10U BID #Mitral valve vegetation -Seen on echocardiogram, less than 1 cm -CARRILLO held due to patient's respiratory status at this time -Blood cultures 06/03, 06/05, 06/06 no growth to date x5 days -Patient afebrile, currently low clinical suspicion for endocarditis #Hyperviscosity -Patient with elevated hemoglobin hematocrit -will monitor at this time History Interval history: Patient sleeping. Wakes to touch. Unable to communicate due to facemask. Hospitalist Physical - Physical exam Narrative exam: GENERAL: Well-developed well-nourished. Lying in bed, in no acute distress. HEENT: High flow nasal cannula in place with nonrebreather CHEST/LUNGS: Coarse breath sounds bilaterally. HEART/CARDIOVASCULAR: RRR. No murmur, rubs or gallops appreciated. ABDOMEN: +BS. NT/ND. NEURO: No focal motor deficit. MUSCULOSKELETAL: No joint effusion EXTREMITIES: No cyanosis, clubbing or edema. PSYCH: Alert to person. - Constitutional Vitals: Temp Pulse Resp BP Pulse Ox 98.5 F 76 18 129/80 90 06/14/21 04:39 06/14/21 04:39 06/14/21 04:39 06/14/21 04:39 06/14/21 08:35 General appearance: Present: mild distress, well-nourished, other (Encephalopathic and confused) Results - Labs CBC & Chem 7: 06/09/21 09:08 06/14/21 05:04 Labs: Laboratory Last Values WBC 12.6 K/mm3 (4.5-11.0) H 06/09/21 09:08 RBC 7.64 M/mm3 (3.65-5.03) H 06/09/21 09:08 Hgb 18.0 gm/dl (11.8-15.2) H 06/09/21 09:08 Hct 56.8 % (35.5-45.6) H 06/09/21 09:08 MCV 74 fl (84-94) L 06/09/21 09:08 MCH 24 pg (28-32) L 06/09/21 09:08 MCHC 32 % (32-34) 06/09/21 09:08 RDW 16.2 % (13.2-15.2) H 06/09/21 09:08 Plt Count 423 K/mm3 (140-440) 06/09/21 09:08 Lymph % (Auto) 2.9 % (13.4-35.0) L 06/09/21 09:08 [place] % (Auto) 12.8 % (0.0-7.3) H 06/09/21 09:08 Eos % (Auto) 0.0 % (0.0-4.3) 06/09/21 09:08 Baso % (Auto) 0.0 % (0.0-1.8) 06/09/21 09:08 Lymph # (Auto) 0.4 K/mm3 (1.2-5.4) L 06/09/21 09:08 [place] # (Auto) 1.6 K/mm3 (0.0-0.8) H 06/09/21 09:08 Eos # (Auto) 0.0 K/mm3 (0.0-0.4) 06/09/21 09:08 Baso # (Auto) 0.0 K/mm3 (0.0-0.1) 06/09/21 09:08 Seg Neutrophils % 84.3 % (40.0-70.0) H 06/09/21 09:08 Seg Neutrophils # 10.6 K/mm3 (1.8-7.7) H 06/09/21 09:08 D-Dimer 526.33 ng/mlDDU (0-234) H 06/10/21 05:38 ABG pH 7.430 pH Units (7.350-7.450) 06/09/21 10:15 ABG pCO2 28.9 mm Hg 06/09/21 10:15 ABG pO2 57.0 mm Hg (80.0-90.0) L 06/09/21 10:15 ABG HCO3 18.8 mmol/L (20.0-26.0) L 06/09/21 10:15 ABG O2 Saturation 90.0 % (95.0-99.0) L 06/09/21 10:15 ABG O2 Content 22.9 (0.0-44) 06/09/21 10:15 ABG Base Excess -3.7 mmol/L (-2.0-3.0) L 06/09/21 10:15 ABG Hemoglobin 18.5 gm/dl (14.0-18.0) H 06/09/21 10:15 ABG Carboxyhemoglobin 0.9 % (0.0-5.0) 06/09/21 10:15 ABG Methemoglobin 0.6 % (0.0-1.5) 06/09/21 10:15 Oxyhemoglobin 88.6 % (95.0-99.0) L 06/09/21 10:15 FiO2 100 % 06/09/21 10:15 Sodium 152 mmol/L (137-145) H 06/14/21 05:04 Potassium 4.6 mmol/L (3.6-5.0) 06/14/21 05:04 Chloride 111.7 mmol/L (98-107) H 06/14/21 05:04 Carbon Dioxide 27 mmol/L (22-30) 06/14/21 05:04 Anion Gap 18 mmol/L 06/14/21 05:04 BUN 74 mg/dL (9-20) H 06/14/21 05:04 Creatinine 2.1 mg/dL (0.8-1.3) H 06/14/21 05:04 Estimated GFR 31 ml/min 06/14/21 05:04 BUN/Creatinine Ratio 35 % 06/14/21 05:04 Glucose 274 mg/dL (75-100) H 06/14/21 05:04 POC Glucose 165 mg/dL (70-105) H 06/13/21 21:05 Lactic Acid 1.60 mmol/L (0.7-2.0) 06/03/21 20:37 Calcium 10.6 mg/dL (8.4-10.2) H 06/14/21 05:04 Ferritin 823.7 ng/mL (30.0-300.0) H 06/03/21 18:37 Total Bilirubin 0.70 mg/dL (0.1-1.2) 06/09/21 09:08 Direct Bilirubin 0.3 mg/dL (0-0.2) H 06/09/21 09:08 Indirect Bilirubin 0.4 mg/dL 06/09/21 09:08 AST 56 units/L (5-40) H 06/09/21 09:08 ALT 34 units/L (7-56) 06/09/21 09:08 Alkaline Phosphatase 75 units/L (35-129) 06/09/21 09:08 Lactate Dehydrogenase 308 units/L (91-180) H 06/03/21 18:37 Total Creatine Kinase 67 units/L (55-170) 06/04/21 05:40 C-Reactive Protein 2.20 mg/dL (0.00-1.30) H 06/10/21 05:38 NT-Pro-B Natriuret Pep 246.5 pg/mL (0-900) 06/03/21 20:48 Total Protein 6.7 g/dL (6.3-8.2) 06/09/21 09:08 Albumin 3.5 g/dL (3.9-5) L 06/09/21 09:08 Albumin/Globulin Ratio 1.1 % 06/09/21 09:08 Procalcitonin 0.12 ng/mL (<0.15) 06/03/21 18:37 Urine Color Yellow (Yellow) 06/08/21 16:00 Urine Turbidity Clear (Clear) 06/08/21 16:00 Urine pH 5.0 (5.0-7.0) 06/08/21 16:00 Ur Specific [place] 1.016 (1.003-1.030) 06/08/21 16:00 Urine Protein 100 mg/dl mg/dL (Negative) 06/08/21 16:00 Urine Glucose (UA) Neg mg/dL (Negative) 06/08/21 16:00 Urine Ketones Neg mg/dL (Negative) 06/08/21 16:00 Urine Blood Mod (Negative) 06/08/21 16:00 Urine Nitrite Neg (Negative) 06/08/21 16:00 Urine Bilirubin Neg (Negative) 06/08/21 16:00 Urine Urobilinogen < 2.0 mg/dL (<2.0) 06/08/21 16:00 Ur Leukocyte Esterase Neg (Negative) 06/08/21 16:00 Urine WBC (Auto) 1.0 /HPF (0.0-6.0) 06/08/21 16:00 Urine RBC (Auto) 2.0 /HPF (0.0-6.0) 06/08/21 16:00 U Epithel Cells (Auto) 1.0 /HPF (0-13.0) 06/08/21 16:00 Urine Mucus Few /HPF 06/08/21 16:00 Urine Yeast (Budding) Few /HPF 06/06/21 03:30 Urine Eosinophils Rare (None Seen) 06/06/21 03:30 Urine Creatinine 117.6 mg/dL (0.1-20.0) H 06/06/21 03:30 Urine Sodium 41 mmol/L 06/06/21 03:30 Coronavirus (PCR) Positive (Negative) A 06/04/21 Unknown Byrd/IV: Voiding Method Indwelling Catheter Active Medications - Current Medications Current Medications: Generic Name Dose Route Start Last Admin Trade Name Freq PRN Reason Stop Dose Admin Acetaminophen 650 mg 06/03/21 21:46 Acetaminophen 325 Mg Tab PO Q4H PRN Pain MILD(1-3)/Fever >100.5/LISA Albuterol 2 puff 06/06/21 07:53 06/06/21 17:20 Albuterol 8.5 Gm Mdi Inhalation IH 2 puff Q6HRT PRN Administration Shortness Of Breath Atenolol 50 mg 06/04/21 10:00 06/12/21 16:00 Atenolol 50 Mg Tab PO 50 mg DAILY COOPER Administration Citric Acid/Sodium Citrate 30 ml 06/08/21 14:00 06/14/21 01:49 Bicitra Oral Liqd 30ml PO 30 ml TID COOPER Administration Dextrose 0 ml 06/03/21 21:46 Dextrose 50% In Water (25gm) 50 Ml Syringe IV Q30MIN PRN Hypoglycemia Protocol Famotidine 20 mg 06/03/21 22:00 06/12/21 11:21 Famotidine 20 Mg Tab PO 20 mg QAM COOPER Administration Haloperidol Lactate 5 mg 06/08/21 14:00 06/09/21 21:55 Haloperidol Lactate 5 Mg/1 Ml Inj IM 5 mg Q6H PRN Administration Agitation Heparin Sodium (Porcine) 5,000 unit 06/03/21 22:00 06/14/21 06:13 Heparin 5,000 Unit/1 Ml Vial SUB-Q 5,000 unit Q8HR COOPER Administration Hydralazine HCl 10 mg 06/03/21 21:50 Hydralazine 20 Mg/1 Ml Inj IV Q6H PRN Blood Pressure Hydromorphone HCl 0.5 mg 06/03/21 21:46 06/11/21 00:42 Hydromorphone 1 Mg/1 Ml Inj IV 0.5 mg Q3H PRN Administration Pain , Severe (7-10) Dextrose 1,000 mls @ 42 mls/hr 06/12/21 21:00 06/12/21 22:06 D5w IV 42 mls/hr DIRECT COOPER Administration Insulin Human Isoph/Insulin Regular 10 unit 06/13/21 17:00 06/13/21 19:16 Insulin Nph/Regular 70/30 Inj SUB-Q 10 unit BIDDIAB COOPER Administration Insulin Human Lispro 0 unit 06/09/21 18:00 06/14/21 06:13 Insulin Lispro 100 Unit/Ml SUB-Q 6 unit Q6HR COOPER Administration Protocol Methylprednisolone Sodium Succinate 40 mg 06/10/21 18:30 06/14/21 01:48 Methylprednisolone Sod Succinate 40 Mg/1 Ml Inj IV 40 mg Q8H COOPER Administration Morphine Sulfate 2 mg 06/03/21 21:46 06/09/21 18:30 Morphine 2 Mg/1 Ml Inj IV 2 mg Q4H PRN Administration Pain, Moderate (4-6) Ondansetron HCl 4 mg 06/03/21 21:46 Ondansetron 4 Mg/2 Ml Inj IV Q8H PRN Nausea And Vomiting Quetiapine Fumarate 25 mg 06/08/21 10:00 06/14/21 01:49 Quetiapine 25 Mg Tab PO 25 mg BID COOPER Administration Sodium Chloride 10 ml 06/03/21 22:00 06/14/21 01:48 Sodium Chloride 0.9% 10 Ml Flush Syringe IV 10 ml BID COOPER Administration Sodium Chloride 10 ml 06/03/21 21:46 Sodium Chloride 0.9% 10 Ml Flush Syringe IV PRN PRN LINE FLUSH Nutrition/Malnutrition Assess - Dietary Evaluation Nutrition/Malnutrition Findings: Nutrition Notes Start: 06/04/21 10:44 Freq: Status: Active Protocol: Document 06/12/21 15:12 DENISE (Rec: 06/12/21 15:21 DENISE [id number]) Nutrition Notes Initial or Follow up Brief Note Current Diet TF-Nepro w/CARBSTEADY @ 32 ml/ hr (since D 06/09). Height 5 ft 8 in Weight 86.5 kg [place] Body Weight (kg) 70.00 BMI 29.0 Weight change and time frame No body weight change reported . Weight Status Overweight Subjective/Other Information RD consult for TF tolerance assessment. TF continues as prescribed and well tolerated, according to RN notes. Percent of energy/protein needs met: Prescribed Nepro w/CARBSTEADY @ 32 ml/hr provides for energy /protein needs (1,384 Kcal/62 g) during LOS; 80% Kcal; 60% AA. Current % PO Other #1 Nutrition Diagnosis Inadequate oral intake Diagnosis Progress(for reassessment Continues documentation) Is patient on ventilator? No Is Patient Ambulatory and/or Out of Bed Yes REE-([facility]-ambulatory/OOB) [ 2052.350 [id number]] Calculation Used for Recommendations 70-80% of EEN Additional Notes 15-20 Kcal/Kg ABW. Protein: 1.2-2 g/Kg; 104-174 g /day. Fluids: 1 ml/Kcal, or as per MD. Nutrition Intervention Nutrition Support: Continue Nepro w/CARBSTEADY @ 32 ml/hr. Flush 200 ml water Q 4 hr, or as per MD. Kcal 1,384 Protein (gm) 62 Carbohydrates (gm) 124 Fat (gm) 74 Fluid (mL) 559 Fiber (gm) 10 % RDI: 80% Kcal; 60% AA. Goal #1 Provide at least 75% of energy /protein needs through Enteral Feeding during LOS. Follow-Up By: 06/19/21 Additional Comments Continue monitoring TF tolerance and BM.
[2021-06-14] MEDS: MORPHINE 2 MG/1 ML INJ IV PRN (08:54)
[2021-06-14] MEDS: DEXTROSE 5% IN WATER 1,000 ML IV SCH (09:06)
[2021-06-14] MEDS: INSULIN NPH/REGULAR 70/30 INJ SUB-Q SCH ×2 (10:09→17:39)
[2021-06-14] MEDS: FAMOTIDINE 20 MG TAB PO SCH ×2 (12:12→23:47)
[2021-06-14] MEDS: atenoloL 50 MG TAB PO SCH ×2 (12:44→23:47)
--- NOTE | 2021-06-14 13:25 | Progress Note ---
Assessment and Plan Assessment: Acute Kidney injury 2/2 prerenal, hydronephrosis, possible CKD: Covid 19 Pneumonia: Acute Hypoxic respiratory failure: Hyperkalemia: Metabolic acidosis: DM2: HTN: Plan: -Renal function reviewed, SCr level was 2.1 today, yesterday's SCr level was 2.0 -Serum Na level was 152 today, yesterday's serum Na level 150 -On free water flushes 350 ml q 4 hrs -On Bicitra 30 ml TID -Renal US-noted mild Left hydro, urology consult was requested. Dr Lai recommended CT AP stone protocol, arce -CT AP w/o contrast on 06/13/21 showed no hydronephrosis -Renally dose all meds -Strict I/Os -Intake= 1000 ml Output= 650 ml (Net= 350 ml) -Renal plan reviewed by Dr Colón Subjective Date of service: 06/14/21 Principal diagnosis: ANGIE Interval history: Pt on isolation for covid-19, reviewed medical chart, labs, and notes Objective - Vital Signs Vital signs: Vital Signs - 12hr 06/14/21 06/14/21 06/14/21 02:00 03:05 04:39 Temperature 98.5 F Pulse Rate 76 Respiratory 18 Rate Blood Pressure 129/80 O2 Sat by Pulse 90 91 92 Oximetry 06/14/21 06/14/21 06/14/21 08:35 11:13 12:44 Temperature 99.5 F Pulse Rate 59 L 59 L Respiratory 26 H Rate Blood Pressure 140/94 140/94 O2 Sat by Pulse 90 88 Oximetry - Lab 06/09/21 09:08 06/14/21 05:04 Most recent lab results ABG pH 7.430 pH Units (7.350-7.450) 06/09/21 10:15 ABG pCO2 28.9 mm Hg 06/09/21 10:15 ABG pO2 57.0 mm Hg (80.0-90.0) L 06/09/21 10:15 ABG HCO3 18.8 mmol/L (20.0-26.0) L 06/09/21 10:15 ABG O2 Saturation 90.0 % (95.0-99.0) L 06/09/21 10:15 Calcium 10.6 mg/dL (8.4-10.2) H 06/14/21 05:04 Urine Creatinine 117.6 mg/dL (0.1-20.0) H 06/06/21 03:30 Urine Sodium 41 mmol/L 06/06/21 03:30 Medications & Allergies - Medications Allergies/Adverse Reactions: Allergies shellfish derived Adverse Reaction (Verified 06/03/21 18:34) Hives Home Medications: Home Medications Medication Instructions Recorded Confirmed Last Taken Type atenoloL [Tenormin] 50 mg PO DAILY 06/03/21 06/03/21 Unknown History metFORMIN [Glucophage] 500 mg PO DAILY 06/03/21 06/03/21 Unknown History Active Medications: Generic Name Dose Route Start Last Admin Trade Name Freq PRN Reason Stop Dose Admin Acetaminophen 650 mg 06/03/21 21:46 Acetaminophen 325 Mg Tab PO Q4H PRN Pain MILD(1-3)/Fever >100.5/LISA Albuterol 2 puff 06/06/21 07:53 06/06/21 17:20 Albuterol 8.5 Gm Mdi Inhalation IH 2 puff Q6HRT PRN Administration Shortness Of Breath Atenolol 50 mg 06/04/21 10:00 06/14/21 12:44 Atenolol 50 Mg Tab PO 50 mg DAILY COOPER Administration Citric Acid/Sodium Citrate 30 ml 06/08/21 14:00 06/14/21 08:54 Bicitra Oral Liqd 30ml PO 30 ml TID COOPER Administration Dextrose 0 ml 06/03/21 21:46 Dextrose 50% In Water (25gm) 50 Ml Syringe IV Q30MIN PRN Hypoglycemia Protocol Famotidine 20 mg 06/03/21 22:00 06/14/21 12:12 Famotidine 20 Mg Tab PO 20 mg QAM COOPER Administration Haloperidol Lactate 5 mg 06/08/21 14:00 06/09/21 21:55 Haloperidol Lactate 5 Mg/1 Ml Inj IM 5 mg Q6H PRN Administration Agitation Heparin Sodium (Porcine) 5,000 unit 06/03/21 22:00 06/14/21 06:13 Heparin 5,000 Unit/1 Ml Vial SUB-Q 5,000 unit Q8HR COOPER Administration Hydralazine HCl 10 mg 06/03/21 21:50 Hydralazine 20 Mg/1 Ml Inj IV Q6H PRN Blood Pressure Hydromorphone HCl 0.5 mg 06/03/21 21:46 06/11/21 00:42 Hydromorphone 1 Mg/1 Ml Inj IV 0.5 mg Q3H PRN Administration Pain , Severe (7-10) Dextrose 1,000 mls @ 42 mls/hr 06/12/21 21:00 06/14/21 09:06 D5w IV 42 mls/hr DIRECT COOPER Administration Insulin Human Isoph/Insulin Regular 10 unit 06/13/21 17:00 06/14/21 10:09 Insulin Nph/Regular 70/30 Inj SUB-Q 10 unit BIDDIAB COOPER Administration Insulin Human Lispro 0 unit 06/09/21 18:00 06/14/21 06:13 Insulin Lispro 100 Unit/Ml SUB-Q 6 unit Q6HR COOPER Administration Protocol Methylprednisolone Sodium Succinate 40 mg 06/10/21 18:30 06/14/21 12:43 Methylprednisolone Sod Succinate 40 Mg/1 Ml Inj IV 40 mg Q8H COOPER Administration Morphine Sulfate 2 mg 06/03/21 21:46 06/14/21 08:54 Morphine 2 Mg/1 Ml Inj IV 2 mg Q4H PRN Administration Pain, Moderate (4-6) Ondansetron HCl 4 mg 06/03/21 21:46 Ondansetron 4 Mg/2 Ml Inj IV Q8H PRN Nausea And Vomiting Quetiapine Fumarate 25 mg 06/08/21 10:00 06/14/21 12:10 Quetiapine 25 Mg Tab PO 25 mg BID COOPER Administration Sodium Chloride 10 ml 06/03/21 22:00 06/14/21 12:13 Sodium Chloride 0.9% 10 Ml Flush Syringe IV 10 ml BID COOPER Administration Sodium Chloride 10 ml 06/03/21 21:46 Sodium Chloride 0.9% 10 Ml Flush Syringe IV PRN PRN LINE FLUSH
--- NOTE | 2021-06-14 13:37 | Progress Note ---
Assessment and Plan 75 y/o with acute respiratory failure secondary to COVID 19, renal failure (acute vs chronic) 06/14/2021: Remains on high flow nasal cannula and 100% nonrebreather with borderline oxygen saturation. Prognosis remains somewhat guarded. Has positive fluid balance we will give small dose of Lasix today. 06/13/21: Patient not able to prone. Prognosis is very guarded to poor. Given his renal failure, current oxygen requirement. High risk for decompensation and intubation. Will continue to monitor. Steroids. Please consider volume removal over the weekend. 06/12/21: Prone if possible. Wean FiO2 for sats >88%. Awaiting CT abdomen Pelvis. Will ask renal about diuresis again after imaging and final urology recs. 06/11/21: REnal with no mention of diuresis. WIll ask again tomorrow. COntinue TID steroids. 06/10/21: Will ask renal if diuresis is possible given CXR results. Continue supplemental oxygen but may progress to bipap therapy. Will increase steroids to TID. Guarded prognosis. 06/09/21: Steroids, prone if able. Will repeat CXR. ABG is consistent with respiratory alkalosis with hypoxemia, compensated as patient has a metabolic acidosis as well. Most likely low CO2 is a reaction to metabolic acidosis. On bicarb drip. Worsening oxygenation could be from volume. Follow up film 1. Steroids, ordered at q12 dosing, assuming secondary to diabetes and renal function. If using solumedrol, would consider changing to at least q8 2. Prone if able 3. Follow up renal recs, does not appear to be a candidate for diuresis 4. Wean FiO2 for sats > 88% Subjective Date of service: 06/14/21 Principal diagnosis: ANGIE Interval history: Patient remained severely hypoxic on 100% nonrebreather and high flow nasal cannula. Sats in high 80s to low 90s has positive fluid balance of 1100 mL Objective Vital Signs - 12hr 06/14/21 06/14/21 06/14/21 02:00 03:05 04:39 Temperature 98.5 F Pulse Rate 76 Respiratory 18 Rate Blood Pressure 129/80 O2 Sat by Pulse 90 91 92 Oximetry 06/14/21 06/14/21 06/14/21 08:35 11:13 12:44 Temperature 99.5 F Pulse Rate 59 L 59 L Respiratory 26 H Rate Blood Pressure 140/94 140/94 O2 Sat by Pulse 90 88 Oximetry Constitutional: asleep Eyes: non-icteric ENT: oropharynx moist Effort: mildly labored Ascultation: Bilateral: rhonchi Cardiovascular: other (Tachycardia noted) Gastrointestinal: normoactive bowel sounds Extremities: no cyanosis CBC and BMP: 06/09/21 09:08 06/14/21 05:04 ABG, PT/INR, D-dimer: ABG ABG pH 7.430 pH Units (7.350-7.450) 06/09/21 10:15 ABG pCO2 28.9 mm Hg 06/09/21 10:15 ABG pO2 57.0 mm Hg (80.0-90.0) L 06/09/21 10:15 ABG O2 Saturation 90.0 % (95.0-99.0) L 06/09/21 10:15 PT/INR, D-dimer D-Dimer 526.33 ng/mlDDU (0-234) H 06/10/21 05:38 Abnormal lab findings: Abnormal Labs 06/03/21 06/03/21 06/03/21 18:37 18:37 18:37 WBC RBC 7.38 H Hgb 17.0 H Hct 54.7 H MCV 74 L MCH 23 L MCHC 31 L RDW 15.9 H Lymph % (Auto) 8.4 L [place] % (Auto) 12.6 H Lymph # (Auto) 0.5 L [place] # (Auto) Seg Neutrophils % 78.7 H Seg Neutrophils # D-Dimer ABG pO2 ABG HCO3 ABG O2 Saturation ABG Base Excess ABG Hemoglobin Oxyhemoglobin Sodium Potassium 5.4 H Chloride Carbon Dioxide 19 L BUN 40 H Creatinine 2.6 H Glucose 179 H POC Glucose Lactic Acid 2.40 H* Calcium Ferritin Direct Bilirubin AST Lactate Dehydrogenase 308 H C-Reactive Protein 6.20 H Total Protein Albumin 3.1 L Urine Creatinine Coronavirus (PCR) 06/03/21 06/03/21 06/04/21 18:37 18:37 00:30 WBC RBC Hgb Hct MCV MCH MCHC RDW Lymph % (Auto) [place] % (Auto) Lymph # (Auto) [place] # (Auto) Seg Neutrophils % Seg Neutrophils # D-Dimer 634.36 H ABG pO2 ABG HCO3 ABG O2 Saturation ABG Base Excess ABG Hemoglobin Oxyhemoglobin Sodium Potassium Chloride Carbon Dioxide BUN Creatinine Glucose POC Glucose 115 H Lactic Acid Calcium Ferritin 823.7 H Direct Bilirubin AST Lactate Dehydrogenase C-Reactive Protein Total Protein Albumin Urine Creatinine Coronavirus (PCR) 06/04/21 06/04/21 06/04/21 05:40 05:40 14:51 WBC 4.3 L RBC 6.82 H Hgb 15.9 H Hct 50.7 H MCV 74 L MCH 23 L MCHC 31 L RDW 16.1 H Lymph % (Auto) [place] % (Auto) 15.6 H Lymph # (Auto) 0.8 L [place] # (Auto) Seg Neutrophils % Seg Neutrophils # D-Dimer ABG pO2 ABG HCO3 ABG O2 Saturation ABG Base Excess ABG Hemoglobin Oxyhemoglobin Sodium Potassium Chloride Carbon Dioxide 21 L 19 L BUN 46 H 49 H Creatinine 2.2 H 2.5 H Glucose 101 H 131 H POC Glucose Lactic Acid Calcium 8.0 L Ferritin Direct Bilirubin AST Lactate Dehydrogenase C-Reactive Protein Total Protein Albumin 3.4 L Urine Creatinine Coronavirus (PCR) 06/04/21 06/04/21 06/05/21 22:06 Unknown 05:54 WBC RBC Hgb Hct MCV MCH MCHC RDW Lymph % (Auto) [place] % (Auto) Lymph # (Auto) [place] # (Auto) Seg Neutrophils % Seg Neutrophils # D-Dimer ABG pO2 ABG HCO3 ABG O2 Saturation ABG Base Excess ABG Hemoglobin Oxyhemoglobin Sodium Potassium Chloride Carbon Dioxide 17 L BUN 61 H Creatinine 2.5 H Glucose 150 H POC Glucose 134 H Lactic Acid Calcium Ferritin Direct Bilirubin AST Lactate Dehydrogenase C-Reactive Protein Total Protein Albumin 3.2 L Urine Creatinine Coronavirus (PCR) Positive A 06/05/21 06/05/21 06/05/21 05:54 08:23 12:30 WBC 3.6 L RBC 7.39 H Hgb 17.2 H Hct 54.9 H MCV 74 L MCH 23 L MCHC 31 L RDW 16.2 H Lymph % (Auto) 11.1 L [place] % (Auto) 15.4 H Lymph # (Auto) 0.4 L [place] # (Auto) Seg Neutrophils % 73.3 H Seg Neutrophils # D-Dimer ABG pO2 ABG HCO3 ABG O2 Saturation ABG Base Excess ABG Hemoglobin Oxyhemoglobin Sodium Potassium Chloride Carbon Dioxide BUN Creatinine Glucose POC Glucose 163 H 146 H Lactic Acid Calcium Ferritin Direct Bilirubin AST Lactate Dehydrogenase C-Reactive Protein Total Protein Albumin Urine Creatinine Coronavirus (PCR) 06/05/21 06/05/21 06/06/21 16:04 20:49 03:30 WBC RBC Hgb Hct MCV MCH MCHC RDW Lymph % (Auto) [place] % (Auto) Lymph # (Auto) [place] # (Auto) Seg Neutrophils % Seg Neutrophils # D-Dimer ABG pO2 ABG HCO3 ABG O2 Saturation ABG Base Excess ABG Hemoglobin Oxyhemoglobin Sodium Potassium Chloride Carbon Dioxide BUN Creatinine Glucose POC Glucose 140 H 208 H Lactic Acid Calcium Ferritin Direct Bilirubin AST Lactate Dehydrogenase C-Reactive Protein Total Protein Albumin Urine Creatinine 117.6 H Coronavirus (PCR) 06/06/21 06/06/21 06/06/21 06:09 06:09 08:16 WBC RBC 7.20 H Hgb 16.9 H Hct 53.7 H MCV 75 L MCH 24 L MCHC RDW 16.3 H Lymph % (Auto) 6.3 L [place] % (Auto) 13.1 H Lymph # (Auto) 0.5 L [place] # (Auto) 1.1 H Seg Neutrophils % 80.3 H Seg Neutrophils # D-Dimer ABG pO2 ABG HCO3 ABG O2 Saturation ABG Base Excess ABG Hemoglobin Oxyhemoglobin Sodium Potassium Chloride Carbon Dioxide 18 L BUN 73 H Creatinine 2.5 H Glucose 152 H POC Glucose 146 H Lactic Acid Calcium Ferritin Direct Bilirubin AST Lactate Dehydrogenase C-Reactive Protein Total Protein Albumin 3.3 L Urine Creatinine Coronavirus (PCR) 06/06/21 06/06/21 06/06/21 12:45 14:13 17:39 WBC RBC Hgb Hct MCV MCH MCHC RDW Lymph % (Auto) [place] % (Auto) Lymph # (Auto) [place] # (Auto) Seg Neutrophils % Seg Neutrophils # D-Dimer ABG pO2 ABG HCO3 19.7 L ABG O2 Saturation ABG Base Excess -4.3 L ABG Hemoglobin Oxyhemoglobin 94.6 L Sodium Potassium Chloride Carbon Dioxide BUN Creatinine Glucose POC Glucose 225 H 154 H Lactic Acid Calcium Ferritin Direct Bilirubin AST Lactate Dehydrogenase C-Reactive Protein Total Protein Albumin Urine Creatinine Coronavirus (PCR) 06/06/21 06/07/21 06/07/21 21:46 06:16 15:54 WBC RBC Hgb Hct MCV MCH MCHC RDW Lymph % (Auto) [place] % (Auto) Lymph # (Auto) [place] # (Auto) Seg Neutrophils % Seg Neutrophils # D-Dimer ABG pO2 ABG HCO3 ABG O2 Saturation ABG Base Excess ABG Hemoglobin Oxyhemoglobin Sodium 149 H Potassium Chloride 114.2 H Carbon Dioxide 21 L BUN 79 H Creatinine 2.6 H Glucose POC Glucose 187 H 195 H Lactic Acid Calcium Ferritin Direct Bilirubin AST Lactate Dehydrogenase C-Reactive Protein Total Protein 5.9 L Albumin 3.3 L Urine Creatinine Coronavirus (PCR) 06/07/21 06/08/21 06/08/21 21:27 07:33 07:42 WBC RBC Hgb Hct MCV MCH MCHC RDW Lymph % (Auto) [place] % (Auto) Lymph # (Auto) [place] # (Auto) Seg Neutrophils % Seg Neutrophils # D-Dimer ABG pO2 ABG HCO3 ABG O2 Saturation ABG Base Excess ABG Hemoglobin Oxyhemoglobin Sodium 154 H Potassium 5.1 H Chloride 117.3 H Carbon Dioxide 17 L BUN 76 H Creatinine 2.5 H Glucose 180 H POC Glucose 190 H 186 H Lactic Acid Calcium Ferritin Direct Bilirubin AST Lactate Dehydrogenase C-Reactive Protein Total Protein Albumin Urine Creatinine Coronavirus (PCR) 06/08/21 06/08/21 06/08/21 10:56 15:42 22:34 WBC RBC Hgb Hct MCV MCH MCHC RDW Lymph % (Auto) [place] % (Auto) Lymph # (Auto) [place] # (Auto) Seg Neutrophils % Seg Neutrophils # D-Dimer ABG pO2 ABG HCO3 ABG O2 Saturation ABG Base Excess ABG Hemoglobin Oxyhemoglobin Sodium Potassium Chloride Carbon Dioxide BUN Creatinine Glucose POC Glucose 206 H 175 H 146 H Lactic Acid Calcium Ferritin Direct Bilirubin AST Lactate Dehydrogenase C-Reactive Protein Total Protein Albumin Urine Creatinine Coronavirus (PCR) 06/09/21 06/09/21 06/09/21 07:39 09:08 09:08 WBC 12.6 H RBC 7.64 H Hgb 18.0 H Hct 56.8 H MCV 74 L MCH 24 L MCHC RDW 16.2 H Lymph % (Auto) 2.9 L [place] % (Auto) 12.8 H Lymph # (Auto) 0.4 L [place] # (Auto) 1.6 H Seg Neutrophils % 84.3 H Seg Neutrophils # 10.6 H D-Dimer ABG pO2 ABG HCO3 ABG O2 Saturation ABG Base Excess ABG Hemoglobin Oxyhemoglobin Sodium 159 H Potassium 5.2 H Chloride 120.0 H Carbon Dioxide 17 L BUN 81 H Creatinine 2.7 H Glucose 161 H POC Glucose 154 H Lactic Acid Calcium Ferritin Direct Bilirubin AST Lactate Dehydrogenase C-Reactive Protein Total Protein Albumin Urine Creatinine Coronavirus (PCR) 06/09/21 06/09/21 06/09/21 09:08 10:15 11:07 WBC RBC Hgb Hct MCV MCH MCHC RDW Lymph % (Auto) [place] % (Auto) Lymph # (Auto) [place] # (Auto) Seg Neutrophils % Seg Neutrophils # D-Dimer ABG pO2 57.0 L ABG HCO3 18.8 L ABG O2 Saturation 90.0 L ABG Base Excess -3.7 L ABG Hemoglobin 18.5 H Oxyhemoglobin 88.6 L Sodium Potassium Chloride Carbon Dioxide BUN Creatinine Glucose POC Glucose 149 H Lactic Acid Calcium Ferritin Direct Bilirubin 0.3 H AST 56 H Lactate Dehydrogenase C-Reactive Protein Total Protein Albumin 3.5 L Urine Creatinine Coronavirus (PCR) 06/09/21 06/09/21 06/09/21 14:08 15:30 23:15 WBC RBC Hgb Hct MCV MCH MCHC RDW Lymph % (Auto) [place] % (Auto) Lymph # (Auto) [place] # (Auto) Seg Neutrophils % Seg Neutrophils # D-Dimer ABG pO2 ABG HCO3 ABG O2 Saturation ABG Base Excess ABG Hemoglobin Oxyhemoglobin Sodium 157 H Potassium 5.2 H Chloride 117.4 H Carbon Dioxide 18 L BUN 86 H Creatinine 2.9 H Glucose 228 H POC Glucose 237 H 221 H Lactic Acid Calcium Ferritin Direct Bilirubin AST Lactate Dehydrogenase C-Reactive Protein Total Protein Albumin Urine Creatinine Coronavirus (PCR) 06/09/21 06/10/21 06/10/21 23:45 05:38 05:38 WBC RBC Hgb Hct MCV MCH MCHC RDW Lymph % (Auto) [place] % (Auto) Lymph # (Auto) [place] # (Auto) Seg Neutrophils % Seg Neutrophils # D-Dimer 526.33 H ABG pO2 ABG HCO3 ABG O2 Saturation ABG Base Excess ABG Hemoglobin Oxyhemoglobin Sodium 153 H 153 H Potassium 5.3 H Chloride 117.1 H 112.6 H Carbon Dioxide 21 L BUN 86 H 82 H Creatinine 2.6 H 2.5 H Glucose 239 H 297 H POC Glucose Lactic Acid Calcium Ferritin Direct Bilirubin AST Lactate Dehydrogenase C-Reactive Protein 2.20 H Total Protein Albumin Urine Creatinine Coronavirus (PCR) 06/10/21 06/10/21 06/10/21 08:09 12:08 14:10 WBC RBC Hgb Hct MCV MCH MCHC RDW Lymph % (Auto) [place] % (Auto) Lymph # (Auto) [place] # (Auto) Seg Neutrophils % Seg Neutrophils # D-Dimer ABG pO2 ABG HCO3 ABG O2 Saturation ABG Base Excess ABG Hemoglobin Oxyhemoglobin Sodium 152 H Potassium Chloride 112.9 H Carbon Dioxide BUN 81 H Creatinine 2.4 H Glucose 321 H POC Glucose 256 H 245 H Lactic Acid Calcium Ferritin Direct Bilirubin AST Lactate Dehydrogenase C-Reactive Protein Total Protein Albumin Urine Creatinine Coronavirus (PCR) 06/10/21 06/10/21 06/11/21 16:38 23:19 02:34 WBC RBC Hgb Hct MCV MCH MCHC RDW Lymph % (Auto) [place] % (Auto) Lymph # (Auto) [place] # (Auto) Seg Neutrophils % Seg Neutrophils # D-Dimer ABG pO2 ABG HCO3 ABG O2 Saturation ABG Base Excess ABG Hemoglobin Oxyhemoglobin Sodium 149 H Potassium 5.1 H Chloride 111.5 H Carbon Dioxide BUN 78 H Creatinine 2.3 H Glucose 308 H POC Glucose 232 H 277 H Lactic Acid Calcium Ferritin Direct Bilirubin AST Lactate Dehydrogenase C-Reactive Protein Total Protein Albumin Urine Creatinine Coronavirus (PCR) 06/11/21 06/11/21 06/11/21 04:52 09:24 11:58 WBC RBC Hgb Hct MCV MCH MCHC RDW Lymph % (Auto) [place] % (Auto) Lymph # (Auto) [place] # (Auto) Seg Neutrophils % Seg Neutrophils # D-Dimer ABG pO2 ABG HCO3 ABG O2 Saturation ABG Base Excess ABG Hemoglobin Oxyhemoglobin Sodium 146 H Potassium 5.4 H Chloride 112.8 H Carbon Dioxide BUN 75 H Creatinine 2.2 H Glucose 267 H POC Glucose 291 H 275 H Lactic Acid Calcium Ferritin Direct Bilirubin AST Lactate Dehydrogenase C-Reactive Protein Total Protein Albumin Urine Creatinine Coronavirus (PCR) 06/11/21 06/11/21 06/11/21 14:02 18:50 22:33 WBC RBC Hgb Hct MCV MCH MCHC RDW Lymph % (Auto) [place] % (Auto) Lymph # (Auto) [place] # (Auto) Seg Neutrophils % Seg Neutrophils # D-Dimer ABG pO2 ABG HCO3 ABG O2 Saturation ABG Base Excess ABG Hemoglobin Oxyhemoglobin Sodium 146 H Potassium Chloride 109.6 H Carbon Dioxide BUN 78 H Creatinine 2.2 H Glucose 377 H POC Glucose 171 H 213 H Lactic Acid Calcium Ferritin Direct Bilirubin AST Lactate Dehydrogenase C-Reactive Protein Total Protein Albumin Urine Creatinine Coronavirus (PCR) 06/11/21 06/12/21 06/12/21 23:37 05:23 05:31 WBC RBC Hgb Hct MCV MCH MCHC RDW Lymph % (Auto) [place] % (Auto) Lymph # (Auto) [place] # (Auto) Seg Neutrophils % Seg Neutrophils # D-Dimer ABG pO2 ABG HCO3 ABG O2 Saturation ABG Base Excess ABG Hemoglobin Oxyhemoglobin Sodium 146 H Potassium 5.1 H Chloride 110.8 H 108.2 H Carbon Dioxide 20 L BUN 73 H 69 H Creatinine 1.9 H 1.9 H Glucose 324 H 270 H POC Glucose 225 H Lactic Acid Calcium Ferritin Direct Bilirubin AST Lactate Dehydrogenase C-Reactive Protein Total Protein Albumin Urine Creatinine Coronavirus (PCR) 06/12/21 06/12/21 06/12/21 11:05 17:29 23:08 WBC RBC Hgb Hct MCV MCH MCHC RDW Lymph % (Auto) [place] % (Auto) Lymph # (Auto) [place] # (Auto) Seg Neutrophils % Seg Neutrophils # D-Dimer ABG pO2 ABG HCO3 ABG O2 Saturation ABG Base Excess ABG Hemoglobin Oxyhemoglobin Sodium 150 H Potassium 5.2 H Chloride 109.9 H Carbon Dioxide BUN 71 H Creatinine 2.1 H Glucose 408 H POC Glucose 237 H 272 H Lactic Acid Calcium Ferritin Direct Bilirubin AST Lactate Dehydrogenase C-Reactive Protein Total Protein Albumin Urine Creatinine Coronavirus (PCR) 06/13/21 06/13/21 06/13/21 00:04 05:43 05:58 WBC RBC Hgb Hct MCV MCH MCHC RDW Lymph % (Auto) [place] % (Auto) Lymph # (Auto) [place] # (Auto) Seg Neutrophils % Seg Neutrophils # D-Dimer ABG pO2 ABG HCO3 ABG O2 Saturation ABG Base Excess ABG Hemoglobin Oxyhemoglobin Sodium 150 H Potassium Chloride 110.6 H Carbon Dioxide BUN 72 H Creatinine 2.0 H Glucose 337 H POC Glucose 370 H 377 H Lactic Acid Calcium Ferritin Direct Bilirubin AST Lactate Dehydrogenase C-Reactive Protein Total Protein Albumin Urine Creatinine Coronavirus (PCR) 06/13/21 06/13/21 06/13/21 08:22 12:41 16:46 WBC RBC Hgb Hct MCV MCH MCHC RDW Lymph % (Auto) [place] % (Auto) Lymph # (Auto) [place] # (Auto) Seg Neutrophils % Seg Neutrophils # D-Dimer ABG pO2 ABG HCO3 ABG O2 Saturation ABG Base Excess ABG Hemoglobin Oxyhemoglobin Sodium Potassium Chloride Carbon Dioxide BUN Creatinine Glucose POC Glucose 313 H 246 H 215 H Lactic Acid Calcium Ferritin Direct Bilirubin AST Lactate Dehydrogenase C-Reactive Protein Total Protein Albumin Urine Creatinine Coronavirus (PCR) 06/13/21 06/14/21 06/14/21 21:05 05:04 12:53 WBC RBC Hgb Hct MCV MCH MCHC RDW Lymph % (Auto) [place] % (Auto) Lymph # (Auto) [place] # (Auto) Seg Neutrophils % Seg Neutrophils # D-Dimer ABG pO2 ABG HCO3 ABG O2 Saturation ABG Base Excess ABG Hemoglobin Oxyhemoglobin Sodium 152 H Potassium Chloride 111.7 H Carbon Dioxide BUN 74 H Creatinine 2.1 H Glucose 274 H POC Glucose 165 H 264 H Lactic Acid Calcium 10.6 H Ferritin Direct Bilirubin AST Lactate Dehydrogenase C-Reactive Protein Total Protein Albumin Urine Creatinine Coronavirus (PCR)
[2021-06-14] MEDS ORDERED: FUROSEMIDE 20 MG/2 ML INJ IV ONE (14:00)
[2021-06-15] MEDS: FREE WATER PO SCH ×3 (00:31→13:21)
[2021-06-15] MEDS: INSULIN LISPRO 100 UNIT/ML SUB-Q SCH ×3 (00:32→13:22)
[2021-06-15] MEDS: methylPREDNISolone Sod Succinate 40 MG/1 ML INJ IV SCH ×2 (02:10→10:59)
[2021-06-15] MEDS: HEPARIN 5,000 UNIT/1 ML VIAL SUB-Q SCH ×2 (05:50→14:42)
[2021-06-15 07:09] LABS: Calcium 10.8 mg/dL (8.4-10.2)
--- NOTE | 2021-06-15 08:50 | Progress Note ---
Assessment and Plan Assessment and plan: #Acute hypoxic respiratory failure #COVID-19 pneumonia -PCR +06/04 -Currently on high flow nasal cannula 40/100% FiO2 + nonrebreather -worsening, will transition to BiPAP and transfer to IMCU for closer monitoring -s/p remdesivir -Continue steroids -Infectious Disease and Pulmonology following, assistance appreciated #ANGIE on CKD -Creatinine increased to 3.0 today -Renal ultrasound shows medical renal disease and mild left hydronephrosis with 7mm stone in mid left kidney -Urology consulted for hydronephrosis; CT of pelvis showed no evidence of hydronephrosis -Renally dose medications and avoid nephrotoxic agents #Hypernatremia #Hyperkalemia -continue free water flushes -will continue to monitor #Acute metabolic encephalopathy -improved, likely secondary to COVID-pneumonia -CT head not performed due to agitation #Type 2 diabetes #Hypoglycemia -D10W started -continue sliding scale insulin, will hold humulin at this time #Mitral valve vegetation -Seen on echocardiogram, less than 1 cm -CARRILLO held due to patient's respiratory status at this time -Blood cultures 06/03, 06/05, 06/06 no growth to date x5 days -Patient afebrile, currently low clinical suspicion for endocarditis #Hyperviscosity -Patient with elevated hemoglobin hematocrit -will monitor at this time #Advance care planning -Disease education, care plan, diagnosis, prognosis discussed with next of kin. Family understands and acknowledges current plan. -Time: +30 minutes Disposition Plan: tx to [facility] History Interval history: Patient sleeping. Wakes to touch. Unable to communicate due to facemask. Hospitalist Physical - Physical exam Narrative exam: GENERAL: Well-developed well-nourished. Lying in bed, in no acute distress. HEENT: High flow nasal cannula in place with nonrebreather CHEST/LUNGS: Coarse breath sounds bilaterally. HEART/CARDIOVASCULAR: RRR. No murmur, rubs or gallops appreciated. ABDOMEN: +BS. NT/ND. NEURO: No focal motor deficit. MUSCULOSKELETAL: No joint effusion EXTREMITIES: No cyanosis, clubbing or edema. PSYCH: Alert to person. - Constitutional Vitals: Temp Pulse Resp BP Pulse Ox 98.2 F 94 H 24 148/91 94 06/14/21 21:59 06/15/21 02:00 06/15/21 02:00 06/14/21 21:59 06/15/21 02:00 General appearance: Present: mild distress, well-nourished, other (Enceph alopathic and confused) Results - Labs CBC & Chem 7: 06/09/21 09:08 06/15/21 05:43 Labs: Laboratory Last Values WBC 12.6 K/mm3 (4.5-11.0) H 06/09/21 09:08 RBC 7.64 M/mm3 (3.65-5.03) H 06/09/21 09:08 Hgb 18.0 gm/dl (11.8-15.2) H 06/09/21 09:08 Hct 56.8 % (35.5-45.6) H 06/09/21 09:08 MCV 74 fl (84-94) L 06/09/21 09:08 MCH 24 pg (28-32) L 06/09/21 09:08 MCHC 32 % (32-34) 06/09/21 09:08 RDW 16.2 % (13.2-15.2) H 06/09/21 09:08 Plt Count 423 K/mm3 (140-440) 06/09/21 09:08 Lymph % (Auto) 2.9 % (13.4-35.0) L 06/09/21 09:08 [place] % (Auto) 12.8 % (0.0-7.3) H 06/09/21 09:08 Eos % (Auto) 0.0 % (0.0-4.3) 06/09/21 09:08 Baso % (Auto) 0.0 % (0.0-1.8) 06/09/21 09:08 Lymph # (Auto) 0.4 K/mm3 (1.2-5.4) L 06/09/21 09:08 [place] # (Auto) 1.6 K/mm3 (0.0-0.8) H 06/09/21 09:08 Eos # (Auto) 0.0 K/mm3 (0.0-0.4) 06/09/21 09:08 Baso # (Auto) 0.0 K/mm3 (0.0-0.1) 06/09/21 09:08 Seg Neutrophils % 84.3 % (40.0-70.0) H 06/09/21 09:08 Seg Neutrophils # 10.6 K/mm3 (1.8-7.7) H 06/09/21 09:08 D-Dimer 526.33 ng/mlDDU (0-234) H 06/10/21 05:38 ABG pH 7.430 pH Units (7.350-7.450) 06/09/21 10:15 ABG pCO2 28.9 mm Hg 06/09/21 10:15 ABG pO2 57.0 mm Hg (80.0-90.0) L 06/09/21 10:15 ABG HCO3 18.8 mmol/L (20.0-26.0) L 06/09/21 10:15 ABG O2 Saturation 90.0 % (95.0-99.0) L 06/09/21 10:15 ABG O2 Content 22.9 (0.0-44) 06/09/21 10:15 ABG Base Excess -3.7 mmol/L (-2.0-3.0) L 06/09/21 10:15 ABG Hemoglobin 18.5 gm/dl (14.0-18.0) H 06/09/21 10:15 ABG Carboxyhemoglobin 0.9 % (0.0-5.0) 06/09/21 10:15 ABG Methemoglobin 0.6 % (0.0-1.5) 06/09/21 10:15 Oxyhemoglobin 88.6 % (95.0-99.0) L 06/09/21 10:15 FiO2 100 % 06/09/21 10:15 Sodium 157 mmol/L (137-145) H 06/15/21 05:43 Potassium 4.9 mmol/L (3.6-5.0) 06/15/21 05:43 Chloride 112.5 mmol/L (98-107) H 06/15/21 05:43 Carbon Dioxide 28 mmol/L (22-30) 06/15/21 05:43 Anion Gap 21 mmol/L 06/15/21 05:43 BUN 83 mg/dL (9-20) H 06/15/21 05:43 Creatinine 3.0 mg/dL (0.8-1.3) H 06/15/21 05:43 Estimated GFR 21 ml/min 06/15/21 05:43 BUN/Creatinine Ratio 28 % 06/15/21 05:43 Glucose 72 mg/dL (75-100) L 06/15/21 05:43 POC Glucose 72 mg/dL (70-105) 06/15/21 05:05 Lactic Acid 1.60 mmol/L (0.7-2.0) 06/03/21 20:37 Calcium 10.8 mg/dL (8.4-10.2) H 06/15/21 05:43 Ferritin 823.7 ng/mL (30.0-300.0) H 06/03/21 18:37 Total Bilirubin 0.70 mg/dL (0.1-1.2) 06/09/21 09:08 Direct Bilirubin 0.3 mg/dL (0-0.2) H 06/09/21 09:08 Indirect Bilirubin 0.4 mg/dL 06/09/21 09:08 AST 56 units/L (5-40) H 06/09/21 09:08 ALT 34 units/L (7-56) 06/09/21 09:08 Alkaline Phosphatase 75 units/L (35-129) 06/09/21 09:08 Lactate Dehydrogenase 308 units/L (91-180) H 06/03/21 18:37 Total Creatine Kinase 67 units/L (55-170) 06/04/21 05:40 C-Reactive Protein 2.20 mg/dL (0.00-1.30) H 06/10/21 05:38 NT-Pro-B Natriuret Pep 246.5 pg/mL (0-900) 06/03/21 20:48 Total Protein 6.7 g/dL (6.3-8.2) 06/09/21 09:08 Albumin 3.5 g/dL (3.9-5) L 06/09/21 09:08 Albumin/Globulin Ratio 1.1 % 06/09/21 09:08 Procalcitonin 0.12 ng/mL (<0.15) 06/03/21 18:37 Urine Color Yellow (Yellow) 06/08/21 16:00 Urine Turbidity Clear (Clear) 06/08/21 16:00 Urine pH 5.0 (5.0-7.0) 06/08/21 16:00 Ur Specific [place] 1.016 (1.003-1.030) 06/08/21 16:00 Urine Protein 100 mg/dl mg/dL (Negative) 06/08/21 16:00 Urine Glucose (UA) Neg mg/dL (Negative) 06/08/21 16:00 Urine Ketones Neg mg/dL (Negative) 06/08/21 16:00 Urine Blood Mod (Negative) 06/08/21 16:00 Urine Nitrite Neg (Negative) 06/08/21 16:00 Urine Bilirubin Neg (Negative) 06/08/21 16:00 Urine Urobilinogen < 2.0 mg/dL (<2.0) 06/08/21 16:00 Ur Leukocyte Esterase Neg (Negative) 06/08/21 16:00 Urine WBC (Auto) 1.0 /HPF (0.0-6.0) 06/08/21 16:00 Urine RBC (Auto) 2.0 /HPF (0.0-6.0) 06/08/21 16:00 U Epithel Cells (Auto) 1.0 /HPF (0-13.0) 06/08/21 16:00 Urine Mucus Few /HPF 06/08/21 16:00 Urine Yeast (Budding) Few /HPF 06/06/21 03:30 Urine Eosinophils Rare (None Seen) 06/06/21 03:30 Urine Creatinine 117.6 mg/dL (0.1-20.0) H 06/06/21 03:30 Urine Sodium 41 mmol/L 06/06/21 03:30 Coronavirus (PCR) Positive (Negative) A 06/04/21 Unknown Byrd/IV: Voiding Method Indwelling Catheter Active Medications - Current Medications Current Medications: Generic Name Dose Route Start Last Admin Trade Name Freq PRN Reason Stop Dose Admin Acetaminophen 650 mg 06/03/21 21:46 Acetaminophen 325 Mg Tab PO Q4H PRN Pain MILD(1-3)/Fever >100.5/LISA Albuterol 2 puff 06/06/21 07:53 06/06/21 17:20 Albuterol 8.5 Gm Mdi Inhalation IH 2 puff Q6HRT PRN Administration Shortness Of Breath Atenolol 50 mg 06/04/21 10:00 06/14/21 23:47 Atenolol 50 Mg Tab PO Not Given DAILY [facility] Citric Acid/Sodium Citrate 30 ml 06/08/21 14:00 06/14/21 20:30 Bicitra Oral Liqd 30ml PO 30 ml TID [facility] Administration Dextrose 0 ml 06/03/21 21:46 06/15/21 00:32 Dextrose 50% In Water (25gm) 50 Ml Syringe IV 50 ml Q30MIN PRN Administration Hypoglycemia Protocol Famotidine 20 mg 06/03/21 22:00 06/14/21 23:47 Famotidine 20 Mg Tab PO Not Given QAM [facility] Haloperidol Lactate 5 mg 06/08/21 14:00 06/09/21 21:55 Haloperidol Lactate 5 Mg/1 Ml Inj IM 5 mg Q6H PRN Administration Agitation Heparin Sodium (Porcine) 5,000 unit 06/03/21 22:00 06/15/21 05:50 Heparin 5,000 Unit/1 Ml Vial SUB-Q 5,000 unit Q8HR [facility] Administration Hydralazine HCl 10 mg 06/03/21 21:50 Hydralazine 20 Mg/1 Ml Inj IV Q6H PRN Blood Pressure Hydromorphone HCl 0.5 mg 06/03/21 21:46 06/11/21 00:42 Hydromorphone 1 Mg/1 Ml Inj IV 0.5 mg Q3H PRN Administration Pain , Severe (7-10) Dextrose 1,000 mls @ 75 mls/hr 06/15/21 09:00 D10w IV DIRECT [facility] Insulin Human Isoph/Insulin Regular 10 unit 06/13/21 17:00 06/14/21 17:39 Insulin Nph/Regular 70/30 Inj SUB-Q 10 unit BIDDIAB [facility] Administration Insulin Human Lispro 0 unit 06/09/21 18:00 06/15/21 06:23 Insulin Lispro 100 Unit/Ml SUB-Q Not Given Q6HR [facility] Protocol Methylprednisolone Sodium Succinate 40 mg 06/10/21 18:30 06/15/21 02:10 Methylprednisolone Sod Succinate 40 Mg/1 Ml Inj IV 40 mg Q8H [facility] Administration Morphine Sulfate 2 mg 06/03/21 21:46 06/14/21 08:54 Morphine 2 Mg/1 Ml Inj IV 2 mg Q4H PRN Administration Pain, Moderate (4-6) Ondansetron HCl 4 mg 06/03/21 21:46 Ondansetron 4 Mg/2 Ml Inj IV Q8H PRN Nausea And Vomiting Quetiapine Fumarate 25 mg 06/08/21 10:00 06/14/21 23:47 Quetiapine 25 Mg Tab PO Not Given BID [facility] Sodium Chloride 10 ml 06/03/21 22:00 06/14/21 22:30 Sodium Chloride 0.9% 10 Ml Flush Syringe IV 10 ml BID [facility] Administration Sodium Chloride 10 ml 06/03/21 21:46 Sodium Chloride 0.9% 10 Ml Flush Syringe IV PRN PRN LINE FLUSH Nutrition/Malnutrition Assess - Dietary Evaluation Nutrition/Malnutrition Findings: Nutrition Notes Start: 06/04/21 10:44 Freq: Status: Active Protocol: Document 06/12/21 15:12 DENISE (Rec: 06/12/21 15:21 DENISE [id number]) Nutrition Notes Initial or Follow up Brief Note Current Diet TF-Nepro w/CARBSTEADY @ 32 ml/ hr (since D 06/09). Height 5 ft 8 in Weight 86.5 kg [place] Body Weight (kg) 70.00 BMI 29.0 Weight change and time frame No body weight change reported . Weight Status Overweight Subjective/Other Information RD consult for TF tolerance assessment. TF continues as prescribed and well tolerated, according to RN notes. Percent of energy/protein needs met: Prescribed Nepro w/CARBSTEADY @ 32 ml/hr provides for energy /protein needs (1,384 Kcal/62 g) during LOS; 80% Kcal; 60% AA. Current % PO Other #1 Nutrition Diagnosis Inadequate oral intake Diagnosis Progress(for reassessment Continues documentation) Is patient on ventilator? No Is Patient Ambulatory and/or Out of Bed Yes REE-([facility]-ambulatory/OOB) [ 2052.350 [id number]] Calculation Used for Recommendations 70-80% of EEN Additional Notes 15-20 Kcal/Kg ABW. Protein: 1.2-2 g/Kg; 104-174 g /day. Fluids: 1 ml/Kcal, or as per MD. Nutrition Intervention Nutrition Support: Continue Nepro w/CARBSTEADY @ 32 ml/hr. Flush 200 ml water Q 4 hr, or as per MD. Kcal 1,384 Protein (gm) 62 Carbohydrates (gm) 124 Fat (gm) 74 Fluid (mL) 559 Fiber (gm) 10 % RDI: 80% Kcal; 60% AA. Goal #1 Provide at least 75% of energy /protein needs through Enteral Feeding during LOS. Follow-Up By: 06/19/21 Additional Comments Continue monitoring TF tolerance and BM.
[2021-06-15] MEDS ORDERED: DEXTROSE 10% IN WATER 1,000 ML IV SCH (09:00)
--- NOTE | 2021-06-15 10:12 | Progress Note ---
Assessment and Plan Assessment: Acute Kidney injury 2/2 prerenal, hydronephrosis, possible CKD: Covid 19 Pneumonia: Acute Hypoxic respiratory failure: Hyperkalemia: Metabolic acidosis: DM2: HTN: Hypoglycemia Plan: -Renal function reviewed, SCr level increased to 3.0 today, yesterday's SCr level was 2.1 -Serum Na level was 157 today, yesterday's serum Na level 152 -Orders for free water flushes 350 ml q 4 hrs - will need to make sure pt is receiving free water flushes. Communication order placed to make sure pt is receiving free water flushes as ordered and to notify nephrology service if pt unable to tolerate free water flushes -Decrease Bicitra 15 ml via NGT BID -Orders for D10 infusion at 75 ml/hr -S/p Lasix 20 mg IV x 1 dose on 06/14/21 -Renal US-noted mild Left hydro, urology consult was requested. Dr Lai recommended CT AP stone protocol, arce -CT AP w/o contrast on 06/13/21 showed no hydronephrosis -Hypercalemia - check PTH, phosphorus, and Vit D 25 hydroxy level for now, may n eed additional work up if remains elevated -Renally dose all meds -Strict I/Os -Intake= 10 ml documented Output= 2000 ml -Renal plan reviewed by Dr Colón Subjective Date of service: 06/15/21 Principal diagnosis: ANGIE Interval history: Pt on isolation for covid-19, reviewed medical chart, labs, and notes Objective - Vital Signs Vital signs: Vital Signs - 12hr 06/14/21 06/15/21 06/15/21 22:50 02:00 09:25 Pulse Rate [ 94 H Apical] Respiratory 24 Rate O2 Sat by Pulse 89 94 86 Oximetry - Lab 06/09/21 09:08 06/15/21 05:43 Most recent lab results ABG pH 7.430 pH Units (7.350-7.450) 06/09/21 10:15 ABG pCO2 28.9 mm Hg 06/09/21 10:15 ABG pO2 57.0 mm Hg (80.0-90.0) L 06/09/21 10:15 ABG HCO3 18.8 mmol/L (20.0-26.0) L 06/09/21 10:15 ABG O2 Saturation 90.0 % (95.0-99.0) L 06/09/21 10:15 Calcium 10.8 mg/dL (8.4-10.2) H 06/15/21 05:43 Urine Creatinine 117.6 mg/dL (0.1-20.0) H 06/06/21 03:30 Urine Sodium 41 mmol/L 06/06/21 03:30 Medications & Allergies - Medications Allergies/Adverse Reactions: Allergies shellfish derived Adverse Reaction (Verified 06/03/21 18:34) Hives Home Medications: Home Medications Medication Instructions Recorded Confirmed Last Taken Type atenoloL [Tenormin] 50 mg PO DAILY 06/03/21 06/03/21 Unknown History metFORMIN [Glucophage] 500 mg PO DAILY 06/03/21 06/03/21 Unknown History Active Medications: Generic Name Dose Route Start Last Admin Trade Name Freq PRN Reason Stop Dose Admin Acetaminophen 650 mg 06/03/21 21:46 Acetaminophen 325 Mg Tab PO Q4H PRN Pain MILD(1-3)/Fever >100.5/LISA Albuterol 2 puff 06/06/21 07:53 06/06/21 17:20 Albuterol 8.5 Gm Mdi Inhalation IH 2 puff Q6HRT PRN Administration Shortness Of Breath Atenolol 50 mg 06/04/21 10:00 06/14/21 23:47 Atenolol 50 Mg Tab PO Not Given DAILY [facility] Citric Acid/Sodium Citrate 30 ml 06/08/21 14:00 06/14/21 20:30 Bicitra Oral Liqd 30ml PO 30 ml TID [facility] Administration Dextrose 0 ml 06/03/21 21:46 06/15/21 00:32 Dextrose 50% In Water (25gm) 50 Ml Syringe IV 50 ml Q30MIN PRN Administration Hypoglycemia Protocol Famotidine 20 mg 06/03/21 22:00 06/14/21 23:47 Famotidine 20 Mg Tab PO Not Given QAM [facility] Haloperidol Lactate 5 mg 06/08/21 14:00 06/09/21 21:55 Haloperidol Lactate 5 Mg/1 Ml Inj IM 5 mg Q6H PRN Administration Agitation Heparin Sodium (Porcine) 5,000 unit 06/03/21 22:00 06/15/21 05:50 Heparin 5,000 Unit/1 Ml Vial SUB-Q 5,000 unit Q8HR [facility] Administration Hydralazine HCl 10 mg 06/03/21 21:50 Hydralazine 20 Mg/1 Ml Inj IV Q6H PRN Blood Pressure Hydromorphone HCl 0.5 mg 06/03/21 21:46 06/11/21 00:42 Hydromorphone 1 Mg/1 Ml Inj IV 0.5 mg Q3H PRN Administration Pain , Severe (7-10) Dextrose 1,000 mls @ 75 mls/hr 06/15/21 09:00 D10w IV DIRECT [facility] Insulin Human Isoph/Insulin Regular 10 unit 06/13/21 17:00 06/14/21 17:39 Insulin Nph/Regular 70/30 Inj SUB-Q 10 unit BIDDIAB [facility] Administration Insulin Human Lispro 0 unit 06/09/21 18:00 06/15/21 06:23 Insulin Lispro 100 Unit/Ml SUB-Q Not Given Q6HR [facility] Protocol Methylprednisolone Sodium Succinate 40 mg 06/10/21 18:30 06/15/21 02:10 Methylprednisolone Sod Succinate 40 Mg/1 Ml Inj IV 40 mg Q8H [facility] Administration Morphine Sulfate 2 mg 06/03/21 21:46 06/14/21 08:54 Morphine 2 Mg/1 Ml Inj IV 2 mg Q4H PRN Administration Pain, Moderate (4-6) Ondansetron HCl 4 mg 06/03/21 21:46 Ondansetron 4 Mg/2 Ml Inj IV Q8H PRN Nausea And Vomiting Quetiapine Fumarate 25 mg 06/08/21 10:00 06/14/21 23:47 Quetiapine 25 Mg Tab PO Not Given BID [facility] Sodium Chloride 10 ml 06/03/21 22:00 06/14/21 22:30 Sodium Chloride 0.9% 10 Ml Flush Syringe IV 10 ml BID [facility] Administration Sodium Chloride 10 ml 06/03/21 21:46 Sodium Chloride 0.9% 10 Ml Flush Syringe IV PRN PRN LINE FLUSH
[2021-06-15] MEDS ORDERED: BICITRA ORAL LIQD 30ML FEEDTUBE ONE (10:17)
--- NOTE | 2021-06-15 10:29 | Event Note ---
Date: 06/15/21 This morning I had a family discussion via phone with VINCE Oakley (sister) and the patients brother, Mr. Juan Pablo Nazario ([phone]). I updated them to the patients current clinical condition. We discussed the possibility of placing the patient on mechanical ventillation if he continues to not have adequate oxygenation. He does not have a living will or paperwork to determine who is POA. He does have an adult daughter that he is estranged from. Both agree that the patient would not want to be intubated. Ms. Oakley does have contact with the patients Daughter, and she was advised to have her contact us for further decision making. Made aware that the patient will be transferred to [facility]. It was agreed to continue current care and he is FULL CODE status at this time.
[2021-06-15] MEDS: INSULIN NPH/REGULAR 70/30 INJ SUB-Q SCH (10:51)
[2021-06-15] MEDS: QUEtiapine 25 MG TAB PO SCH (10:59)
[2021-06-15] MEDS: FAMOTIDINE 20 MG TAB PO SCH (11:00)
[2021-06-15] MEDS: atenoloL 50 MG TAB PO SCH (11:00)
[2021-06-15 11:17] LABS: ABG Base Excess 5.9 mmol/L (-2.0-3.0); ABG HCO3 29.2 mmol/L (20.0-26.0); ABG Methemoglobin 0.6 % (0.0-1.5); ABG Oxygen Saturation 86.1 % (95.0-99.0); ABG PCO2 37.7 mm Hg; ABG PH 7.506 pH Units (7.350-7.450); ABG PO2 49.1 mm Hg (80.0-90.0)
[2021-06-15 11:40] VITALS: BP 133/67
--- NOTE | 2021-06-15 12:10 | Progress Note ---
Assessment and Plan 75 y/o with acute respiratory failure secondary to COVID 19, renal failure (acute vs chronic) 06/15/2021: Much worsening in his respiratory status now on BiPAP with severe tachypnea and hypoxemia. Chest x-ray however has not shown any worsening or may be slightly better. A possibility of pulmonary embolism contributing to his shortness of breath and hypoxemia cannot be ruled out. However, he is on subcu heparin. Unable to do CTA chest because of poor renal function. Some of the family members may have indicated that he may not want to be intubated however at this time he is still a full code prognosis is poor. Total critical care time is 31-minute 06/14/2021: Remains on high flow nasal cannula and 100% nonrebreather with danitza rderline oxygen saturation. Prognosis remains somewhat guarded. Has positive fluid balance we will give small dose of Lasix today. 06/13/21: Patient not able to prone. Prognosis is very guarded to poor. Given his renal failure, current oxygen requirement. High risk for decompensation and intubation. Will continue to monitor. Steroids. Please consider volume removal over the weekend. 06/12/21: Prone if possible. Wean FiO2 for sats >88%. Awaiting CT abdomen Pelvis. Will ask renal about diuresis again after imaging and final urology recs. 06/11/21: REnal with no mention of diuresis. WIll ask again tomorrow. COntinue TID steroids. 06/10/21: Will ask renal if diuresis is possible given CXR results. Continue supplemental oxygen but may progress to bipap therapy. Will increase steroids to TID. Guarded prognosis. 06/09/21: Steroids, prone if able. Will repeat CXR. ABG is consistent with respiratory alkalosis with hypoxemia, compensated as patient has a metabolic acidosis as well. Most likely low CO2 is a reaction to metabolic acidosis. On bicarb drip. Worsening oxygenation could be from volume. Follow up film 1. Steroids, ordered at q12 dosing, assuming secondary to diabetes and renal function. If using solumedrol, would consider changing to at least q8 2. Prone if able 3. Follow up renal recs, does not appear to be a candidate for diuresis 4. Wean FiO2 for sats > 88% Subjective Date of service: 06/15/21 Principal diagnosis: ANGIE Interval history: Patient remained severely hypoxic on 100% nonrebreather and high flow nasal cannula earlier arterial blood gases showed PO2 of 49. Patient currently on BiPAP 14/8 and 100% oxygen and remained severely tachypneic with respiratory rate in 40s. Patient has been ordered to moved to IMCU/ICU and may require intubation unless family decides otherwise Objective Vital Signs - 12hr 06/15/21 06/15/21 06/15/21 02:00 08:00 09:25 Temperature Pulse Rate Pulse Rate [ 94 H Apical] Respiratory 24 Rate Blood Pressure O2 Sat by Pulse 94 81 L 86 Oximetry 06/15/21 06/15/21 06/15/21 10:28 10:45 11:13 Temperature 101.3 F H Pulse Rate 66 Pulse Rate [ Apical] Respiratory 24 50 H 50 H Rate Blood Pressure 133/67 O2 Sat by Pulse 79 L 86 86 Oximetry 06/15/21 11:35 Temperature Pulse Rate 112 H Pulse Rate [ Apical] Respiratory 48 H Rate Blood Pressure O2 Sat by Pulse 86 Oximetry Constitutional: asleep Eyes: non-icteric ENT: oropharynx moist Effort: very labored Ascultation: Bilateral: rhonchi Cardiovascular: other (Tachycardia noted) Gastrointestinal: normoactive bowel sounds Extremities: no cyanosis CBC and BMP: 06/09/21 09:08 06/15/21 05:43 ABG, PT/INR, D-dimer: ABG ABG pH 7.506 pH Units (7.350-7.450) H 06/15/21 10:50 ABG pCO2 37.7 mm Hg 06/15/21 10:50 ABG pO2 49.1 mm Hg (80.0-90.0) L 06/15/21 10:50 ABG O2 Saturation 86.1 % (95.0-99.0) L 06/15/21 10:50 PT/INR, D-dimer D-Dimer 526.33 ng/mlDDU (0-234) H 06/10/21 05:38 Abnormal lab findings: Abnormal Labs 06/03/21 06/03/21 06/03/21 18:37 18:37 18:37 WBC RBC 7.38 H Hgb 17.0 H Hct 54.7 H MCV 74 L MCH 23 L MCHC 31 L RDW 15.9 H Lymph % (Auto) 8.4 L [place] % (Auto) 12.6 H Lymph # (Auto) 0.5 L [place] # (Auto) Seg Neutrophils % 78.7 H Seg Neutrophils # D-Dimer ABG pH ABG pO2 ABG HCO3 ABG O2 Saturation ABG Base Excess ABG Hemoglobin Oxyhemoglobin Sodium Potassium 5.4 H Chloride Carbon Dioxide 19 L BUN 40 H Creatinine 2.6 H Glucose 179 H POC Glucose Lactic Acid 2.40 H* Calcium Ferritin Direct Bilirubin AST Lactate Dehydrogenase 308 H C-Reactive Protein 6.20 H Total Protein Albumin 3.1 L Urine Creatinine Coronavirus (PCR) 06/03/21 06/03/21 06/04/21 18:37 18:37 00:30 WBC RBC Hgb Hct MCV MCH MCHC RDW Lymph % (Auto) [place] % (Auto) Lymph # (Auto) [place] # (Auto) Seg Neutrophils % Seg Neutrophils # D-Dimer 634.36 H ABG pH ABG pO2 ABG HCO3 ABG O2 Saturation ABG Base Excess ABG Hemoglobin Oxyhemoglobin Sodium Potassium Chloride Carbon Dioxide BUN Creatinine Glucose POC Glucose 115 H Lactic Acid Calcium Ferritin 823.7 H Direct Bilirubin AST Lactate Dehydrogenase C-Reactive Protein Total Protein Albumin Urine Creatinine Coronavirus (PCR) 06/04/21 06/04/21 06/04/21 05:40 05:40 14:51 WBC 4.3 L RBC 6.82 H Hgb 15.9 H Hct 50.7 H MCV 74 L MCH 23 L MCHC 31 L RDW 16.1 H Lymph % (Auto) [place] % (Auto) 15.6 H Lymph # (Auto) 0.8 L [place] # (Auto) Seg Neutrophils % Seg Neutrophils # D-Dimer ABG pH ABG pO2 ABG HCO3 ABG O2 Saturation ABG Base Excess ABG Hemoglobin Oxyhemoglobin Sodium Potassium Chloride Carbon Dioxide 21 L 19 L BUN 46 H 49 H Creatinine 2.2 H 2.5 H Glucose 101 H 131 H POC Glucose Lactic Acid Calcium 8.0 L Ferritin Direct Bilirubin AST Lactate Dehydrogenase C-Reactive Protein Total Protein Albumin 3.4 L Urine Creatinine Coronavirus (PCR) 06/04/21 06/04/21 06/05/21 22:06 Unknown 05:54 WBC RBC Hgb Hct MCV MCH MCHC RDW Lymph % (Auto) [place] % (Auto) Lymph # (Auto) [place] # (Auto) Seg Neutrophils % Seg Neutrophils # D-Dimer ABG pH ABG pO2 ABG HCO3 ABG O2 Saturation ABG Base Excess ABG Hemoglobin Oxyhemoglobin Sodium Potassium Chloride Carbon Dioxide 17 L BUN 61 H Creatinine 2.5 H Glucose 150 H POC Glucose 134 H Lactic Acid Calcium Ferritin Direct Bilirubin AST Lactate Dehydrogenase C-Reactive Protein Total Protein Albumin 3.2 L Urine Creatinine Coronavirus (PCR) Positive A 06/05/21 06/05/21 06/05/21 05:54 08:23 12:30 WBC 3.6 L RBC 7.39 H Hgb 17.2 H Hct 54.9 H MCV 74 L MCH 23 L MCHC 31 L RDW 16.2 H Lymph % (Auto) 11.1 L [place] % (Auto) 15.4 H Lymph # (Auto) 0.4 L [place] # (Auto) Seg Neutrophils % 73.3 H Seg Neutrophils # D-Dimer ABG pH ABG pO2 ABG HCO3 ABG O2 Saturation ABG Base Excess ABG Hemoglobin Oxyhemoglobin Sodium Potassium Chloride Carbon Dioxide BUN Creatinine Glucose POC Glucose 163 H 146 H Lactic Acid Calcium Ferritin Direct Bilirubin AST Lactate Dehydrogenase C-Reactive Protein Total Protein Albumin Urine Creatinine Coronavirus (PCR) 06/05/21 06/05/21 06/06/21 16:04 20:49 03:30 WBC RBC Hgb Hct MCV MCH MCHC RDW Lymph % (Auto) [place] % (Auto) Lymph # (Auto) [place] # (Auto) Seg Neutrophils % Seg Neutrophils # D-Dimer ABG pH ABG pO2 ABG HCO3 ABG O2 Saturation ABG Base Excess ABG Hemoglobin Oxyhemoglobin Sodium Potassium Chloride Carbon Dioxide BUN Creatinine Glucose POC Glucose 140 H 208 H Lactic Acid Calcium Ferritin Direct Bilirubin AST Lactate Dehydrogenase C-Reactive Protein Total Protein Albumin Urine Creatinine 117.6 H Coronavirus (PCR) 06/06/21 06/06/21 06/06/21 06:09 06:09 08:16 WBC RBC 7.20 H Hgb 16.9 H Hct 53.7 H MCV 75 L MCH 24 L MCHC RDW 16.3 H Lymph % (Auto) 6.3 L [place] % (Auto) 13.1 H Lymph # (Auto) 0.5 L [place] # (Auto) 1.1 H Seg Neutrophils % 80.3 H Seg Neutrophils # D-Dimer ABG pH ABG pO2 ABG HCO3 ABG O2 Saturation ABG Base Excess ABG Hemoglobin Oxyhemoglobin Sodium Potassium Chloride Carbon Dioxide 18 L BUN 73 H Creatinine 2.5 H Glucose 152 H POC Glucose 146 H Lactic Acid Calcium Ferritin Direct Bilirubin AST Lactate Dehydrogenase C-Reactive Protein Total Protein Albumin 3.3 L Urine Creatinine Coronavirus (PCR) 06/06/21 06/06/21 06/06/21 12:45 14:13 17:39 WBC RBC Hgb Hct MCV MCH MCHC RDW Lymph % (Auto) [place] % (Auto) Lymph # (Auto) [place] # (Auto) Seg Neutrophils % Seg Neutrophils # D-Dimer ABG pH ABG pO2 ABG HCO3 19.7 L ABG O2 Saturation ABG Base Excess -4.3 L ABG Hemoglobin Oxyhemoglobin 94.6 L Sodium Potassium Chloride Carbon Dioxide BUN Creatinine Glucose POC Glucose 225 H 154 H Lactic Acid Calcium Ferritin Direct Bilirubin AST Lactate Dehydrogenase C-Reactive Protein Total Protein Albumin Urine Creatinine Coronavirus (PCR) 06/06/21 06/07/21 06/07/21 21:46 06:16 15:54 WBC RBC Hgb Hct MCV MCH MCHC RDW Lymph % (Auto) [place] % (Auto) Lymph # (Auto) [place] # (Auto) Seg Neutrophils % Seg Neutrophils # D-Dimer ABG pH ABG pO2 ABG HCO3 ABG O2 Saturation ABG Base Excess ABG Hemoglobin Oxyhemoglobin Sodium 149 H Potassium Chloride 114.2 H Carbon Dioxide 21 L BUN 79 H Creatinine 2.6 H Glucose POC Glucose 187 H 195 H Lactic Acid Calcium Ferritin Direct Bilirubin AST Lactate Dehydrogenase C-Reactive Protein Total Protein 5.9 L Albumin 3.3 L Urine Creatinine Coronavirus (PCR) 06/07/21 06/08/21 06/08/21 21:27 07:33 07:42 WBC RBC Hgb Hct MCV MCH MCHC RDW Lymph % (Auto) [place] % (Auto) Lymph # (Auto) [place] # (Auto) Seg Neutrophils % Seg Neutrophils # D-Dimer ABG pH ABG pO2 ABG HCO3 ABG O2 Saturation ABG Base Excess ABG Hemoglobin Oxyhemoglobin Sodium 154 H Potassium 5.1 H Chloride 117.3 H Carbon Dioxide 17 L BUN 76 H Creatinine 2.5 H Glucose 180 H POC Glucose 190 H 186 H Lactic Acid Calcium Ferritin Direct Bilirubin AST Lactate Dehydrogenase C-Reactive Protein Total Protein Albumin Urine Creatinine Coronavirus (PCR) 06/08/21 06/08/21 06/08/21 10:56 15:42 22:34 WBC RBC Hgb Hct MCV MCH MCHC RDW Lymph % (Auto) [place] % (Auto) Lymph # (Auto) [place] # (Auto) Seg Neutrophils % Seg Neutrophils # D-Dimer ABG pH ABG pO2 ABG HCO3 ABG O2 Saturation ABG Base Excess ABG Hemoglobin Oxyhemoglobin Sodium Potassium Chloride Carbon Dioxide BUN Creatinine Glucose POC Glucose 206 H 175 H 146 H Lactic Acid Calcium Ferritin Direct Bilirubin AST Lactate Dehydrogenase C-Reactive Protein Total Protein Albumin Urine Creatinine Coronavirus (PCR) 06/09/21 06/09/21 06/09/21 07:39 09:08 09:08 WBC 12.6 H RBC 7.64 H Hgb 18.0 H Hct 56.8 H MCV 74 L MCH 24 L MCHC RDW 16.2 H Lymph % (Auto) 2.9 L [place] % (Auto) 12.8 H Lymph # (Auto) 0.4 L [place] # (Auto) 1.6 H Seg Neutrophils % 84.3 H Seg Neutrophils # 10.6 H D-Dimer ABG pH ABG pO2 ABG HCO3 ABG O2 Saturation ABG Base Excess ABG Hemoglobin Oxyhemoglobin Sodium 159 H Potassium 5.2 H Chloride 120.0 H Carbon Dioxide 17 L BUN 81 H Creatinine 2.7 H Glucose 161 H POC Glucose 154 H Lactic Acid Calcium Ferritin Direct Bilirubin AST Lactate Dehydrogenase C-Reactive Protein Total Protein Albumin Urine Creatinine Coronavirus (PCR) 06/09/21 06/09/21 06/09/21 09:08 10:15 11:07 WBC RBC Hgb Hct MCV MCH MCHC RDW Lymph % (Auto) [place] % (Auto) Lymph # (Auto) [place] # (Auto) Seg Neutrophils % Seg Neutrophils # D-Dimer ABG pH ABG pO2 57.0 L ABG HCO3 18.8 L ABG O2 Saturation 90.0 L ABG Base Excess -3.7 L ABG Hemoglobin 18.5 H Oxyhemoglobin 88.6 L Sodium Potassium Chloride Carbon Dioxide BUN Creatinine Glucose POC Glucose 149 H Lactic Acid Calcium Ferritin Direct Bilirubin 0.3 H AST 56 H Lactate Dehydrogenase C-Reactive Protein Total Protein Albumin 3.5 L Urine Creatinine Coronavirus (PCR) 06/09/21 06/09/21 06/09/21 14:08 15:30 23:15 WBC RBC Hgb Hct MCV MCH MCHC RDW Lymph % (Auto) [place] % (Auto) Lymph # (Auto) [place] # (Auto) Seg Neutrophils % Seg Neutrophils # D-Dimer ABG pH ABG pO2 ABG HCO3 ABG O2 Saturation ABG Base Excess ABG Hemoglobin Oxyhemoglobin Sodium 157 H Potassium 5.2 H Chloride 117.4 H Carbon Dioxide 18 L BUN 86 H Creatinine 2.9 H Glucose 228 H POC Glucose 237 H 221 H Lactic Acid Calcium Ferritin Direct Bilirubin AST Lactate Dehydrogenase C-Reactive Protein Total Protein Albumin Urine Creatinine Coronavirus (PCR) 06/09/21 06/10/21 06/10/21 23:45 05:38 05:38 WBC RBC Hgb Hct MCV MCH MCHC RDW Lymph % (Auto) [place] % (Auto) Lymph # (Auto) [place] # (Auto) Seg Neutrophils % Seg Neutrophils # D-Dimer 526.33 H ABG pH ABG pO2 ABG HCO3 ABG O2 Saturation ABG Base Excess ABG Hemoglobin Oxyhemoglobin Sodium 153 H 153 H Potassium 5.3 H Chloride 117.1 H 112.6 H Carbon Dioxide 21 L BUN 86 H 82 H Creatinine 2.6 H 2.5 H Glucose 239 H 297 H POC Glucose Lactic Acid Calcium Ferritin Direct Bilirubin AST Lactate Dehydrogenase C-Reactive Protein 2.20 H Total Protein Albumin Urine Creatinine Coronavirus (PCR) 06/10/21 06/10/21 06/10/21 08:09 12:08 14:10 WBC RBC Hgb Hct MCV MCH MCHC RDW Lymph % (Auto) [place] % (Auto) Lymph # (Auto) [place] # (Auto) Seg Neutrophils % Seg Neutrophils # D-Dimer ABG pH ABG pO2 ABG HCO3 ABG O2 Saturation ABG Base Excess ABG Hemoglobin Oxyhemoglobin Sodium 152 H Potassium Chloride 112.9 H Carbon Dioxide BUN 81 H Creatinine 2.4 H Glucose 321 H POC Glucose 256 H 245 H Lactic Acid Calcium Ferritin Direct Bilirubin AST Lactate Dehydrogenase C-Reactive Protein Total Protein Albumin Urine Creatinine Coronavirus (PCR) 06/10/21 06/10/21 06/11/21 16:38 23:19 02:34 WBC RBC Hgb Hct MCV MCH MCHC RDW Lymph % (Auto) [place] % (Auto) Lymph # (Auto) [place] # (Auto) Seg Neutrophils % Seg Neutrophils # D-Dimer ABG pH ABG pO2 ABG HCO3 ABG O2 Saturation ABG Base Excess ABG Hemoglobin Oxyhemoglobin Sodium 149 H Potassium 5.1 H Chloride 111.5 H Carbon Dioxide BUN 78 H Creatinine 2.3 H Glucose 308 H POC Glucose 232 H 277 H Lactic Acid Calcium Ferritin Direct Bilirubin AST Lactate Dehydrogenase C-Reactive Protein Total Protein Albumin Urine Creatinine Coronavirus (PCR) 06/11/21 06/11/21 06/11/21 04:52 09:24 11:58 WBC RBC Hgb Hct MCV MCH MCHC RDW Lymph % (Auto) [place] % (Auto) Lymph # (Auto) [place] # (Auto) Seg Neutrophils % Seg Neutrophils # D-Dimer ABG pH ABG pO2 ABG HCO3 ABG O2 Saturation ABG Base Excess ABG Hemoglobin Oxyhemoglobin Sodium 146 H Potassium 5.4 H Chloride 112.8 H Carbon Dioxide BUN 75 H Creatinine 2.2 H Glucose 267 H POC Glucose 291 H 275 H Lactic Acid Calcium Ferritin Direct Bilirubin AST Lactate Dehydrogenase C-Reactive Protein Total Protein Albumin Urine Creatinine Coronavirus (PCR) 06/11/21 06/11/21 06/11/21 14:02 18:50 22:33 WBC RBC Hgb Hct MCV MCH MCHC RDW Lymph % (Auto) [place] % (Auto) Lymph # (Auto) [place] # (Auto) Seg Neutrophils % Seg Neutrophils # D-Dimer ABG pH ABG pO2 ABG HCO3 ABG O2 Saturation ABG Base Excess ABG Hemoglobin Oxyhemoglobin Sodium 146 H Potassium Chloride 109.6 H Carbon Dioxide BUN 78 H Creatinine 2.2 H Glucose 377 H POC Glucose 171 H 213 H Lactic Acid Calcium Ferritin Direct Bilirubin AST Lactate Dehydrogenase C-Reactive Protein Total Protein Albumin Urine Creatinine Coronavirus (PCR) 06/11/21 06/12/21 06/12/21 23:37 05:23 05:31 WBC RBC Hgb Hct MCV MCH MCHC RDW Lymph % (Auto) [place] % (Auto) Lymph # (Auto) [place] # (Auto) Seg Neutrophils % Seg Neutrophils # D-Dimer ABG pH ABG pO2 ABG HCO3 ABG O2 Saturation ABG Base Excess ABG Hemoglobin Oxyhemoglobin Sodium 146 H Potassium 5.1 H Chloride 110.8 H 108.2 H Carbon Dioxide 20 L BUN 73 H 69 H Creatinine 1.9 H 1.9 H Glucose 324 H 270 H POC Glucose 225 H Lactic Acid Calcium Ferritin Direct Bilirubin AST Lactate Dehydrogenase C-Reactive Protein Total Protein Albumin Urine Creatinine Coronavirus (PCR) 06/12/21 06/12/21 06/12/21 11:05 17:29 23:08 WBC RBC Hgb Hct MCV MCH MCHC RDW Lymph % (Auto) [place] % (Auto) Lymph # (Auto) [place] # (Auto) Seg Neutrophils % Seg Neutrophils # D-Dimer ABG pH ABG pO2 ABG HCO3 ABG O2 Saturation ABG Base Excess ABG Hemoglobin Oxyhemoglobin Sodium 150 H Potassium 5.2 H Chloride 109.9 H Carbon Dioxide BUN 71 H Creatinine 2.1 H Glucose 408 H POC Glucose 237 H 272 H Lactic Acid Calcium Ferritin Direct Bilirubin AST Lactate Dehydrogenase C-Reactive Protein Total Protein Albumin Urine Creatinine Coronavirus (PCR) 06/13/21 06/13/21 06/13/21 00:04 05:43 05:58 WBC RBC Hgb Hct MCV MCH MCHC RDW Lymph % (Auto) [place] % (Auto) Lymph # (Auto) [place] # (Auto) Seg Neutrophils % Seg Neutrophils # D-Dimer ABG pH ABG pO2 ABG HCO3 ABG O2 Saturation ABG Base Excess ABG Hemoglobin Oxyhemoglobin Sodium 150 H Potassium Chloride 110.6 H Carbon Dioxide BUN 72 H Creatinine 2.0 H Glucose 337 H POC Glucose 370 H 377 H Lactic Acid Calcium Ferritin Direct Bilirubin AST Lactate Dehydrogenase C-Reactive Protein Total Protein Albumin Urine Creatinine Coronavirus (PCR) 06/13/21 06/13/21 06/13/21 08:22 12:41 16:46 WBC RBC Hgb Hct MCV MCH MCHC RDW Lymph % (Auto) [place] % (Auto) Lymph # (Auto) [place] # (Auto) Seg Neutrophils % Seg Neutrophils # D-Dimer ABG pH ABG pO2 ABG HCO3 ABG O2 Saturation ABG Base Excess ABG Hemoglobin Oxyhemoglobin Sodium Potassium Chloride Carbon Dioxide BUN Creatinine Glucose POC Glucose 313 H 246 H 215 H Lactic Acid Calcium Ferritin Direct Bilirubin AST Lactate Dehydrogenase C-Reactive Protein Total Protein Albumin Urine Creatinine Coronavirus (PCR) 06/13/21 06/14/21 06/14/21 21:05 05:04 12:53 WBC RBC Hgb Hct MCV MCH MCHC RDW Lymph % (Auto) [place] % (Auto) Lymph # (Auto) [place] # (Auto) Seg Neutrophils % Seg Neutrophils # D-Dimer ABG pH ABG pO2 ABG HCO3 ABG O2 Saturation ABG Base Excess ABG Hemoglobin Oxyhemoglobin Sodium 152 H Potassium Chloride 111.7 H Carbon Dioxide BUN 74 H Creatinine 2.1 H Glucose 274 H POC Glucose 165 H 264 H Lactic Acid Calcium 10.6 H Ferritin Direct Bilirubin AST Lactate Dehydrogenase C-Reactive Protein Total Protein Albumin Urine Creatinine Coronavirus (PCR) 06/15/21 06/15/21 06/15/21 00:12 05:43 10:50 WBC RBC Hgb Hct MCV MCH MCHC RDW Lymph % (Auto) [place] % (Auto) Lymph # (Auto) [place] # (Auto) Seg Neutrophils % Seg Neutrophils # D-Dimer ABG pH 7.506 H ABG pO2 49.1 L ABG HCO3 29.2 H ABG O2 Saturation 86.1 L ABG Base Excess 5.9 H ABG Hemoglobin 19.4 H Oxyhemoglobin 84.7 L Sodium 157 H Potassium Chloride 112.5 H Carbon Dioxide BUN 83 H Creatinine 3.0 H Glucose 72 L POC Glucose 26 L Lactic Acid Calcium 10.8 H Ferritin Direct Bilirubin AST Lactate Dehydrogenase C-Reactive Protein Total Protein Albumin Urine Creatinine Coronavirus (PCR) 06/15/21 11:29 WBC RBC Hgb Hct MCV MCH MCHC RDW Lymph % (Auto) [place] % (Auto) Lymph # (Auto) [place] # (Auto) Seg Neutrophils % Seg Neutrophils # D-Dimer ABG pH ABG pO2 ABG HCO3 ABG O2 Saturation ABG Base Excess ABG Hemoglobin Oxyhemoglobin Sodium Potassium Chloride Carbon Dioxide BUN Creatinine Glucose POC Glucose 173 H Lactic Acid Calcium Ferritin Direct Bilirubin AST Lactate Dehydrogenase C-Reactive Protein Total Protein Albumin Urine Creatinine Coronavirus (PCR)
--- NOTE | 2021-06-15 12:16 | XRay Report ---
CHEST 1 VIEW INDICATION / CLINICAL INFORMATION: Dyspnea. COMPARISON: 06/09/2021 FINDINGS: SUPPORT DEVICES: None. HEART / MEDIASTINUM: No significant abnormality. LUNGS / PLEURA: Pneumonia involving the bilateral mid and lower lung zones, not significantly changed . No pneumothorax. ADDITIONAL FINDINGS: No significant additional findings. IMPRESSION: 1. Pneumonia involving the bilateral mid and lower lung zones, not significantly changed. Signer Name: Freddy Villagran MD Signed: 06/15/2021 12:12 PM Workstation Name: [id number]
[2021-06-15] MEDS ORDERED: LORazepam 2 MG/ML VIAL ONE (15:33)
[2021-06-15] MEDS ORDERED: MIDAZOLAM 2 MG/2 ML INJ ONE ×3 (15:40→16:09)
[2021-06-15] MEDS ORDERED: MIDAZOLAM 2 MG/2 ML INJ IV ONE ×3 (15:40→17:00)
[2021-06-15] MEDS ORDERED: fentaNYL 100 MCG/2 ML INJ IV PRN (16:13)
--- NOTE | 2021-06-15 16:15 | Event Note ---
Date: 06/15/21 The patient was seen and evaluated and found to have acute hypoxemic respiratory failure and unable to protect his airway. Patient was found to have a pulse oximetry in the 60s. Patient was subsequently intubated using a glide scope with placement of a size 7-1/2 ET tube into the trachea. Complications none. 65 minutes critical care time dedicated to bedside patient care.
--- NOTE | 2021-06-15 16:17 | Procedure Note ---
Date of procedure: 06/15/21 Pre-op diagnosis: Acute respiratory failure Post-op diagnosis: same Procedure: Right internal jugular vein triple-lumen catheter placement under ultrasound guidance The patient was prepped and draped in the usual sterile fashion. A timeout was taken with patient nurse to verify the correct patient, procedure and operative site. Local anesthesia obtained with 1% lidocaine. The Seldinger technique was utilized to access the right internal jugular vein without difficulty. Under ultrasound guidance a seeker needle was advanced into the right internal jugular vein without difficulty. A guidewire was then advanced through the seeker needle into the right internal jugular vein with subsequent removal of this seeker needle over the guidewire. A scalpel was used to incise the skin. A dilator was then placed over the guidewire into the right internal jugular vein without difficulty and subsequently removed. A preflushed triple-lumen catheter was then advanced over the guidewire into the right internal jugular vein. Triple-lumen catheter sewn in with 3-0 nylon suture. A Biopatch was placed at the insertion site. All 3 ports flush and drawl with ease. Estimated blood loss minimal. Specimens none. Complications none. Anesthesia: ONELIA local Surgeon: MUNIR CARABALLO Estimated blood loss: minimal Pathology: none Condition: critical Disposition: ICU
--- NOTE | 2021-06-15 16:31 | XRay Report ---
CHEST 1 VIEW 06/15/2021 3:20 PM INDICATION / CLINICAL INFORMATION: ETT placement and RT IJ central line. COMPARISON: One view of the chest from earlier today. FINDINGS: SUPPORT DEVICES: An ET tube has been placed with the tip located 4.5 cm above the shante. An NG tube terminates over the gastric body. A right internal jugular CVL has been placed that terminates over t he proximal SVC. HEART / MEDIASTINUM: Stable. LUNGS / PLEURA: Aeration of the lungs has improved. No significant pleural effusion. No pneumothorax. ADDITIONAL FINDINGS: No significant additional findings. IMPRESSION: Satisfactory positioning of support devices as above with improved aeration of the lungs. Signer Name: Saleem German MD Signed: 06/15/2021 4:27 PM Workstation Name: [id number]
[2021-06-15] MEDS ORDERED: NORepinephrine/NS 8 MG-250 ML 8 MG/250 ML INFUS..BTL IV ONE (16:46)
[2021-06-15] MEDS ORDERED: NORepinephrine/NS 8 MG-250 ML 8 MG/250 ML INFUS..BTL IV SCH ×2 (16:58→17:00)
[2021-06-15] MEDS ORDERED: MIDAZOLAM 5 MG/5 ML INJ MDV IV SCH (17:00)
[2021-06-15] MEDS ORDERED: fentaNYL 100 MCG/2 ML INJ IV ONE (17:00)
[2021-06-15] MEDS ORDERED: fentaNYL DRIP Premix 2,000 MCG/100 ML BAG IV SCH (17:00)
--- NOTE | 2021-06-15 17:08 | Event Note ---
Date: 06/15/21 CODE BLUE was called. ROSC was achieved x1. Patient's daughter was updated and decided to make the patient DNR during ACLS. ROSC was never achieved. Family was updated about patient's . Patient's brother Mr. Juan Pablo Nazario notified and will come review the body.
--- NOTE | 2021-06-15 17:08 | Death Summary ---
Summary - Providers Date of service: 06/15/21 Consults: 06/03/21 21:46 Consult to Dietitian/Nutrition [CONS] Routine Physician Instructions: Reason For Exam: Reason for Consult: Diet education Consult to Physician [CONS] Routine Comment: Consulting Provider: DALE DICKERSON Physician Instructions: Reason For Exam: covid Consult to Physician [CONS] Routine Comment: Consulting Provider: JOHANNA KILLIAN Physician Instructions: Reason For Exam: covid 06/03/21 22:18 Consult to Physician [CONS] Routine Comment: Consulting Provider: KARISSA CHUN Physician Instructions: Reason For Exam: angie 06/05/21 07:55 Consult to Physician [CONS] Routine Comment: Consulting Provider: GABRIEL STAPLES Physician Instructions: Reason For Exam: Vegetation on valve- CARRILLO evaluation 06/06/21 03:08 Consult to Dietitian/Nutrition [CONS] Routine Physician Instructions: Reason For Exam: Reason for Consult: Pt needs oral supplement 06/06/21 09:15 Consult to Physician [CONS] Routine Comment: Consulting Provider: BRANT MERCADO Physician Instructions: please Urologist rn oncology clinical Reason For Exam: left hydronephrosis with ANGIE 06/08/21 06:38 Consult to Physician [CONS] Routine Comment: Consulting Provider: TIFFANIE FLETCHER Physician Instructions: Reason For Exam: COVID pneumonia management 06/09/21 15:15 Consult to Dietitian/Nutrition [CONS] Routine Physician Instructions: Reason For Exam: Reason for Consult: Write/Manage Tube Feeding 06/11/21 15:40 Consult to Case Management [CONS] Routine Services Needed at Discharge: Other Notified:: cm Comment:: LTAC placement Attending: SINDY PERERA MD - summary Date of admission: 06/03/21 21:26 Date of : 06/15/21 Reason for admission: Hypoxic respiratory failure Significant findings: COVID-19 pneumonia Acute kidney injury Mitral valve vegetation Hyperkalemia Hypernatremia Procedures/treatments rendered: Intubation Central line placement Disposition: [facility] - Final diagnosis (1) Acute respiratory failure with hypoxia Note: Final diagnosis: (2) Acute kidney injury superimposed on CKD Note: Final diagnosis: (3) Bilateral pneumonia Note: Final diagnosis: - Complications Complications: Patient developed acute hypoxic respiratory failure secondary to COVID pneumonia. For several days he required high flow oxygen along with nonrebreather. On 06/15 patient continued to desaturate despite this high oxygen requirement. BiPAP was started and decision was made to intubate. Following intubation, went to PEA arrest.
[2021-06-15] MEDS ORDERED: LORazepam 2 MG/ML VIAL IV ONE (17:30)
--- NOTE | 2021-06-15 17:55 | Event Note ---
Date: 06/15/21 A CODE ELVER was called. I presented to the bedside and the patient was found to be in asystolic arrest. The patient was initiated on ACLS protocol. Unfortunately the patient did not regain a perfusing cardiac rhythm throughout the duration of the ACLS protocol. The patient was found to have absent brainstem reflexes. The patient pupils are fixed and dilated. On pulmonary exam the patient was found to have absent lung sounds. On cardiac exam the patient was found to have absent heart sounds. The patient was found to have asystole on youth nutritional monitor. Patient pronounced at 1656 hrs. Patient family notified. Advanced care planning conducted. Bereavement services offered. 65 minutes critical care time dedicated to patient care.
--- NOTE | 2021-06-15 20:26 | Electrocardiograph Report ---
[facility] Test Date: 2021-06-09 Test Time: 08:11:17 Pat Name: MARLI BUENO JR Department: Room: A255 Gender: M [employer] Est[employer]ator: TASH : 1945 Requested By: RANJANA BENZ Order Number: [id number] Reading MD: Js Rojas Measurements Intervals Marshall Rate: 91 P: 55 SD: 131 QRS: 17 QRSD: 107 T: -7 QT: 384 QTc: 473 Interpretive Statements Sinus rhythm Probable left atrial enlargement Left ventricular hypertrophy [id number] previous ECG available for comparison Electronically Signed On 06-15-2021 20:26:45 EST by Js Rojas
[2021-06-15] MEDS ORDERED: BICITRA ORAL LIQD 30ML FEEDTUBE SCH (22:00)
== END 2021-06-15 19:35 | DRG 208 ==
LOC: ED 17:28 → 3A 21:26 → IMCU 06-15 14:59 → CC1 06-15 15:38
PROVIDERS: ADMIT Hospitalist; ATTEND Student in an Organized Health Care Education/Training Program
PROC: 4A033R1 Measurement of Arterial Saturation, Peripheral, Percutaneous Approach (ICD-10-PCS; principal; 2021-06-06)
PROC: 5A1935Z Respiratory Ventilation, Less than 24 Consecutive Hours (ICD-10-PCS; 2021-06-15)
PROC: 0BH17EZ Insertion of Endotracheal Airway into Trachea, Via Natural or Artificial Opening (ICD-10-PCS; 2021-06-15)
PROC: 5A09357 Assistance with Respiratory Ventilation, Less than 24 Consecutive Hours, Continuous Positive Airway Pressure (ICD-10-PCS; 2021-06-15)
PROC: 02HV33Z Insertion of Infusion Device into Superior Vena Cava, Percutaneous Approach (ICD-10-PCS; 2021-06-15)
PROC: B548ZZA Ultrasonography of Superior Vena Cava, Guidance (ICD-10-PCS; 2021-06-15)
DX: U07.1 COVID-19 (principal); J96.01 Acute respiratory failure with hypoxia; J12.82 Pneumonia due to coronavirus disease 2019; G93.41 Metabolic encephalopathy; I33.0 Acute and subacute infective endocarditis; E87.1 Hypo-osmolality and hyponatremia; N17.9 Acute kidney failure, unspecified; E87.2 Acidosis; N13.30 Unspecified hydronephrosis; I12.9 Hypertensive chronic kidney disease with stage 1 through stage 4 chronic kidney disease, or unspecified chronic kidney disease; I46.9 Cardiac arrest, cause unspecified; E11.22 Type 2 diabetes mellitus with diabetic chronic kidney disease; Z66 Do not resuscitate; N18.9 Chronic kidney disease, unspecified; E87.5 Hyperkalemia; D72.819 Decreased white blood cell count, unspecified; E11.65 Type 2 diabetes mellitus with hyperglycemia; E11.649 Type 2 diabetes mellitus with hypoglycemia without coma; Z79.84 Long term (current) use of oral hypoglycemic drugs
CPT/HCPCS: 36415; 36600; 71045; 74018; 74176; 76770; 80048; 80053; 80076; 81001; 82140; 82550; 82570; 82728; 82803; 82962; 83615; 83880; 84145; 84300; 85025; 85379; 86140; 87040; 87070; 87205; 89050; 93005; 93306; 94002; 94640; 94644; 94760; G0378; J2354; J3490; Q0177; Q9967; J0456; J0610; J0692; J0696; J1100; J1170; J1630; J1644; J1815; J1940; J1956; J2060; J2250; J2270; J2704; J2920; J3010; J3370; J7040; J7050; J7070; U0003